=== PATIENT | female | born 1930 | race African-American/Black ===

== ENCOUNTER → 2017-06-27 | Outpatient (CLI) | payer MEDICARE, OTHER ==
--- NOTE | 2017-06-27 11:43 | WOMENS IMAGING REPORT ---
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 TECHNIQUE: Dual-Energy X-ray Absorptiometry (DEXA) of the AP Spine and Hip. LIMITATIONS: None. FINDINGS: LUMBAR SPINE: The bone mineral density (BMD) measured from L1-L4 in the AP projection correlates with a T-score of 6.0, which is normal as defined by the World Health Organization. HIP: The bone mineral density (BMD) measured in the left hip correlates with a T-score of 0.9, which is no rmal as defined by the World Health Organization. IMPRESSION: 1. LUMBAR SPINE: Normal 2. HIP: Normal COMMENT: The World Health Organization defines low BMD as follows: T-score: Normal: Greater than -1.0 Osteopenia: Between -1.0 and -2.5 Osteoporosis: Less than -2.5 without fractures Established osteoporosis: Less than -2.5 with fractures In general, you may wish to consider: Diagnosis Treatment Follow-up DEXA Normal BMD Prevention 2-3 years Osteopenia Prevention/Therapy 1-2 years Osteoporosis Therapy Yearly TECHNICAL DOCUMENTATION: JOB ID: [id number]- All Rights Reserved
--- NOTE | 2017-06-27 19:11 | WOMENS IMAGING REPORT ---
EXAM DESCRIPTION: 3D SCREENING MAMMO BILAT COMPLETED DATE/TIME: 06/27/2017 10:12 am REASON FOR STUDY: ROUTINE SCREENING; Z12.31 Z12.31 ENCNTR SCREEN MAMMOGRAM FOR MALIGNANT NEOPLASM O F SANNA M81.0 AGE-RELATED OSTEOPOROSIS W/O CURRENT PATHOLOGICAL FRAC COMPARISON: 2009, 2012 TECHNIQUE: Standard craniocaudal and mediolateral oblique views of each breast recorded using digita l acquisition and breast tomosynthesis. LIMITATIONS: None. FINDINGS: Findings present which are benign by mammographic criteria. No suspicious masses, calcifi cations or architectural distortion. Pertinent benign findings: Stable left breast upper outer quadrant intramammary lymph node. Benign s kin calcifications. Read with the assistance of CAD. .[facility] - R2 Cenova Version 1.3 .[facility] Imaging - R2 Cenova Version 1.3 .[facility] - R2 Cenova Version 2.4 .[facility] R2 Cenova Version 2.4 .[facility] - R2 Lumber Sticker Version 9.2 Benign mammographic findings may include one or more of the following: Smooth masses, popcorn/rim/co arse calcifications, asymmetries, post-procedure changes, and lesions with long-standing stability. IMPRESSION: BENIGN MAMMOGRAPHIC FINDINGS. BIRADS 2 BREAST DENSITY: b. There are scattered areas of fibroglandular density. BIRAD: 2 BENIGN FINDING(S) RECOMMENDATION: RECOMMENDATION: ROUTINE SCREENING Please continue yearly bilateral screening tomosynthesis in June 2018 COMMENT: The patient has been notified of the results by letter per MQSA requirements. Additional no tification policies are in place for contacting patient with suspicious or incomplete findings. Quality ID #[id number]: The [employer] recommends an annual screening mammogram for women aged 40 years or over. This facility utilizes a reminder system to ensure that all patients receive reminder letters, and/or direct phone calls for appointments. This includes reminders for routine scr eening mammograms, diagnostic mammograms, or other Breast Imaging Interventions when appropriate. Th is patient will be placed in the appropriate reminder system. The [employer] (ACR) has developed recommendations for screening MRI of the breast s in certain patient populations, to be used in conjunction with mammography. Breast MRI surveillanc e may be appropriate for women with more than 20% lifetime risk of developing breast cancer as deter mined by genetic testing, significant family history of the disease, or history of mantle radiation f or Hodgkins Disease. ACR Practice Guidelines 2008. DBT Technology DBT is a type of tomographic mammography. With conventional mammography, overlapping breast tissue ma y make lesions difficult to detect, even with good compression. DBT uses an x-ray tube that rotates a round the breast, taking images at different angles. These images are then combined to create thin sl ices of the breast that the radiologist can view as a 3D reconstruction. The Hologic unit can perform full-field digital mammograms (2D imaging); or DBT (3D imaging); or both, in a combination mode that quickly performs both the mammogram and the tomosynthesis scan while the breast is still compressed. PQRS 6045F: Fluoroscopic imaging is not utilized for breast tomosynthesis. TECHNICAL DOCUMENTATION: FINDING NUMBER: (1) ASSESSMENT: (1) JOB ID: [id number] [employer]- All Rights Reserved
== END ==
LOC: WI 09:15
PROVIDERS: ATTEND Physician Assistant
DX: Z12.31 Encounter for screening mammogram for malignant neoplasm of breast (principal); M81.0 Age-related osteoporosis without current pathological fracture
CPT/HCPCS: 77063; 77080; G0202; 77067

== ENCOUNTER 2017-12-23 06:57 | Emergency (ER) | payer MEDICARE, OTHER ==
[2017-12-23] MEDS ORDERED: FUROSEMIDE INJ/PF 40 MG/4 ML SDV IV ONE (07:37)
--- NOTE | 2017-12-23 07:43 | ER Document Report ---
ED Respiratory Problem - General Chief Complaint: Shortness Of Breath Stated Complaint: BREATHING DIFFICULTY Time Seen by Provider: 12/23/17 07:12 Mode of Arrival: Wheelchair Information source: Patient Notes: HPI-87 years old female with a history of diabetes hypertension, possible congestive heart failure on Bumex, presents today with 1 week history of exertional shortness of breath, on minimal exertion. For example walking from car to the garage and within the house from room to kitchen. Denies any orthopnea, denies any chest pain palpitation or diaphoresis. Associated with shortness of breath. Denies any fever chills or productive cough. Denies any nausea vomiting. The lower extremity progressively getting bigger with edema. REVIEW OF SYSTEMS: CONSTITUTIONAL : Denies fever, chills, or sweats. Denies recent illness. EENT: Denies eye, ear, throat, or mouth pain or symptoms. Denies nasal or sinus congestion or discharge. Denies throat, tongue, or mouth swelling or difficulty swallowing. CARDIOVASCULAR: Denies chest pain. Denies palpitations or racing or irregular heart beat. Denies ankle edema. RESPIRATORY: Denies cough, cold, or chest congestion. Denies shortness of breath, difficulty breathing, or wheezing. GASTROINTESTINAL: Denies abdominal pain or distention. Denies nausea, vomiting , or diarrhea. Denies blood in vomitus, stools, or per rectum. Denies black, tarry stools. Denies constipation. GENITOURINARY: Denies difficulty urinating, painful urination, burning, frequency, blood in urine, or discharge. FEMALE GENITOURINARY: Denies vaginal bleeding, heavy or abnormal periods, irregular periods. Denies vaginal discharge or odor. MUSCULOSKELETAL: Denies back or neck pain or stiffness. Denies joint pain or swelling. SKIN: Denies rash, lesions or sores. HEMATOLOGIC : Denies easy bruising or bleeding. LYMPHATIC: Denies swollen, enlarged glands. NEUROLOGICAL: Denies confusion or altered mental status. Denies passing out or loss of consciousness. Denies dizziness or lightheadedness. Denies headache. Denies weakness or paralysis or loss of use of either side. Denies problems with gait or speech. Denies sensory loss, numbness, or tingling. Denies seizures. PSYCHIATRIC: Denies anxiety or stress. Denies depression, suicidal ideation, or homicidal ideation. ALL OTHER SYSTEMS REVIEWED AND NEGATIVE. PHYSICAL EXAMINATION: GENERAL: Well-appearing, well-nourished and in no acute distress. Morbidly obese HEAD: Atraumatic, normocephalic. EYES: Pupils equal round and reactive to light, extraocular movements intact, conjunctiva are normal. ENT: Nares patent, oropharynx clear without exudates. Moist mucous membranes. NECK: Normal range of motion, supple without lymphadenopathy LUNGS: Breath sounds clear to auscultation bilaterally and equal. No wheezes rales or rhonchi. HEART: Regular rate and rhythm without murmurs ABDOMEN: Soft, nontender, nondistended abdomen. No guarding, no rebound. No masses appreciated. Female : deferred Musculoskeletal: Normal range of motion, enlarged lower extremity, with 4+ pitting edema over the both lower extremities. Below the knee. No cyanosis. NEUROLOGICAL: Cranial nerves grossly intact. Normal speech, normal gait. Normal sensory, motor exams PSYCH: Normal mood, normal affect. SKIN: Warm, Dry, normal turgor, no rashes or lesions noted. Dictation was performed using [employer] voice recognition software TRAVEL OUTSIDE OF THE [place] IN LAST 30 DAYS: No - HPI Patient complains to provider of: CHF, Short of breath. No: Asthma, Chest pain , COPD, Cough, Hurts to breath, Other Duration: Intermittent episodes Initiating Event: No: Allergy, Aspiration/Choking, Exertion, Exposure to chemicals, Exposure to dust, Exposure to fumes, Exposure to mold, Exposure to smoke, Out of meds, Sports/exercise, URI, Other Quality of pain: denies: No pain, Achy, Burning, Cramping, Dull, Fullness, Pressure, Sharp, Stabbing, Throbbing, Other Context: denies: DVT, Factor V Leiden, Hx asthma, Hx CHF, Hx COPD, Malignancy, , Recent cardiac event, Recent foreign travel, Recent long distance trvl , Recent immobilization, Recent surgery, Smoker, Other - Related Data Allergies/Adverse Reactions: No Known Allergies Allergy (Unverified 04/20/14 11:24) Past Medical History - General Information source: Patient - Social History Smoking Status: Unknown if Ever Smoked Cigarette use (# per day): No Chew tobacco use (# tins/day): No Frequency of alcohol use: None Drug Abuse: None Lives with: Family Family History: Arthritis, CAD, COPD, CVA, DM, Hyperlipidemia, Hypertension Patient has suicidal ideation: No Patient has homicidal ideation: No - Past Medical History Cardiac Medical History: Reports: Hx Hypertension - CONTROLLED Denies: Hx Congestive Heart Failure, Hx Coronary Artery Disease, Hx Heart Attack, Hx Heart Murmur Pulmonary Medical History: Denies: Hx Asthma, Hx Bronchitis, Hx COPD, Hx Pneumonia, Hx Tuberculosis Neurological Medical History: Denies: Hx Cerebrovascular Accident, Hx Seizures Renal/ Medical History: Denies: Hx Peritoneal Dialysis GI Medical History: Denies: Hx Hepatitis, Hx Hiatal Hernia, Hx Ulcer Musculoskeltal Medical History: Reports Hx Arthritis, Denies Hx Muscle Weakness Infectious Medical History: Denies: Hx Hepatitis Past Surgical History: Reports: Hx Hysterectomy. Denies: Hx Mastectomy, Hx Open Heart Surgery, Hx Pacemaker - Immunizations Hx Diphtheria, Pertussis, Tetanus Vaccination: No Review of Systems - Review of Systems Notes: Dictated above Physical Exam - Vital signs Vitals: Pulse Resp BP Pulse Ox 91 19 157/79 H 98 12/23/17 07:09 12/23/17 07:09 12/23/17 07:09 12/23/17 07:09 Course - Re-evaluation Re-evalutation: 12/23/17 09:01 CHF have improved. Patient is comfortable - Vital Signs Vital signs: Temp Pulse Resp BP Pulse Ox 91 17 137/77 H 96 12/23/17 07:09 12/23/17 09:16 12/23/17 09:16 12/23/17 09:16 - Laboratory Result Diagrams: 12/23/17 07:45 12/23/17 07:45 Laboratory results interpreted by me: 12/23/17 12/23/17 07:45 07:45 RDW 14.2 H Carbon Dioxide 31 H BUN 28 H Glucose 212 H - EKG Interpretation by Or EKG shows normal: Sinus rhythm, [place] Rate: Normal Rhythm: NSR [place]/QRS: Right axis deviation When compared to previous EKG there are: No significant change Discharge - Discharge Clinical Impression: CHF NYHA class III (symptoms with mildly strenuous activities) Qualifiers: Congestive heart failure type: systolic Congestive heart failure chronicity: chronic Qualified Code(s): I50.22 - Chronic systolic (congestive) heart failure Condition: Fair Disposition: HOME, SELF-CARE Instructions: Congestive Heart Failure ([facility]), Diet to Decrease Risk of Heart Attack ([facility]) Referrals: REJI LEWIS PA [Primary Care Provider] - Follow up as needed
[2017-12-23 08:03] LABS: ABSOLUTE EOSINOPHILS # (AUTO) 0.2 10^3/uL (0.0-0.6); ABSOLUTE MONOCYTES (AUTO) 0.6 10^3/uL (0.1-1.4); ABSOLUTE NEUT (AUTO) 3.5 10^3/uL (1.7-8.2); BASOPHILS % (AUTO) 0.5 % (0-2); EOSINOPHILS % (AUTO) 3.2 % (0-6); HEMATOCRIT 39.2 % (36.0-47.0); LYMPHOCYTES % (AUTO) 31.5 % (13-45); MEAN CORPUSCULAR HEMOGLOBIN 30.8 pg (27.0-33.4); MEAN CORPUSCULAR HGB CONC 33.2 g/dL (32.0-36.0); MEAN CORPUSCULAR VOLUME 93 fl (80-97); MONOCYTES % (AUTO) 9.2 % (3-13); PLATELET COUNT 180 10^3/uL (150-450); RED BLOOD COUNT 4.22 10^6/uL (3.72-5.28); RED CELL DISTRIBUTION WIDTH 14.2 % (11.5-14.0); SEGMENTED NEUTROPHILS % (AUTO) 55.6 % (42-78); TOTAL CELLS COUNTED % (AUTO) 100 %; WHITE BLOOD COUNT 6.3 10^3/uL (4.0-10.5)
--- NOTE | 2017-12-23 08:15 | RADIOLOGY REPORT (SQ) ---
EXAM DESCRIPTION: CHEST SINGLE VIEW COMPLETED DATE/TIME: 12/23/2017 8:07 am REASON FOR STUDY: Shortness of breath COMPARISON: None. NUMBER OF VIEWS: One view. TECHNIQUE: Single frontal radiographic view of the chest acquired. LIMITATIONS: None. FINDINGS: LUNGS AND PLEURA: No opacities, masses or pneumothorax. No pleural effusion. MEDIASTINUM AND HILAR STRUCTURES: No masses or contour abnormality. HEART AND VASCULATURE: Cardiac enlargement. Vascular congestion. BONES: No acute findings. HARDWARE: None in the chest. OTHER: No other significant finding. IMPRESSION: CARDIAC ENLARGEMENT. VASCULAR CONGESTION. TECHNICAL DOCUMENTATION: JOB ID: [id number] [employer]- All Rights Reserved Reading location - IP/workstation name: [email or web address]
[2017-12-23 08:19] LABS: ALANINE AMINOTRANSFERASE 30 U/L (9-52); ALBUMIN 3.8 g/dL (3.5-5.0); ALKALINE PHOSPHATASE 94 U/L (38-126); ANION GAP 7 (5-19); ASPARTATE AMINO TRANSFERASE 31 U/L (14-36); BILIRUBIN,DIRECT 0.4 mg/dL (0.0-0.4); BILIRUBIN,TOTAL 0.4 mg/dL (0.2-1.3); BLOOD UREA NITROGEN 28 mg/dL (7-20); CALCIUM 9.1 mg/dL (8.4-10.2); CARBON DIOXIDE 31 mmol/L (22-30); CHLORIDE 105 mmol/L (98-107); GLUCOSE 212 mg/dL (75-110); SODIUM 142.6 mmol/L (137-145)
[2017-12-23 09:11] LABS: APPEARANCE,URINE SLIGHTLY-CLOUDY; BILIRUBIN,URINE NEGATIVE (NEGATIVE); COLOR,URINE YELLOW; GLUCOSE, URINE NEGATIVE (NEGATIVE); KETONES,URINE NEGATIVE (NEGATIVE); LEUKOCYTE ESTERASE,URINE NEGATIVE (NEGATIVE); NITRITE,URINE NEGATIVE (NEGATIVE); PROTEIN,URINE NEGATIVE (NEGATIVE); URINE SPECIFIC GRAVITY 1.013; UROBILINOGEN,URINE NEGATIVE mg/dL (<2.0)
[2017-12-23 09:19] VITALS: BP 137/77
--- NOTE | 2017-12-23 16:24 | EKG REPORT ---
SEVERITY:- ABNORMAL ECG - SINUS RHYTHM LEFT ANTERIOR FASCICULAR BLOCK CONSIDER ANTEROSEPTAL INFARCT NONSPECIFIC T ABNORMALITIES, LATERAL LEADS BORDERLINE PROLONGED QT INTERVAL : Confirmed by: Oneyda Richard 23-Dec-2017 16:23:17
== END 2017-12-23 09:33 | disposition home or self-care (01) ==
LOC: ER 06:57
DX: I11.0 Hypertensive heart disease with heart failure (principal); I50.22 Chronic systolic (congestive) heart failure; R06.02 Shortness of breath; E11.9 Type 2 diabetes mellitus without complications; R60.0 Localized edema; Z79.899 Other long term (current) drug therapy; E66.01 Morbid (severe) obesity due to excess calories; Z68.41 Body mass index [BMI] 40.0-44.9, adult
CPT/HCPCS: 93005; 99285; 96374; 36415; 85025; 80053; 81001; 84484; 83880; 71045; 93010; J1940

== ENCOUNTER → 2017-12-27 | Outpatient (CLI) | payer MEDICARE, OTHER ==
--- NOTE | 2017-12-27 19:19 | XCELERA REPORT ---
[address] [address] Transthoracic Echocardiogram Report Name: KODY REDNON Age: 87 yrs Gender: Female : 1930 Patient Status: Outpatient Patient Location: Study Date: 12/27/2017 02:24 PM Height: 63 in Weight: 230 lb BSA: 2.1 m2 Reason For Study: EDEMA Ordering Physician: REJI LEWIS Performed By: Daisy Barrios Interpretation Summary No signif pericardial effusion Ao root calcified, not dilated. AV is sclerotic with no , trace AR with no LV enlargement. Mild mitral annular calcificatin, No MVP/MS, trace MR with no LA enlargement. No LVH, normal LVEF 55% with no LV diastolic dysfunction, no obvious regional wall motion seen, although endocardial definiition is poor. No LA dialtation. No RV enlargement RVSP is 50mm Hg, RAP 3 mm Hg MMode/2D Measurements & Calculations RVDd: 3.0 cm LVIDd: 5.1 cm FS: 29.1 % Ao root diam: 3.2 cm IVSd: 1.0 cm LVIDs: 3.6 cm EDV(Teich): 125.1 ml LVPWd: 1.0 cm ESV(Teich): 55.5 ml Ao root area: 8.0 cm2 EF(Teich): 55.6 % LA dimension: 3.3 cm Doppler Measurements & Calculations MV E max keiry: MV P1/2t max keiry: Ao V2 max: AI max keiry: 76.7 cm/sec 76.4 cm/sec 148.0 cm/sec 365.5 cm/sec MV A max keiry: MV P1/2t: 66.0 msec Ao max PG: AI max P.4 cm/sec 8.8 mmHg 53.4 mmHg MV E/A: 0.97 MVA(P1/2t): 3.3 cm2 AI dec slope: MV dec slope: 339.0 cm/sec2 180.1 cm/sec2 MV dec time: AI P1/2t: 0.20 sec 594.4 msec LV V1 max PG: PA V2 max: PI end-d keiry: TR max keiry: 5.9 mmHg 69.6 cm/sec 85.5 cm/sec 342.1 cm/sec LV V1 max: PA max P.9 mmHg TR max P.4 cm/sec 46.8 mmHg I WMSI = 1.00 % Normal = 100 Segments Size X - Cannot 2 - 4 - 1-2 small Interpret 1 - Normal Hypokinetic 3 - AkineticDyskinetic 3-5 moderate 5 - 6-14 large Aneurysmal 15-16 diffuse : REJI LEWIS > Zac Lugo
== END ==
LOC: SP 13:59
PROVIDERS: ATTEND Physician Assistant
DX: R60.0 Localized edema (principal)
CPT/HCPCS: 93306

== ENCOUNTER → 2018-01-22 | Outpatient (CLI) | payer MEDICARE, OTHER ==
[2018-01-22 18:35] LABS: ABSOLUTE BASOPHILS # (AUTO) 0.1 10^3/uL (0.0-0.2); ABSOLUTE EOSINOPHILS # (AUTO) 0.1 10^3/uL (0.0-0.6); ABSOLUTE LYMPHOCYTES (AUTO) 1.6 10^3/uL (0.5-4.7); ABSOLUTE MONOCYTES (AUTO) 0.5 10^3/uL (0.1-1.4); ABSOLUTE NEUT (AUTO) 3.8 10^3/uL (1.7-8.2); BASOPHILS % (AUTO) 0.8 % (0-2); EOSINOPHILS % (AUTO) 2.4 % (0-6); HEMATOCRIT 39.5 % (36.0-47.0); HEMOGLOBIN 13.1 g/dL (12.0-15.5); LYMPHOCYTES % (AUTO) 26.2 % (13-45); MEAN CORPUSCULAR HEMOGLOBIN 30.7 pg (27.0-33.4); MEAN CORPUSCULAR HGB CONC 33.2 g/dL (32.0-36.0); MEAN CORPUSCULAR VOLUME 93 fl (80-97); MONOCYTES % (AUTO) 8.4 % (3-13); PLATELET COUNT 175 10^3/uL (150-450); RED BLOOD COUNT 4.27 10^6/uL (3.72-5.28); RED CELL DISTRIBUTION WIDTH 14.1 % (11.5-14.0); SEGMENTED NEUTROPHILS % (AUTO) 62.2 % (42-78); TOTAL CELLS COUNTED % (AUTO) 100 %; WHITE BLOOD COUNT 6.1 10^3/uL (4.0-10.5)
[2018-01-22 18:44] LABS: ALANINE AMINOTRANSFERASE 22 U/L (9-52); ALBUMIN 3.9 g/dL (3.5-5.0); ALKALINE PHOSPHATASE 108 U/L (38-126); ANION GAP 10 (5-19); ASPARTATE AMINO TRANSFERASE 18 U/L (14-36); BILIRUBIN,DIRECT 0.4 mg/dL (0.0-0.4); BILIRUBIN,TOTAL 0.5 mg/dL (0.2-1.3); BLOOD UREA NITROGEN 17 mg/dL (7-20); CALCIUM 9.5 mg/dL (8.4-10.2); CARBON DIOXIDE 36 mmol/L (22-30); CHLORIDE 98 mmol/L (98-107); CREATINE KINASE 62 U/L (30-135); GLUCOSE 224 mg/dL (75-110); POTASSIUM 3.8 mmol/L (3.6-5.0); SODIUM 143.8 mmol/L (137-145)
[2018-01-22 19:05] LABS: CREATINE KINASE MB 1.17 ng/mL (<4.55)
[2018-01-22 19:10] LABS: TROPONIN I < 0.012 ng/mL
== END ==
LOC: OD 16:47
PROVIDERS: ATTEND Physician Assistant
DX: R10.84 Generalized abdominal pain (principal)
CPT/HCPCS: 36415; 80053; 82550; 82553; 84484; 85025

== ENCOUNTER → 2018-02-13 | Outpatient (CLI) | payer MEDICARE, OTHER ==
--- NOTE | 2018-02-13 11:02 | RADIOLOGY REPORT (SQ) ---
EXAM DESCRIPTION: U/S ABDOMEN COMPLETE W/DOPPLER COMPLETED DATE/TIME: 02/13/2018 10:32 am REASON FOR STUDY: GENERALIZED ABD PAIN (R10.84) R10.84 GENERALIZED ABDOMINAL PAIN COMPARISON: None. TECHNIQUE: Dynamic and static grayscale images acquired of the abdomen and recorded on PACS. Additio nal selected color Doppler and spectral images recorded. LIMITATIONS: None. FINDINGS: PANCREAS: No masses. Visualized pancreatic duct normal caliber. LIVER: Enlarged at almost 20 cm. Generally normal parenchyma without evidence of mass or duct dilata tion. LIVER VASCULATURE: Normal directional flow of the main portal vein and hepatic veins. GALLBLADDER: Echogenic shadowing gallstones are noted. No wall thickening or pericholecystic fluid. ULTRASOUND-DETECTED GREEN'S SIGN: Negative. INTRAHEPATIC DUCTS AND COMMON DUCT: CBD and intrahepatic ducts normal caliber. No filling defects. INFERIOR VENA CAVA: Normal flow. AORTA: No aneurysm. RIGHT KIDNEY:Normal size. Normal echogenicity. No solid or suspicious masses. No hydronephrosis. No c alcifications. LEFT KIDNEY: Normal size. Normal echogenicity. No solid or suspicious masses. No hydronephrosis. No calcifications. SPLEEN: Normal size. No solid masses. PERITONEAL AND PLEURAL SPACES: No ascites or effusions. OTHER: No other significant finding. IMPRESSION: 1. Hepatomegaly. 2. Cholelithiasis. TECHNICAL DOCUMENTATION: JOB ID: [id number] [employer]- All Rights Reserved Reading location - IP/workstation name: [email or web address]
== END ==
LOC: RAD 09:50
PROVIDERS: ATTEND Physician Assistant
DX: K80.20 Calculus of gallbladder without cholecystitis without obstruction (principal); R10.84 Generalized abdominal pain; R16.0 Hepatomegaly, not elsewhere classified
CPT/HCPCS: 76700; 93976

== ENCOUNTER 2018-10-22 22:29 | Inpatient (IN) | payer MEDICARE, OTHER ==
--- NOTE | 2018-10-22 23:07 | RADIOLOGY REPORT (SQ) ---
EXAM DESCRIPTION: XR FEMUR 2 VIEWS COMPLETED DATE/TME: 10/22/2018 22:31 CLINICAL HISTORY: 87 years, Female, FALL COMPARISON: None. NUMBER OF VIEWS: 5 TECHNIQUE: 5 views right femur LIMITATIONS: None. FINDINGS: Osteopenia. Degenerative changes of the right hip. Postsurgical change of the right knee. Comminuted, displaced distal femoral diaphyseal/metadiaphyseal fracture deformity with displaced fracture fragments and overriding fracture fragments. No definitive involvement of the knee prosthesis. Associated soft tissue swelling. Vascular calcifications. IMPRESSION: Comminuted, displaced distal femur fracture, as above copyright 2010 [employer]- All Rights Reserved
[2018-10-22] MEDS ORDERED: FENTANYL CITRATE INJ/PF 100 MCG/2 ML AMPUL IV ONE (23:09)
--- NOTE | 2018-10-22 23:09 | ER Document Report ---
ED General - General Chief Complaint: Leg Injury Stated Complaint: FALL Time Seen by Provider: 10/22/18 22:45 Mode of Arrival: Medic Information source: Patient, Relative, Emergency Med Personnel Notes: 87-year-old female with hypertension, type 2 diabetes presents via EMS after a trip and fall at home. Patient states that she was walking at home with her walker when she went to turn her body causing her to stumble, tripped and landed on her right side. Patient denies loss of consciousness, head injury, neck pain. She denies any preceding chest pain, shortness of breath, dizziness. P atfarzad does have bilateral knee replacements. Patient currently complaining of right thigh pain. TRAVEL OUTSIDE OF THE [place] IN LAST 30 DAYS: No - HPI Onset: Just prior to arrival Onset/Duration: Sudden Quality of pain: Throbbing Severity: Moderate Associated symptoms: denies: Chest pain, Nonproductive cough, Productive cough, Headache, Nausea, Vomiting, Shortness of breath Exacerbated by: Movement Relieved by: Denies Similar symptoms previously: No Recently seen / treated by doctor: No - Related Data Allergies/Adverse Reactions: No Known Allergies Allergy (Unverified 04/20/14 11:24) Past Medical History - General Information source: Patient - Social History Smoking Status: Never Smoker Frequency of alcohol use: None Drug Abuse: None Lives with: Family Family History: Arthritis, CAD, COPD, CVA, DM, Hyperlipidemia, Hypertension - Past Medical History Cardiac Medical History: Reports: Hx Hypertension - CONTROLLED Denies: Hx Congestive Heart Failure, Hx Coronary Artery Disease, Hx Heart Attack, Hx Heart Murmur Pulmonary Medical History: Denies: Hx Asthma, Hx Bronchitis, Hx COPD, Hx Pneumonia, Hx Tuberculosis Neurological Medical History: Denies: Hx Cerebrovascular Accident, Hx Seizures Renal/ Medical History: Denies: Hx Peritoneal Dialysis GI Medical History: Denies: Hx Hepatitis, Hx Hiatal Hernia, Hx Ulcer Musculoskeletal Medical History: Reports Hx Arthritis, Denies Hx Muscle Weakness Infectious Medical History: Denies: Hx Hepatitis Past Surgical History: Reports: Hx Hysterectomy, Hx Orthopedic Surgery - bilat knee replacement. Denies: Hx Mastectomy, Hx Open Heart Surgery, Hx Pacemaker - Immunizations Hx Diphtheria, Pertussis, Tetanus Vaccination: No Review of Systems - Review of Systems Notes: REVIEW OF SYSTEMS: CONSTITUTIONAL : Denies fever, chills, or sweats. Denies recent illness. Denies weight loss, recent hospitalizations. EENT: Denies visual changes, eye pain. Denies sore throat, oral lesions, difficulty swallowing. CARDIOVASCULAR: Denies chest pain. Denies palpitations. Denies lower extremity edema. RESPIRATORY: Denies cough. Denies shortness of breath, wheezing. GASTROINTESTINAL: Denies abdominal pain or distention. Denies nausea, vomiting, or diarrhea. Denies blood in vomitus, stools, or per rectum. Denies black, tarry stools. Denies constipation. GENITOURINARY: Denies difficulty urinating, painful urination, frequency, blood in urine, or vaginal discharge. MUSCULOSKELETAL: Denies back or neck pain or stiffness. SKIN: Denies rash, lesions or sores. HEMATOLOGIC : Denies easy bruising or bleeding. LYMPHATIC: Denies swollen glands. NEUROLOGICAL: Denies confusion or altered mental status. Denies loss of consciousness. Denies dizziness or lightheadedness. Denies headache. Denies weakness or paralysis. Denies problems difficulty with ambulation, slurred speech. Denies sensory loss, numbness, or tingling. Denies seizures. PSYCHIATRIC: Denies anxiety or stress. Denies depression, suicidal ideation, or homicidal ideation. Denies visual or auditory hallucinations. Physical Exam - Vital signs Vitals: Resp Pulse Ox 16 96 10/22/18 22:59 10/22/18 22:59 - Notes Notes: PHYSICAL EXAMINATION: GENERAL: Well-appearing, well-nourished and in mild distress. GCS 15 HEAD: Atraumatic, normocephalic. EYES: Pupils equal round and reactive to light, extraocular movements intact, sclera anicteric, conjunctiva are normal. ENT: Nares patent, oropharynx clear without exudates. Moist mucous membranes. No hemanotympanum . No blood in nares. No dental fracture NECK: Normal range of motion, supple without lymphadenopathy. Trachea midline LUNGS: Breath sounds clear to auscultation bilaterally and equal. No wheezes rales or rhonchi. HEART: Regular rate and rhythm without murmurs. Pulses intact all throughout. ABDOMEN: Soft, nontender, nondistended abdomen. No guarding, no rebound. No masses appreciated. Musculoskeletal: Right lower extremity is externally rotated. No obvious deformity. Patient unable to move the right lower extremity. She is able to wiggle her toes. DP, PT pulse intact. Cap refill less than 3 seconds. NEUROLOGICAL: Cranial nerves grossly intact. Normal speech Normal sensory, motor, and reflex exams. PSYCH: Normal mood, normal affect. SKIN: Warm, No active bleeding Course - Re-evaluation Re-evalutation: Laboratory 10/22/18 10/22/18 10/22/18 23:02 23:02 23:02 WBC 6.0 RBC 4.38 Hgb 13.5 Hct 40.8 MCV 93 MCH 30.9 MCHC 33.2 RDW 14.9 H Plt Count 166 Seg Neutrophils % 60.9 Lymphocytes % 26.2 Monocytes % 9.7 Eosinophils % 2.8 Basophils % 0.4 Absolute Neutrophils 3.7 Absolute Lymphocytes 1.6 Absolute Monocytes 0.6 Absolute Eosinophils 0.2 Absolute Basophils 0.0 PT 12.7 INR 0.91 APTT 31.2 Sodium 140.6 Potassium 3.9 Chloride 100 Carbon Dioxide 35 H Anion Gap 6 BUN 18 Creatinine 0.81 Est GFR ( Amer) > 60 Est GFR (Non-Af Amer) > 60 Glucose 164 H Calcium 9.2 Urine Color Urine Appearance Urine pH Ur Specific [place] Urine Protein Urine Glucose (UA) Urine Ketones Urine Blood Urine Nitrite Urine Bilirubin Urine Urobilinogen Ur Leukocyte Esterase Urine WBC (Auto) Urine RBC (Auto) Urine Bacteria (Auto) Squamous Epi Cells Auto Urine Mucus (Auto) Urine Ascorbic Acid 10/22/18 23:20 WBC RBC Hgb Hct MCV MCH MCHC RDW Plt Count Seg Neutrophils % Lymphocytes % Monocytes % Eosinophils % Basophils % Absolute Neutrophils Absolute Lymphocytes Absolute Monocytes Absolute Eosinophils Absolute Basophils PT INR APTT Sodium Potassium Chloride Carbon Dioxide Anion Gap BUN Creatinine Est GFR ( Amer) Est GFR (Non-Af Amer) Glucose Calcium Urine Color YELLOW Urine Appearance SLIGHTLY-CLOUDY Urine pH 7.0 Ur Specific [place] 1.011 Urine Protein NEGATIVE Urine Glucose (UA) NEGATIVE Urine Ketones NEGATIVE Urine Blood SMALL H Urine Nitrite POSITIVE H Urine Bilirubin NEGATIVE Urine Urobilinogen NEGATIVE Ur Leukocyte Esterase SMALL H Urine WBC (Auto) 18 Urine RBC (Auto) 14 Urine Bacteria (Auto) 2+ Squamous Epi Cells Auto <1 Urine Mucus (Auto) RARE Urine Ascorbic Acid NEGATIVE Chest X-Ray 10/22/18 00:00 IMPRESSION: Cardiomegaly. Lungs are clear copyright 2011 [employer]- All Rights Reserved Femur X-Ray 10/22/18 22:31 IMPRESSION: Comminuted, displaced distal femur fracture, as above copyright 2010 [employer]- All Rights Reserved Temp Pulse Resp BP Pulse Ox 13 172/78 H 93 10/22/18 23:18 10/22/18 23:18 10/22/18 23:18 87-year-old female presents after a trip and fall at home. Vital signs reviewed and stable. Patient complaining of right lower extremity pain. Patient denies head injury, loss of consciousness. Exam is significant for an externally rotated right lower extremity, no obvious deformity. Pulses intact, patient able to wiggle her toes, compartments are soft. 10/22/18 23:[address] le orthopedic on-call who recommends a long leg splint. Does not recommend traction at this time. Patient will be admitted by Dr. Galdamez. Orthopedic consult placed. CBC, CMP are unremarkable. Urinalysis consistent with urinary tract infection. Patient will be admitted to the medical floor by Dr. Galdamez. 10/23/18 03:44 - Vital Signs Vital signs: Temp Pulse Resp BP Pulse Ox 97.4 F 75 18 160/84 H 94 10/23/18 02:25 10/23/18 02:25 10/23/18 02:25 10/23/18 02:25 10/23/18 02:25 - Laboratory Result Diagrams: 10/22/18 23:02 10/22/18 23:02 Laboratory results interpreted by me: 10/22/18 10/22/18 10/22/18 23:02 23:02 23:20 RDW 14.9 H Carbon Dioxide 35 H Glucose 164 H Urine Blood SMALL H Urine Nitrite POSITIVE H Ur Leukocyte Esterase SMALL H - Diagnostic Test Radiology reviewed: Image reviewed, Reports reviewed Procedures - Immobilization Right Leg Time completed: 03:46 Pre-Proc Neuro Vasc Exam: Normal Immobilizer type: Long leg posterior Performed by: PCT Post-Proc Neuro Vasc Exam: Normal Discharge - Discharge Clinical Impression: Elevated blood pressure reading Femoral distal fracture Qualifiers: Encounter type: initial encounter Fracture type: closed Fracture morphology: unspecified fracture morphology Laterality: right Qualified Code(s): S72.401A - Unspecified fracture of lower end of right femur, initial encounter for closed fracture Fall Qualifiers: Encounter type: initial encounter Qualified Code(s): W19.XXXA - Unspecified fall, initial encounter UTI (urinary tract infection) Qualifiers: Urinary tract infection type: site unspecified Hematuria presence: with hematuria Qualified Code(s): N39.0 - Urinary tract infection, site not specified; R31.9 - Hematuria, unspecified Condition: Good Disposition: ADMITTED INPATIENT Admitting Provider: Galdamez Unit Admitted: Medical Floor
--- NOTE | 2018-10-22 23:12 | RADIOLOGY REPORT (SQ) ---
EXAM DESCRIPTION: XR CHEST 1 VIEW COMPLETED DATE/TME: 10/22/2018 00:00 CLINICAL HISTORY: 87 years, Female, FALL COMPARISON: 12/23/2017 chest NUMBER OF VIEWS: 1 TECHNIQUE: Portable chest LIMITATIONS: None. FINDINGS: Cardiomegaly. Ectasia thoracic aorta. Mild elevation right hemidiaphragm. Lungs are clear. No pneumothorax IMPRESSION: Cardiomegaly. Lungs are clear copyright 2011 [employer]- All Rights Reserved
[2018-10-22 23:20] LABS: ABSOLUTE EOSINOPHILS # (AUTO) 0.2 10^3/uL (0.0-0.6); ABSOLUTE LYMPHOCYTES (AUTO) 1.6 10^3/uL (0.5-4.7); ABSOLUTE MONOCYTES (AUTO) 0.6 10^3/uL (0.1-1.4); ABSOLUTE NEUT (AUTO) 3.7 10^3/uL (1.7-8.2); BASOPHILS % (AUTO) 0.4 % (0-2); EOSINOPHILS % (AUTO) 2.8 % (0-6); HEMATOCRIT 40.8 % (36.0-47.0); HEMOGLOBIN 13.5 g/dL (12.0-15.5); LYMPHOCYTES % (AUTO) 26.2 % (13-45); MEAN CORPUSCULAR HEMOGLOBIN 30.9 pg (27.0-33.4); MEAN CORPUSCULAR HGB CONC 33.2 g/dL (32.0-36.0); MEAN CORPUSCULAR VOLUME 93 fl (80-97); MONOCYTES % (AUTO) 9.7 % (3-13); PLATELET COUNT 166 10^3/uL (150-450); RED BLOOD COUNT 4.38 10^6/uL (3.72-5.28); RED CELL DISTRIBUTION WIDTH 14.9 % (11.5-14.0); SEGMENTED NEUTROPHILS % (AUTO) 60.9 % (42-78); TOTAL CELLS COUNTED % (AUTO) 100 %
[2018-10-22 23:26] LABS: INTERNATIONAL RATION (INR) 0.91; PROTHROMBIN TIME 12.7 SEC (11.4-15.4)
[2018-10-22 23:27] LABS: PARTIAL THROMBOPLASTIN TIME 31.2 SEC (23.5-35.8)
[2018-10-22 23:39] LABS: ANION GAP 6 (5-19); BLOOD UREA NITROGEN 18 mg/dL (7-20); CALCIUM 9.2 mg/dL (8.4-10.2); CARBON DIOXIDE 35 mmol/L (22-30); CHLORIDE 100 mmol/L (98-107); GLUCOSE 164 mg/dL (75-110); POTASSIUM 3.9 mmol/L (3.6-5.0); SODIUM 140.6 mmol/L (137-145)
[2018-10-22 23:40] LABS: APPEARANCE,URINE SLIGHTLY-CLOUDY; BILIRUBIN,URINE NEGATIVE (NEGATIVE); COLOR,URINE YELLOW; GLUCOSE, URINE NEGATIVE (NEGATIVE); KETONES,URINE NEGATIVE (NEGATIVE); LEUKOCYTE ESTERASE,URINE SMALL (NEGATIVE); NITRITE,URINE POSITIVE (NEGATIVE); PROTEIN,URINE NEGATIVE (NEGATIVE); URINE SPECIFIC GRAVITY 1.011; UROBILINOGEN,URINE NEGATIVE mg/dL (<2.0)
[2018-10-22] MEDS ORDERED: ACETAMINOPHEN 325 MG TABLET PO PRN (23:51)
[2018-10-22] MEDS ORDERED: DEXTROSE 40% GEL 15 GM TUBE PO PRN ×2 (23:55)
[2018-10-22] MEDS ORDERED: GLUCAGON,HUMAN RECOMB 1 MG INJ IM PRN (23:55)
[2018-10-22] MEDS ORDERED: DEXTROSE 50%-WATER 25 GM/50 ML DISP.SYRIN IV PRN ×2 (23:55)
[2018-10-23] MEDS ORDERED: HYDROMORPHONE HCL INJ/PF 2 MG/ML AMPULE IV ONE (00:02)
[2018-10-23] MEDS ORDERED: CEFTRIAXONE 1 GM/D5W RTU 1 GM/50 ML RTUPB IV ONE (01:00)
[2018-10-23] MEDS: OXYCODONE-ACETAMINOPHEN 5-325 MG TABLET PO PRN ×3 (03:15→22:37)
[2018-10-23 05:37] LABS: ABSOLUTE EOSINOPHILS # (AUTO) 0.1 10^3/uL (0.0-0.6); ABSOLUTE LYMPHOCYTES (AUTO) 1.3 10^3/uL (0.5-4.7); ABSOLUTE MONOCYTES (AUTO) 0.6 10^3/uL (0.1-1.4); ABSOLUTE NEUT (AUTO) 5.7 10^3/uL (1.7-8.2); BASOPHILS % (AUTO) 0.4 % (0-2); HEMATOCRIT 37.5 % (36.0-47.0); HEMOGLOBIN 12.4 g/dL (12.0-15.5); LYMPHOCYTES % (AUTO) 16.9 % (13-45); MEAN CORPUSCULAR HEMOGLOBIN 30.8 pg (27.0-33.4); MEAN CORPUSCULAR HGB CONC 33.1 g/dL (32.0-36.0); MEAN CORPUSCULAR VOLUME 93 fl (80-97); MONOCYTES % (AUTO) 7.5 % (3-13); PLATELET COUNT 141 10^3/uL (150-450); RED BLOOD COUNT 4.03 10^6/uL (3.72-5.28); RED CELL DISTRIBUTION WIDTH 14.8 % (11.5-14.0); SEGMENTED NEUTROPHILS % (AUTO) 74.2 % (42-78); TOTAL CELLS COUNTED % (AUTO) 100 %; WHITE BLOOD COUNT 7.7 10^3/uL (4.0-10.5)
[2018-10-23 05:56] LABS: ANION GAP 8 (5-19); BLOOD UREA NITROGEN 18 mg/dL (7-20); CALCIUM 8.6 mg/dL (8.4-10.2); CARBON DIOXIDE 30 mmol/L (22-30); CHLORIDE 100 mmol/L (98-107); GLUCOSE 333 mg/dL (75-110); POTASSIUM 3.9 mmol/L (3.6-5.0); SODIUM 137.6 mmol/L (137-145)
--- NOTE | 2018-10-23 07:22 | PDOC CONSULTATION ---
Consultation Consult Date: 10/23/18 Consult reason:: Periprosthetic right distal femur fracture History of Present Illness Admission Date/PCP: 10/22/18 23:58 OSIEL WOODS MD History of Present Illness: KODY RENDON is a 87 year old female Patient is an 87-year-old black female known to me from outpatient clinic visits who presented to the emergency room status post a fall and was diagnosed with a right distal femoral periprosthetic fracture. She is admitted to Dr. Woods and orthopedics is consulted for fracture management. Past Medical History Cardiac Medical History: Reports: Hypertension - CONTROLLED Denies: Congestive Heart Failure, Coronary Artery Disease, Myocardial Infarction, Heart Murmur Pulmonary Medical History: Denies: Asthma, Bronchitis, Chronic Obstructive Pulmonary Disease (COPD), Pneumonia, Tuberculosis Neurological Medical History: Denies: Seizures Endocrine Medical History: Reports: Diabetes Mellitus Type 2 GI Medical History: Denies: Hepatitis, Hiatal Hernia Musculoskeltal Medical History: Reports: Arthritis Hematology: Denies: Anemia, Hemophilia, Sickle Cell Disease Past Surgical History Past Surgical History: Reports: Hysterectomy, Orthopedic Surgery - bilat knee replacement Denies: Amputation, Mastectomy, Pacemaker Social History Information Source: Patient, Relative, Dr. Winter, [facility] Records Lives with: Family Smoking Status: Never Smoker Number of Years Smokin Last Time Smoked: 1950s Frequency of Alcohol Use: None Hx Recreational Drug Use: No Drugs: None Hx Prescription Drug Abuse: No - Advance Directive Resuscitation Status: Full Code Family History Family History: Arthritis, CAD, COPD, CVA, DM, Hyperlipidemia, Hypertension Parental Family History Reviewed: No Children Family History Reviewed: No Sibling(s) Family History Reviewed.: No Medication/Allergy Home Medications: Alprazolam [Xanax 0.5 Mg Tablet] 0.5 mg PO BID 06/20/12 Aspirin [Ecotrin 81 mg EC Tablet] 81 mg PO DAILY 06/20/12 Clonidine HCl 0.1 mg PO BID 06/20/12 Insulin Aspart Protam & Aspart [Novolog Mix 70-30 Vial] 25 unit SQ BID 06/20/12 Lisinopril 40 mg PO DAILY 06/20/12 Metoprolol Succinate [Toprol XL 100 mg Tablet] 100 mg PO DAILY 06/20/12 Nifedipine [Procardia XL 60 mg Tablet] 60 mg PO DAILY 06/20/12 Beta-Carotene(A)-Vits C,E/Mins [Vision Vitamins Tablet] 1 tab PO DAILY 04/20/14 Oxycodone HCl 5 mg PO Q6H 04/20/14 Gabapentin [Neurontin 100 mg Capsule] 1 tab PO DAILY 10/23/18 Triamterene/Hydrochlorothiazid [Maxzide-25 Tablet] 1 tab PO DAILY 10/23/18 Allergies/Adverse Reactions: levofloxacin [From Levaquin] Allergy (Verified 10/23/18 04:02) Fever nitrofurantoin Allergy (Verified 10/23/18 04:02) Fever Review of Systems All systems: as per H Physical Exam Vital Signs: Temp Pulse Resp BP Pulse Ox 36.6 C 77 18 142/67 H 93 10/23/18 04:42 10/23/18 04:42 10/23/18 04:42 10/23/18 04:42 10/23/18 04:42 Intake & Output 10/22/18 10/23/18 10/24/18 06:59 06:59 06:59 Intake Total 50 Output Total 500 Balance -450 Weight 121 kg Physical Exam: The patient is an overweight to obese elderly black female lying in a hospital bed. She is accompanied by her daughter. The patient is in minor discomfort. She is alert oriented and appropriate. General appearance: PRESENT: mild distress, obese, well-nourished Head exam: PRESENT: normocephalic Respiratory exam: PRESENT: unlabored Cardiovascular exam: PRESENT: RRR Pulses: PRESENT: +1 pedal pulses bilateral Vascular exam: PRESENT: normal capillary refill GI/Abdominal exam: PRESENT: soft Rectal exam: PRESENT: deferred Extremities exam: PRESENT: other - Right lower extremity is immobilized in a posterior splint. Its externally rotated. There is brisk capillary refill to the digits. The patient is able to wiggle her great toe. Neurological exam: PRESENT: alert, awake, oriented to person, oriented to place, oriented to time, oriented to situation. ABSENT: motor sensory deficit Psychiatric exam: PRESENT: appropriate affect, normal mood. ABSENT: homicidal ideation, suicidal ideation Skin exam: PRESENT: dry, intact, warm. ABSENT: cyanosis, rash Results Laboratory Results: 10/23/18 05:01 10/23/18 05:01 10/22/18 10/22/18 10/22/18 23:02 23:02 23:02 WBC 6.0 RBC 4.38 Hgb 13.5 Hct 40.8 MCV 93 MCH 30.9 MCHC 33.2 RDW 14.9 H Plt Count 166 Seg Neutrophils % 60.9 Lymphocytes % 26.2 Monocytes % 9.7 Eosinophils % 2.8 Basophils % 0.4 Absolute Neutrophils 3.7 Absolute Lymphocytes 1.6 Absolute Monocytes 0.6 Absolute Eosinophils 0.2 Absolute Basophils 0.0 Sodium 140.6 Potassium 3.9 Chloride 100 Carbon Dioxide 35 H Anion Gap 6 BUN 18 Creatinine 0.81 Est GFR ( Amer) > 60 Est GFR (Non-Af Amer) > 60 Glucose 164 H Calcium 9.2 Magnesium Urine Color Urine Appearance Urine pH Ur Specific [place] Urine Protein Urine Glucose (UA) Urine Ketones Urine Blood Urine Nitrite Ur Leukocyte Esterase Urine WBC (Auto) Urine RBC (Auto) Blood Type AB POSITIVE Antibody Screen NEGATIVE 10/22/18 10/23/18 10/23/18 23:20 05:01 05:01 WBC 7.7 RBC 4.03 Hgb 12.4 Hct 37.5 MCV 93 MCH 30.8 MCHC 33.1 RDW 14.8 H Plt Count 141 L Seg Neutrophils % 74.2 Lymphocytes % 16.9 Monocytes % 7.5 Eosinophils % 1.0 Basophils % 0.4 Absolute Neutrophils 5.7 Absolute Lymphocytes 1.3 Absolute Monocytes 0.6 Absolute Eosinophils 0.1 Absolute Basophils 0.0 Sodium 137.6 Potassium 3.9 Chloride 100 Carbon Dioxide 30 Anion Gap 8 BUN 18 Creatinine 0.73 Est GFR ( Amer) > 60 Est GFR (Non-Af Amer) > 60 Glucose 333 H Calcium 8.6 Magnesium 1.9 Urine Color YELLOW Urine Appearance SLIGHTLY-CLOUDY Urine pH 7.0 Ur Specific [place] 1.011 Urine Protein NEGATIVE Urine Glucose (UA) NEGATIVE Urine Ketones NEGATIVE Urine Blood SMALL H Urine Nitrite POSITIVE H Ur Leukocyte Esterase SMALL H Urine WBC (Auto) 18 Urine RBC (Auto) 14 Blood Type Antibody Screen Impressions: Chest X-Ray 10/22/18 00:00 IMPRESSION: Cardiomegaly. Lungs are clear copyright 2010 [employer]- All Rights Reserved Femur X-Ray 10/22/18 22:31 IMPRESSION: Comminuted, displaced distal femur fracture, as above copyright 2010 [employer]- All Rights Reserved Status: Imported from PACS Assessment & Plan - Diagnosis (1) Femoral distal fracture Qualifiers: Encounter type: initial encounter Fracture type: closed Fracture morphology: unspecified fracture morphology Laterality: right Qualified Code(s): S72.401A - Unspecified fracture of lower end of right femur, initial encounter for closed fracture Is this a current diagnosis for this admission?: Yes Plan: 87-year-old black female with a right distal femoral periprosthetic fracture. Patient be best served with an open reduction internal fixation. This be in the form of a retrograde femoral nail. The operation take approximate 45 minutes and the associate with minimal blood loss in the sense that it can be done under tourniquet. This is discussed with the patient's daughter in detail. (2) UTI (urinary tract infection) Qualifiers: Urinary tract infection type: site unspecified Hematuria presence: with hematuria Qualified Code(s): N39.0 - Urinary tract infection, site not specified; R31.9 - Hematuria, unspecified Is this a current diagnosis for this admission?: Yes Plan: Patient has a urinary tract infection on the basis of urinalysis. Patient's received Rocephin empirically and cultures are pending. - Time Time Spent: 50 to 70 Minutes Anticipated discharge: SNF Within: Other
[2018-10-23] MEDS ORDERED: BETA CAROTENE VITS C E PO SCH ×2 (09:00→10:00)
[2018-10-23] MEDS ORDERED: MINS PO SCH ×2 (09:00→10:00)
[2018-10-23] MEDS ORDERED: ENOXAPARIN SODIUM INJ 40 MG/0.4 ML DISP.SYRIN SUBCUT SCH (10:00)
[2018-10-23] MEDS ORDERED: ASPIRIN 81 MG TABLET, ENT COATED PO SCH (10:00)
[2018-10-23] MEDS ORDERED: LISINOPRIL 10 MG TABLET PO SCH (10:00)
[2018-10-23] MEDS ORDERED: (PENDING PHARMACY ID) (Lisinopril [Lisinopril] 40 MG) PO SCH (10:00)
[2018-10-23] MEDS ORDERED: INSULIN ASPART PROTAM SQ SCH (10:00)
[2018-10-23] MEDS ORDERED: NIFEDIPINE 30 MG TAB.ER.24 PO SCH (10:00)
[2018-10-23] MEDS ORDERED: ASPART SQ SCH (10:00)
[2018-10-23] MEDS ORDERED: (PENDING PHARMACY ID) (Nifedipine [Procardia Xl 60 Mg Tablet] 60 MG) PO SCH (10:00)
[2018-10-23] MEDS: METOPROLOL SUCCINATE 50 MG TAB.SR.24H PO SCH (10:13)
[2018-10-23] MEDS: GABAPENTIN 100 MG CAPSULE PO SCH (10:14)
[2018-10-23] MEDS: TRIAMTERENE/HYDROCHLOROTHIAZIDE 37.5-25 MG TABLET PO SCH (10:15)
[2018-10-23] MEDS: HUM INSULIN NPH/REG INSULIN HM 100 UNIT/1 ML 3 ML SUBCUT SCH ×2 (10:15→18:10)
[2018-10-23] MEDS: DOCUSATE SODIUM 100 MG CAPSULE PO SCH (10:16)
[2018-10-23] MEDS: CLONIDINE HCL 0.1 MG TABLET PO SCH ×2 (10:16→18:31)
[2018-10-23] MEDS: ALPRAZOLAM 0.5 MG TABLET PO SCH ×2 (10:24→21:13)
--- NOTE | 2018-10-23 11:00 | Progress Note ---
Provider Note Provider Note: PRELIMINARY CARDIOLOGY NOTE by Dr. Edelmira Jefferson on 10/23/2018. Formal consult to follow. Patient seen at 10 AM on 10/23/18. REASON FOR CONSULTATION: Preoperative cardiac risk assessment for hip surgery. The patient has no anginal symptoms. She has no history of coronary artery disease. There is no prior history of DE or congestive heart failure. She has a history of hypertension and diabetes mellitus, GERD and anxiety. Her EKG shows sinus rhythm. Left left anterior fascicle block. LVH with repolarization abnormality. IMPRESSION/RECOMMENDATION. 1. Status post accidental fall and fracture right distal femur. For surgery. 2. Hypertension. 3. Diabetes mellitus type 2 insulin-dependent. 4. GERD. 5. Anxiety. 6. Preoperative cardiac risk assessment. The patient's cardiac status is stable. Continue current medications. The patient will be acceptable risk for surgery. Intra-and postoperatively we will monitor patient's heart rhythm on telemetry. Postoperatively we will get serial EKGs and enzymes. Discussed with the patient and the patient's daughter. Discussed with attending physician on record Dr. Galdamez.
[2018-10-23] MEDS ORDERED: BUPIVACAINE HCL 0.5%-EPI 1:200000 INJ/PF 30 ML VIAL ONE (12:53)
[2018-10-23] MEDS ORDERED: CEFAZOLIN INJ 1 GM VIAL ONE (12:55)
[2018-10-23] MEDS ORDERED: PROMETHAZINE HCL INJ 25 MG/1 ML VIAL IV PRN ×2 (13:34)
[2018-10-23] MEDS ORDERED: MEPERIDINE HCL/PF INJ 25 MG/1 ML DISP.SYRIN IV PRN (13:34)
[2018-10-23] MEDS ORDERED: DIPHENHYDRAMINE HCL 50 MG/ML VIAL IV PRN (13:34)
[2018-10-23] MEDS ORDERED: FENTANYL CITRATE INJ/PF 100 MCG/2 ML AMPUL IV PRN ×3 (13:34)
[2018-10-23] MEDS ORDERED: MORPHINE SULFATE 10 MG/ML INJ IV PRN (13:34)
--- NOTE | 2018-10-23 13:43 | PDOC H&P ---
History of Present Illness Admission Date/PCP: 10/22/18 23:58 OSIEL WOODS MD Patient complains of: Fall History of Present Illness: KODY RENDON is a 87 year old female This is a 87-year-old female with a history of the hypertension's hyperlipidemia anxiety disorder osteoarthritis fall yesterday at home and was complaining of her right leg pain and the patient find the nondisplaced femur fracture and admitting in the hospital for further evaluations Patient's denied any chest pain denied any shortness of the breath Patients denied any dizziness Patient is denied any headache Patient's denied any heart problem in the past the x-ray chest shows a cardi omegaly Patient's echocardiogram was done last year was suffered a normal EF The patient also found a urinary tract infections which patient has ongoing chronic recurrent infections Patient is denied any fever no chills Very extensive discussions with the patient on the bedside with her daughter reg arding the fracture and orthopedic evaluations done and suggest the surgery Past Medical History Cardiac Medical History: Reports: Hypertension - CONTROLLED Denies: Congestive Heart Failure, Coronary Artery Disease, Myocardial Infarction, Heart Murmur Pulmonary Medical History: Denies: Asthma, Bronchitis, Chronic Obstructive Pulmonary Disease (COPD), Pneumonia, Tuberculosis Neurological Medical History: Denies: Seizures Endocrine Medical History: Reports: Diabetes Mellitus Type 2 GI Medical History: Denies: Hepatitis, Hiatal Hernia Musculoskeltal Medical History: Reports: Arthritis Hematology: Denies: Anemia, Hemophilia, Sickle Cell Disease Past Surgical History Past Surgical History: Reports: Hysterectomy, Orthopedic Surgery - bilat knee replacement Denies: Amputation, Mastectomy, Pacemaker Social History Lives with: Family Smoking Status: Never Smoker Number of Years Smokin Last Time Smoked: Frequency of Alcohol Use: None Hx Recreational Drug Use: No Drugs: None Hx Prescription Drug Abuse: No - Advance Directive Resuscitation Status: Full Code Family History Family History: Arthritis, CAD, COPD, CVA, DM, Hyperlipidemia, Hypertension Parental Family History Reviewed: Yes Children Family History Reviewed: Yes Sibling(s) Family History Reviewed.: Yes Medication/Allergy Home Medications: Alprazolam [Xanax 0.5 Mg Tablet] 0.5 mg PO DAILY 06/20/12 Aspirin [Ecotrin 81 mg EC Tablet] 81 mg PO DAILYP PRN 06/20/12 Clonidine HCl 0.1 mg PO Q12 06/20/12 Insulin Aspart Protam & Aspart [Novolog Mix 70-30 Vial] 28 unit SQ BIDBS 06/20/12 Lisinopril 40 mg PO DAILY 06/20/12 Metoprolol Succinate [Toprol XL 100 mg Tablet] 100 mg PO DAILY 06/20/12 Nifedipine [Procardia XL 60 mg Tablet] 60 mg PO DAILY 06/20/12 Beta-Carotene(A)-Vits C,E/Mins [Vision Vitamins Tablet] 1 tab PO DAILY 04/20/14 Cyclobenzaprine HCl [Flexeril 5 mg Tablet] 10 mg PO DAILYP PRN 10/23/18 Oxycodone HCl/Acetaminophen [Percocet 10-325 Mg Tablet] 1 each PO Q8HP PRN 10/23/18 Ranitidine HCl [Zantac 150 mg Tablet] 150 mg PO BID 10/23/18 Triamterene/Hydrochlorothiazid [Maxzide-25 Tablet] 1 tab PO DAILY 10/23/18 Allergies/Adverse Reactions: levofloxacin [From Levaquin] Allergy (Verified 10/23/18 04:02) Fever nitrofurantoin Allergy (Verified 10/23/18 04:02) Fever Review of Systems Constitutional: ABSENT: chills, fever(s), headache(s), weight gain, weight loss Eyes: ABSENT: visual disturbances Ears: ABSENT: hearing changes Cardiovascular: ABSENT: chest pain, dyspnea on exertion, edema, orthropnea, palpitations Respiratory: ABSENT: cough, hemoptysis Gastrointestinal: ABSENT: abdominal pain, constipation, diarrhea, hematemesis, hematochezia, nausea, vomiting Genitourinary: ABSENT: dysuria, hematuria Musculoskeletal: ABSENT: joint swelling Integumentary: ABSENT: rash, wounds Neurological: ABSENT: abnormal gait, abnormal speech, confusion, dizziness, focal weakness, syncope Psychiatric: ABSENT: anxiety, depression, homidical ideation, suicidal ideation Endocrine: ABSENT: cold intolerance, heat intolerance, menstrual abnormalities, polydipsia, polyuria Hematologic/Lymphatic: ABSENT: easy bleeding, easy bruising, lymphadenopathy Physical Exam Vital Signs: Temp Pulse Resp BP Pulse Ox 97.9 F 82 14 165/83 H 100 10/23/18 07:27 10/23/18 07:27 10/23/18 07:27 10/23/18 07:27 10/23/18 07:27 Intake & Output 10/22/18 10/23/1819 06:59 06:59 06:59 Intake Total 50 Output Total 500 Balance -450 Weight 121 kg General appearance: PRESENT: no acute distress, well-developed, well-nourished Head exam: PRESENT: atraumatic, normocephalic Eye exam: PRESENT: conjunctiva pink, EOMI, PERRLA. ABSENT: scleral icterus Ear exam: PRESENT: normal external ear exam Mouth exam: PRESENT: moist, tongue midline Neck exam: PRESENT: full ROM. ABSENT: carotid bruit, JVD, lymphadenopathy, thyromegaly Respiratory exam: PRESENT: clear to auscultation genia Cardiovascular exam: PRESENT: RRR. ABSENT: diastolic murmur, rubs, systolic murmur Pulses: PRESENT: normal dorsalis pedis pul, +2 pedal pulses bilateral Vascular exam: PRESENT: normal capillary refill GI/Abdominal exam: PRESENT: normal bowel sounds, soft. ABSENT: distended, guarding, mass, organolmegaly, rebound, tenderness Rectal exam: PRESENT: deferred Extremities exam: ABSENT: pedal edema Additional comments: Lower extremities the splint is present Neurological exam: PRESENT: alert, awake, oriented to person, oriented to place, oriented to time, oriented to situation, CN II-XII grossly intact. ABSENT: motor sensory deficit Psychiatric exam: PRESENT: appropriate affect, normal mood. ABSENT: homicidal ideation, suicidal ideation Skin exam: PRESENT: dry, intact, warm. ABSENT: cyanosis, rash Results Laboratory Results: 10/23/18 05:01 10/23/18 05:01 10/22/18 10/22/18 10/22/18 23:02 23:02 23:02 WBC 6.0 RBC 4.38 Hgb 13.5 Hct 40.8 MCV 93 MCH 30.9 MCHC 33.2 RDW 14.9 H Plt Count 166 Seg Neutrophils % 60.9 Lymphocytes % 26.2 Monocytes % 9.7 Eosinophils % 2.8 Basophils % 0.4 Absolute Neutrophils 3.7 Absolute Lymphocytes 1.6 Absolute Monocytes 0.6 Absolute Eosinophils 0.2 Absolute Basophils 0.0 Sodium 140.6 Potassium 3.9 Chloride 100 Carbon Dioxide 35 H Anion Gap 6 BUN 18 Creatinine 0.81 Est GFR ( Amer) > 60 Est GFR (Non-Af Amer) > 60 Glucose 164 H Calcium 9.2 Magnesium Urine Color Urine Appearance Urine pH Ur Specific Davis Urine Protein Urine Glucose (UA) Urine Ketones Urine Blood Urine Nitrite Ur Leukocyte Esterase Urine WBC (Auto) Urine RBC (Auto) Blood Type AB POSITIVE Antibody Screen NEGATIVE 10/22/18 10/23/18 10/23/18 23:20 05:01 05:01 WBC 7.7 RBC 4.03 Hgb 12.4 Hct 37.5 MCV 93 MCH 30.8 MCHC 33.1 RDW 14.8 H Plt Count 141 L Seg Neutrophils % 74.2 Lymphocytes % 16.9 Monocytes % 7.5 Eosinophils % 1.0 Basophils % 0.4 Absolute Neutrophils 5.7 Absolute Lymphocytes 1.3 Absolute Monocytes 0.6 Absolute Eosinophils 0.1 Absolute Basophils 0.0 Sodium 137.6 Potassium 3.9 Chloride 100 Carbon Dioxide 30 Anion Gap 8 BUN 18 Creatinine 0.73 Est GFR ( Amer) > 60 Est GFR (Non-Af Amer) > 60 Glucose 333 H Calcium 8.6 Magnesium 1.9 Urine Color YELLOW Urine Appearance SLIGHTLY-CLOUDY Urine pH 7.0 Ur Specific Davis 1.011 Urine Protein NEGATIVE Urine Glucose (UA) NEGATIVE Urine Ketones NEGATIVE Urine Blood SMALL H Urine Nitrite POSITIVE H Ur Leukocyte Esterase SMALL H Urine WBC (Auto) 18 Urine RBC (Auto) 14 Blood Type Antibody Screen Impressions: Chest X-Ray 10/22/18 00:00 IMPRESSION: Cardiomegaly. Lungs are clear copyright 2011 [employer]- All Rights Reserved Femur X-Ray 10/22/18 22:31 IMPRESSION: Comminuted, displaced distal femur fracture, as above copyright 2011 [employer]- All Rights Reserved Assessment & Plan - Diagnosis (1) Femoral distal fracture Qualifiers: Encounter type: initial encounter Fracture type: closed Fracture morphology: unspecified fracture morphology Laterality: right Qualified Code(s): S72.401A - Unspecified fracture of lower end of right femur, initial encounter for closed fracture Is this a current diagnosis for this admission?: Yes Plan: Orthopedic surgery already consulted and suggest the surgery with the x-ray repo rts some cardiomegaly but patient does not have any cardiac symptoms cardiology consult is done patient is currently stable for the surgery (2) UTI (urinary tract infection) Qualifiers: Urinary tract infection type: site unspecified Hematuria presence: with hematuria Qualified Code(s): N39.0 - Urinary tract infection, site not specified; R31.9 - Hematuria, unspecified Is this a current diagnosis for this admission?: Yes Plan: Start the patient on a Rocephin (3) Fall Qualifiers: Encounter type: initial encounter Qualified Code(s): W19.XXXA - Unspecified fall, initial encounter Is this a current diagnosis for this admission?: Yes Plan: Patients need a physical therapy in the rehab (4) Hypertension Qualifiers: Hypertension type: essential hypertension Qualified Code(s): I10 - Essential (primary) hypertension Is this a current diagnosis for this admission?: Yes Plan: Is to current medication (5) Anxiety disorder Qualifiers: Anxiety disorder type: generalized anxiety disorder Qualified Code(s): F41.1 - Generalized anxiety disorder Is this a current diagnosis for this admission?: Yes Plan: Continues current medication (6) Hyperlipidemia Qualifiers: Hyperlipidemia type: unspecified Qualified Code(s): E78.5 - Hyperlipidemia, unspecified Is this a current diagnosis for this admission?: Yes (7) Osteoarthritis Qualifiers: Osteoarthritis location: unspecified site Is this a current diagnosis for this admission?: Yes - Time Time Spent: 30 to 50 Minutes Medications reviewed and adjusted accordingly: Yes Anticipated discharge: Acute Rehab Within: Other - Inpatient Certification Based on my medical assessment, after consideration of the patient's comorbidities, presenting symptoms, or acuity I expect that the services needed warrant INPATIENT care.: Yes I certify that my determination is in accordance with my understanding of Medicare's requirements for reasonable and necessary INPATIENT services [42 CFR 412.3e].: Yes Medical Necessity: Significant Comorbidiites Make Outpatient Treatment Too Risky, Need Close Monitoring Due to Risk of Patient Decompensation, Need for IV Antibiotics, Need for Surgery Post Hospital Care: D/C Delivery Person Documentation - Plan Summary Plan Summary: Admit the patient's telemetry bed Start the patient on IV antibiotic Cardiology consult done Orthopedic consult was also done Discussed with the patient and the daughter very extensively regarding the patient's current conditions
--- NOTE | 2018-10-23 14:23 | Operative Report ---
Operative Report DATE OF SURGERY: 10/23/18 PREOPERATIVE DIAGNOSIS: Periprosthetic right distal femur fracture OPERATION: Open reduction internal fixation right distal femur fracture SURGEON: JAMIL VALADEZ ANESTHESIA: Spinal ESTIMATED BLOOD LOSS: 50 PROCEDURE: With the patient supine on the operating table the right lower extremities prepped and draped in a sterile fashion. Limb is elevated to 300 mm and a sterile thigh tourniquet is inflated to 300 torr. A median parapatellar approach knee is taken in line with the previous surgical approach. The femoral notch is easily identified. I guide tara is placed across the distal femur up into the metaphysis and a combined reamer was used to fashion a cortical opening. Next a ball-tipped guide tara was placed through the distal femur up into the proximal femur. Femoral length measured to be 320 mm. Subsequently a Lorraine retrograde titanium distal femoral stem 320 mm x 11 mm advanced over the ball-tipped guide tara across the fracture and up into the proximal femur. It secured distally with one transverse screw and 2 oblique screws. The wound is irrigated the tourniquet is deflated and hemostasis obtained with electrocautery. The distal wounds and closure is interrupted Vicryl. Next freehand under fluoroscopic guidance a proximal AP screw was placed through the dynamic hole in the nail. The wounds were then closure is interrupted Vicryl followed by moisés. A sterile compressive dressing was applied and the patient's return to the PACU in satisfactory condition.
[2018-10-23] MEDS ORDERED: ONDANSETRON 4 MG TAB.RAPDIS SL PRN (14:47)
[2018-10-23] MEDS ORDERED: RINGERS SOLUTION,LACTATED 1,000 ML IV PRN (14:48)
[2018-10-23] MEDS ORDERED: LIDOCAINE 2% INJ-PF (20 MG/ML) 10 ML AMPUL ONE (15:05)
[2018-10-23] MEDS ORDERED: PROPOFOL INJ 200 MG/20 ML VIAL IV ONE (15:06)
[2018-10-23] MEDS ORDERED: FENTANYL CITRATE INJ/PF 100 MCG/2 ML AMPUL ONE (15:08)
[2018-10-23] MEDS ORDERED: PROMETHAZINE HCL INJ 25 MG/1 ML VIAL ONE (15:08)
[2018-10-23] MEDS ORDERED: MIDAZOLAM 2 MG/2 ML INJ ONE (15:09)
[2018-10-23] MEDS ORDERED: ONDANSETRON HCL INJ/PF 4 MG/2 ML SDV ONE (15:09)
[2018-10-23] MEDS ORDERED: EPHEDRINE SULFATE INJ 50 MG/1 ML AMPULE ONE (15:09)
--- NOTE | 2018-10-23 15:11 | RADIOLOGY REPORT (SQ) ---
EXAM DESCRIPTION: NO CHG FLUORO; FEMUR RIGHT COMPLETED DATE/TIME: 10/23/2018 3:00 pm REASON FOR STUDY: ORIF RT FEMUR ASST WITH FLUORO IN OR COMPARISON: None. FLUOROSCOPY TIME: 1.1 minutes 6 Images saved to PACS LIMITATIONS: None. PROCEDURE: ORIF right femur FINDINGS: Findings of fluoro document placement of a medullary tara in the distal femur. Screws are present extending transversely. A total knee arthroplasty is present. IMPRESSION: ORIF right femoral fracture. Refer to operative note for further information. COMMENT: PQRS 6045F: Fluoroscopy time of the procedure is documented in the report. TECHNICAL DOCUMENTATION: JOB ID: [id number] [employer]- All Rights Reserved Reading location - IP/workstation name: [email or web address]
--- NOTE | 2018-10-23 15:11 | RADIOLOGY REPORT (SQ) ---
EXAM DESCRIPTION: NO CHG FLUORO; FEMUR RIGHT COMPLETED DATE/TIME: 10/23/2018 3:00 pm REASON FOR STUDY: ORIF RT FEMUR ASST WITH FLUORO IN OR COMPARISON: None. FLUOROSCOPY TIME: 1.1 minutes 6 Images saved to PACS LIMITATIONS: None. PROCEDURE: ORIF right femur FINDINGS: Findings of fluoro document placement of a medullary tara in the distal femur. Screws are present extending transversely. A total knee arthroplasty is present. IMPRESSION: ORIF right femoral fracture. Refer to operative note for further information. COMMENT: PQRS 6045F: Fluoroscopy time of the procedure is documented in the report. TECHNICAL DOCUMENTATION: JOB ID: [id number] [employer]- All Rights Reserved Reading location - IP/workstation name: [email or web address]
[2018-10-23] MEDS ORDERED: IPRATROPIUM/ALBUTEROL 0.5-2.5 MG/3 ML AMPUL NEB PRN (16:06)
[2018-10-23] MEDS: MORPHINE SULFATE 10 MG/ML INJ IV PRN (18:57)
[2018-10-23] MEDS: CEFAZOLIN SODIUM 2 GM in DEXTROSE 5%-WATER 100 ML IV SCH (21:14)
[2018-10-23] MEDS: IBUPROFEN 800 MG in NORMAL SALINE 250 ML IV SCH (21:14)
--- NOTE | 2018-10-23 22:14 | PDOC CONSULTATION ---
Consultation-Blank Consultation: CARDIOLOGY CONSULTATION by Dr. Edelmira Jefferson on 10/23/2018. REASON FOR CONSULTATION: Cardiac risk assessment for right distal forearm and femur surgery. HISTORY OF PRESENT ILLNESS: Patient is a 87-year-old Afro-[place] female with no known history of hypertension, anxiety disorder, diabetes mellitus type 2 insulin-dependent, and osteoarthritis who had an accidental fall and has a fracture of the distal right femur. Patient for surgery for this. Hence request for cardiac risk assessment. The patient denies any chest pain or discomfort. There is no palpitations or dizziness near syncope syncope. She has no shortness of breath there is no PND orthopnea. There is no leg edema. There is no TIA CVA symptoms.. PAST MEDICAL HISTORY: History of hypertension present history of diabetes mellitus type 2 insulin-dependent. History of GERD. History of anxiety present. She has history of osteoarthritis. There is no history of thyroid disease. No history of asthma or COPD. No history of coronary artery disease, HI or anginal symptoms. No history of congestive heart failure. No history of palpitations or cardiac arrhythmia. No history of TIA CVA. No history of chronic kidney disease. History of recurrent urinary tract infections present. PAST SURGICAL HISTORY: History of hysterectomy. She has bilateral knee replacement.. FAMILY HISTORY: IS POSITIVE FOR CAD, COPD, CVA, DIABETES MELLITUS, HYPERLIPIDEMIA, AND HYPERTENSION. ALLERGIES: She is allergic to Levaquin and nitrofurantoin. SOCIAL HISTORY: The patient does not smoke. She has never smoked. There is no history of EtOH abuse. DISPOSITION: The patient is a full code. Her daughter is her surrogate healthcare decision maker REVIEW SYSTEMS: CONSTITUTIONAL: Denies any fever chills or rigors. Denies fatigue or generalized weakness. HEAD: No history of headaches or migraines. No history of head injury. EYES: No history of amblyopia diplopia. No history of amaurosis fugax. EARS: No history of hearing loss. No history of tinnitus. No history of vertigo. NOSE: No history of hayfever. No history of nosebleeds. No history of nasal polyps. MOUTH: No history of altered taste sensation. No ulcers in the mouth. No bleeding from the gums. THROAT: No history of odynophagia or dysphagia. No history of recurrent sore throats. SKIN: No history of pruritus. No history of eczema. No history of skin cancer. No history of psoriasis. No history of yellowish discoloration of the skin. NECK: No history of neck pain. No history of goiter. LUNGS: No history of asthma or COPD. No history of cough or sputum production. No history of wheezing. No history of sleep apnea. No history of pulmonary embolism. No pleuritic chest pain. No hemoptysis. No symptoms of upper or lower respiratory tract infections. No history of sleep apnea HEART: History of hypertension present no history of cardiac arrhythmia. No history of syncope. No history of PND, orthopnea, or leg edema, and no history of coronary artery disease. No history of HI or anginal symptoms. No history of congestive heart failure. No history of rheumatic fever. GI: No history of peptic ulcer disease. History of GERD present. No history of GI bleed. No history of fatty food intolerance.. No history of altered bowel movements no history of abdominal pain. No history of ascites. No history of cirrhosis. No history of jaundice. MUSCULOSKELETAL: History of osteoarthritis present. No history of cardiovascular disease. RENAL: No history of chronic kidney disease. History of recurrent urinary tract infections present none this admission. ENDOCRINE: History of diabetes mellitus type 2 insulin-dependent, with diabetic neuropathy. No history of polydipsia polyuria. No history of heat or cold intolerance. No history of thyroid disorder. No history of hirsutism. No history of excessive sweating. LEATHER COATER: No history of TIA CVA. NO HISTORY OF HEADACHES MIGRAINES OR SEIZURES. Psychiatric: History of anxiety present. No history of depression. No suicidal ideation. No history of homicidal ideation. METABO LIC: History of hyperlipidemia present no history of gout. History of morbid obesity present. VASCULAR: No history of calf or buttock claudication. No history of DVT. HEMATOLOGICAL: No history of blood dyscrasias. No history of bleeding diathesis. No history of clotting disorders. Physical EXAMINATION: The patient is morbidly obese. At present in no acute distress. She is well-groomed. Selected Entries 10/23/18 07:27 Temperature 97.9 F Temperature Oral Source Pulse Rate 82 Respiratory 14 Rate Blood Pressure 165/83 H Blood Pressure 110 Mean BP Location Right Arm BP Position Supine O2 Sat by Pulse 100 Oximetry Oxygen Delivery Room Air Method HEAD: Is atraumatic. Normocephalic. EYES: Pupils are equal round regular react to light accommodation. Extraocular movements are normal. There is no clinical pallor. There is no scleral icterus. EARS: Tympanic memories are intact. External ear canals are clear. NOSE: There is no inflammation of the nasal mucous membrane. There is no nasal polyps. MOUTH: Mucous members of mouth are moist tongue is moist. There are no ulcers. There is no bleeding from the gums. THROAT: There is no redness of the oropharynx. There is no exudates. SKIN: There is no petechia or ecchymosis. There is no skin lesions or skin rashes. NECK: Is supple. There is no JVD. Carotids are equal. There is no carotid bruits. There is no lymphadenopathy. There is no goiter. There is no accessory muscle respiration use. Trachea central. LUNGS: Clear to auscultation percussion, without any rhonchi rales or wheezing. There is no chest wall tenderness HEART: S1-S2 is heard. There is no S3 gallop there is no S4 gallop there is systolic murmur left sternal border and apex there is no rub. ABDOMEN: Is obese. Nontender. There is no hepatosplenomegaly. Bowel sounds are well heard. EXTREMITIES: Femorals are deep femorals are diminished. There is no femoral bruits. Leg pulses are well felt. There is no DVT or cellulitis. There is no pedal edema. There is no calf tenderness. There is no cyanosis or clubbing. Capillary refill is normal in both lower extremities. LEATHER COATER: The patient is conscious awake alert oriented x3 with no focal deficit. PSYCHIATRIC: At present the patient does not appear to be anxious, or depressed. Her judgment and insight are intact. 10/22/18 10/23/18 10/23/18 23:02 05:01 05:01 WBC 7.7 RBC 4.03 Hgb 12.4 Hct 37.5 MCV 93 MCH 30.8 MCHC 33.1 RDW 14.8 H Plt Count 141 L Seg Neutrophils % 74.2 Lymphocytes % 16.9 Monocytes % 7.5 Eosinophils % 1.0 Basophils % 0.4 Absolute Neutrophils 5.7 Absolute Lymphocytes 1.3 Absolute Monocytes 0.6 Absolute Eosinophils 0.1 Absolute Basophils 0.0 PT 12.7 INR 0.91 APTT 31.2 Sodium 137.6 Potassium 3.9 Chloride 100 Carbon Dioxide 30 Anion Gap 8 BUN 18 Creatinine 0.73 Est GFR ( Amer) > 60 Glucose 333 H Calcium 8.6 Magnesium 1.9 10/22/18 23:51 Acetaminophen [Tylenol 325 mg Tablet] 650 mg PO Q4HP PRN Oxycodone HCl/Acetaminophen [Percocet 5-325 mg Tablet] 1 tab PO Q6HP PRN 10/22/18 23:55 Dextrose 50%-Water [Dextrose Inj 50% Syringe (25 gm/50 ml)] 12.5 gm IV PRN PRN Dextrose 50%-Water [Dextrose Inj 50% Syringe (25 gm/50 ml)] 25 gm IV PRN PRN Dextrose [Glutose 40% Gel 15 gm Tube] 15 gm PO PRN PRN Dextrose [Glutose 40% Gel 15 gm Tube] 30 gm PO PRN PRN Glucagon,Human Recombinant [Glucagen Inj 1 mg Vial] 1 mg IM PRN PRN 10/23/18 00:02 Hydromorphone HCl/Pf [Dilaudid Inj/Pf 2 mg/ml Ampule] 0.5 mg IV NOW ONE 10/23/18 01:00 Ceftriaxone 1 gm/D5w RTU [Rocephin RTU 1 gm/D5w 50 ml Premix] 1 gm in 50 ml IV NOW 10/23/18 09:00 Beta-Carotene(A)-Vits C,E/Mins [Vision Vitamins Tablet] 1 tab PO .DAILY 10/23/18 10:00 Alprazolam [Xanax 0.5 mg Tablet] 0.5 mg PO BID Aspirin [Ecotrin 81 mg EC Tablet] 81 mg PO DAILY Clonidine HCl [Catapres 0.1 mg Tablet] 0.1 mg PO BID Docusate Sodium [Colace 100 mg Capsule] 100 mg PO DAILY Gabapentin [Neurontin 100 mg Capsule] 100 mg PO DAILY Hum Insulin NPH/Reg Insulin Hm [Insulin Inj 70-30 (100 Unit/1 ml) 3 ml Vial] 25 unit SUBCUT BID Lisinopril [Prinivil 10 mg Tablet] 40 mg PO DAILY Metoprolol Succinate [Toprol Xl 50 mg Tab.sr] 100 mg PO DAILY Nifedipine [Procardia Xl 30 mg Tablet] 60 mg PO DAILY Triamterene/Hydrochlorothiazid [Maxzide-25 Tablet] 1 tab PO DAILY 10/23/18 14:47 Ondansetron [Zofran Odt 4 mg Tablet] 4 mg SL Q6HP PRN Oxycodone HCl [Oxy-Ir 5 mg Tablet] 5 mg PO Q6HP PRN 10/23/18 15:09 Ondansetron HCl/Pf [Zofran Inj/Pf 4 mg/2 ml Sdv] 4 mg .ROUTE .[facility] ONE CHEST X-ray: No acute infiltrates. There is ectatic thoracic aorta. There is mild elevation of the right hemidiaphragm. EKG: Shows sinus rhythm. Left anterior fascicle block. Possible left ventricular hypertrophy with repolarization changes. IMPRESSION/RECOMMENDATION: 1. Status post accidental fall and fracture right distal femur for surgery. 2. Hypertension. Continue antihypertensive. Patient's blood pressure slightly elevated due to the patient's pain at the site of fracture. 3. Diabetes mellitus type 2, [id number]. Continue her antidiabetic medication. 4. GERD. Continue proton pump inhibitors. 5. Anxiety: Patient on anti-anxiolytic medication. 6. Morbid obesity. 7. Preoperative cardiac risk assessment. The patient with a stable cardiac status. Continue current medications. THE patient WILL BE ACCEPTABLE CARDIAC RISK FOR THIS SURGERY. Postoperatively we will get serial EKGs and enzymes, and monitor the patient on telemetry, pre-, intra-and postoperatively. Discussed with the caregiving providers on the case. Discussed with attending physician. Medical decision making is of high complexity. 60 minutes spent on this patient more than 50% of time spent in direct patient care. Patient seen at 10 AM on .
[2018-10-23] MEDS: INSULIN LISPRO 100 UNIT/ML 3 ML VIAL SUBCUT PRN (22:36)
[2018-10-23] MEDS: CEFTRIAXONE 1 GM/D5W RTU 1 GM/50 ML RTUPB IV SCH (22:39)
[2018-10-24] MEDS: MORPHINE SULFATE 10 MG/ML INJ IV PRN ×4 (04:04→13:15)
[2018-10-24] MEDS: OXYCODONE-ACETAMINOPHEN 5-325 MG TABLET PO PRN (05:01)
[2018-10-24] MEDS: CEFAZOLIN SODIUM 2 GM in DEXTROSE 5%-WATER 100 ML IV SCH (05:01)
[2018-10-24 05:18] LABS: ABSOLUTE EOSINOPHILS # (AUTO) 0.3 10^3/uL (0.0-0.6); ABSOLUTE LYMPHOCYTES (AUTO) 1.3 10^3/uL (0.5-4.7); ABSOLUTE MONOCYTES (AUTO) 0.7 10^3/uL (0.1-1.4); BASOPHILS % (AUTO) 0.6 % (0-2); EOSINOPHILS % (AUTO) 4.6 % (0-6); HEMATOCRIT 34.9 % (36.0-47.0); HEMOGLOBIN 11.8 g/dL (12.0-15.5); LYMPHOCYTES % (AUTO) 17.3 % (13-45); MEAN CORPUSCULAR HGB CONC 33.9 g/dL (32.0-36.0); MEAN CORPUSCULAR VOLUME 91 fl (80-97); MONOCYTES % (AUTO) 9.7 % (3-13); PLATELET COUNT 131 10^3/uL (150-450); RED BLOOD COUNT 3.81 10^6/uL (3.72-5.28); RED CELL DISTRIBUTION WIDTH 14.4 % (11.5-14.0); SEGMENTED NEUTROPHILS % (AUTO) 67.8 % (42-78); TOTAL CELLS COUNTED % (AUTO) 100 %; WHITE BLOOD COUNT 7.4 10^3/uL (4.0-10.5)
[2018-10-24] MEDS: IBUPROFEN 800 MG in NORMAL SALINE 250 ML IV SCH (05:36)
[2018-10-24 05:38] LABS: ANION GAP 8 (5-19); BLOOD UREA NITROGEN 16 mg/dL (7-20); CALCIUM 8.4 mg/dL (8.4-10.2); CARBON DIOXIDE 29 mmol/L (22-30); CHLORIDE 103 mmol/L (98-107); GLUCOSE 146 mg/dL (75-110); POTASSIUM 4.1 mmol/L (3.6-5.0); SODIUM 139.8 mmol/L (137-145)
--- NOTE | 2018-10-24 06:48 | PDOC PROGRESS REPORT ---
Subjective Progress Note for:: 10/24/18 Reason For Visit: FEMUR FX 87-year-old black female now postop day 1 status post open reduction internal fixation of a right distal femur fracture. Hematocrit is at 35% this morning. No physical therapy yesterday. Physical Exam Vital Signs: Temp Pulse Resp BP Pulse Ox 37.0 C 88 20 129/58 H 100 10/24/18 03:49 10/24/18 03:49 10/24/18 03:49 10/24/18 03:49 10/24/18 03:49 Intake & Output 10/22/18 10/23/18 10/24/18 06:59 06:59 06:59 Intake Total 50 1500 Output Total 500 2650 Balance -450 -1150 Weight 121 kg 121.7 kg Physical Exam: Obese middle-aged black female sitting in bed. Uneventful night. General appearance: PRESENT: no acute distress, mild distress Respiratory exam: PRESENT: unlabored Cardiovascular exam: PRESENT: RRR Vascular exam: PRESENT: normal capillary refill GI/Abdominal exam: PRESENT: soft Rectal exam: PRESENT: deferred Extremities exam: PRESENT: other - Right lower extremity dressings clean dry and intact. There is brisk capillary refill to the digits. Neurological exam: PRESENT: alert, awake, oriented to person, oriented to place, oriented to time, oriented to situation. ABSENT: motor sensory deficit Psychiatric exam: PRESENT: appropriate affect, normal mood. ABSENT: homicidal ideation, suicidal ideation Skin exam: PRESENT: dry, intact, warm. ABSENT: cyanosis, rash Results Laboratory Results: 10/24/18 04:41 10/24/18 04:41 10/24/18 10/24/18 04:41 04:41 WBC 7.4 RBC 3.81 Hgb 11.8 L Hct 34.9 L MCV 91 MCH 31.0 MCHC 33.9 RDW 14.4 H Plt Count 131 L Seg Neutrophils % 67.8 Lymphocytes % 17.3 Monocytes % 9.7 Eosinophils % 4.6 Basophils % 0.6 Absolute Neutrophils 5.0 Absolute Lymphocytes 1.3 Absolute Monocytes 0.7 Absolute Eosinophils 0.3 Absolute Basophils 0.0 Sodium 139.8 Potassium 4.1 Chloride 103 Carbon Dioxide 29 Anion Gap 8 BUN 16 Creatinine 0.84 Est GFR ( Amer) > 60 Est GFR (Non-Af Amer) > 60 Glucose 146 H Calcium 8.4 Magnesium 2.0 10/24/18 04:41 Troponin I < 0.012 Impressions: Chest X-Ray 10/22/18 00:00 IMPRESSION: Cardiomegaly. Lungs are clear copyright 2011 [email or web address]- All Rights Reserved Femur X-Ray 10/23/18 00:00 IMPRESSION: ORIF right femoral fracture. Refer to operative note for further information. Fluoroscopy 10/23/18 00:00 IMPRESSION: ORIF right femoral fracture. Refer to operative note for further information. Status: Imported from PACS Assessment & Plan - Diagnosis (1) Femoral distal fracture Qualifiers: Encounter type: initial encounter Fracture type: closed Fracture morphology: unspecified fracture morphology Laterality: right Qualified Code(s): S72.401A - Unspecified fracture of lower end of right femur, initial encounter for closed fracture Is this a current diagnosis for this admission?: Yes Plan: Patient can be mobilized with physical therapy on a strict touchdown weightbearing restriction on the right lower extremity. Anticipate the need for group home facility placement and the patient's ability to ambulate will likely be considerably compromised (2) UTI (urinary tract infection) Qualifiers: Urinary tract infection type: site unspecified Hematuria presence: with hematuria Qualified Code(s): N39.0 - Urinary tract infection, site not specified; R31.9 - Hematuria, unspecified Is this a current diagnosis for this admission?: Yes Plan: Gram-negative rods in her urine. Patient on empiric antibiotics for this. - Time Time Spent with patient: 15-24 minutes Anticipated discharge: SNF Within: when bed available
--- NOTE | 2018-10-24 08:07 | EKG REPORT ---
SEVERITY:- ABNORMAL ECG - SINUS ARRHYTHMIA, RATE 66-96 LEFT ANTERIOR FASCICULAR BLOCK PROBABLE LVH WITH SECONDARY REPOL ABNRM : Confirmed by: Edelmira Jefferson MD 24-Oct-2018 08:05:57
[2018-10-24] MEDS: TRIAMTERENE/HYDROCHLOROTHIAZIDE 37.5-25 MG TABLET PO SCH (10:07)
[2018-10-24] MEDS: METOPROLOL SUCCINATE 50 MG TAB.SR.24H PO SCH (10:07)
[2018-10-24] MEDS: ALPRAZOLAM 0.5 MG TABLET PO SCH ×2 (10:07→21:23)
[2018-10-24] MEDS: DOCUSATE SODIUM 100 MG CAPSULE PO SCH (10:08)
[2018-10-24] MEDS: CLONIDINE HCL 0.1 MG TABLET PO SCH ×2 (10:09→21:23)
[2018-10-24] MEDS: HUM INSULIN NPH/REG INSULIN HM 100 UNIT/1 ML 3 ML SUBCUT SCH ×2 (10:10→17:50)
[2018-10-24] MEDS: ASPIRIN 81 MG TABLET, ENT COATED PO SCH (10:10)
[2018-10-24] MEDS: GABAPENTIN 100 MG CAPSULE PO SCH (10:11)
[2018-10-24] MEDS: INSULIN LISPRO 100 UNIT/ML 3 ML VIAL SUBCUT PRN ×2 (10:19→13:14)
--- NOTE | 2018-10-24 13:37 | PDOC PROGRESS REPORT ---
Subjective Progress Note for:: 10/24/18 Subjective:: Patient is currently doing much better Patient underwent for the femur surgery ORIF Patient is postop day #1 Patient's pain under control Denied any chest pain denied any shortness of the breath Reason For Visit: FEMUR FX Physical Exam Vital Signs: Temp Pulse Resp BP Pulse Ox 99.0 F 89 18 145/82 H 93 10/24/18 07:25 10/24/18 07:25 10/24/18 07:25 10/24/18 07:25 10/24/18 07:25 Intake & Output 10/23/18 10/24/18 10/25/18 06:59 06:59 06:59 Intake Total 50 1500 450 Output Total 500 2650 Balance -450 -1150 450 Weight 121 kg 121.7 kg General appearance: PRESENT: no acute distress, well-developed, well-nourished Head exam: PRESENT: atraumatic, normocephalic Eye exam: PRESENT: conjunctiva pink, EOMI, PERRLA. ABSENT: scleral icterus Ear exam: PRESENT: normal external ear exam Mouth exam: PRESENT: moist, tongue midline Neck exam: PRESENT: full ROM. ABSENT: carotid bruit, JVD, lymphadenopathy, thyromegaly Respiratory exam: PRESENT: clear to auscultation genia Cardiovascular exam: PRESENT: RRR. ABSENT: diastolic murmur, rubs, systolic murmur Pulses: PRESENT: normal dorsalis pedis pul, +2 pedal pulses bilateral Vascular exam: PRESENT: normal capillary refill GI/Abdominal exam: PRESENT: normal bowel sounds, soft. ABSENT: distended, guarding, mass, organolmegaly, rebound, tenderness Rectal exam: PRESENT: deferred Additional comments: Right lower extremity dressing is intact Neurological exam: PRESENT: alert, awake, oriented to person, oriented to place, oriented to time, oriented to situation, CN II-XII grossly intact. ABSENT: motor sensory deficit Psychiatric exam: PRESENT: appropriate affect, normal mood. ABSENT: homicidal ideation, suicidal ideation Skin exam: PRESENT: dry, intact, warm. ABSENT: cyanosis, rash Results Laboratory Results: 10/24/18 04:41 10/24/18 04:41 10/24/18 10/24/18 04:41 04:41 WBC 7.4 RBC 3.81 Hgb 11.8 L Hct 34.9 L MCV 91 MCH 31.0 MCHC 33.9 RDW 14.4 H Plt Count 131 L Seg Neutrophils % 67.8 Lymphocytes % 17.3 Monocytes % 9.7 Eosinophils % 4.6 Basophils % 0.6 Absolute Neutrophils 5.0 Absolute Lymphocytes 1.3 Absolute Monocytes 0.7 Absolute Eosinophils 0.3 Absolute Basophils 0.0 Sodium 139.8 Potassium 4.1 Chloride 103 Carbon Dioxide 29 Anion Gap 8 BUN 16 Creatinine 0.84 Est GFR ( Amer) > 60 Est GFR (Non-Af Amer) > 60 Glucose 146 H Calcium 8.4 Magnesium 2.0 10/24/18 04:41 Troponin I < 0.012 Impressions: Chest X-Ray 10/22/18 00:00 IMPRESSION: Cardiomegaly. Lungs are clear copyright 2011 [employer]- All Rights Reserved Femur X-Ray 10/23/18 00:00 IMPRESSION: ORIF right femoral fracture. Refer to operative note for further information. Fluoroscopy 10/23/18 00:00 IMPRESSION: ORIF right femoral fracture. Refer to operative note for further information. Assessment & Plan - Diagnosis (1) Femoral distal fracture Qualifiers: Encounter type: initial encounter Fracture type: closed Fracture morphology: unspecified fracture morphology Laterality: right Qualified Co de(s): S72.401A - Unspecified fracture of lower end of right femur, initial encounter for closed fracture Is this a current diagnosis for this admission?: Yes Plan: This post surgery postop day #1 (2) UTI (urinary tract infection) Qualifiers: Urinary tract infection type: site unspecified Hematuria presence: with hematuria Qualified Code(s): N39.0 - Urinary tract infection, site not specified; R31.9 - Hematuria, unspecified Is this a current diagnosis for this admission?: Yes Plan: Start the patient on a Rocephin (3) Fall Qualifiers: Encounter type: initial encounter Qualified Code(s): W19.XXXA - Unspecified fall, initial encounter Is this a current diagnosis for this admission?: Yes Plan: Patients need a physical therapy in the rehab (4) Hypertension Qualifiers: Hypertension type: essential hypertension Qualified Code(s): I10 - Essential (primary) hypertension Is this a current diagnosis for this admission?: Yes Plan: Is to current medication (5) Anxiety disorder Qualifiers: Anxiety disorder type: generalized anxiety disorder Qualified Code(s): F41.1 - Generalized anxiety disorder Is this a current diagnosis for this admission?: Yes Plan: Continues current medication (6) Hyperlipidemia Qualifiers: Hyperlipidemia type: unspecified Qualified Code(s): E78.5 - Hyperlipidemia, unspecified Is this a current diagnosis for this admission?: Yes (7) Osteoarthritis Qualifiers: Osteoarthritis location: unspecified site Is this a current diagnosis for this admission?: Yes - Time Time Spent with patient: 15-24 minutes Medications reviewed and adjusted accordingly: Yes Anticipated discharge: Acute Rehab Within: Other - Plan Summary Plan Summary: Patient is currently doing well follow-up with the surgery
[2018-10-24] MEDS: OXYCODONE HCL IR 5 MG TABLET PO PRN ×2 (15:30→21:23)
[2018-10-24] MEDS: IBUPROFEN 800 MG TABLET PO PRN (18:07)
[2018-10-24] MEDS: NIFEDIPINE 30 MG TAB.ER.24 PO SCH (19:23)
--- NOTE | 2018-10-24 21:10 | EKG REPORT ---
SEVERITY:- ABNORMAL ECG - SINUS RHYTHM ATRIAL PREMATURE COMPLEX LEFT ANTERIOR FASCICULAR BLOCK PROBABLE LVH WITH SECONDARY REPOL ABNRM ANTERIOR Q WAVES, POSSIBLY DUE TO LVH : Confirmed by: Edelmira Jefferson MD 24-Oct-2018 21:09:42
[2018-10-24] MEDS: CEFTRIAXONE 1 GM/D5W RTU 1 GM/50 ML RTUPB IV SCH (21:24)
[2018-10-24] MEDS ORDERED: NIFEDIPINE 30 MG TAB.ER.24 PO SCH (22:00)
[2018-10-24] MEDS ORDERED: LISINOPRIL 10 MG TABLET PO SCH (22:00)
--- NOTE | 2018-10-25 00:03 | Progress Note ---
Provider Note Provider Note: Cardiology progress note by Dr. Edelmira Perez on 10/24/2018. SUBJECTIVE the patient denies any chest pain or discomfort. There is no PND orthopnea. There is no shortness of breath. There is no TIA CVA symptoms. There is no leg edema. There is no arrhythmias seen on the monitor. She complains of pain at the operated site. PHYSICAL EXAMINATION: The patient is morbidly obese. He is well-groomed, in no major acute distress. Selected Entries 10/24/18 07:25 Temperature 99.0 F Temperature Oral Source Pulse Rate 89 Respiratory 18 Rate Blood Pressure 145/82 H Blood Pressure 103 Mean BP Location Right Arm BP Position Supine O2 Sat by Pulse 93 Oximetry Oxygen Delivery Room Air Method HEAD: Is atraumatic. Normocephalic. EYES: Pupils are equal round regular react to light accommodation. Extraocular movements are normal. There is no clinical pallor. There is no scleral icterus. EARS: Tympanic memories are intact. External ear canals are clear. NOSE: There is no inflammation of the nasal mucous membrane. There is no nasal polyps. MOUTH: Mucous members of mouth are moist tongue is moist. There are no ulcers. There is no bleeding from the gums. THROAT: There is no redness of the oropharynx. There is no exudates. SKIN: There is no petechia or ecchymosis. There is no skin lesions or skin rashes. NECK: Is supple. There is no JVD. Carotids are equal. There is no carotid bruits. There is no lymphadenopathy. There is no goiter. There is no accessory muscle respiration use. Trachea central. LUNGS: Clear to auscultation percussion, without any rhonchi rales or wheezing. There is no chest wall tenderness HEART: S1-S2 is heard. There is no S3 gallop there is no S4 gallop there is systolic murmur left sternal border and apex there is no rub. ABDOMEN: Is obese. Nontender. There is no hepatosplenomegaly. Bowel sounds are well heard. EXTREMITIES: Femorals are deep femorals are diminished. There is no femoral bruits. Leg pulses are well felt. There is no DVT or cellulitis. There is no pedal edema. There is no calf tenderness. There is no cyanosis or clubbing. Capillary refill is normal in both lower extremities. TIRE RECAPPER: The patient is conscious awake alert oriented x3 with no focal deficit. PSYCHIATRIC: At present the patient does not appear to be anxious, or depressed. Her judgment and insight are intact. 10/24/18 10/24/18 10/24/18 04:41 04:41 04:41 WBC 7.4 RBC 3.81 Hgb 11.8 L Hct 34.9 L MCV 91 MCH 31.0 MCHC 33.9 RDW 14.4 H Plt Count 131 L Seg Neutrophils % 67.8 Lymphocytes % 17.3 Monocytes % 9.7 Eosinophils % 4.6 Basophils % 0.6 Absolute Neutrophils 5.0 Absolute Lymphocytes 1.3 Absolute Monocytes 0.7 Absolute Eosinophils 0.3 Absolute Basophils 0.0 Sodium 139.8 Potassium 4.1 Chloride 103 Carbon Dioxide 29 Anion Gap 8 BUN 16 Creatinine 0.84 Est GFR ( Amer) > 60 Glucose 146 H Calcium 8.4 Magnesium 2.0 Troponin I < 0.012 PATIENT is EKG: Shows sinus rhythm. Left anterior fascicular block. Probable LVH with strain pattern. Anterior Q waves possibly due to LVH. No significant ischemic changes. IMPRESSION/RECOMMENDATION: 1. Status post surgery for accidental fall and fracture right distal femur for surgery. 2. Hypertension. Continue antihypertensive. Patient's blood pressure slightly elevated due to the patient's pain at the site of fracture. 3. Diabetes mellitus type 2, [id number]. Continue her antidiabetic medication. 4. GERD. Continue proton pump inhibitors. 5. Anxiety: Patient on anti-anxiolytic medication. 6. Morbid obesity. No acute coronary events. The patient is stable. Discussed lab and imaging EKG findings with the patient. The patient with a stable cardiac status. Continue current medications. Management plan discussed with the caregiving providers on the case. Patient cardiac status stable. We will sign off, and follow the patient in the office. Medical decision making is of moderate complexity. 30 minutes spent on this patient more than 50% time spent in direct patient care.
[2018-10-25] MEDS: OXYCODONE HCL IR 5 MG TABLET PO PRN ×2 (03:21→19:12)
[2018-10-25 05:23] LABS: ABSOLUTE EOSINOPHILS # (AUTO) 0.4 10^3/uL (0.0-0.6); ABSOLUTE LYMPHOCYTES (AUTO) 1.3 10^3/uL (0.5-4.7); ABSOLUTE MONOCYTES (AUTO) 0.9 10^3/uL (0.1-1.4); BASOPHILS % (AUTO) 0.4 % (0-2); EOSINOPHILS % (AUTO) 5.1 % (0-6); HEMATOCRIT 32.7 % (36.0-47.0); LYMPHOCYTES % (AUTO) 14.8 % (13-45); MEAN CORPUSCULAR HGB CONC 33.6 g/dL (32.0-36.0); MEAN CORPUSCULAR VOLUME 92 fl (80-97); MONOCYTES % (AUTO) 10.9 % (3-13); PLATELET COUNT 114 10^3/uL (150-450); RED BLOOD COUNT 3.55 10^6/uL (3.72-5.28); RED CELL DISTRIBUTION WIDTH 14.8 % (11.5-14.0); SEGMENTED NEUTROPHILS % (AUTO) 68.8 % (42-78); TOTAL CELLS COUNTED % (AUTO) 100 %; WHITE BLOOD COUNT 8.7 10^3/uL (4.0-10.5)
[2018-10-25] MEDS: IBUPROFEN 800 MG TABLET PO PRN (05:33)
[2018-10-25 06:01] LABS: ANION GAP 7 (5-19); BLOOD UREA NITROGEN 20 mg/dL (7-20); CALCIUM 8.1 mg/dL (8.4-10.2); CARBON DIOXIDE 30 mmol/L (22-30); CHLORIDE 102 mmol/L (98-107); GLUCOSE 189 mg/dL (75-110); SODIUM 138.5 mmol/L (137-145)
--- NOTE | 2018-10-25 08:38 | PDOC PROGRESS REPORT ---
Subjective Progress Note for:: 10/25/18 Reason For Visit: FEMUR FX 88-year-old black female now postop day 2 status post open reduction internal fixation of a right periprosthetic distal femur fracture. Patient with minimal complaints this morning. Limited progress with physical therapy yesterday. Hematocrit remains at 32.7%. On antibiotics for gram-negative tara UTI. Physical Exam Vital Signs: Temp Pulse Resp BP Pulse Ox 37.0 C 79 17 125/56 L 93 10/25/18 07:33 10/25/18 07:33 10/25/18 07:33 10/25/18 07:33 10/25/18 07:33 Intake & Output 10/24/18 10/25/18 10/26/18 06:59 06:59 06:59 Intake Total 1500 900 Output Total 2650 Balance -1150 900 Weight 121.7 kg 118.9 kg General appearance: PRESENT: no acute distress, obese Head exam: PRESENT: normocephalic Respiratory exam: PRESENT: unlabored Cardiovascular exam: PRESENT: RRR Pulses: PRESENT: +1 pedal pulses bilateral Vascular exam: PRESENT: normal capillary refill GI/Abdominal exam: PRESENT: soft Rectal exam: PRESENT: deferred Extremities exam: PRESENT: other - Right lower extremity dressing clean dry and intact. Distal neurovascular examination is intact. Results Laboratory Results: 10/25/18 04:31 10/25/18 04:30 10/25/18 10/25/18 04:30 04:31 WBC 8.7 RBC 3.55 L Hgb 11.0 L Hct 32.7 L MCV 92 MCH 31.0 MCHC 33.6 RDW 14.8 H Plt Count 114 L Seg Neutrophils % 68.8 Lymphocytes % 14.8 Monocytes % 10.9 Eosinophils % 5.1 Basophils % 0.4 Absolute Neutrophils 6.0 Absolute Lymphocytes 1.3 Absolute Monocytes 0.9 Absolute Eosinophils 0.4 Absolute Basophils 0.0 Sodium 138.5 Potassium 4.0 Chloride 102 Carbon Dioxide 30 Anion Gap 7 BUN 20 Creatinine 1.07 Est GFR ( Amer) 59 L Est GFR (Non-Af Amer) 49 L Glucose 189 H Calcium 8.1 L Magnesium 2.1 10/24/18 04:41 Troponin I < 0.012 Impressions: Chest X-Ray 10/22/18 00:00 IMPRESSION: Cardiomegaly. Lungs are clear copyright 2011 [employer]- All Rights Reserved Femur X-Ray 10/23/18 00:00 IMPRESSION: ORIF right femoral fracture. Refer to operative note for further information. Fluoroscopy 10/23/18 00:00 IMPRESSION: ORIF right femoral fracture. Refer to operative note for further information. Status: Imported from PACS Assessment & Plan - Diagnosis (1) Femoral distal fracture Qualifiers: Encounter type: initial encounter Fracture type: closed Fracture morphology: unspecified fracture morphology Laterality: right Qualified Code(s): S72.401A - Unspecified fracture of lower end of right femur, initial encounter for closed fracture Is this a current diagnosis for this admission?: Yes Plan: Continue to mobilize with physical therapy on restricted weightbearing with of the right lower extremity (2) UTI (urinary tract infection) Qualifiers: Urinary tract infection type: site unspecified Hematuria presence: with hematuria Qualified Code(s): N39.0 - Urinary tract infection, site not specified; R31.9 - Hematuria, unspecified Is this a current diagnosis for this admission?: Yes Plan: Culture and sensitivity pending patient on empiric antibiotics at this point. - Time Time Spent with patient: 15-24 minutes Anticipated discharge: SNF Within: when bed available
[2018-10-25] MEDS: INSULIN LISPRO 100 UNIT/ML 3 ML VIAL SUBCUT PRN ×2 (08:39→12:24)
[2018-10-25] MEDS: OXYCODONE-ACETAMINOPHEN 5-325 MG TABLET PO PRN (09:37)
[2018-10-25] MEDS: METOPROLOL SUCCINATE 50 MG TAB.SR.24H PO SCH (09:38)
[2018-10-25] MEDS: ASPIRIN 81 MG TABLET, ENT COATED PO SCH (09:38)
[2018-10-25] MEDS: TRIAMTERENE/HYDROCHLOROTHIAZIDE 37.5-25 MG TABLET PO SCH (09:38)
[2018-10-25] MEDS: DOCUSATE SODIUM 100 MG CAPSULE PO SCH (09:38)
[2018-10-25] MEDS: CLONIDINE HCL 0.1 MG TABLET PO SCH (09:38)
[2018-10-25] MEDS: GABAPENTIN 100 MG CAPSULE PO SCH (09:39)
[2018-10-25] MEDS: HUM INSULIN NPH/REG INSULIN HM 100 UNIT/1 ML 3 ML SUBCUT SCH ×2 (09:39→17:55)
[2018-10-25] MEDS: ALPRAZOLAM 0.5 MG TABLET PO SCH (09:39)
--- NOTE | 2018-10-25 11:37 | PDOC TRANSFER SUMMARY ---
General - Admit/Disc Date/PCP Admission Date/Primary Care Provider: 10/22/18 23:58 OSIEL WOODS MD Discharge Date: 10/25/18 - Discharge Diagnosis (1) Femoral distal fracture Is this a current diagnosis for this admission?: Yes Summary: Status post surgery follow-up with the Dr. Bales Continues to aspirin per Dr. Bales for DVT prophylaxis (2) UTI (urinary tract infection) Is this a current diagnosis for this admission?: Yes Summary: Start the patient on a Keflex 500 mg twice a day for 7 days (3) Fall Is this a current diagnosis for this admission?: Yes Summary: Physical therapy (4) Hypertension Is this a current diagnosis for this admission?: Yes Summary: Currently all stable (5) Anxiety disorder Is this a current diagnosis for this admission?: Yes Summary: Continues to as needed Xanax (6) Hyperlipidemia Is this a current diagnosis for this admission?: Yes Summary: Currently all stable (7) Osteoarthritis Is this a current diagnosis for this admission?: Yes - Additional Information Resuscitation Status: Full Code Discharge Diet: Cardiac Discharge Activity: Activity As Tolerated Prescriptions: Oxycodone HCl/Acetaminophen [Percocet 5-325 mg Tablet] 1 tab PO Q6HP PRN #30 tablet PRN Reason: Home Medications: Aspirin [Ecotrin 81 mg EC Tablet] 81 mg PO DAILYP PRN 06/20/12 Clonidine HCl 0.1 mg PO Q12 06/20/12 Insulin Aspart Protam & Aspart [Novolog Mix 70-30 Vial] 28 unit SQ BIDBS 06/20/12 Lisinopril 40 mg PO DAILY 06/20/12 Metoprolol Succinate [Toprol XL 100 mg Tablet] 100 mg PO DAILY 06/20/12 Nifedipine [Procardia XL 60 mg Tablet] 60 mg PO DAILY 06/20/12 Beta-Carotene(A)-Vits C,E/Mins [Vision Vitamins Tablet] 1 tab PO DAILY 04/20/14 Cyclobenzaprine HCl [Flexeril 5 mg Tablet] 10 mg PO DAILYP PRN 10/23/18 Oxycodone HCl/Acetaminophen [Percocet 10-325 mg Tablet] 1 each PO Q8HP PRN 10/23/18 Ranitidine HCl [Zantac 150 mg Tablet] 150 mg PO BID 10/23/18 Triamterene/Hydrochlorothiazid [Maxzide-25 Tablet] 1 tab PO DAILY 10/23/18 Alprazolam [Xanax 0.5 mg Tablet] 0.5 mg PO DAILY #60 10/25/18 Oxycodone HCl/Acetaminophen [Percocet 5-325 mg Tablet] 1 tab PO Q6HP PRN #30 tablet 10/25/18 History of Present Illness Admission Date/PCP: 10/22/18 23:58 OSIEL WOODS MD History of Present Illness: KODY RENDON is a 87 year old female This is a 87-year-old female with a history of the hypertension's hyperlipidemia anxiety disorder osteoarthritis fall yesterday at home and was complaining of her right leg pain and the patient find the nondisplaced femur fracture and admitting in the hospital for further evaluations Patient's denied any chest pain denied any shortness of the breath Patients denied any dizziness Patient is denied any headache Patient's denied any heart problem in the past the x-ray chest shows a cardiomegaly Patient's echocardiogram was done last year was suffered a normal EF The patient also found a urinary tract infections which patient has ongoing chronic recurrent infections Patient is denied any fever no chills Very extensive discussions with the patient on the bedside with her daughter regarding the fracture and orthopedic evaluations done and suggest the surgery Hospital Course Hospital Course: This is a 88-year-old female presenting the emergency departments with the fall and patient's diagnosed with the right femur fracture and admitting in the hospital for further evaluations Patient underwent for the orif by Dr. Bales Patient seen by the Dr. Jefferson rn discharge Patient is otherwise doing well Patient all medical problem was stable Patient stated physical therapy Discussed with the surgery and physical therapy and suggest patients care in patients rehab Continues to current medications Fall precautions Follow with the outpatients orthopedic surgery for further evaluations Discussed with the patient's daughter regarding the patient's current conditions Physical Exam Vital Signs: Temp Pulse Resp BP Pulse Ox 98.6 F 93 17 125/56 L 93 10/25/18 07:33 10/25/18 09:47 10/25/18 09:47 10/25/18 07:33 10/25/18 09:50 Intake & Output 10/24/18 10/25/18 10/26/18 06:59 06:59 06:59 Intake Total 1500 900 Output Total 2650 Balance -1150 900 Weight 121.7 kg 118.9 kg General appearance: PRESENT: no acute distress, well-developed, well-nourished Head exam: PRESENT: atraumatic, normocephalic Eye exam: PRESENT: conjunctiva pink, EOMI, PERRLA. ABSENT: scleral icterus Ear exam: PRESENT: normal external ear exam Mouth exam: PRESENT: moist, tongue midline Neck exam: ABSENT: carotid bruit, JVD, lymphadenopathy, thyromegaly Respiratory exam: PRESENT: clear to auscultation genia. ABSENT: rales, rhonchi, wheezes Cardiovascular exam: PRESENT: RRR. ABSENT: diastolic murmur, rubs, systolic murmur Pulses: PRESENT: normal dorsalis pedis pul Vascular exam: PRESENT: normal capillary refill GI/Abdominal exam: PRESENT: normal bowel sounds, soft. ABSENT: distended, guarding, mass, organolmegaly, rebound, tenderness Rectal exam: PRESENT: deferred Extremities exam: PRESENT: full ROM. ABSENT: calf tenderness, clubbing, pedal edema Musculoskeletal exam: PRESENT: ambulatory Neurological exam: PRESENT: alert, awake, oriented to person, oriented to place, oriented to time, oriented to situation, CN II-XII grossly intact. ABSENT: motor sensory deficit Psychiatric exam: PRESENT: appropriate affect, normal mood. ABSENT: homicidal ideation, suicidal ideation Skin exam: PRESENT: dry, intact, warm. ABSENT: cyanosis, rash Results Laboratory Results: 10/25/18 04:31 10/25/18 04:30 10/25/18 10/25/18 04:30 04:31 WBC 8.7 RBC 3.55 L Hgb 11.0 L Hct 32.7 L MCV 92 MCH 31.0 MCHC 33.6 RDW 14.8 H Plt Count 114 L Seg Neutrophils % 68.8 Lymphocytes % 14.8 Monocytes % 10.9 Eosinophils % 5.1 Basophils % 0.4 Absolute Neutrophils 6.0 Absolute Lymphocytes 1.3 Absolute Monocytes 0.9 Absolute Eosinophils 0.4 Absolute Basophils 0.0 Sodium 138.5 Potassium 4.0 Chloride 102 Carbon Dioxide 30 Anion Gap 7 BUN 20 Creatinine 1.07 Est GFR ( Amer) 59 L Est GFR (Non-Af Amer) 49 L Glucose 189 H Calcium 8.1 L Magnesium 2.1 10/24/18 04:41 Troponin I < 0.012 Impressions: Chest X-Ray 10/22/18 00:00 IMPRESSION: Cardiomegaly. Lungs are clear copyright 2011 [employer]- All Rights Reserved Femur X-Ray 10/23/18 00:00 IMPRESSION: ORIF right femoral fracture. Refer to operative note for further information. Fluoroscopy 10/23/18 00:00 IMPRESSION: ORIF right femoral fracture. Refer to operative note for further information. Transfer Plan - Time Spent with Patient Time spent with patient: Greater than 30 Minutes Qualifiers - * PATIENT BEING DISCHARGED WITH ANY OF THE FOLLOWING DIAGNOSIS: No VTE patient discharged on overlapping Therapy?: Yes Plan Time Spent: Greater than 30 Minutes - continue a Keflex 500 mg p.o. twice a day for 7 days check a urine culture in 1 week Check a CBC and Chem-7 in 1 week Follow with the Dr. Bales in 1 week Physical therapy and a fall precautions
[2018-10-25] MEDS: NIFEDIPINE 30 MG TAB.ER.24 PO SCH (17:55)
[2018-10-25 19:29] VITALS: BP 119/55
== END 2018-10-25 20:30 | DRG 481 ==
LOC: ER 22:29 → EH 23:58 → 3W 10-23 02:10
PROVIDERS: ADMIT Family Medicine; ATTEND Family Medicine
PROC: 2W3LXYZ Immobilization of Right Lower Extremity using Other Device (ICD-10-PCS; 2018-10-22)
PROC: 0QSB04Z Reposition Right Lower Femur with Internal Fixation Device, Open Approach (ICD-10-PCS; principal; 2018-10-23 12:15)
DX: S72.401A Unspecified fracture of lower end of right femur, initial encounter for closed fracture (principal); M97.11XA Periprosthetic fracture around internal prosthetic right knee joint, initial encounter; N39.0 Urinary tract infection, site not specified; Z68.42 Body mass index [BMI] 45.0-49.9, adult; I10 Essential (primary) hypertension; E11.8 Type 2 diabetes mellitus with unspecified complications; Z96.653 Presence of artificial knee joint, bilateral; R31.9 Hematuria, unspecified; K21.9 Gastro-esophageal reflux disease without esophagitis; F41.9 Anxiety disorder, unspecified; I44.4 Left anterior fascicular block; E66.01 Morbid (severe) obesity due to excess calories; W18.39XA Other fall on same level, initial encounter; Y93.01 Activity, walking, marching and hiking; Y92.098 Other place in other non-institutional residence as the place of occurrence of the external cause; Z79.82 Long term (current) use of aspirin; Z79.4 Long term (current) use of insulin; Z79.899 Other long term (current) drug therapy
CPT/HCPCS: 01360; 36415; 51702; 71045; 80048; 81001; 82962; 83735; 84484; 85025; 85610; 85730; 86850; 86900; 86901; 87040; 87077; 87086; 87088; 87186; 93005; 93010; 99284; C1713; C1769; J0690; J0696; J1170; J1741; J1815; J2250; J2270; J2405; J2550; J2704; J3010; J3490; J7050

== ENCOUNTER 2019-02-02 14:39 | Emergency (ER) | payer MEDICARE, OTHER ==
--- NOTE | 2019-02-02 15:47 | ER Document Report ---
ED Medical Screen (RME) - General Chief Complaint: Leg Swelling Stated Complaint: LEG PAIN/SWELLING Time Seen by Provider: 02/02/19 15:44 Primary Care Provider: OSIEL WOODS MD [Primary Care Provider] - Follow up as needed Mode of Arrival: Wheelchair Information source: Patient Notes: 88-year-old female presents to ED for complaint of severe pain and swelling to b ilateral lower extremities. Patient states she has a history of high blood pressure diabetes and a fractured femur in October of this year. She is on chronic pain management has anxiety and frequent bladder infections. She had a surgery on her right femur on 10/23/2018 and is healing well from that. At this time she has swelling from her his knees down on both feet. She states she has never been diagnosed with CHF. I have ordered blood urine and chest x-ray for her pedal edema. I have greeted and performed a rapid initial assessment of this patient. A comprehensive ED assessment and evaluation of the patient, analysis of test results and completion of medical decision making process will be conducted by an additional ED providers. TRAVEL OUTSIDE OF THE [place] IN LAST 30 DAYS: No - Related Data Allergies/Adverse Reactions: levofloxacin [From Levaquin] Allergy (Verified 02/02/19 14:42) Fever nitrofurantoin Allergy (Verified 02/02/19 14:42) Fever Past Medical History - Past Medical History Cardiac Medical History: Reports: Hx Hypertension - CONTROLLED Denies: Hx Congestive Heart Failure, Hx Coronary Artery Disease, Hx Heart Attack, Hx Heart Murmur Pulmonary Medical History: Denies: Hx Asthma, Hx Bronchitis, Hx COPD, Hx Pneumonia, Hx Tuberculosis Neurological Medical History: Denies: Hx Cerebrovascular Accident, Hx Seizures Endocrine Medical History: Reports: Hx Diabetes Mellitus Type 2 Renal/ Medical History: Denies: Hx Peritoneal Dialysis GI Medical History: Denies: Hx Hepatitis, Hx Hiatal Hernia, Hx Ulcer Musculoskeltal Medical History: Reports Hx Arthritis, Denies Hx Muscle Weakness Infectious Medical History: Denies: Hx Hepatitis Past Surgical History: Reports: Hx Hysterectomy, Hx Orthopedic Surgery - bilat knee replacement. Denies: Hx Mastectomy, Hx Open Heart Surgery, Hx Pacemaker - Immunizations Hx Diphtheria, Pertussis, Tetanus Vaccination: No Physical Exam - Vital signs Vitals: Temp Pulse Resp BP Pulse Ox 97.7 F 54 L 16 137/76 H 93 02/02/19 15:19 02/02/19 15:19 02/02/19 15:19 02/02/19 15:19 02/02/19 15:19 Course - Vital Signs Vital signs: Temp Pulse Resp BP Pulse Ox 97.7 F 54 L 16 137/76 H 93 02/02/19 15:19 02/02/19 15:19 02/02/19 15:19 02/02/19 15:19 02/02/19 15:19 Doctor's Discharge - Discharge Referrals: OSIEL WOODS MD [Primary Care Provider] - Follow up as needed
[2019-02-02 16:45] LABS: ABSOLUTE EOSINOPHILS # (AUTO) 0.1 10^3/uL (0.0-0.6); ABSOLUTE LYMPHOCYTES (AUTO) 1.8 10^3/uL (0.5-4.7); ABSOLUTE MONOCYTES (AUTO) 0.6 10^3/uL (0.1-1.4); ABSOLUTE NEUT (AUTO) 2.7 10^3/uL (1.7-8.2); BASOPHILS % (AUTO) 0.5 % (0-2); EOSINOPHILS % (AUTO) 2.5 % (0-6); HEMATOCRIT 39.9 % (36.0-47.0); HEMOGLOBIN 12.9 g/dL (12.0-15.5); LYMPHOCYTES % (AUTO) 33.8 % (13-45); MEAN CORPUSCULAR HEMOGLOBIN 29.9 pg (27.0-33.4); MEAN CORPUSCULAR HGB CONC 32.4 g/dL (32.0-36.0); MEAN CORPUSCULAR VOLUME 92 fl (80-97); PLATELET COUNT 171 10^3/uL (150-450); RED BLOOD COUNT 4.32 10^6/uL (3.72-5.28); RED CELL DISTRIBUTION WIDTH 15.3 % (11.5-14.0); SEGMENTED NEUTROPHILS % (AUTO) 51.2 % (42-78); TOTAL CELLS COUNTED % (AUTO) 100 %; WHITE BLOOD COUNT 5.2 10^3/uL (4.0-10.5)
[2019-02-02 16:54] LABS: ALANINE AMINOTRANSFERASE 22 U/L (9-52); ALBUMIN 3.8 g/dL (3.5-5.0); ALKALINE PHOSPHATASE 198 U/L (38-126); ANION GAP 10 (5-19); ASPARTATE AMINO TRANSFERASE 19 U/L (14-36); BILIRUBIN,DIRECT 0.4 mg/dL (0.0-0.4); BILIRUBIN,TOTAL 0.5 mg/dL (0.2-1.3); BLOOD UREA NITROGEN 22 mg/dL (7-20); CALCIUM 9.3 mg/dL (8.4-10.2); CARBON DIOXIDE 31 mmol/L (22-30); CHLORIDE 101 mmol/L (98-107); GLUCOSE 140 mg/dL (75-110); POTASSIUM 3.8 mmol/L (3.6-5.0); SODIUM 141.7 mmol/L (137-145); TOTAL PROTEIN 7.5 g/dL (6.3-8.2)
--- NOTE | 2019-02-02 17:27 | RADIOLOGY REPORT (SQ) ---
EXAM DESCRIPTION: CHEST 2 VIEWS COMPLETED DATE/TIME: 02/02/2019 4:50 pm REASON FOR STUDY: pedal edema COMPARISON: 10/22/2018 TECHNIQUE: Frontal and lateral radiographic views of the chest acquired. NUMBER OF VIEWS: Two view. LIMITATIONS: None. FINDINGS: LUNGS AND PLEURA: No pneumothorax. No consolidation or pleural effusion. MEDIASTINUM AND HILAR STRUCTURES: Stable. HEART AND VASCULAR STRUCTURES: Stable. BONES: No acute findings. HARDWARE: None in the chest. OTHER: No other significant finding. IMPRESSION: NO ACUTE FINDINGS. TECHNICAL DOCUMENTATION: JOB ID: [id number] [employer]- All Rights Reserved Reading location - IP/workstation name: [email or web address]
--- NOTE | 2019-02-02 18:23 | ER Document Report ---
ED General - General Chief Complaint: Leg Swelling Stated Complaint: LEG PAIN/SWELLING Time Seen by Provider: 02/02/19 15:44 Primary Care Provider: OSIEL WOODS MD [Primary Care Provider] - Follow up in 3-5 days Mode of Arrival: Wheelchair Notes: Patient is a 88-year-old female that presents to the emergency department for chief complaint of bilateral lower extremity swelling, and burning sensation. Patient states that over the past week she is noticed increased swelling in her lower extremities on both sides, she is had some burning sensation from the hips down as well, but seems to be new she thinks it may be related just to the increase in swelling. She has had swelling for a long time on and off but it just seems to be worse. She describes her pain as this constant burning sensation she currently rates it as a 2 out of 10. She is had a hard time getting around because of the increased leg swelling. She denies history of CHF or chronic kidney disease or liver disease. She denies having any shortness of breath, difficulty breathing, chest pain, nausea, vomiting or recent fevers or chills. Past Medical History: Diabetes mellitus, hypertension Past Surgical History: ORIF of the right femur Social History: Her primary care physician is Dr. Woods, she denies tobacco or alcohol use. Family History: Reviewed and noncontributory for presenting illness Allergies: Reviewed, see documented allergy list. REVIEW OF SYSTEMS: Other than noted above, the 12 point review of systems was reviewed with the patient and were negative, all pertinent findings are included in the HPI. PHYSICAL EXAMINATION: Vital signs reviewed, nursing noted reviewed. GENERAL: Elderly, obese female, no acute distress HEAD: Atraumatic, normocephalic. EYES: Eyes appear normal, extraocular movements intact, sclera anicteric, conjunctiva are normal. ENT: nares patent, oropharynx clear without exudates. Moist mucous membranes. NECK: Normal range of motion, supple without lymphadenopathy LUNGS: Breath sounds clear to auscultation bilaterally and equal. No wheezes rales or rhonchi. HEART: Regular rate and rhythm without murmurs ABDOMEN: Soft, nontender, normoactive bowel sounds. No rebound, guarding, or rigidity. No masses appreciated. EXTREMITIES: 3+ bilateral lower extremity edema, with stasis skin changes but no significant tenderness to palpation, no calf tenderness to palpation, no varices noted. Good range of motion of all extremities otherwise. NEUROLOGICAL: No focal neurological deficits. Moves all extremities spontaneously Motor and sensory grossly intact on exam. PSYCH: Normal mood, normal affect. SKIN: Warm, Dry, normal turgor, stasis skin changes in the lower extremities bilaterally. TRAVEL OUTSIDE OF THE [place] IN LAST 30 DAYS: No - Related Data Allergies/Adverse Reactions: levofloxacin [From Levaquin] Allergy (Verified 02/02/19 14:42) Fever nitrofurantoin Allergy (Verified 02/02/19 14:42) Fever Past Medical History - General Information source: Patient - Social History Smoking Status: Never Smoker Family History: Arthritis, CAD, COPD, CVA, DM, Hyperlipidemia, Hypertension Patient has suicidal ideation: No Patient has homicidal ideation: No - Past Medical History Cardiac Medical History: Reports: Hx Hypertension - CONTROLLED Denies: Hx Congestive Heart Failure, Hx Coronary Artery Disease, Hx Heart Attack, Hx Heart Murmur Pulmonary Medical History: Denies: Hx Asthma, Hx Bronchitis, Hx COPD, Hx Pneumonia, Hx Tuberculosis Neurological Medical History: Denies: Hx Cerebrovascular Accident, Hx Seizures Endocrine Medical History: Reports: Hx Diabetes Mellitus Type 2 Renal/ Medical History: Denies: Hx Peritoneal Dialysis GI Medical History: Denies: Hx Hepatitis, Hx Hiatal Hernia, Hx Ulcer Musculoskeletal Medical History: Reports Hx Arthritis, Denies Hx Muscle Weakness Infectious Medical History: Denies: Hx Hepatitis Past Surgical History: Reports: Hx Hysterectomy, Hx Orthopedic Surgery - bilat knee replacement. Denies: Hx Mastectomy, Hx Open Heart Surgery, Hx Pacemaker - Immunizations Hx Diphtheria, Pertussis, Tetanus Vaccination: No Physical Exam - Vital signs Vitals: Temp Pulse Resp BP Pulse Ox 97.7 F 54 L 16 137/76 H 93 02/02/19 15:19 02/02/19 15:19 02/02/19 15:19 02/02/19 15:19 02/02/19 15:19 Course - Re-evaluation Re-evalutation: Patient seen and examined vital signs reviewed. Laboratory data and/or imaging were ordered as appropriate for the patient's presenting symptoms and complaint, with consideration of any critical or life threatening conditions that may be associated with their obtained history and exam as noted above. Results were reviewed when available and demonstrated negative duplex imaging of the lower extremities, chest x-ray is normal, blood work otherwise unremarkable, her UA did have nitrate positive, she is currently being treated for almost a week now for urinary tract infection, she is a history of recurrent UTIs, and is on doxycycline, because is still nitrite positive, its likely that her UTIs not being cleared, and will switch her to Keflex, I did discuss the patient's case today with her primary care physician Dr. Woods, and we agreed to hold her Maxide for a week, and give her Lasix 20 mg p.o. for 1 week to help with her edema, discussed with and they agreed. Evaluation was most consistent with peripheral edema, UTI Results were discussed with the patient at this point, after careful consideration I feel that that patient can be discharged from the emergency department, the patient was educated treatments and reasons to return to the emergency department based on their presumed diagnosis as noted above, they were advised to followup with a primary care physician in 2-3 days. Patient was agreeable to plan of care. *Note is created using voice recognition software and may contain spelling, syntax or grammatical errors. Laboratory 02/02/19 02/02/19 02/02/19 16:10 16:10 16:10 WBC 5.2 RBC 4.32 Hgb 12.9 Hct 39.9 MCV 92 MCH 29.9 MCHC 32.4 RDW 15.3 H Plt Count 171 Seg Neutrophils % 51.2 Lymphocytes % 33.8 Monocytes % 12.0 Eosinophils % 2.5 Basophils % 0.5 Absolute Neutrophils 2.7 Absolute Lymphocytes 1.8 Absolute Monocytes 0.6 Absolute Eosinophils 0.1 Absolute Basophils 0.0 Sodium 141.7 Potassium 3.8 Chloride 101 Carbon Dioxide 31 H Anion Gap 10 BUN 22 H Creatinine 0.83 Est GFR ( Amer) > 60 Est GFR (Non-Af Amer) > 60 Glucose 140 H POC Glucose Calcium 9.3 Total Bilirubin 0.5 Direct Bilirubin 0.4 Neonat Total Bilirubin Not Reportable Neonat Direct Bilirubin Not Reportable Neonat Indirect Bili Not Reportable AST 19 ALT 22 Alkaline Phosphatase 198 H NT-Pro-B Natriuret Pep 306 Total Protein 7.5 Albumin 3.8 Urine Color Urine Appearance Urine pH Ur Specific [place] Urine Protein Urine Glucose (UA) Urine Ketones Urine Blood Urine Nitrite Urine Bilirubin Urine Urobilinogen Ur Leukocyte Esterase Urine WBC (Auto) Urine RBC (Auto) Urine Bacteria (Auto) Squamous Epi Cells Auto Urine Mucus (Auto) Urine Ascorbic Acid 02/02/19 02/02/19 17:09 18:11 WBC RBC Hgb Hct MCV MCH MCHC RDW Plt Count Seg Neutrophils % Lymphocytes % Monocytes % Eosinophils % Basophils % Absolute Neutrophils Absolute Lymphocytes Absolute Monocytes Absolute Eosinophils Absolute Basophils Sodium Potassium Chloride Carbon Dioxide Anion Gap BUN Creatinine Est GFR ( Amer) Est GFR (Non-Af Amer) Glucose POC Glucose 118 H Calcium Total Bilirubin Direct Bilirubin Neonat Total Bilirubin Neonat Direct Bilirubin Neonat Indirect Bili AST ALT Alkaline Phosphatase NT-Pro-B Natriuret Pep Total Protein Albumin Urine Color YELLOW Urine Appearance SLIGHTLY-CLOUDY Urine pH 7.0 Ur Specific [place] 1.015 Urine Protein NEGATIVE Urine Glucose (UA) NEGATIVE Urine Ketones NEGATIVE Urine Blood NEGATIVE Urine Nitrite POSITIVE H Urine Bilirubin NEGATIVE Urine Urobilinogen NEGATIVE Ur Leukocyte Esterase MODERATE H Urine WBC (Auto) 105 Urine RBC (Auto) 1 Urine Bacteria (Auto) TRACE Squamous Epi Cells Auto 2 Urine Mucus (Auto) RARE Urine Ascorbic Acid NEGATIVE Chest X-Ray 02/02/19 15:40 IMPRESSION: NO ACUTE FINDINGS. Venous Doppler Study 02/02/19 18:23 IMPRESSION: NO EVIDENCE DVT OR SVT IN EITHER LEG. - Vital Signs Vital signs: Temp Pulse Resp BP Pulse Ox 97.4 F 64 18 174/109 H 92 02/02/19 20:45 02/02/19 20:45 02/02/19 20:45 02/02/19 20:45 02/02/19 20:45 - Laboratory Result Diagrams: 02/02/19 16:10 02/02/19 16:10 Laboratory results interpreted by me: 02/02/19 02/02/19 02/02/19 16:10 16:10 17:09 RDW 15.3 H Carbon Dioxide 31 H BUN 22 H Glucose 140 H POC Glucose 118 H Alkaline Phosphatase 198 H Urine Nitrite Ur Leukocyte Esterase 02/02/19 18:11 RDW Carbon Dioxide BUN Glucose POC Glucose Alkaline Phosphatase Urine Nitrite POSITIVE H Ur Leukocyte Esterase MODERATE H Discharge - Discharge Clinical Impression: Peripheral edema UTI (urinary tract infection) Qualifiers: Urinary tract infection type: site unspecified Hematuria presence: without hematuria Qualified Code(s): N39.0 - Urinary tract infection, site not specified Condition: Stable Disposition: HOME, SELF-CARE Instructions: Edema, Peripheral ([facility]) Additional Instructions: Please hold your Maxide diuretic, for the next week, and start taking the Lasix 20 mg tablet daily, please follow-up with Dr. Woods, to discuss further. Prescriptions: RX: Cephalexin Monohydrate [Keflex 500 mg Capsule] 500 mg PO BID 5 Days #14 capsule Furosemide [Lasix 20 mg Tablet] 20 mg PO QAM #7 tablet Referrals: OSIEL WOODS MD [Primary Care Provider] - Follow up in 3-5 days
[2019-02-02 18:47] LABS: APPEARANCE,URINE SLIGHTLY-CLOUDY; BILIRUBIN,URINE NEGATIVE (NEGATIVE); COLOR,URINE YELLOW; GLUCOSE, URINE NEGATIVE (NEGATIVE); KETONES,URINE NEGATIVE (NEGATIVE); LEUKOCYTE ESTERASE,URINE MODERATE (NEGATIVE); NITRITE,URINE POSITIVE (NEGATIVE); PROTEIN,URINE NEGATIVE (NEGATIVE); URINE SPECIFIC GRAVITY 1.015; UROBILINOGEN,URINE NEGATIVE mg/dL (<2.0)
--- NOTE | 2019-02-02 19:59 | RADIOLOGY REPORT (SQ) ---
EXAM DESCRIPTION: VENOUS BILATERAL LOWER COMPLETED DATE/TIME: 02/02/2019 7:50 pm REASON FOR STUDY: bilateral le edema COMPARISON: 11/05/2013 TECHNIQUE: Dynamic and static cruz scale and color images acquired of both lower extremity venous sy stems. Selected spectral images acquired with additional compression and augmentation maneuvers. Imag es stored on PACS. LIMITATIONS: Suboptimal exam due to edema and patient's body habitus. FINDINGS: RIGHT LEG COMMON FEMORAL AND FEMORAL: Normal phasicity, compression and augmentation. No visualized echogenic m aterial on cruz scale. No defects on color images. POPLITEAL: Normal compression and augmentation. No visualized echogenic material on cruz scale. No de fects on color images. CALF VESSELS: Normal compression and augmentation. No visualized echogenic material on cruz scale. No defects on color image. GSV AND SSV: Normal compression. No visualized echogenic material on cruz scale. No defects on color images. ANY DEEP VENOUS INSUFFICIENCY: Not evaluated. ANY EVIDENCE OF POPLITEAL CYST: No. OTHER: Mild edema within the soft tissues of the right calf LEFT LEG COMMON FEMORAL AND FEMORAL: Normal phasicity, compression and augmentation. No visualized echogenic m aterial on cruz scale. No defects on color images. POPLITEAL: Normal compression and augmentation. No visualized echogenic material on cruz scale. No de fects on color images. CALF VESSELS: Normal compression and augmentation. No visualized echogenic material on cruz scale. No defects on color images. GSV AND SSV: Normal compression. No visualized echogenic material on cruz scale. No defects on color images. ANY DEEP VENOUS INSUFFICIENCY: Not evaluated. ANY EVIDENCE POPLITEAL CYST: No. OTHER: Mild soft tissue edema of the left calf. IMPRESSION: NO EVIDENCE DVT OR SVT IN EITHER LEG. TECHNICAL DOCUMENTATION: JOB ID: [id number] [employer]- All Rights Reserved Reading location - IP/workstation name: [email or web address]
[2019-02-02 20:47] VITALS: BP 174/109
== END 2019-02-02 20:47 | disposition home or self-care (01) ==
LOC: ER 14:39
DX: N39.0 Urinary tract infection, site not specified (principal); R60.0 Localized edema; M79.604 Pain in right leg; M79.605 Pain in left leg; E11.9 Type 2 diabetes mellitus without complications; I10 Essential (primary) hypertension
CPT/HCPCS: 36415; 71046; 80053; 81001; 82962; 83880; 85025; 87086; 87088; 87186; 93970; 99284

== ENCOUNTER 2019-02-14 19:07 | Inpatient (IN) | payer MEDICARE, OTHER ==
--- NOTE | 2019-02-14 19:26 | ER Document Report ---
ED Medical Screen (RME) - General Chief Complaint: Swelling Stated Complaint: FLUID RETENTION Time Seen by Provider: 02/14/19 19:15 Primary Care Provider: OSIEL WOODS MD [Primary Care Provider] - Follow up as needed Mode of Arrival: Wheelchair Information source: Patient, Relative Notes: 88-year-old female presented to ED for water retention and difficulty breathing. She states she was seen on February 02 for similar symptoms. She was started on Lasix and has completed that. She states the breathing is gotten worse and the edema has gotten worse. She states she has been keeping her legs elevated as instructed and also her legs wrapped. Patient states she has a history of high blood pressure and diabetes. When she was seen here on February 02 she had blood work chest x-ray and venous Dopplers. She states she followed up with her primary care doctor as she was instructed to but she is still not able to breathe very easily. Patient is alert and oriented respirations regular and unlabored at this time lung sounds are clear at this time. Patient is with her daughter. I have greeted and performed a rapid initial assessment of this patient. A comprehensive ED assessment and evaluation of the patient, analysis of test results and completion of medical decision making process will be conducted by an additional ED providers. TRAVEL OUTSIDE OF THE [place] IN LAST 30 DAYS: No - Related Data Allergies/Adverse Reactions: levofloxacin [From Levaquin] Allergy (Verified 02/02/19 14:42) Fever nitrofurantoin Allergy (Verified 02/02/19 14:42) Fever Past Medical History - Past Medical History Cardiac Medical History: Reports: Hx Hypertension - CONTROLLED Denies: Hx Congestive Heart Failure, Hx Coronary Artery Disease, Hx Heart Attack, Hx Heart Murmur Pulmonary Medical History: Denies: Hx Asthma, Hx Bronchitis, Hx COPD, Hx Pneumonia, Hx Tuberculosis Neurological Medical History: Denies: Hx Cerebrovascular Accident, Hx Seizures Endocrine Medical History: Reports: Hx Diabetes Mellitus Type 2 Renal/ Medical History: Denies: Hx Peritoneal Dialysis GI Medical History: Denies: Hx Hepatitis, Hx Hiatal Hernia, Hx Ulcer Musculoskeltal Medical History: Reports Hx Arthritis, Denies Hx Muscle Weakness Infectious Medical History: Denies: Hx Hepatitis Past Surgical History: Reports: Hx Hysterectomy, Hx Orthopedic Surgery - bilat knee replacement. Denies: Hx Mastectomy, Hx Open Heart Surgery, Hx Pacemaker - Immunizations Hx Diphtheria, Pertussis, Tetanus Vaccination: No Physical Exam - Vital signs Vitals: Pulse Resp BP Pulse Ox 57 L 18 129/64 H 96 02/14/19 19:16 02/14/19 19:16 02/14/19 19:16 02/14/19 19:16 Course - Vital Signs Vital signs: Temp Pulse Resp BP Pulse Ox 57 L 18 129/64 H 96 02/14/19 19:16 02/14/19 19:16 02/14/19 19:16 02/14/19 19:16 - Laboratory Result Diagrams: 02/14/19 19:40 02/14/19 19:40 Laboratory results interpreted by me: 02/14/19 19:40 RDW 15.3 H Doctor's Discharge - Discharge Referrals: OSIEL WOODS MD [Primary Care Provider] - Follow up as needed
[2019-02-14 19:57] LABS: ABSOLUTE EOSINOPHILS # (AUTO) 0.1 10^3/uL (0.0-0.6); ABSOLUTE LYMPHOCYTES (AUTO) 1.4 10^3/uL (0.5-4.7); ABSOLUTE MONOCYTES (AUTO) 0.5 10^3/uL (0.1-1.4); ABSOLUTE NEUT (AUTO) 2.2 10^3/uL (1.7-8.2); BASOPHILS % (AUTO) 0.4 % (0-2); EOSINOPHILS % (AUTO) 1.9 % (0-6); HEMATOCRIT 39.7 % (36.0-47.0); HEMOGLOBIN 12.9 g/dL (12.0-15.5); LYMPHOCYTES % (AUTO) 33.1 % (13-45); MEAN CORPUSCULAR HEMOGLOBIN 30.1 pg (27.0-33.4); MEAN CORPUSCULAR HGB CONC 32.5 g/dL (32.0-36.0); MEAN CORPUSCULAR VOLUME 93 fl (80-97); MONOCYTES % (AUTO) 12.3 % (3-13); PLATELET COUNT 155 10^3/uL (150-450); RED BLOOD COUNT 4.29 10^6/uL (3.72-5.28); RED CELL DISTRIBUTION WIDTH 15.3 % (11.5-14.0); SEGMENTED NEUTROPHILS % (AUTO) 52.3 % (42-78); TOTAL CELLS COUNTED % (AUTO) 100 %; WHITE BLOOD COUNT 4.2 10^3/uL (4.0-10.5)
[2019-02-14 20:14] LABS: ALANINE AMINOTRANSFERASE 25 U/L (9-52); ALBUMIN 3.7 g/dL (3.5-5.0); ALKALINE PHOSPHATASE 192 U/L (38-126); ANION GAP 9 (5-19); ASPARTATE AMINO TRANSFERASE 23 U/L (14-36); BILIRUBIN,DIRECT 0.4 mg/dL (0.0-0.4); BILIRUBIN,TOTAL 0.4 mg/dL (0.2-1.3); BLOOD UREA NITROGEN 21 mg/dL (7-20); CALCIUM 9.2 mg/dL (8.4-10.2); CARBON DIOXIDE 32 mmol/L (22-30); CHLORIDE 100 mmol/L (98-107); GLUCOSE 179 mg/dL (75-110); POTASSIUM 3.9 mmol/L (3.6-5.0); SODIUM 141.1 mmol/L (137-145); TOTAL PROTEIN 7.2 g/dL (6.3-8.2)
--- NOTE | 2019-02-14 20:17 | RADIOLOGY REPORT (SQ) ---
EXAM DESCRIPTION: CHEST 2 VIEWS COMPLETED DATE/TIME: 02/14/2019 7:49 pm REASON FOR STUDY: short of breath, pedal edema COMPARISON: None. 02/02/2019 NUMBER OF VIEWS: Two view. TECHNIQUE: Frontal and lateral radiographic views of the chest acquired. LIMITATIONS: None. FINDINGS: LUNGS AND PLEURA: No opacities, masses or pneumothorax. No pleural effusion. MEDIASTINUM AND HILAR STRUCTURES: No masses. No contour abnormalities. HEART AND VASCULAR STRUCTURES: Heart enlarged without failure. Aorta normal for age. BONES: No acute findings. HARDWARE: None in the chest. OTHER: No other significant finding. IMPRESSION: CARDIAC ENLARGEMENT WITHOUT OVERT FAILURE. TECHNICAL DOCUMENTATION: JOB ID: [id number] [employer]- All Rights Reserved Reading location - IP/workstation name: [email or web address]
[2019-02-14 20:22] LABS: CREATINE KINASE MB 2.71 ng/mL (<4.55)
[2019-02-14] MEDS ORDERED: FUROSEMIDE INJ/PF 20 MG/2 ML SDV IV ONE (21:34)
--- NOTE | 2019-02-14 21:38 | ER Document Report ---
ED General - General Chief Complaint: Swelling Stated Complaint: FLUID RETENTION Time Seen by Provider: 02/14/19 19:15 Mode of Arrival: Wheelchair Notes: Patient is an 88-year-old female with a past medical history of hypertension, hyperlipidemia, diabetes, presents due to concerns of progressively increased swelling to the bilateral lower extremities over the last 1 month. Patient was seen in the emergency department earlier this month for similar but states symptoms have gotten much worse since that time. Regards her symptoms as being severe. She tried a brief course of outpatient oral furosemide without any relief. Followed up with her primary care doctor and is scheduled for multiple outpatient visits regarding this edema but states that the swelling has become so severe it makes it difficult for her to walk and she is concerned that she may have an additional fall. She also notes a dull, throbbing, constant discomfort to the bilateral lower extremities that is equal and symmetric. Worsened by attempts at walking. Not improved by anything. Denies known history of CHF or CKD. Denies shortness of breath, chest pain, fever or constitutional symptoms. TRAVEL OUTSIDE OF THE [place] IN LAST 30 DAYS: No - Related Data Allergies/Adverse Reactions: levofloxacin [From Levaquin] Allergy (Verified 02/02/19 14:42) Fever nitrofurantoin Allergy (Verified 02/02/19 14:42) Fever Past Medical History - General Information source: Patient, Relative - Social History Smoking Status: Former Smoker Frequency of alcohol use: None Drug Abuse: None Lives with: Family Family History: Arthritis, CAD, COPD, CVA, DM, Hyperlipidemia, Hypertension Patient has suicidal ideation: No Patient has homicidal ideation: No - Past Medical History Cardiac Medical History: Reports: Hx Hypertension - CONTROLLED Denies: Hx Congestive Heart Failure, Hx Coronary Artery Disease, Hx Heart Attack, Hx Heart Murmur Pulmonary Medical History: Denies: Hx Asthma, Hx Bronchitis, Hx COPD, Hx Pneumonia, Hx Tuberculosis Neurological Medical History: Denies: Hx Cerebrovascular Accident, Hx Seizures Endocrine Medical History: Reports: Hx Diabetes Mellitus Type 2 Renal/ Medical History: Denies: Hx Peritoneal Dialysis GI Medical History: Denies: Hx Hepatitis, Hx Hiatal Hernia, Hx Ulcer Musculoskeletal Medical History: Reports Hx Arthritis, Denies Hx Muscle Weakness Infectious Medical History: Denies: Hx Hepatitis Past Surgical History: Reports: Hx Hysterectomy, Hx Orthopedic Surgery - bilat knee replacement. Denies: Hx Mastectomy, Hx Open Heart Surgery, Hx Pacemaker - Immunizations Hx Diphtheria, Pertussis, Tetanus Vaccination: No Review of Systems - Review of Systems Notes: Constitutional: Negative for fever. HENT: Negative for sore throat. Eyes: Negative for visual changes. Cardiovascular: Negative for chest pain. Respiratory: Negative for shortness of breath. Gastrointestinal: Negative for abdominal pain, vomiting or diarrhea. Genitourinary: Negative for dysuria. Musculoskeletal: Positive for bilateral lower extremity edema and pain Skin: Negative for rash. Neurological: Negative for headaches, weakness or numbness. 10 point ROS negative except as marked above and in HPI. Physical Exam - Vital signs Vitals: Pulse Resp BP Pulse Ox 57 L 18 129/64 H 96 02/14/19 19:16 02/14/19 19:16 02/14/19 19:16 02/14/19 19:16 Interpretation: Bradycardic Notes: PHYSICAL EXAMINATION: GENERAL: Well-appearing, well-nourished and in no acute distress. HEAD: Atraumatic, normocephalic. EYES: Pupils equal round and reactive to light, extraocular movements intact, sclera anicteric, conjunctiva are normal. ENT: nares patent, oropharynx clear without exudates. Moist mucous membranes. NECK: Normal range of motion, supple without lymphadenopathy LUNGS: Breath sounds clear to auscultation bilaterally and equal. No wheezes rales or rhonchi. HEART: Regular rate and rhythm without murmurs ABDOMEN: Soft, nontender, normoactive bowel sounds. No guarding, no rebound. No masses appreciated. EXTREMITIES: Normal range of motion, 4+ pitting edema in the bilateral lower extremities that is equal and symmetric to the mid thigh bilaterally NEUROLOGICAL: No focal neurological deficits. Moves all extremities spontaneously and on command. PSYCH: Normal mood, normal affect. SKIN: Warm, Dry, normal turgor, no rashes or lesions noted. Course - Re-evaluation Re-evalutation: 02/14/19 21:36 Patient presents with marked 4+ pitting edema in the bilateral lower extremities all the way to the mid thigh bilaterally. She has had substantial weight gain since her visit here several weeks ago going from 115 kg to 122 kg likely due to the edema in her lower extremities. The patient states that she is effectively unable to ambulate at this point due to the weight of her legs although denies any overt shortness of breath merely that she becomes very tired quickly due to the weight of her legs. Her family is very concerned about her being at risk for falls and I agree that the patient is not safe for outpatient diuresis secondary to fall risk and will likely need IV diuresis - Vital Signs Vital signs: Temp Pulse Resp BP Pulse Ox 93.5 F L 57 L 16 149/94 H 89 L 02/15/19 01:30 02/15/19 01:30 02/15/19 01:30 02/15/19 01:30 02/15/19 01:30 - Laboratory Result Diagrams: 02/14/19 19:40 02/14/19 19:40 Laboratory results interpreted by me: 02/14/19 02/14/19 02/14/19 19:40 19:40 21:20 RDW 15.3 H Carbon Dioxide 32 H BUN 21 H Glucose 179 H Alkaline Phosphatase 192 H Urine Nitrite POSITIVE H Ur Leukocyte Esterase SMALL H - Diagnostic Test Radiology reviewed: Image reviewed, Reports reviewed Radiology results interpreted by me: 02/14/19 21:40 Chest x-ray: No acute infiltrate or pneumothorax Discharge - Discharge Clinical Impression: Bilateral lower extremity edema, Ambulatory dysfunction Condition: Fair Disposition: ADMITTED INPATIENT Admitting Provider: [facility] Unit Admitted: Medical Floor
[2019-02-14 21:46] LABS: APPEARANCE,URINE CLOUDY; BILIRUBIN,URINE NEGATIVE (NEGATIVE); COLOR,URINE AMBER; GLUCOSE, URINE NEGATIVE (NEGATIVE); KETONES,URINE NEGATIVE (NEGATIVE); LEUKOCYTE ESTERASE,URINE SMALL (NEGATIVE); NITRITE,URINE POSITIVE (NEGATIVE); PROTEIN,URINE NEGATIVE (NEGATIVE); URINE SPECIFIC GRAVITY 1.015; UROBILINOGEN,URINE NEGATIVE mg/dL (<2.0)
[2019-02-15] MEDS ORDERED: DEXTROSE 50%-WATER SYRINGE 25 GM/50 ML DOSE IV PRN (01:30)
[2019-02-15] MEDS ORDERED: DEXTROSE 40% GEL 15 GM TUBE X 2 PO PRN (01:30)
[2019-02-15] MEDS ORDERED: DEXTROSE 40% GEL 15 GM TUBE PO PRN (01:30)
[2019-02-15] MEDS ORDERED: GLUCAGON,HUMAN RECOMB 1 MG INJ IM PRN (01:30)
[2019-02-15] MEDS ORDERED: DEXTROSE 50%-WATER SYRINGE 12.5 GM/25 ML DOSE IV PRN (01:30)
[2019-02-15] MEDS ORDERED: CLONIDINE HCL 0.1 MG TABLET PO ONE (01:45)
[2019-02-15] MEDS ORDERED: LISINOPRIL 10 MG TABLET PO ONE (01:45)
[2019-02-15] MEDS ORDERED: ALPRAZOLAM 0.5 MG TABLET PO ONE (01:45)
[2019-02-15 06:06] LABS: ABSOLUTE EOSINOPHILS # (AUTO) 0.1 10^3/uL (0.0-0.6); ABSOLUTE LYMPHOCYTES (AUTO) 1.2 10^3/uL (0.5-4.7); ABSOLUTE MONOCYTES (AUTO) 0.5 10^3/uL (0.1-1.4); BASOPHILS % (AUTO) 0.4 % (0-2); EOSINOPHILS % (AUTO) 2.7 % (0-6); HEMATOCRIT 34.1 % (36.0-47.0); HEMOGLOBIN 11.2 g/dL (12.0-15.5); LYMPHOCYTES % (AUTO) 31.5 % (13-45); MEAN CORPUSCULAR HEMOGLOBIN 30.2 pg (27.0-33.4); MEAN CORPUSCULAR HGB CONC 32.8 g/dL (32.0-36.0); MEAN CORPUSCULAR VOLUME 92 fl (80-97); MONOCYTES % (AUTO) 12.8 % (3-13); PLATELET COUNT 113 10^3/uL (150-450); RED CELL DISTRIBUTION WIDTH 15.2 % (11.5-14.0); SEGMENTED NEUTROPHILS % (AUTO) 52.6 % (42-78); TOTAL CELLS COUNTED % (AUTO) 100 %; WHITE BLOOD COUNT 3.8 10^3/uL (4.0-10.5)
[2019-02-15 06:36] LABS: ANION GAP 8 (5-19); BLOOD UREA NITROGEN 23 mg/dL (7-20); CALCIUM 8.5 mg/dL (8.4-10.2); CARBON DIOXIDE 31 mmol/L (22-30); CHLORIDE 101 mmol/L (98-107); GLUCOSE 118 mg/dL (75-110); POTASSIUM 3.6 mmol/L (3.6-5.0); SODIUM 140.1 mmol/L (137-145)
[2019-02-15] MEDS ORDERED: [UNRECOGNIZED DRUG - OTHER] SQ SCH (08:00)
[2019-02-15] MEDS ORDERED: INSULIN ASPART PROTAMINE SQ SCH (08:00)
[2019-02-15 08:23] LABS: FREE T4 (FREE THYROXINE) 1.33 ng/dL (0.78-2.19)
[2019-02-15] MEDS: INSULIN LISPRO 100 UNIT/ML 3 ML VIAL SUBCUT SCH ×4 (08:36→21:34)
[2019-02-15 08:37] LABS: THYROID STIMULATING HORMONE 2.69 uIU/mL (0.47-4.68)
[2019-02-15] MEDS: ASPIRIN 81 MG TABLET, ENT COATED PO SCH (09:52)
[2019-02-15] MEDS: METOPROLOL SUCCINATE 50 MG TAB.SR.24H PO SCH (09:52)
[2019-02-15] MEDS: ALPRAZOLAM 0.5 MG TABLET PO SCH (09:52)
[2019-02-15] MEDS: TRIAMTERENE/HYDROCHLOROTHIAZIDE 37.5-25 MG TABLET PO SCH (09:52)
[2019-02-15] MEDS ORDERED: LISINOPRIL 10 MG TABLET PO SCH (10:00)
[2019-02-15] MEDS ORDERED: NIFEDIPINE 30 MG TAB.ER.24 PO SCH (10:00)
[2019-02-15] MEDS ORDERED: CEFTRIAXONE 1 GM/D5W RTU 50 ML IV SCH (11:30)
--- NOTE | 2019-02-15 11:51 | PDOC H&P ---
History of Present Illness Admission Date/PCP: 02/14/19 21:53 OSIEL WOODS MD History of Present Illness: KODY RENDON is a 88 year old female, she came to the emergency room last night for evaluation of bilateral leg swelling, right more than left. She was in the emergency room on 02/02/2019 for evaluation of bilateral leg swelling at that time she had venous Doppler done, this was negative for deep vein thrombosis, she was prescribed furosemide and discharged from the ER. Patient said the leg swelling improved some to the diuretic that was prescribed but it has increased subsequently. She stated that the leg swelling started in the last 2 weeks but on examination of the lower extremities, there are skin changes including lichenification of the skin suggesting that this probably chronic leg swelling, the appearance is more consistent with stasis dermatitis, she is mor bidly obese, her BMI is 44, history of bilateral knee replacement, she also recently had a fracture of the right femur she underwent ORIF on 2018. She also has a history of recurrent UTI, she has received different antibiotic for recurrent UTI, the daughter stated that she was supposed to see urology, it seems. that she has a history of cystocele, she does not have a history of CHF, the BNP that was drawn in the emergency room was normal. She also was found to be hypothermic, the temperature recorded was 93-94 Fahrenheit Past Medical History Cardiac Medical History: Reports: Hypertension - CONTROLLED Endocrine Medical History: Reports: Diabetes Mellitus Type 2 GI Medical History: Reports: Gastroesophageal Reflux Disease Musculoskeltal Medical History: Reports: Arthritis Past Surgical History Past Surgical History: Reports: Hysterectomy, Orthopedic Surgery - bilat knee replacement Social History Lives with: Family Smoking Status: Former Smoker Frequency of Alcohol Use: None Hx Recreational Drug Use: No Drugs: None Hx Prescription Drug Abuse: No Family History Family History: Arthritis, CAD, COPD, CVA, DM, Hyperlipidemia, Hypertension Parental Family History Reviewed: Yes Children Family History Reviewed: Yes Sibling(s) Family History Reviewed.: Yes Medication/Allergy Home Medications: Aspirin [Ecotrin 81 mg EC Tablet] 81 mg PO DAILYP PRN 06/20/12 Clonidine HCl 0.1 mg PO Q12 06/20/12 Lisinopril 40 mg PO QHS 06/20/12 Metoprolol Succinate [Toprol XL 100 mg Tablet] 100 mg PO DAILY 06/20/12 Nifedipine [Procardia XL 60 mg Tablet] 60 mg PO DAILY 06/20/12 Triamterene/Hydrochlorothiazid [Maxzide-25 Tablet] 1 tab PO DAILY 10/23/18 Oxycodone HCl/Acetaminophen [Percocet 5-325 mg Tablet] 1 tab PO Q6HP PRN #30 tablet 10/25/18 Alprazolam [Xanax 0.5 mg Tablet] 0.5 mg PO BID 02/15/19 Insulin Aspart Protam & Aspart [Novolog Mix 70-30 Vial] 0 unit SQ .PERSLDSCLE PRN 02/15/19 Allergies/Adverse Reactions: levofloxacin [From Levaquin] Allergy (Verified 02/02/19 14:42) Fever nitrofurantoin Allergy (Verified 02/02/19 14:42) Fever Review of Systems Constitutional: ABSENT: chills, fever(s), headache(s), weight gain, weight loss Eyes: ABSENT: visual disturbances Ears: ABSENT: hearing changes Cardiovascular: ABSENT: chest pain, dyspnea on exertion, edema, orthropnea, palpitations Respiratory: ABSENT: cough, hemoptysis Gastrointestinal: PRESENT: abdominal pain. ABSENT: constipation, diarrhea, hematemesis, hematochezia, nausea, vomiting Genitourinary: ABSENT: dysuria, hematuria Musculoskeletal: ABSENT: joint swelling Integumentary: ABSENT: rash, wounds Neurological: ABSENT: abnormal gait, abnormal speech, confusion, dizziness, focal weakness, syncope Psychiatric: ABSENT: anxiety, depression, homidical ideation, suicidal ideation Endocrine: ABSENT: cold intolerance, heat intolerance, menstrual abnormalities, polydipsia, polyuria Hematologic/Lymphatic: ABSENT: easy bleeding, easy bruising, lymphadenopathy Physical Exam Vital Signs: Temp Pulse Resp BP Pulse Ox 94.1 F L 55 L 21 H 115/64 98 02/15/19 08:18 02/15/19 08:18 02/15/19 08:18 02/15/19 08:18 02/15/19 08:18 Intake & Output 02/14/19 02/15/19 02/16/19 06:59 06:59 06:59 Intake Total 150 Output Total 300 Balance -150 Weight 120.6 kg General appearance: PRESENT: obese Eye exam: PRESENT: PERRLA Respiratory exam: PRESENT: clear to auscultation genia Cardiovascular exam: PRESENT: +S1, +S2 GI/Abdominal exam: PRESENT: soft Extremities exam: PRESENT: other - There is bilateral lower extremity swelling with areas of redness on the right side, there is lichenification more prominent on the left than the right suggesting chronic venous stasis Neurological exam: PRESENT: alert, CN II-XII grossly intact Results Laboratory Results: 02/15/19 05:03 02/15/19 05:03 02/14/19 02/14/19 02/14/19 19:40 19:40 21:20 WBC 4.2 RBC 4.29 Hgb 12.9 Hct 39.7 MCV 93 MCH 30.1 MCHC 32.5 RDW 15.3 H Plt Count 155 Seg Neutrophils % 52.3 Lymphocytes % 33.1 Monocytes % 12.3 Eosinophils % 1.9 Basophils % 0.4 Absolute Neutrophils 2.2 Absolute Lymphocytes 1.4 Absolute Monocytes 0.5 Absolute Eosinophils 0.1 Absolute Basophils 0.0 Sodium 141.1 Potassium 3.9 Chloride 100 Carbon Dioxide 32 H Anion Gap 9 BUN 21 H Creatinine 0.84 Est GFR ( Amer) > 60 Est GFR (Non-Af Amer) > 60 Glucose 179 H Calcium 9.2 Total Bilirubin 0.4 AST 23 ALT 25 Alkaline Phosphatase 192 H Total Protein 7.2 Albumin 3.7 TSH Free T4 Urine Color FITO Urine Appearance CLOUDY Urine pH 7.0 Ur Specific [place] 1.015 Urine Protein NEGATIVE Urine Glucose (UA) NEGATIVE Urine Ketones NEGATIVE Urine Blood NEGATIVE Urine Nitrite POSITIVE H Ur Leukocyte Esterase SMALL H Urine WBC (Auto) 57 Urine RBC (Auto) 2 02/15/19 02/15/19 02/15/19 05:03 05:03 05:03 WBC 3.8 L RBC 3.70 L Hgb 11.2 L Hct 34.1 L MCV 92 MCH 30.2 MCHC 32.8 RDW 15.2 H Plt Count 113 L Seg Neutrophils % 52.6 Lymphocytes % 31.5 Monocytes % 12.8 Eosinophils % 2.7 Basophils % 0.4 Absolute Neutrophils 2.0 Absolute Lymphocytes 1.2 Absolute Monocytes 0.5 Absolute Eosinophils 0.1 Absolute Basophils 0.0 Sodium 140.1 Potassium 3.6 Chloride 101 Carbon Dioxide 31 H Anion Gap 8 BUN 23 H Creatinine 0.83 Est GFR ( Amer) > 60 Est GFR (Non-Af Amer) > 60 Glucose 118 H Calcium 8.5 Total Bilirubin AST ALT Alkaline Phosphatase Total Protein Albumin TSH 2.69 Free T4 1.33 Urine Color Urine Appearance Urine pH Ur Specific [place] Urine Protein Urine Glucose (UA) Urine Ketones Urine Blood Urine Nitrite Ur Leukocyte Esterase Urine WBC (Auto) Urine RBC (Auto) 02/14/19 19:40 CK-MB (CK-2) 2.71 NT-Pro-B Natriuret Pep 382 Impressions: Chest X-Ray 02/14/19 19:23 IMPRESSION: CARDIAC ENLARGEMENT WITHOUT OVERT FAILURE. 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 But because of the hypothermia it is reasonable to treat with IV antibiotics systemically, clindamycin IV. (3) Recurrent urinary tract infection Is this a current diagnosis for this admission?: Yes Plan: She has a history of recurrent UTI, urine culture is ordered, she has abdominal pain, questionable history of cystocele, CT scan of the abdomen and pelvis with IV contrast is ordered to rule out structural disease of the urinary system as a cause of the UTI. She has allergy to Levaquin, she will empirically be treated with ceftriaxone for UTI
[2019-02-15 12:56] LABS: APPEARANCE,URINE SLIGHTLY-CLOUDY; BILIRUBIN,URINE NEGATIVE (NEGATIVE); COLOR,URINE YELLOW; GLUCOSE, URINE NEGATIVE (NEGATIVE); KETONES,URINE NEGATIVE (NEGATIVE); LEUKOCYTE ESTERASE,URINE TRACE (NEGATIVE); NITRITE,URINE POSITIVE (NEGATIVE); PROTEIN,URINE NEGATIVE (NEGATIVE); URINE SPECIFIC GRAVITY 1.008; UROBILINOGEN,URINE NEGATIVE mg/dL (<2.0)
[2019-02-15] MEDS: NORMAL SALINE 1000 ML 1,000 ML IV PRN (13:04)
--- NOTE | 2019-02-15 13:04 | RADIOLOGY REPORT (SQ) ---
EXAM DESCRIPTION: CT ABD/PELVIS WITH IV ONLY COMPLETED DATE/TIME: 02/15/2019 12:35 pm REASON FOR STUDY: abdominal pain E03.9 HYPOTHYROIDISM, UNSPECIFIED N39.0 URINARY TRACT INFECTION, SITE NOT SPECIFIED R10.84 GENERALIZED ABDOMINAL PAIN COMPARISON: 06/25/2013 TECHNIQUE: CT scan of the abdomen and pelvis performed using helical scanning technique with dynamic intravenous contrast injection. No oral contrast. Images reviewed with lung, soft tissue, and bone w indows. Reconstructed coronal and sagittal MPR images reviewed. Delayed images for evaluation of the urinary system also acquired. All images stored on PACS. All CT scanners at this facility use dose modulation, iterative reconstruction, and/or weight based d osing when appropriate to reduce radiation dose to as low as reasonably achievable (ALARA). [facility]: Dose Right [facility]: CareDose [facility]: Dose Right [facility]: Teradose 4D [facility]: [employer] CONTRAST TYPE AND DOSE: contrast/concentration: Isovue 350.00 mg/ml; Total Contrast Delivered: 100.0 ml; Total Saline Delivered: 72.0 ml RENAL FUNCTION: GFR > 60. RADIATION DOSE: CT Rad equipment meets quality standard of care and radiation dose reduction techniq ues were employed. CTDIvol: 20.4 - 21.1 mGy. DLP: 2028 mGy-cm.. LIMITATIONS: None. FINDINGS: LOWER CHEST: Slightly increased basilar chronic interstitial changes -scarring. LIVER: Normal size. No enhancing masses. No dilated ducts. SPLEEN: Normal size. No focal lesions. PANCREAS: No masses identified. No significant calcifications. No adjacent inflammation or peripancre atic fluid collections. Pancreatic duct not dilated. GALLBLADDER: Small calcified stones. No inflammatory changes to suggest cholecystitis. ADRENAL GLANDS: No significant masses. RIGHT KIDNEY AND URETER: Small cysts identified. No solid masses identified. No calcified stones. No hydronephrosis or hydroureter. LEFT KIDNEY AND URETER: No cysts identified. No solid masses identified. No calcified stones. No hydr onephrosis or hydroureter. AORTA AND VESSELS: No aneurysm. No dissection. Renal arteries, SMA, celiac without significant stenos is. RETROPERITONEUM: No bulky retroperitoneal adenopathy. BOWEL AND PERITONEAL CAVITY: Colonic diverticulosis. No obstruction or inflammatory changes. No free fluid. APPENDIX: Normal. PELVIS: No mass. No free fluid. Unremarkable bladder. ABDOMINAL WALL: Prior hysterectomy. Similar fat containing left inguinal hernia. BONES: No acute findings. OTHER: No other significant finding. IMPRESSION: NO ACUTE FINDINGS IN THE ABDOMEN OR PELVIS ON CT SCAN WITH IV CONTRAST. TECHNICAL DOCUMENTATION: JOB ID: [id number] [place]-72 Quality ID # [id number]: Final reports with documentation of one or more dose reduction techniques (e.g., Au tomated exposure control, adjustment of the mA and/or kV according to patient size, use of iterative reconstruction technique) 2010 [employer]- All Rights Reserved Reading location - IP/workstation name: New Body MD
[2019-02-15] MEDS: CEFTRIAXONE SODIUM 1,000 MG in DEXTROSE 5%-WATER 50 ML IV SCH (13:05)
[2019-02-15] MEDS: ENOXAPARIN SODIUM INJ 40 MG/0.4 ML DISP.SYRIN SUBCUT SCH (13:05)
[2019-02-15] MEDS: CLONIDINE HCL 0.1 MG TABLET PO SCH ×2 (13:10→21:32)
[2019-02-15] MEDS: CLINDAMYCIN 600 MG/D5W RTU 600 MG/50 ML RTUPB IV SCH ×2 (14:48→21:32)
[2019-02-15] MEDS: NIFEDIPINE 30 MG TAB.ER.24 PO SCH (17:30)
[2019-02-15] MEDS: OXYCODONE-ACETAMINOPHEN 5-325 MG TABLET PO PRN (20:21)
[2019-02-15] MEDS: LISINOPRIL 10 MG TABLET PO SCH (21:33)
[2019-02-16] MEDS: NORMAL SALINE 1000 ML 1,000 ML IV PRN ×2 (03:43→14:11)
[2019-02-16] MEDS: CLINDAMYCIN 600 MG/D5W RTU 600 MG/50 ML RTUPB IV SCH ×3 (05:33→21:05)
[2019-02-16] MEDS: INSULIN LISPRO 100 UNIT/ML 3 ML VIAL SUBCUT SCH ×4 (09:18→21:11)
[2019-02-16] MEDS: ENOXAPARIN SODIUM INJ 40 MG/0.4 ML DISP.SYRIN SUBCUT SCH (09:24)
[2019-02-16] MEDS: ALPRAZOLAM 0.5 MG TABLET PO SCH ×2 (09:24→21:05)
[2019-02-16] MEDS: ASPIRIN 81 MG TABLET, ENT COATED PO SCH (09:24)
[2019-02-16] MEDS: CEFTRIAXONE SODIUM 1,000 MG in DEXTROSE 5%-WATER 50 ML IV SCH (09:24)
[2019-02-16] MEDS: METOPROLOL SUCCINATE 50 MG TAB.SR.24H PO SCH (09:24)
[2019-02-16] MEDS: CLONIDINE HCL 0.1 MG TABLET PO SCH ×2 (09:24→21:05)
[2019-02-16] MEDS: TRIAMTERENE/HYDROCHLOROTHIAZIDE 37.5-25 MG TABLET PO SCH (09:24)
[2019-02-16 14:23] LABS: ABSOLUTE LYMPHOCYTES (AUTO) 1.2 10^3/uL (0.5-4.7); ABSOLUTE MONOCYTES (AUTO) 0.5 10^3/uL (0.1-1.4); ABSOLUTE NEUT (AUTO) 2.3 10^3/uL (1.7-8.2); BASOPHILS % (AUTO) 0.6 % (0-2); EOSINOPHILS % (AUTO) 1.1 % (0-6); HEMATOCRIT 35.7 % (36.0-47.0); HEMOGLOBIN 11.7 g/dL (12.0-15.5); LYMPHOCYTES % (AUTO) 29.7 % (13-45); MEAN CORPUSCULAR HGB CONC 32.9 g/dL (32.0-36.0); MEAN CORPUSCULAR VOLUME 91 fl (80-97); MONOCYTES % (AUTO) 13.2 % (3-13); PLATELET COUNT 129 10^3/uL (150-450); RED BLOOD COUNT 3.91 10^6/uL (3.72-5.28); RED CELL DISTRIBUTION WIDTH 15.3 % (11.5-14.0); SEGMENTED NEUTROPHILS % (AUTO) 55.4 % (42-78); TOTAL CELLS COUNTED % (AUTO) 100 %; WHITE BLOOD COUNT 4.1 10^3/uL (4.0-10.5)
[2019-02-16 14:32] LABS: ALANINE AMINOTRANSFERASE 24 U/L (9-52); ALBUMIN 3.2 g/dL (3.5-5.0); ALKALINE PHOSPHATASE 170 U/L (38-126); ANION GAP 8 (5-19); ASPARTATE AMINO TRANSFERASE 19 U/L (14-36); BILIRUBIN,DIRECT 0.4 mg/dL (0.0-0.4); BILIRUBIN,TOTAL 0.4 mg/dL (0.2-1.3); BLOOD UREA NITROGEN 19 mg/dL (7-20); CALCIUM 8.8 mg/dL (8.4-10.2); CARBON DIOXIDE 29 mmol/L (22-30); CHLORIDE 102 mmol/L (98-107); GLUCOSE 144 mg/dL (75-110); POTASSIUM 3.8 mmol/L (3.6-5.0); SODIUM 139.2 mmol/L (137-145); TOTAL PROTEIN 6.4 g/dL (6.3-8.2)
[2019-02-16] MEDS: NIFEDIPINE 30 MG TAB.ER.24 PO SCH (17:42)
[2019-02-16] MEDS: LISINOPRIL 10 MG TABLET PO SCH (21:05)
[2019-02-17] MEDS: OXYCODONE-ACETAMINOPHEN 5-325 MG TABLET PO PRN ×2 (01:02→22:32)
[2019-02-17] MEDS: CLINDAMYCIN 600 MG/D5W RTU 600 MG/50 ML RTUPB IV SCH (05:37)
[2019-02-17] MEDS: NORMAL SALINE 1000 ML 1,000 ML IV PRN (05:37)
--- NOTE | 2019-02-17 08:30 | PDOC PROGRESS REPORT ---
Subjective Progress Note for:: 02/17/19 Subjective:: Patient was admitted in the hospital for the generalized weakness leg swelling and also urinary tract infection and cellulitis Patient was put on IV antibiotic Patient is currently doing well Patient's leg swelling is much better Patient's denied any chest pain denied any shortness of the breath Patient CT scan of the abdomen pelvis was no acute findings Reason For Visit: BILATERAL LOWER EXTREMITY MYA Physical Exam Vital Signs: Temp Pulse Resp BP Pulse Ox 97.6 F 61 18 146/76 H 96 02/17/19 00:00 02/17/19 00:00 02/17/19 00:00 02/17/19 00:00 02/17/19 00:00 Intake & Output 02/16/19 02/17/19 02/18/19 06:59 06:59 06:59 Intake Total 2394 3850 Output Total 3175 1450 Balance -781 2400 Weight 121.3 kg General appearance: PRESENT: no acute distress, well-developed, well-nourished Head exam: PRESENT: atraumatic, normocephalic Eye exam: PRESENT: conjunctiva pink, EOMI, PERRLA. ABSENT: scleral icterus Ear exam: PRESENT: normal external ear exam Mouth exam: PRESENT: moist, tongue midline Neck exam: PRESENT: full ROM. ABSENT: carotid bruit, JVD, lymphadenopathy, thyromegaly Respiratory exam: PRESENT: clear to auscultation genia Cardiovascular exam: PRESENT: RRR. ABSENT: diastolic murmur, rubs, systolic murmur Vascular exam: PRESENT: normal capillary refill GI/Abdominal exam: PRESENT: normal bowel sounds, soft. ABSENT: distended, guarding, mass, organolmegaly, rebound, tenderness Rectal exam: PRESENT: deferred Extremities exam: PRESENT: pedal edema Neurological exam: PRESENT: alert, awake, oriented to person, oriented to place, oriented to time, oriented to situation, CN II-XII grossly intact. ABSENT: motor sensory deficit Psychiatric exam: PRESENT: appropriate affect, normal mood. ABSENT: homicidal ideation, suicidal ideation Skin exam: PRESENT: dry, intact, warm. ABSENT: cyanosis, rash Results Laboratory Results: 02/16/19 13:29 02/16/19 13:29 02/15/19 02/16/19 02/16/19 11:35 13:29 13:29 WBC 4.1 RBC 3.91 Hgb 11.7 L Hct 35.7 L MCV 91 MCH 30.0 MCHC 32.9 RDW 15.3 H Plt Count 129 L Seg Neutrophils % 55.4 Lymphocytes % 29.7 Monocytes % 13.2 H Eosinophils % 1.1 Basophils % 0.6 Absolute Neutrophils 2.3 Absolute Lymphocytes 1.2 Absolute Monocytes 0.5 Absolute Eosinophils 0.0 Absolute Basophils 0.0 Sodium 139.2 Potassium 3.8 Chloride 102 Carbon Dioxide 29 Anion Gap 8 BUN 19 Creatinine 0.89 Est GFR ( Amer) > 60 Est GFR (Non-Af Amer) > 60 Glucose 144 H Calcium 8.8 Total Bilirubin 0.4 AST 19 ALT 24 Alkaline Phosphatase 170 H Total Protein 6.4 Albumin 3.2 L Urine Color YELLOW Urine Appearance SLIGHTLY-CLOUDY Urine pH 6.0 Ur Specific [place] 1.008 Urine Protein NEGATIVE Urine Glucose (UA) NEGATIVE Urine Ketones NEGATIVE Urine Blood NEGATIVE Urine Nitrite POSITIVE H Ur Leukocyte Esterase TRACE H Urine WBC (Auto) 16 Urine RBC (Auto) 1 02/14/19 19:40 CK-MB (CK-2) 2.71 NT-Pro-B Natriuret Pep 382 Impressions: Chest X-Ray 02/14/19 19:23 IMPRESSION: CARDIAC ENLARGEMENT WITHOUT OVERT FAILURE. Abdomen/Pelvis CT 02/15/19 00:00 IMPRESSION: NO ACUTE FINDINGS IN THE ABDOMEN OR PELVIS ON CT SCAN WITH IV CONTRAST. 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 Is this a current diagnosis for this admission?: Yes (3) Recurrent urinary tract infection Is this a current diagnosis for this admission?: Yes (4) Anxiety disorder Qualifiers: Anxiety disorder type: generalized anxiety disorder Qualified Code(s): F41.1 - Generalized anxiety disorder Is this a current diagnosis for this admission?: Yes (5) Hyperlipidemia Qualifiers: Hyperlipidemia type: unspecified Qualified Code(s): E78.5 - Hyperlipidemia, unspecified Is this a current diagnosis for this admission?: Yes (6) Hypertension Qualifiers: Hypertension type: essential hypertension Qualified Code(s): I10 - Essential (primary) hypertension Is this a current diagnosis for this admission?: Yes (7) Osteoarthritis Qualifiers: Osteoarthritis location: unspecified site Is this a current diagnosis for this admission?: Yes - Time Time Spent with patient: 15-24 minutes Medications reviewed and adjusted accordingly: Yes Anticipated discharge: Home Within: Other - Plan Summary Plan Summary: Discontinues to IV fluid The patient on the Lasix for the leg swellings and discontinued the hydrochlorothiazide Continues to IV antibiotic and wait for the culture Patient already seen by the vascular surgeon and cardiology evaluations done Get the physical therapy evaluations
[2019-02-17] MEDS: INSULIN LISPRO 100 UNIT/ML 3 ML VIAL SUBCUT SCH ×4 (08:44→22:27)
[2019-02-17] MEDS: ENOXAPARIN SODIUM INJ 40 MG/0.4 ML DISP.SYRIN SUBCUT SCH (10:42)
[2019-02-17] MEDS: CLONIDINE HCL 0.1 MG TABLET PO SCH ×2 (10:43→22:25)
[2019-02-17] MEDS: FUROSEMIDE 20 MG TABLET PO SCH ×2 (10:44→17:04)
[2019-02-17] MEDS: ASPIRIN 81 MG TABLET, ENT COATED PO SCH (10:44)
[2019-02-17] MEDS: ALPRAZOLAM 0.5 MG TABLET PO SCH ×4 (10:44→22:26)
[2019-02-17] MEDS: METOPROLOL SUCCINATE 50 MG TAB.SR.24H PO SCH (10:44)
[2019-02-17] MEDS: CEFTRIAXONE SODIUM 1,000 MG in DEXTROSE 5%-WATER 50 ML IV SCH (11:42)
--- NOTE | 2019-02-17 14:53 | Progress Note ---
Provider Note Provider Note: ID Consult Note Asked by Pharmacy to review patient's chart. Pt is a 88 year old woman who has PMH including obesity, diabetes, HTN, lower extremity edema, and R femur fx s/p ORIF Oct 2018. She presented on 02/15/19 with c/o progressive BLE swelling R>L that initially responded to outpatient Lasix but increased subsequently. She was found to be hypothermic initially. ROS taken by the ED provider and per the admitting physician's H&P include no fever, chills, or dysuria. Her exam on admission was notable for BLE swelling of lower extremities with lichenification more prominent on L>R and areas of erythema on the right. Peripheral WBC count was normal. She was suspected of having chronic venous stasis dermatitis with a superimposed cellulitis and of having a UTI based on a diagnosis of prior UTI and abdominal pain. Impression/Recommendations asymptomatic bacteriuria - Diagnosis of UTI is not established by presence of nitrites, pyuria, bacteria or leukocyte esterase on a U/A. These findings are quite sensitive but not specific. UTI remains a clinical diagnosis. Colonization of the urine with bacteria increases in prevalence with age, and distinguishing between asymptomatic bacteriuria and UTI depends upon presence of compatible signs and symptoms, of which dysuria, urinary urgency, suprapubic pain or tenderness are typical. With the patient lacking urinary symptoms when queried in the ED and upon admission, the diagnosis of UTI does not seem likely compared to that of asymptomatic bacteriuria. - Pt with asymptomatic bacteriuria does not require or benefit from antibiotics in absence of impending invasive urinary procedure or Maynor Valentine MD [facility] pager [phone]
[2019-02-17] MEDS: NIFEDIPINE 30 MG TAB.ER.24 PO SCH (17:04)
[2019-02-17] MEDS ORDERED: ERTAPENEM SODIUM 1 GM in NORMAL SALINE 50 ML IV SCH (22:00)
[2019-02-17] MEDS: LISINOPRIL 10 MG TABLET PO SCH (22:25)
[2019-02-18 05:59] LABS: ABSOLUTE BASOPHILS # (AUTO) 0.1 10^3/uL (0.0-0.2); ABSOLUTE EOSINOPHILS # (AUTO) 0.1 10^3/uL (0.0-0.6); ABSOLUTE LYMPHOCYTES (AUTO) 1.2 10^3/uL (0.5-4.7); ABSOLUTE MONOCYTES (AUTO) 0.6 10^3/uL (0.1-1.4); ABSOLUTE NEUT (AUTO) 2.1 10^3/uL (1.7-8.2); BASOPHILS % (AUTO) 2.2 % (0-2); EOSINOPHILS % (AUTO) 2.7 % (0-6); HEMATOCRIT 36.5 % (36.0-47.0); LYMPHOCYTES % (AUTO) 29.7 % (13-45); MEAN CORPUSCULAR HEMOGLOBIN 29.9 pg (27.0-33.4); MEAN CORPUSCULAR VOLUME 91 fl (80-97); MONOCYTES % (AUTO) 13.9 % (3-13); PLATELET COUNT 125 10^3/uL (150-450); RED BLOOD COUNT 4.02 10^6/uL (3.72-5.28); RED CELL DISTRIBUTION WIDTH 15.4 % (11.5-14.0); SEGMENTED NEUTROPHILS % (AUTO) 51.5 % (42-78); TOTAL CELLS COUNTED % (AUTO) 100 %; WHITE BLOOD COUNT 4.1 10^3/uL (4.0-10.5)
[2019-02-18 06:27] LABS: ANION GAP 8 (5-19); BLOOD UREA NITROGEN 13 mg/dL (7-20); CARBON DIOXIDE 31 mmol/L (22-30); CHLORIDE 100 mmol/L (98-107); GLUCOSE 126 mg/dL (75-110); POTASSIUM 3.5 mmol/L (3.6-5.0); SODIUM 139.2 mmol/L (137-145)
[2019-02-18] MEDS: INSULIN LISPRO 100 UNIT/ML 3 ML VIAL SUBCUT SCH ×4 (08:15→21:23)
--- NOTE | 2019-02-18 08:47 | PDOC PROGRESS REPORT ---
Subjective Progress Note for:: 02/18/19 Subjective:: Is feeling much better Patient's urine cultures grew ESBL but according to the infectious disease patients asymptomatic bacteremia does not require any treatments Patient leg swelling is better Patient is denied any chest pain to than any shortness of the breath Reason For Visit: RECURRENT UTI,LOWER EXTREMITIES EDEMA WITH Physical Exam Vital Signs: Temp Pulse Resp BP Pulse Ox 97.4 F 69 18 146/75 H 93 02/18/19 00:00 02/18/19 00:00 02/18/19 00:00 02/18/19 00:00 02/18/19 00:00 Intake & Output 02/17/19 02/18/19 02/19/19 06:59 06:59 06:59 Intake Total 3850 1861 Output Total 1450 Balance 2400 1861 Weight 124.8 kg General appearance: PRESENT: no acute distress, well-developed, well-nourished Head exam: PRESENT: atraumatic, normocephalic Eye exam: PRESENT: conjunctiva pink, EOMI, PERRLA. ABSENT: scleral icterus Ear exam: PRESENT: normal external ear exam Mouth exam: PRESENT: moist, tongue midline Neck exam: PRESENT: full ROM. ABSENT: carotid bruit, JVD, lymphadenopathy, thyromegaly Respiratory exam: PRESENT: clear to auscultation genia Cardiovascular exam: PRESENT: RRR. ABSENT: diastolic murmur, rubs, systolic murmur Pulses: PRESENT: normal dorsalis pedis pul, +2 pedal pulses bilateral Vascular exam: PRESENT: normal capillary refill GI/Abdominal exam: PRESENT: normal bowel sounds, soft. ABSENT: distended, guarding, mass, organolmegaly, rebound, tenderness Rectal exam: PRESENT: deferred Extremities exam: PRESENT: pedal edema Musculoskeletal exam: PRESENT: ambulatory Neurological exam: PRESENT: alert, awake, oriented to person, oriented to place, oriented to time, oriented to situation, CN II-XII grossly intact. ABSENT: motor sensory deficit Psychiatric exam: PRESENT: appropriate affect, normal mood. ABSENT: homicidal ideation, suicidal ideation Skin exam: PRESENT: dry, intact, warm. ABSENT: cyanosis, rash Results Laboratory Results: 02/18/19 04:29 02/18/19 04:29 02/18/19 02/18/19 04:29 04:29 WBC 4.1 RBC 4.02 Hgb 12.0 Hct 36.5 MCV 91 MCH 29.9 MCHC 33.0 RDW 15.4 H Plt Count 125 L Seg Neutrophils % 51.5 Lymphocytes % 29.7 Monocytes % 13.9 H Eosinophils % 2.7 Basophils % 2.2 H Absolute Neutrophils 2.1 Absolute Lymphocytes 1.2 Absolute Monocytes 0.6 Absolute Eosinophils 0.1 Absolute Basophils 0.1 Sodium 139.2 Potassium 3.5 L Chloride 100 Carbon Dioxide 31 H Anion Gap 8 BUN 13 Creatinine 0.75 Est GFR ( Amer) > 60 Est GFR (Non-Af Amer) > 60 Glucose 126 H Calcium 9.0 02/15/19 11:35 Clean Catch Midstream Urine Culture - Final Klebsiella Pneumoniae-Esbl Proteus Mirabilis 02/14/19 19:40 CK-MB (CK-2) 2.71 NT-Pro-B Natriuret Pep 382 Impressions: Chest X-Ray 02/14/19 19:23 IMPRESSION: CARDIAC ENLARGEMENT WITHOUT OVERT FAILURE. Abdomen/Pelvis CT 02/15/19 00:00 IMPRESSION: NO ACUTE FINDINGS IN THE ABDOMEN OR PELVIS ON CT SCAN WITH IV CONTRAST. Assessment & Plan - Diagnosis (1) Bilateral lower extremity edema Is this a current diagnosis for this admission?: Yes Plan: Continues to Lasix twice a day Patient's was seen by the vascular surgeon and cardiology already and outpatients Patient with chronic lymphedema Patients need a elastic stocking (2) Chronic venous hypertension (idiopathic) with inflammation of bilateral lower extremity Is this a current diagnosis for this admission?: Yes (3) Recurrent urinary tract infection Is this a current diagnosis for this admission?: Yes (4) Anxiety disorder Qualifiers: Anxiety disorder type: generalized anxiety disorder Qualified Code(s): F41.1 - Generalized anxiety disorder Is this a current diagnosis for this admission?: Yes (5) Hyperlipidemia Qualifiers: Hyperlipidemia type: unspecified Qualified Code(s): E78.5 - Hyperlipidemia, unspecified Is this a current diagnosis for this admission?: Yes (6) Hypertension Qualifiers: Hypertension type: essential hypertension Qualified Code(s): I10 - Essential (primary) hypertension Is this a current diagnosis for this admission?: Yes (7) Osteoarthritis Qualifiers: Osteoarthritis location: unspecified site Is this a current diagnosis for this admission?: Yes - Time Time Spent with patient: 15-24 minutes Medications reviewed and adjusted accordingly: Yes Anticipated discharge: Home Within: within 24 hours - Plan Summary Plan Summary: We will put the p.o. antibiotic for the cellulitis due to the leg swelling is all improving Continues to current medications
[2019-02-18] MEDS: ASPIRIN 81 MG TABLET, ENT COATED PO SCH (09:50)
[2019-02-18] MEDS: CLONIDINE HCL 0.1 MG TABLET PO SCH ×2 (09:50→21:21)
[2019-02-18] MEDS: LACTOBACILLUS ACIDOPHILUS 250 MG TAB PO SCH ×2 (09:50→17:13)
[2019-02-18] MEDS: FUROSEMIDE 20 MG TABLET PO SCH ×2 (09:51→17:13)
[2019-02-18] MEDS: METOPROLOL SUCCINATE 50 MG TAB.SR.24H PO SCH (09:51)
[2019-02-18] MEDS: ALPRAZOLAM 0.5 MG TABLET PO SCH ×2 (09:51→21:21)
[2019-02-18] MEDS: ENOXAPARIN SODIUM INJ 40 MG/0.4 ML DISP.SYRIN SUBCUT SCH (09:51)
[2019-02-18] MEDS ORDERED: POTASSIUM CHLORIDE 10 MEQ CAPSULE.ER PO SCH (10:00)
[2019-02-18] MEDS: AMOXICILLIN TR/POT CLAVULANATE 500-125 MG TAB PO SCH ×2 (13:07→21:20)
[2019-02-18] MEDS: OXYCODONE-ACETAMINOPHEN 5-325 MG TABLET PO PRN (13:11)
[2019-02-18] MEDS: NIFEDIPINE 30 MG TAB.ER.24 PO SCH (17:13)
[2019-02-18] MEDS: LISINOPRIL 10 MG TABLET PO SCH (21:21)
[2019-02-19] MEDS: AMOXICILLIN TR/POT CLAVULANATE 500-125 MG TAB PO SCH (05:42)
[2019-02-19 06:36] LABS: ANION GAP 8 (5-19); BLOOD UREA NITROGEN 14 mg/dL (7-20); CALCIUM 8.9 mg/dL (8.4-10.2); CARBON DIOXIDE 30 mmol/L (22-30); CHLORIDE 102 mmol/L (98-107); GLUCOSE 153 mg/dL (75-110); POTASSIUM 3.7 mmol/L (3.6-5.0); SODIUM 140.1 mmol/L (137-145)
[2019-02-19] MEDS: INSULIN LISPRO 100 UNIT/ML 3 ML VIAL SUBCUT SCH (07:26)
[2019-02-19 08:16] VITALS: BP 149/71
--- NOTE | 2019-02-19 12:34 | PDOC DISCHARGE SUMMARY ---
General - Admit/Disc Date/PCP Admission Date/Primary Care Provider: 02/17/19 01:50 OSIEL WOODS MD Discharge Date: 02/19/19 - Discharge Diagnosis (1) Bilateral lower extremity edema Is this a current diagnosis for this admission?: Yes Summary: With ongoing chronic lymphedema and venous insufficiency currently see patient Dr. Sonia Simons outpatients Continues to Lasix and continues the elastic stocking (2) Chronic venous hypertension (idiopathic) with inflammation of bilateral lower extremity Is this a current diagnosis for this admission?: Yes (3) Recurrent urinary tract infection Is this a current diagnosis for this admission?: Yes Summary: As per discussed with the infectious disease the ESBL is not really truly infection assessment asymptomatic bacteremia (4) Anxiety disorder Is this a current diagnosis for this admission?: Yes (5) Hyperlipidemia Is this a current diagnosis for this admission?: Yes (6) Hypertension Is this a current diagnosis for this admission?: Yes (7) Osteoarthritis Is this a current diagnosis for this admission?: Yes (8) Cellulitis Is this a current diagnosis for this admission?: Yes Summary: Continues to Augmentin for 5 more days currently all resolving the lower extremities due to the leg edema - Additional Information Discharge Diet: As Tolerated, Cardiac Discharge Activity: Activity As Tolerated Prescriptions: Amox Tr/Potassium Clavulanate [Augmentin "500" Tablet] 1 tab PO BID #10 tablet Furosemide [Lasix 20 mg Tablet] 20 mg PO BID #60 tablet Lactobacillus Acidophilus [Bacid 250 mg Tablet] 250 mg PO BID #14 tab Potassium Chloride [Klor-Con 10 Meq Capsule ER] 20 meq PO DAILY #30 capsule.er Home Medications: Aspirin [Ecotrin 81 mg EC Tablet] 81 mg PO DAILYP PRN 06/20/12 Clonidine HCl 0.1 mg PO Q12 06/20/12 Lisinopril 40 mg PO QHS 06/20/12 Metoprolol Succinate [Toprol XL 100 mg Tablet] 100 mg PO DAILY 06/20/12 Nifedipine [Procardia XL 60 mg Tablet] 60 mg PO DAILY 06/20/12 Oxycodone HCl/Acetaminophen [Percocet 5-325 mg Tablet] 1 tab PO Q6HP PRN #30 tablet 10/25/18 Alprazolam [Xanax 0.5 mg Tablet] 0.5 mg PO BID 02/15/19 Insulin Aspart Protam & Aspart [Novolog Mix 70-30 Vial] 0 unit SQ .PERSLDSCLE PRN 02/15/19 Amox Tr/Potassium Clavulanate [Augmentin "500" Tablet] 1 tab PO BID #10 tablet 02/19/19 Furosemide [Lasix 20 mg Tablet] 20 mg PO BID #60 tablet 02/19/19 Lactobacillus Acidophilus [Bacid 250 mg Tablet] 250 mg PO BID #14 tab 02/19/19 Potassium Chloride [Klor-Con 10 Meq Capsule ER] 20 meq PO DAILY #30 capsule.er 02/19/19 History of Present Illness History of Present Illness: KODY RENDON is a 88 year old female Patient is admitting in the hospital because of the lower extremity edema and urinary tract infections Hospital Course Hospital Course: This is a 88-year-old female admitting in the hospital with a lower extremity edema worsening and a urinary tract infections Patients treated with the IV antibiotics Patients respond very well with the IV antibiotics Patient urine cultures grew up ESBL but discussed with the infectious disease no need for treatments but patient does not have any truly symptoms Patient also with some cellulitis of the lower extremities was treated with IV antibiotics But patients remain afebrile Patient's white count is all stable Patient's leg swelling is much improved Patient's Maxide was discontinued and put on the Lasix Discussed with the daughter regarding the patient's current condition follow-up plans Physical Exam Vital Signs: Temp Pulse Resp BP Pulse Ox 98.3 F 80 16 149/71 H 92 02/19/19 08:48 02/19/19 08:48 02/19/19 08:48 02/19/19 08:48 02/19/19 08:48 Intake & Output 02/18/19 02/19/19 02/20/19 06:59 06:59 06:59 Intake Total 1861 1003 Balance 1861 1003 Weight 124.8 kg 123.8 kg General appearance: PRESENT: no acute distress, well-developed, well-nourished Head exam: PRESENT: atraumatic, normocephalic Eye exam: PRESENT: conjunctiva pink, EOMI, PERRLA. ABSENT: scleral icterus Ear exam: PRESENT: normal external ear exam Mouth exam: PRESENT: moist, tongue midline Neck exam: PRESENT: full ROM. ABSENT: carotid bruit, JVD, lymphadenopathy, thyromegaly Respiratory exam: PRESENT: clear to auscultation genia Cardiovascular exam: PRESENT: RRR. ABSENT: diastolic murmur, rubs, systolic murmur Pulses: PRESENT: normal dorsalis pedis pul, +2 pedal pulses bilateral Vascular exam: PRESENT: normal capillary refill GI/Abdominal exam: PRESENT: normal bowel sounds, soft. ABSENT: distended, guarding, mass, organolmegaly, rebound, tenderness Rectal exam: PRESENT: deferred Extremities exam: PRESENT: pedal edema Musculoskeletal exam: PRESENT: ambulatory Neurological exam: PRESENT: alert, awake, oriented to person, oriented to place, oriented to time, oriented to situation, CN II-XII grossly intact. ABSENT: motor sensory deficit Psychiatric exam: PRESENT: appropriate affect, normal mood. ABSENT: homicidal ideation, suicidal ideation Skin exam: PRESENT: dry, intact, warm. ABSENT: cyanosis, rash Results Laboratory Results: 02/18/19 04:29 02/19/19 04:44 02/19/19 04:44 Sodium 140.1 Potassium 3.7 Chloride 102 Carbon Dioxide 30 Anion Gap 8 BUN 14 Creatinine 0.79 Est GFR ( Amer) > 60 Est GFR (Non-Af Amer) > 60 Glucose 153 H Calcium 8.9 02/14/19 19:40 CK-MB (CK-2) 2.71 NT-Pro-B Natriuret Pep 382 Impressions: Chest X-Ray 02/14/19 19:23 IMPRESSION: CARDIAC ENLARGEMENT WITHOUT OVERT FAILURE. Abdomen/Pelvis CT 02/15/19 00:00 IMPRESSION: NO ACUTE FINDINGS IN THE ABDOMEN OR PELVIS ON CT SCAN WITH IV CONTRAST. Qualifiers - * PATIENT BEING DISCHARGED WITH ANY OF THE FOLLOWING DIAGNOSIS: No VTE patient discharged on overlapping Therapy?: Yes Acute Heart Failure Is this a Heart Failure Patient?: No Plan Time Spent: Greater than 30 Minutes - Follow 1 week in office We will check the Chem-7
== END 2019-02-19 10:24 | disposition home health service (06) | DRG 300 ==
LOC: ER 19:07 → INTOOBSV 21:53 → EH 21:53 → 4N 02-15 00:27 → OBSVTOIN 02-17 01:50
PROVIDERS: ADMIT Internal Medicine; ATTEND Family Medicine
DX: I87.2 Venous insufficiency (chronic) (peripheral) (principal); L03.116 Cellulitis of left lower limb; L03.115 Cellulitis of right lower limb; N39.0 Urinary tract infection, site not specified; Z68.42 Body mass index [BMI] 45.0-49.9, adult; I89.0 Lymphedema, not elsewhere classified; E03.9 Hypothyroidism, unspecified; R10.84 Generalized abdominal pain; I10 Essential (primary) hypertension; E78.5 Hyperlipidemia, unspecified; E11.8 Type 2 diabetes mellitus with unspecified complications; E66.01 Morbid (severe) obesity due to excess calories; B96.1 Klebsiella pneumoniae [K. pneumoniae] as the cause of diseases classified elsewhere; B96.4 Proteus (mirabilis) (morganii) as the cause of diseases classified elsewhere; T68.XXXA Hypothermia, initial encounter; Z96.653 Presence of artificial knee joint, bilateral; Z79.82 Long term (current) use of aspirin; Z79.4 Long term (current) use of insulin; Z79.899 Other long term (current) drug therapy
CPT/HCPCS: 36415; 71046; 74177; 80048; 80053; 81001; 82553; 82962; 83880; 84439; 84443; 85025; 87086; 87088; 87186; 99285; G0378; J0696; J1335; J1650; J1815; J1940; J7030; J7060

== ENCOUNTER 2019-03-07 10:04 | Inpatient (IN) | payer MEDICARE, OTHER ==
--- NOTE | 2019-03-07 10:47 | RADIOLOGY REPORT (SQ) ---
EXAM DESCRIPTION: CHEST SINGLE VIEW COMPLETED DATE/TIME: 03/07/2019 10:31 am REASON FOR STUDY: SOB COMPARISON: 02/14/2019 EXAM PARAMETERS: NUMBER OF VIEWS: One view. TECHNIQUE: Single frontal radiographic view of the chest acquired. RADIATION DOSE: NA LIMITATIONS: None. FINDINGS: LUNGS AND PLEURA: Pulmonary edema. MEDIASTINUM AND HILAR STRUCTURES: No masses. Contour normal. HEART AND VASCULAR STRUCTURES: Cardiomegaly. BONES: No acute findings. HARDWARE: None in the chest. OTHER: No other significant finding. IMPRESSION: Cardiomegaly with pulmonary edema. TECHNICAL DOCUMENTATION: JOB ID: [id number] [employer]- All Rights Reserved Reading location - IP/workstation name: [email or web address]
[2019-03-07 10:50] LABS: ABSOLUTE EOSINOPHILS # (AUTO) 0.1 10^3/uL (0.0-0.6); ABSOLUTE MONOCYTES (AUTO) 0.3 10^3/uL (0.1-1.4); ABSOLUTE NEUT (AUTO) 2.8 10^3/uL (1.7-8.2); BASOPHILS % (AUTO) 0.8 % (0-2); HEMATOCRIT 37.1 % (36.0-47.0); HEMOGLOBIN 12.3 g/dL (12.0-15.5); LYMPHOCYTES % (AUTO) 23.6 % (13-45); MEAN CORPUSCULAR HEMOGLOBIN 30.3 pg (27.0-33.4); MEAN CORPUSCULAR HGB CONC 33.2 g/dL (32.0-36.0); MEAN CORPUSCULAR VOLUME 91 fl (80-97); MONOCYTES % (AUTO) 7.8 % (3-13); PLATELET COUNT 121 10^3/uL (150-450); RED BLOOD COUNT 4.07 10^6/uL (3.72-5.28); RED CELL DISTRIBUTION WIDTH 15.6 % (11.5-14.0); SEGMENTED NEUTROPHILS % (AUTO) 65.8 % (42-78); TOTAL CELLS COUNTED % (AUTO) 100 %; WHITE BLOOD COUNT 4.2 10^3/uL (4.0-10.5)
[2019-03-07 11:13] LABS: ALANINE AMINOTRANSFERASE 44 U/L (9-52); ALKALINE PHOSPHATASE 236 U/L (38-126); ANION GAP 10 (5-19); ASPARTATE AMINO TRANSFERASE 55 U/L (14-36); BILIRUBIN,DIRECT 0.3 mg/dL (0.0-0.4); BILIRUBIN,TOTAL 0.7 mg/dL (0.2-1.3); BLOOD UREA NITROGEN 21 mg/dL (7-20); CALCIUM 9.1 mg/dL (8.4-10.2); CARBON DIOXIDE 34 mmol/L (22-30); CHLORIDE 98 mmol/L (98-107); GLUCOSE 75 mg/dL (75-110); POTASSIUM 4.2 mmol/L (3.6-5.0); SODIUM 141.7 mmol/L (137-145); TOTAL PROTEIN 7.6 g/dL (6.3-8.2)
[2019-03-07] MEDS ORDERED: ASPIRIN 325 MG TABLET PO ONE (11:15)
[2019-03-07] MEDS ORDERED: FUROSEMIDE INJ/PF 40 MG/4 ML SDV IV ONE (11:15)
[2019-03-07 11:53] LABS: ARTERIAL BLOOD BASE EXCESS 7.1 mmol/L; ARTERIAL BLOOD H2CO3 2.18 mmol/L (1.05-1.35); ARTERIAL BLOOD HCO3 35.8 mmol/L (20-24); ARTERIAL BLOOD O2 SATURATION 97.3 % (94-98); ARTERIAL BLOOD PH 7.31 (7.35-7.45); ARTERIAL BLOOD PO2 107.2 mmHg (80-100); ARTERIAL BLOOD TOTAL CO2 38.1 mmol/L (21-25)
[2019-03-07 11:56] LABS: ARTERIAL BLOOD FIO2 2L
[2019-03-07 11:57] LABS: ARTERIAL BLOOD PCO2 72.5 mmHg (35-45)
--- NOTE | 2019-03-07 12:06 | ER Document Report ---
ED General - General Chief Complaint: Shortness Of Breath Stated Complaint: DIFFICULTY BREATHING Time Seen by Provider: 03/07/19 11:13 Primary Care Provider: OSIEL WOODS MD [Primary Care Provider] - Follow up as needed TRAVEL OUTSIDE OF THE [place] IN LAST 30 DAYS: No - HPI Notes: Patient is a 88-year-old female that presents to the emergency department for chief complaint of shortness of breath. Patient states that yesterday afternoon she started to have increased shortness of breath with exertion. Family noticed that she had increased work of breathing trying to get in and out of the car. Patient does report orthopnea. She denies any fever, chills, cough or congestion. Patient has had recent admission to the hospital for peripheral edema. Patient's family denies any known history of congestive heart failure. She is on Lasix daily and has been compliant with her home medications. Patient has also been wearing compression stockings most of the time per family. Patient denies associated chest pain, palpitations and diaphoresis. Past Medical History: Peripheral edema, hypertension, hyperlipidemia stasis dermatitis Past Surgical History: Reviewed in chart Social History: Denies tobacco and alcohol use Family History: Reviewed and noncontributory for presenting illness Allergies: Reviewed, see documented allergy list. REVIEW OF SYSTEMS: CONSTITUTIONAL : No fever No chills No diaphoresis No recent illness EENT: No vision changes No congestion No sore throat CARDIOVASCULAR: No chest pain No palpitations RESPIRATORY: shortness of breath No cough difficulty breathing GASTROINTESTINAL: No abdominal pain No nausea No vomiting No diarrhea GENITOURINARY: No dysuria No hematuria No difficulty urinating MUSCULOSKELETAL: No back pain leg pain Peripheral edema No arm pain SKIN: No rashes No lesions LYMPHATIC: No swollen, enlarged glands. NEUROLOGICAL: No lightheadedness No headache No weakness No paresthesias PSYCHIATRIC: No anxiety No depression PHYSICAL EXAMINATION: Vital signs reviewed, nursing noted reviewed. GENERAL: Well-appearing, obese and in no acute distress. HEAD: Atraumatic, normocephalic. EYES: Eyes appear normal, extraocular movements intact, sclera anicteric, conjunctiva are normal. ENT: nares patent, oropharynx clear without exudates. Moist mucous membranes. NECK: Normal range of motion, supple without lymphadenopathy LUNGS: Breath sounds diminished to auscultation bilaterally and equal. No wheezes rales or rhonchi. HEART: Regular rate and rhythm without murmurs ABDOMEN: Protuberant, soft, nontender, normoactive bowel sounds. No rebound, guarding, or rigidity. No masses appreciated. EXTREMITIES: Nontender, good range of motion, +2 pitting edema bilateral lower extremities from feet proximally to mid thigh. No upper extremity pitting edema NEUROLOGICAL: No focal neurological deficits. Moves all extremities spontaneously Motor and sensory grossly intact on exam. PSYCH: Normal mood, normal affect. SKIN: Warm, Dry, normal turgor, stasis dermatitis bilateral lower extremity - Related Data Allergies/Adverse Reactions: levofloxacin [From Levaquin] Allergy (Verified 03/07/19 10:59) Fever nitrofurantoin Allergy (Verified 03/07/19 10:59) Fever Past Medical History - Social History Smoking Status: Never Smoker Frequency of alcohol use: None Drug Abuse: None Family History: Arthritis, CAD, COPD, CVA, DM, Hyperlipidemia, Hypertension Patient has suicidal ideation: No Patient has homicidal ideation: No - Past Medical History Cardiac Medical History: Reports: Hx Hypertension - CONTROLLED Denies: Hx Congestive Heart Failure, Hx Coronary Artery Disease, Hx Heart A ttack, Hx Heart Murmur Pulmonary Medical History: Denies: Hx Asthma, Hx Bronchitis, Hx COPD, Hx Pneumonia, Hx Tuberculosis Neurological Medical History: Denies: Hx Cerebrovascular Accident, Hx Seizures Endocrine Medical History: Reports: Hx Diabetes Mellitus Type 2 Renal/ Medical History: Denies: Hx Peritoneal Dialysis GI Medical History: Reports: Hx Gastroesophageal Reflux Disease. Denies: Hx Hepatitis, Hx Hiatal Hernia, Hx Ulcer Musculoskeletal Medical History: Reports Hx Arthritis, Denies Hx Muscle Weakness Infectious Medical History: Denies: Hx Hepatitis Past Surgical History: Reports: Hx Hysterectomy, Hx Orthopedic Surgery - bilat knee replacement. Denies: Hx Mastectomy, Hx Open Heart Surgery, Hx Pacemaker - Immunizations Hx Diphtheria, Pertussis, Tetanus Vaccination: No Physical Exam - Vital signs Vitals: Resp BP Pulse Ox 18 160/101 H 95 03/07/19 10:26 03/07/19 10:26 03/07/19 10:26 Course - Re-evaluation Re-evalutation: 03/07/19 14:31 Vitals reviewed. Nursing notes reviewed. Patient was oxygenating at 74% on room air. She is currently 92% on 2 L nasal cannula. She has no increased work of breathing. ABG shows hypercapnic respiratory acidosis. Patient has significant pulmonary edema which is new for her. I did not see any recent echo on chart review however I did speak with her PCP Dr. Woods who states she had a normal echo performed in November of this year. Patient was given IV Lasix for diuresis of her fluid overloaded state. There is no apparent pneumonia. Taty panda's urinalysis is positive for nitrates. She has been recently treated for UTI and chart review shows improvement of her UA. Her previous culture was sensitive for Augmentin which was given to the patient in the ED. She does not have sepsis. Dr. Woods had requested CTA of the chest and delta troponin prior to excepting admission. Patient CT scan shows no pulmonary embolism and her troponins have remained negative. I do not currently suspect ACS. Patient will be admitted to the hospital for further cardiac evaluation, diuresis and monitoring of her respiratory failure. Laboratory 03/07/19 03/07/19 03/07/19 10:35 10:35 10:35 WBC 4.2 RBC 4.07 Hgb 12.3 Hct 37.1 MCV 91 MCH 30.3 MCHC 33.2 RDW 15.6 H Plt Count 121 L Seg Neutrophils % 65.8 Lymphocytes % 23.6 Monocytes % 7.8 Eosinophils % 2.0 Basophils % 0.8 Absolute Neutrophils 2.8 Absolute Lymphocytes 1.0 Absolute Monocytes 0.3 Absolute Eosinophils 0.1 Absolute Basophils 0.0 Carbonic Acid HCO3/H2CO3 Ratio ABG pH ABG pCO2 ABG pO2 ABG HCO3 ABG Total CO2 ABG O2 Saturation ABG Base Excess FiO2 Sodium 141.7 Potassium 4.2 Chloride 98 Carbon Dioxide 34 H Anion Gap 10 BUN 21 H Creatinine 0.83 Est GFR ( Amer) > 60 Est GFR (Non-Af Amer) > 60 Glucose 75 Calcium 9.1 Total Bilirubin 0.7 Direct Bilirubin 0.3 Neonat Total Bilirubin Not Reportable Neonat Direct Bilirubin Not Reportable Neonat Indirect Bili Not Reportable AST 55 H ALT 44 Alkaline Phosphatase 236 H Troponin I < 0.012 Total Protein 7.6 Albumin 4.0 Urine Color Urine Appearance Urine pH Ur Specific Wana Urine Protein Urine Glucose (UA) Urine Ketones Urine Blood Urine Nitrite Urine Bilirubin Urine Urobilinogen Ur Leukocyte Esterase Urine WBC (Auto) Urine Bacteria (Auto) Squamous Epi Cells Auto Urine Mucus (Auto) Urine Ascorbic Acid 06/04/1803/07/19 03/07/19 11:45 11:45 12:58 WBC RBC Hgb Hct MCV MCH MCHC RDW Plt Count Seg Neutrophils % Lymphocytes % Monocytes % Eosinophils % Basophils % Absolute Neutrophils Absolute Lymphocytes Absolute Monocytes Absolute Eosinophils Absolute Basophils Carbonic Acid 2.18 H HCO3/H2CO3 Ratio 16:1 ABG pH 7.31 L ABG pCO2 72.5 H* ABG pO2 107.2 H ABG HCO3 35.8 H ABG Total CO2 38.1 H ABG O2 Saturation 97.3 ABG Base Excess 7.1 FiO2 2L Sodium Potassium Chloride Carbon Dioxide Anion Gap BUN Creatinine Est GFR ( Amer) Est GFR (Non-Af Amer) Glucose Calcium Total Bilirubin Direct Bilirubin Neonat Total Bilirubin Neonat Direct Bilirubin Neonat Indirect Bili AST ALT Alkaline Phosphatase Troponin I < 0.012 Total Protein Albumin Urine Color YELLOW Urine Appearance SLIGHTLY-CLOUDY Urine pH 7.0 Ur Specific Wana 1.011 Urine Protein NEGATIVE Urine Glucose (UA) NEGATIVE Urine Ketones NEGATIVE Urine Blood NEGATIVE Urine Nitrite POSITIVE H Urine Bilirubin NEGATIVE Urine Urobilinogen NEGATIVE Ur Leukocyte Esterase NEGATIVE Urine WBC (Auto) 3 Urine Bacteria (Auto) TRACE Squamous Epi Cells Auto 2 Urine Mucus (Auto) RARE Urine Ascorbic Acid NEGATIVE Chest X-Ray 03/07/19 10:05 IMPRESSION: Cardiomegaly with pulmonary edema. Chest/Abdomen CTA 03/07/19 12:42 IMPRESSION: 1. Negative examination for pulmonary embolism. 2. Pulmonary edema and pleural effusions. 3. Nonspecific infectious or inflammatory scattered bilateral groundglass and nodular opacities. 4. Cardiomegaly and coronary artery disease. - Vital Signs Vital signs: Temp Pulse Resp BP Pulse Ox 98.5 F 20 176/91 H 93 03/07/19 10:40 03/07/19 12:01 03/07/19 12:01 03/07/19 12:01 - Laboratory Result Diagrams: 03/07/19 10:35 03/07/19 10:35 Laboratory results interpreted by me: 03/07/19 03/07/19 03/07/19 10:35 10:35 11:45 RDW 15.6 H Plt Count 121 L Carbonic Acid ABG pH ABG pCO2 ABG pO2 ABG HCO3 ABG Total CO2 Carbon Dioxide 34 H BUN 21 H AST 55 H Alkaline Phosphatase 236 H Urine Nitrite POSITIVE H 03/07/19 11:45 RDW Plt Count Carbonic Acid 2.18 H ABG pH 7.31 L ABG pCO2 72.5 H* ABG pO2 107.2 H ABG HCO3 35.8 H ABG Total CO2 38.1 H Carbon Dioxide BUN AST Alkaline Phosphatase Urine Nitrite - EKG Interpretation by Me Additional EKG results interpreted by me: 03/07/19 12:08 Interpreted by myself [id number]: Normal sinus rhythm, rate 62, PVCs, left axis, incomplete right bundle branch block, no significant change from 10/24/2018 Discharge - Discharge Clinical Impression: Pulmonary vascular congestion Hypercapnic respiratory failure Qualifiers: Chronicity: acute Qualified Code(s): J96.02 - Acute respiratory failure with hypercapnia Urinary tract infection Qualifiers: Urinary tract infection type: acute cystitis Hematuria presence: without h ematuria Qualified Code(s): N30.00 - Acute cystitis without hematuria Condition: Stable Disposition: ADMITTED INPATIENT Admitting Provider: Rud[facility] Unit Admitted: [facility] Referrals: OSIEL WOODS MD [Primary Care Provider] - Follow up as needed
[2019-03-07 12:07] LABS: APPEARANCE,URINE SLIGHTLY-CLOUDY; BILIRUBIN,URINE NEGATIVE (NEGATIVE); COLOR,URINE YELLOW; GLUCOSE, URINE NEGATIVE (NEGATIVE); KETONES,URINE NEGATIVE (NEGATIVE); LEUKOCYTE ESTERASE,URINE NEGATIVE (NEGATIVE); NITRITE,URINE POSITIVE (NEGATIVE); PROTEIN,URINE NEGATIVE (NEGATIVE); URINE SPECIFIC GRAVITY 1.011; UROBILINOGEN,URINE NEGATIVE mg/dL (<2.0)
[2019-03-07] MEDS ORDERED: AMOXICILLIN TRIHYD 250 MG CAPSULE PO ONE (12:32)
--- NOTE | 2019-03-07 13:38 | RADIOLOGY REPORT (SQ) ---
EXAM DESCRIPTION: CTA CHEST COMPLETED DATE/TIME: 03/07/2019 1:17 pm REASON FOR STUDY: PE study COMPARISON: None. TECHNIQUE: CT scan of the chest performed using helical scanning technique with dynamic intravenous contrast injection. Images reviewed with lung, soft tissue and bone windows. Reconstructed coronal and sagittal MPR images reviewed. Additional 3 dimensional post-processing performed to develop Maximal Intensity Projection images (NM P). All images stored on PACS. All CT scanners at this facility use dose modulation, iterative reconstruction, and/or weight based d osing when appropriate to reduce radiation dose to as low as reasonably achievable (ALARA). [facility]: Dose Right [facility]: CareDose [facility]: Dose Right [facility]: Teradose 4D [facility]: [place] CONTRAST TYPE AND DOSE: contrast/concentration: Isovue 350.00 mg/ml; Total Contrast Delivered: 84.0 ml; Total Saline Delivered: 87.6 ml Contrast bolus optimized for the pulmonary arteries. Not diagnostic for the aorta. RENAL FUNCTION: GFR > 60. RADIATION DOSE: CT Rad equipment meets quality standard of care and radiation dose reduction techniq ues were employed. CTDIvol: 16.5 - 29.8 mGy. DLP: 1002 mGy-cm. . LIMITATIONS: None. FINDINGS: LUNGS AND PLEURA: Interlobular septal thickening and small bilateral pleural effusions. Scattered bilateral groundglass and nodular opacities. AORTA AND GREAT VESSELS: No aneurysm. Contrast bolus not optimized for the aorta. HEART: No pericardial effusion. Cardiomegaly and coronary artery disease. PULMONARY ARTERIES: No emboli visualized in the main pulmonary arteries or the segmental branches. HILAR AND MEDIASTINAL STRUCTURES: No identified masses or abnormal nodes. HARDWARE: None in the chest. UPPER ABDOMEN: No significant findings. Limited exam. THYROID AND OTHER SOFT TISSUES: No masses. No adenopathy. BONES: No acute or significant finding. 3D MIPS: Confirm above findings. OTHER: No other significant finding. IMPRESSION: 1. Negative examination for pulmonary embolism. 2. Pulmonary edema and pleural effusions. 3. Nonspecific infectious or inflammatory scattered bilateral groundglass and nodular opacities. 4. Cardiomegaly and coronary artery disease. COMMENT: Quality ID # [id number]: Final reports with documentation of one or more dose reduction techniques (e.g., Automated exposure control, adjustment of the mA and/or kV according to patient size, use of iterative reconstruction technique) TECHNICAL DOCUMENTATION: JOB ID: [id number] [employer]- All Rights Reserved Reading location - IP/workstation name: [email or web address]
[2019-03-07] MEDS ORDERED: IPRATROPIUM/ALBUTEROL 0.5-2.5 MG/3 ML AMPUL NEB PRN (14:52)
[2019-03-07] MEDS ORDERED: ACETAMINOPHEN 325 MG TABLET PO PRN (14:52)
[2019-03-07 16:19] LABS: TROPONIN I < 0.012 ng/mL
[2019-03-07 16:49] LABS: ARTERIAL BLOOD BASE EXCESS 9.9 mmol/L; ARTERIAL BLOOD H2CO3 2.35 mmol/L (1.05-1.35); ARTERIAL BLOOD HCO3 38.8 mmol/L (20-24); ARTERIAL BLOOD O2 SATURATION 94.4 % (94-98); ARTERIAL BLOOD PH 7.31 (7.35-7.45); ARTERIAL BLOOD PO2 80.7 mmHg (80-100); ARTERIAL BLOOD TOTAL CO2 41.2 mmol/L (21-25)
[2019-03-07 16:51] LABS: ARTERIAL BLOOD FIO2 2L; ARTERIAL BLOOD PCO2 78.2 mmHg (35-45)
[2019-03-07] MEDS ORDERED: INSULIN ASPART PROTAM SQ PRN (16:58)
[2019-03-07] MEDS ORDERED: (PENDING PHARMACY ID) (Oxycodone Hcl/Acetaminophen [Percocet 10-325 Mg Tablet] 1 EACH) PO PRN (16:58)
[2019-03-07] MEDS ORDERED: ASPART SQ PRN (16:58)
--- NOTE | 2019-03-07 17:26 | PDOC H&P ---
History of Present Illness Admission Date/PCP: 03/07/19 15:24 OSIEL WOODS MD Patient complains of: Shortness of the breath History of Present Illness: KODY RENDON is a 88 year old female This is a 88-year-old female with a history of the type 2 diabetes insulin- dependent history of the hypertension history of the hyperlipidemia history of the chronic lymphedema history of the anxiety disorder recurrent urinary tract infections recently admitting in the hospital for UTI and recently patient have a fracture came to the emergency department with increasing the shortness of the breath and not feeling well in the ER patient's chest x-ray showed acute pul monary edema and cardiomegaly and patient received IV Lasix and patient is diuresed well and patients feel better. Patient's pH was 7.31 with PCO2 was 72 Patient's denied any chest pain Patient CT angiogram was done was negative for any pulmonary embolism Patient had a echocardiogram done last year was EF was 55%'s with no other abnormalities When I saw the patient in the emergency department feel better Order the 2D echocardiogram today Discussed with the cardiology We will repeat the ABG and probably need a BiPAP her CO2 is elevated Past Medical History Cardiac Medical History: Reports: Hyperlipidema, Hypertension - CONTROLLED Denies: Congestive Heart Failure, Coronary Artery Disease, Myocardial Infarction, Heart Murmur Pulmonary Medical History: Denies: Asthma, Bronchitis, Chronic Obstructive Pulmonary Disease (COPD), Pneumonia, Tuberculosis Neurological Medical History: Denies: Seizures Endocrine Medical History: Reports: Diabetes Mellitus Type 2 Renal/ Medical History: Reports: Chronic Kidney Disease GI Medical History: Reports: Gastroesophageal Reflux Disease Denies: Hepatitis, Hiatal Hernia Musculoskeltal Medical History: Reports: Arthritis Psychiatric Medical History: Reports: General Anxiety Disorder Hematology: Denies: Anemia, Hemophilia, Sickle Cell Disease Past Surgical History Past Surgical History: Reports: Hysterectomy, Orthopedic Surgery - bilat knee replacement Denies: Amputation, Mastectomy, Pacemaker Social History Smoking Status: Never Smoker Frequency of Alcohol Use: None Hx Recreational Drug Use: No Drugs: None Hx Prescription Drug Abuse: No Family History Family History: Arthritis, CAD, COPD, CVA, DM, Hyperlipidemia, Hypertension Parental Family History Reviewed: Yes Children Family History Reviewed: Yes Sibling(s) Family History Reviewed.: Yes Medication/Allergy Home Medications: Aspirin [Ecotrin 81 mg EC Tablet] 81 mg PO DAILYP PRN 06/20/12 Clonidine HCl 0.1 mg PO Q12 06/20/12 Lisinopril 40 mg PO QHS 06/20/12 Metoprolol Succinate [Toprol XL 100 mg Tablet] 100 mg PO QAM 06/20/12 Nifedipine [Procardia XL 60 mg Tablet] 60 mg PO QHS 06/20/12 Alprazolam [Xanax 0.5 mg Tablet] 0.5 mg PO BID 02/15/19 Insulin Aspart Protam & Aspart [Novolog Mix 70-30 Vial] 0 unit SQ .PERSLDSCLE PRN 02/15/19 Furosemide [Lasix 20 mg Tablet] 20 mg PO BID #60 tablet 02/19/19 Potassium Chloride [Klor-Con 10 Meq Capsule ER] 20 meq PO DAILY #30 capsule.er 02/19/19 Lutein 20 mg PO DAILY 03/07/19 Oxycodone HCl/Acetaminophen [Percocet 10-325 Mg Tablet] 1 each PO TIDP PRN 03/07/19 Allergies/Adverse Reactions: levofloxacin [From Levaquin] Allergy (Verified 03/07/19 10:59) Fever nitrofurantoin Allergy (Verified 03/07/19 10:59) Fever Review of Systems Constitutional: PRESENT: weakness. ABSENT: chills, fever(s), headache(s), weight gain, weight loss Eyes: ABSENT: visual disturbances Ears: ABSENT: hearing changes Cardiovascular: PRESENT: dyspnea on exertion, edema. ABSENT: chest pain, orthropnea, palpitations Respiratory: ABSENT: cough, hemoptysis Gastrointestinal: ABSENT: abdominal pain, constipation, diarrhea, hematemesis, hematochezia, nausea, vomiting Genitourinary: ABSENT: dysuria, hematuria Musculoskeletal: ABSENT: joint swelling Integumentary: ABSENT: rash, wounds Neurological: ABSENT: abnormal gait, abnormal speech, confusion, dizziness, focal weakness, syncope Psychiatric: ABSENT: anxiety, depression, homidical ideation, suicidal ideation Endocrine: ABSENT: cold intolerance, heat intolerance, menstrual abnormalities, polydipsia, polyuria Hematologic/Lymphatic: ABSENT: easy bleeding, easy bruising, lymphadenopathy Physical Exam Vital Signs: Temp Pulse Resp BP Pulse Ox 97.9 F 20 176/91 H 93 03/07/19 16:28 03/07/19 12:01 03/07/19 12:01 03/07/19 12:01 Intake & Output 03/06/19 03/07/19 03/08/19 06:59 06:59 06:59 Intake Total 300 Output Total 1999 Balance -1700 General appearance: PRESENT: no acute distress, well-developed, well-nourished Head exam: PRESENT: atraumatic, normocephalic Eye exam: PRESENT: conjunctiva pink, EOMI, PERRLA. ABSENT: scleral icterus Ear exam: PRESENT: normal external ear exam Mouth exam: PRESENT: moist, tongue midline Neck exam: PRESENT: full ROM. ABSENT: carotid bruit, JVD, lymphadenopathy, thyromegaly Respiratory exam: PRESENT: decreased breath sounds Cardiovascular exam: PRESENT: RRR. ABSENT: diastolic murmur, rubs, systolic murmur Pulses: PRESENT: normal dorsalis pedis pul, +2 pedal pulses bilateral Vascular exam: PRESENT: normal capillary refill GI/Abdominal exam: PRESENT: normal bowel sounds, soft. ABSENT: distended, guarding, mass, organolmegaly, rebound, tenderness Rectal exam: PRESENT: deferred Extremities exam: PRESENT: pedal edema Neurological exam: PRESENT: alert, awake, oriented to person, oriented to place, oriented to time, oriented to situation, CN II-XII grossly intact. ABSENT: motor sensory deficit Psychiatric exam: PRESENT: appropriate affect, normal mood. ABSENT: homicidal ideation, suicidal ideation Skin exam: PRESENT: dry, intact, warm. ABSENT: cyanosis, rash Results Laboratory Results: 03/07/19 10:35 03/07/19 10:35 03/07/19 03/07/19 03/07/19 10:35 10:35 11:45 WBC 4.2 RBC 4.07 Hgb 12.3 Hct 37.1 MCV 91 MCH 30.3 MCHC 33.2 RDW 15.6 H Plt Count 121 L Seg Neutrophils % 65.8 Lymphocytes % 23.6 Monocytes % 7.8 Eosinophils % 2.0 Basophils % 0.8 Absolute Neutrophils 2.8 Absolute Lymphocytes 1.0 Absolute Monocytes 0.3 Absolute Eosinophils 0.1 Absolute Basophils 0.0 Carbonic Acid HCO3/H2CO3 Ratio ABG pH ABG pCO2 ABG pO2 ABG HCO3 ABG O2 Saturation ABG Base Excess FiO2 Sodium 141.7 Potassium 4.2 Chloride 98 Carbon Dioxide 34 H Anion Gap 10 BUN 21 H Creatinine 0.83 Est GFR ( Amer) > 60 Est GFR (Non-Af Amer) > 60 Glucose 75 Calcium 9.1 Total Bilirubin 0.7 AST 55 H ALT 44 Alkaline Phosphatase 236 H Total Protein 7.6 Albumin 4.0 Urine Color YELLOW Urine Appearance SLIGHTLY-CLOUDY Urine pH 7.0 Ur Specific Tichnor 1.011 Urine Protein NEGATIVE Urine Glucose (UA) NEGATIVE Urine Ketones NEGATIVE Urine Blood NEGATIVE Urine Nitrite POSITIVE H Ur Leukocyte Esterase NEGATIVE Urine WBC (Auto) 3 03/07/19 11:45 WBC RBC Hgb Hct MCV MCH MCHC RDW Plt Count Seg Neutrophils % Lymphocytes % Monocytes % Eosinophils % Basophils % Absolute Neutrophils Absolute Lymphocytes Absolute Monocytes Absolute Eosinophils Absolute Basophils Carbonic Acid 2.18 H HCO3/H2CO3 Ratio 16:1 ABG pH 7.31 L ABG pCO2 72.5 H* ABG pO2 107.2 H ABG HCO3 35.8 H ABG O2 Saturation 97.3 ABG Base Excess 7.1 FiO2 2L Sodium Potassium Chloride Carbon Dioxide Anion Gap BUN Creatinine Est GFR ( Amer) Est GFR (Non-Af Amer) Glucose Calcium Total Bilirubin AST ALT Alkaline Phosphatase Total Protein Albumin Urine Color Urine Appearance Urine pH Ur Specific Tichnor Urine Protein Urine Glucose (UA) Urine Ketones Urine Blood Urine Nitrite Ur Leukocyte Esterase Urine WBC (Auto) 03/07/19 03/07/19 03/07/19 10:35 10:35 12:58 Creatine Kinase CK-MB (CK-2) Troponin I < 0.012 < 0.012 NT-Pro-B Natriuret Pep 614 H 03/07/19 03/07/19 15:30 15:30 Creatine Kinase 48 CK-MB (CK-2) 2.50 Troponin I < 0.012 NT-Pro-B Natriuret Pep Impressions: Chest X-Ray 03/07/19 10:05 IMPRESSION: Cardiomegaly with pulmonary edema. Chest/Abdomen CTA 03/07/19 12:42 IMPRESSION: 1. Negative examination for pulmonary embolism. 2. Pulmonary edema and pleural effusions. 3. Nonspecific infectious or inflammatory scattered bilateral groundglass and nodular opacities. 4. Cardiomegaly and coronary artery disease. Assessment & Plan - Diagnosis (1) Hypercapnic respiratory failure Qualifiers: Chronicity: acute Qualified Code(s): J96.02 - Acute respiratory failure with hypercapnia Is this a current diagnosis for this admission?: Yes Plan: Repeat the ABG Put the patient on a BiPAP CT scan of the chest also some groundglass opacities possible mild bronchitis we will continues with some nebulizer treatments (2) Pulmonary vascular congestion Is this a current diagnosis for this admission?: Yes Plan: We will get the 2D echocardiogram start the patient on the Lasix (3) UTI (urinary tract infection) Qualifiers: Urinary tract infection type: acute cystitis Hematuria presence: without hematuria Qualified Code(s): N30.00 - Acute cystitis without hematuria Is this a current diagnosis for this admission?: Yes Plan: We will send the urine for culture (4) Anxiety disorder Qualifiers: Anxiety disorder type: generalized anxiety disorder Qualified Code(s): F41.1 - Generalized anxiety disorder Is this a current diagnosis for this admission?: Yes Plan: Continues to current medications (5) Hyperlipidemia Qualifiers: Hyperlipidemia type: unspecified Qualified Code(s): E78.5 - Hyperlipidemia, unspecified Is this a current diagnosis for this admission?: Yes (6) Hypertension Qualifiers: Hypertension type: essential hypertension Qualified Code(s): I10 - Essential (primary) hypertension Is this a current diagnosis for this admission?: Yes Plan: Currently all stable (7) Osteoarthritis Qualifiers: Osteoarthritis location: unspecified site Is this a current diagnosis for this admission?: Yes (8) Type 2 diabetes mellitus 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 Diabetes mellit complication status: with other specified complication Qualified Code(s): E11.69 - Type 2 diabetes mellitus with other specified complication; Z79.4 - long term care pharmacist (current) use of insulin Is this a current diagnosis for this admission?: Yes Plan: Continues to sliding scale - Time Time Spent: 50 to 70 Minutes Medications reviewed and adjusted accordingly: Yes Anticipated discharge: Home Within: Other - Inpatient Certification Based on my medical assessment, after consideration of the patient's comorbidities, presenting symptoms, or acuity I expect that the services needed warrant INPATIENT care.: Yes I certify that my determination is in accordance with my understanding of Medicare's requirements for reasonable and necessary INPATIENT services [42 CFR 412.3e].: Yes Medical Necessity: Significant Comorbidiites Make Outpatient Treatment Too Risky, Need Close Monitoring Due to Risk of Patient Decompensation, Need for IV Antibiotics Post Hospital Care: D/C Delivery Mgr Documentation - Plan Summary Plan Summary: Admit the patient in IMCU Consult cardiology Discussed with the daughter regarding the patient's current conditions Repeat the ABG in the morning Continues for the BiPAP d/w daughter about pt condition
[2019-03-07] MEDS ORDERED: OXYCODONE HCL IR 5 MG TABLET PO PRN (19:08)
[2019-03-07] MEDS: DOCUSATE SODIUM 100 MG CAPSULE PO SCH (19:27)
[2019-03-07] MEDS: FUROSEMIDE INJ/PF 40 MG/4 ML SDV IV SCH (20:17)
[2019-03-07] MEDS: LISINOPRIL 10 MG TABLET PO SCH (21:44)
[2019-03-07] MEDS: NIFEDIPINE 30 MG TAB.ER.24 PO SCH (21:45)
[2019-03-07] MEDS: FAMOTIDINE 20 MG TABLET PO SCH (21:45)
[2019-03-07] MEDS: ALPRAZOLAM 0.5 MG TABLET PO SCH (21:45)
[2019-03-07 21:46] LABS: CREATINE KINASE MB 3.23 ng/mL (<4.55)
[2019-03-07] MEDS: CEFEPIME 1 GM/D5W RTU 1 GM/50 ML RTUPB IV SCH (21:46)
[2019-03-07] MEDS: CLONIDINE HCL 0.1 MG TABLET PO SCH (21:46)
[2019-03-07 21:52] LABS: TROPONIN I < 0.012 ng/mL
[2019-03-07] MEDS ORDERED: FUROSEMIDE INJ/PF 20 MG/2 ML SDV IV SCH (22:00)
[2019-03-07] MEDS ORDERED: (PENDING PHARMACY ID) (Lisinopril [Lisinopril] 40 MG) PO SCH (22:00)
[2019-03-07] MEDS ORDERED: (PENDING PHARMACY ID) (Nifedipine [Procardia Xl 60 Mg Tablet] 60 MG) PO SCH (22:00)
--- NOTE | 2019-03-07 22:20 | EKG REPORT ---
SEVERITY:- ABNORMAL ECG - SINUS RHYTHM SINUS PAUSE/ARREST W/ SUPRAVENTRICULAR ESCAPE INCOMPLETE LEFT BUNDLE BRANCH BLOCK ANTERIOR Q WAVES, POSSIBLY DUE TO ILBBB : Confirmed by: Zac Lugo MD 07-Mar-2019 22:19:30
[2019-03-08 03:10] LABS: ABSOLUTE EOSINOPHILS # (AUTO) 0.1 10^3/uL (0.0-0.6); ABSOLUTE LYMPHOCYTES (AUTO) 0.9 10^3/uL (0.5-4.7); ABSOLUTE MONOCYTES (AUTO) 0.4 10^3/uL (0.1-1.4); ABSOLUTE NEUT (AUTO) 1.9 10^3/uL (1.7-8.2); BASOPHILS % (AUTO) 0.4 % (0-2); EOSINOPHILS % (AUTO) 2.2 % (0-6); HEMATOCRIT 35.1 % (36.0-47.0); HEMOGLOBIN 11.5 g/dL (12.0-15.5); LYMPHOCYTES % (AUTO) 27.1 % (13-45); MEAN CORPUSCULAR HGB CONC 32.8 g/dL (32.0-36.0); MEAN CORPUSCULAR VOLUME 91 fl (80-97); MONOCYTES % (AUTO) 12.5 % (3-13); PLATELET COUNT 109 10^3/uL (150-450); RED BLOOD COUNT 3.84 10^6/uL (3.72-5.28); RED CELL DISTRIBUTION WIDTH 15.4 % (11.5-14.0); SEGMENTED NEUTROPHILS % (AUTO) 57.8 % (42-78); TOTAL CELLS COUNTED % (AUTO) 100 %; WHITE BLOOD COUNT 3.3 10^3/uL (4.0-10.5)
[2019-03-08 03:28] LABS: ANION GAP 7 (5-19); BLOOD UREA NITROGEN 21 mg/dL (7-20); CALCIUM 8.4 mg/dL (8.4-10.2); CARBON DIOXIDE 37 mmol/L (22-30); CHLORIDE 98 mmol/L (98-107); GLUCOSE 162 mg/dL (75-110); POTASSIUM 3.9 mmol/L (3.6-5.0); SODIUM 141.7 mmol/L (137-145)
[2019-03-08 03:40] LABS: CREATINE KINASE MB 2.81 ng/mL (<4.55)
[2019-03-08 03:42] LABS: TROPONIN I < 0.012 ng/mL
[2019-03-08] MEDS ORDERED: GLUCAGON,HUMAN RECOMB 1 MG INJ IM PRN (04:30)
[2019-03-08] MEDS ORDERED: DEXTROSE 50%-WATER SYRINGE 25 GM/50 ML DOSE IV PRN (04:30)
[2019-03-08] MEDS ORDERED: DEXTROSE 40% GEL 15 GM TUBE X 2 PO PRN (04:30)
[2019-03-08] MEDS ORDERED: DEXTROSE 50%-WATER SYRINGE 12.5 GM/25 ML DOSE IV PRN (04:30)
[2019-03-08] MEDS ORDERED: DEXTROSE 40% GEL 15 GM TUBE PO PRN (04:30)
[2019-03-08] MEDS: FUROSEMIDE INJ/PF 40 MG/4 ML SDV IV SCH ×2 (05:34→18:12)
[2019-03-08] MEDS: INSULIN REG, HUMAN 100 UNIT/ML 3 ML VIAL (PYX) SUBCUT SCH ×4 (08:31→23:10)
[2019-03-08] MEDS: METOPROLOL SUCCINATE 50 MG TAB.SR.24H PO SCH (08:57)
[2019-03-08] MEDS ORDERED: (PENDING PHARMACY ID) (Lutein [Lutein] 20 MG) PO SCH (10:00)
[2019-03-08] MEDS: ENOXAPARIN SODIUM INJ 40 MG/0.4 ML DISP.SYRIN SUBCUT SCH (11:11)
[2019-03-08] MEDS: POTASSIUM CHLORIDE 10 MEQ CAPSULE.ER PO SCH (11:11)
[2019-03-08] MEDS: FAMOTIDINE 20 MG TABLET PO SCH ×2 (11:11→21:48)
[2019-03-08] MEDS: CEFEPIME 1 GM/D5W RTU 1 GM/50 ML RTUPB IV SCH ×2 (11:11→21:49)
[2019-03-08] MEDS: ASPIRIN 81 MG TABLET, ENT COATED PO SCH (11:12)
[2019-03-08] MEDS: DOCUSATE SODIUM 100 MG CAPSULE PO SCH ×2 (11:12→17:48)
[2019-03-08] MEDS: ALPRAZOLAM 0.5 MG TABLET PO SCH ×3 (11:12→21:48)
[2019-03-08] MEDS: CLONIDINE HCL 0.1 MG TABLET PO SCH ×2 (11:12→21:48)
--- NOTE | 2019-03-08 13:42 | XCELERA REPORT ---
[address] [address] Transthoracic Echocardiogram Report Name: KODY RENDON Age: 88 yrs Gender: Female : 1930 Patient Status: Inpatient Patient Location: [address] [place] [address] Study Date: 03/07/2019 05:30 PM Procedure: A two-dimensional transthoracic echocardiogram with color flow and Doppler was performed. The study was technically difficult with many images being suboptimal in quality. Images were not obtained from all of the standard acoustic windows due to the limited scope of the study. Reason For Study: chf/pulmonary edema History: chf/pulmonary edema. Ordering Physician: OSIEL WOODS Performed By: Lu Johnson Interpretation Summary The left ventricle is grossly normal size. There is normal left ventricular wall thickness. LV EF is 55% Left ventricular systolic function is low normal. Doppler measurements suggest impaired left ventricular relaxation, which is associated with grade I/IV or mild diastolic dysfunction Flattened septum is consistent with RV pressure overload There is no thrombus. Probably no ASD , VSD , or PFO seen. No True apical 2 chamber views obtained.Hence cannot comment on the apical anterior , the basal anterior, the basal inferior and apical inferior shi.The mid anterior , the mid inferior and the rest of the LV shi contract normally. .Normal LVEF is normal and is low normal at 55% in the limited views. The right ventricle is not well visualized secondary to technical limitations The right atrium is mildly dilated. Upper normal RA size. There is no evidence of mitral valve prolapse. There is no vegetation seen on the mitral valve. There is no mitral valve stenosis. There is a mild to moderate amount of mitral regurgitation There is no aortic valvular vegetation. There is aortic sclerosis without aortic stenosis. There is no LVOT obstruction. There is a trace amount of aortic regurgitation There is no tricuspid stenosis. There is a mild amount of tricuspid regurgitation There is servere pulmonary hypertension by echo RVSP is at least 69 mm of Hg , with RA mean of greater than 20. There is no pulmonic valvular stenosis. There is a trace amount of pulmonic regurgitation The inferior vena cava appeared dilated and did not change with respiration (RAP > 20 mmHg) There is no pericardial effusion. MMode/2D Measurements & Calculations RVDd: 2.4 cm LVIDd: 5.9 cm FS: 28.0 % Ao root diam: 2.8 cm IVSd: 0.99 cm LVIDs: 4.2 cm EDV(Teich): 172.2 ml Ao root area: 6.2 cm2 LVPWd: 1.1 cm ESV(Teich): 80.4 ml EF(Teich): 53.3 % LA dimension: 4.0 cm Doppler Measurements & Calculations MV E max keiry: MV P1/2t max keiry: Ao V2 max: AI max keiry: 63.2 cm/sec 75.3 cm/sec 124.9 cm/sec 336.6 cm/sec MV A max keiry: MV P1/2t: 52.6 msec Ao max PG: AI max P.1 cm/sec 6.2 mmHg 45.3 mmHg MV E/A: 0.91 MVA(P1/2t): 4.2 cm2 AI dec slope: MV dec slope: 419.5 cm/sec2 69.1 cm/sec2 MV dec time: 0.17 sec AI P1/2t: 1426 msec LV V1 max PG: PA V2 max: PI end-d keiry: TR max keiry: 3.5 mmHg 73.3 cm/sec 92.3 cm/sec 348.6 cm/sec LV V1 max: PA max P.1 mmHg TR max P.8 cm/sec 48.6 mmHg AV P1/2t-pr_phl: MV P1/2t-pr_phl: 1426 msec 52.6 msec Left Ventricle The left ventricle is grossly normal size. There is normal left ventricular wall thickness. LV EF is 55%. Left ventricular systolic function is low normal. Doppler measurements suggest impaired left ventricular relaxation, which is associated with grade I/IV or mild diastolic dysfunction. Flattened septum is consistent with RV pressure overload. No True apical 2 chamber views obtained.Hence cannot comment on the apical anterior , the basal anterior, the basal inferior and apical inferior shi.The mid anterior , the mid inferior and the rest of the LV shi contract normally. .Normal LVEF is normal and is low normal at 55% in the limited views. There is no thrombus. Probably no ASD , VSD , or PFO seen. Right Ventricle The right ventricle is not well visualized secondary to technical limitations. Atria The right atrium is mildly dilated. Upper normal RA size. Mitral Valve There is no evidence of mitral valve prolapse. There is no vegetation seen on the mitral valve. There is no mitral valve stenosis. There is a mild to moderate amount of mitral regurgitation. Aortic Valve There is no aortic valvular vegetation. There is aortic sclerosis without aortic stenosis. There is no LVOT obstruction. There is a trace amount of aortic regurgitation. Tricuspid Valve There is no tricuspid stenosis. There is a mild amount of tricuspid regurgitation. There is servere pulmonary hypertension by echo. RVSP is at least 69 mm of Hg , with RA mean of greater than 20. Pulmonic Valve There is no pulmonic valvular stenosis. There is a trace amount of pulmonic regurgitation. Great Vessels The aortic root is normal size. The inferior vena cava appeared dilated and did not change with respiration (RAP > 20 mmHg). Effusions There is no pericardial effusion. : OSIEL WOODS > Edelmira Jefferson
--- NOTE | 2019-03-08 18:59 | PDOC PROGRESS REPORT ---
Subjective Progress Note for:: 03/08/19 Subjective:: Patient reported some improvement in her breathing. She remain on supplemental oxygen via nasal cannula at 2L/min. She demonstrated significant desaturation off supplemental oxygen while sleeping. Her echocardiogram suggested severe pulmonary hypertension. She denied any chest pain, nausea, vomiting, or abdominal pain. No fever or chills. Reason For Visit: SHORTNESS OF BREATH/PULMONARY EDEMA Physical Exam Vital Signs: Temp Pulse Resp BP Pulse Ox 97.5 F 55 L 14 116/50 L 96 03/08/19 15:20 03/08/19 15:20 03/08/19 15:20 03/08/19 15:20 03/08/19 15:20 Intake & Output 03/07/19 03/08/19 03/09/19 06:59 06:59 06:59 Intake Total 1150 770 Output Total 2900 1600 Balance -1750 -830 Weight 121.2 kg General appearance: PRESENT: mild distress - remain on supplemental oxygen via nasla cannula at 2L/min, morbidly obese Head exam: PRESENT: atraumatic, normocephalic Eye exam: PRESENT: conjunctiva pink. ABSENT: scleral icterus Ear exam: PRESENT: normal external ear exam Mouth exam: PRESENT: moist Respiratory exam: PRESENT: clear to auscultation genia, decreased breath sounds - at lung bases Cardiovascular exam: PRESENT: RRR. ABSENT: diastolic murmur, rubs, systolic murmur Vascular exam: ABSENT: pallor GI/Abdominal exam: PRESENT: normal bowel sounds, soft. ABSENT: distended, guarding, mass, organolmegaly, rebound, tenderness Extremities exam: PRESENT: pedal edema - chronic stasis changes on legs Neurological exam: PRESENT: alert, awake Psychiatric exam: PRESENT: appropriate affect, normal mood. ABSENT: homicidal ideation, suicidal ideation Skin exam: PRESENT: dry, warm Results Laboratory Results: 03/08/19 03:00 03/08/19 03:00 03/08/19 03/08/19 03:00 03:00 WBC 3.3 L RBC 3.84 Hgb 11.5 L Hct 35.1 L MCV 91 MCH 30.0 MCHC 32.8 RDW 15.4 H Plt Count 109 L Seg Neutrophils % 57.8 Lymphocytes % 27.1 Monocytes % 12.5 Eosinophils % 2.2 Basophils % 0.4 Absolute Neutrophils 1.9 Absolute Lymphocytes 0.9 Absolute Monocytes 0.4 Absolute Eosinophils 0.1 Absolute Basophils 0.0 Sodium 141.7 Potassium 3.9 Chloride 98 Carbon Dioxide 37 H Anion Gap 7 BUN 21 H Creatinine 0.84 Est GFR ( Amer) > 60 Est GFR (Non-Af Amer) > 60 Glucose 162 H Calcium 8.4 Magnesium 2.2 03/07/19 03/07/19 03/07/19 10:35 10:35 12:58 Creatine Kinase CK-MB (CK-2) Troponin I < 0.012 < 0.012 NT-Pro-B Natriuret Pep 614 H 03/07/19 03/07/19 03/07/19 15:30 15:30 20:39 Creatine Kinase 48 37 CK-MB (CK-2) 2.50 Troponin I < 0.012 NT-Pro-B Natriuret Pep 03/07/19 03/08/19 03/08/19 20:39 03:00 03:00 Creatine Kinase 32 CK-MB (CK-2) 3.23 2.81 Troponin I < 0.012 < 0.012 NT-Pro-B Natriuret Pep Impressions: Chest X-Ray 03/07/19 10:05 IMPRESSION: Cardiomegaly with pulmonary edema. Chest/Abdomen CTA 03/07/19 12:42 IMPRESSION: 1. Negative examination for pulmonary embolism. 2. Pulmonary edema and pleural effusions. 3. Nonspecific infectious or inflammatory scattered bilateral groundglass and nodular opacities. 4. Cardiomegaly and coronary artery disease. Assessment & Plan - Diagnosis (1) Hypercapnic respiratory failure Qualifiers: Chronicity: acute Qualified Code(s): J96.02 - Acute respiratory failure with hypercapnia Is this a current diagnosis for this admission?: Yes Plan: See covering attending physician orders for details of care plan. (2) Pulmonary hypertension Is this a current diagnosis for this admission?: Yes Plan: See covering attending physician orders for details of care plan. (3) UTI (urinary tract infection) Qualifiers: Urinary tract infection type: acute cystitis Hematuria presence: without hematuria Qualified Code(s): N30.00 - Acute cystitis without hematuria Is this a current diagnosis for this admission?: Yes Plan: See covering attending physician orders for details of care plan. (4) Type 2 diabetes mellitus Qualifiers: Diabetes mellitus assisted insulin use: with assisted use Diabetes mellitus complication status: with other specified complication Qualified Code(s): E11.69 - Type 2 diabetes mellitus with other specified complication; Z79.4 - rn long term care (current) use of insulin Is this a current diagnosis for this admission?: Yes Plan: See covering attending physician orders for details of care plan. (5) Hypertension Qualifiers: Hypertension type: essential hypertension Qualified Code(s): I10 - Essential (primary) hypertension Is this a current diagnosis for this admission?: Yes Plan: See covering attending physician orders for details of care plan. (6) Bilateral lower extremity edema Is this a current diagnosis for this admission?: Yes Plan: See covering attending physician orders for details of care plan. (7) Hyperlipidemia Qualifiers: Hyperlipidemia type: unspecified Qualified Code(s): E78.5 - Hyperlipidemia, unspecified Is this a current diagnosis for this admission?: Yes Plan: See covering attending physician orders for details of care plan. (8) Stasis dermatitis Qualifiers: Laterality: bilateral Qualified Code(s): I87.2 - Venous insufficiency (chronic) (peripheral) Is this a current diagnosis for this admission?: Yes Plan: See covering attending physician orders for details of care plan. - Time Time Spent with patient: 25-34 minutes Medications reviewed and adjusted accordingly: Yes Anticipated discharge: Home with Homehealth Within: Other - Inpatient Certification Based on my medical assessment, after consideration of the patient's comorbidities, presenting symptoms, or acuity I expect that the services needed warrant INPATIENT care.: Yes I certify that my determination is in accordance with my understanding of Medicare's requirements for reasonable and necessary INPATIENT services [42 CFR 412.3e].: Yes Medical Necessity: Significant Comorbidiites Make Outpatient Treatment Too Risky, Need Close Monitoring Due to Risk of Patient Decompensation, Need For Continuous Telemetry Monitoring, Need for IV Antibiotics, Risk of Complication if Not Cared For in Hospital, Risk of Diagnosis Which Will Require Inpatient Eval/Care/Monitoring 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 Emphasized need for BiPAP usage and supplemental oxygen in her management. she will benefit from overnight pulse oximetry and sleep study evaluation.
[2019-03-08] MEDS: LISINOPRIL 10 MG TABLET PO SCH (21:48)
[2019-03-08] MEDS: NIFEDIPINE 30 MG TAB.ER.24 PO SCH (21:48)
[2019-03-08] MEDS: OXYCODONE-ACETAMINOPHEN 5-325 MG TABLET PO PRN (22:10)
--- NOTE | 2019-03-08 22:59 | PDOC CONSULTATION ---
Consultation-Blank Consultation: CARDIOLOGY CONSULTATION by Dr. Edelmira Jefferson on 03/08/2019. Patient seen at 10 AM on 03/08/2019. 60 minutes spent on this patient with more than 50% of time spent in direct patient care. REASON FOR CONSULTATION patient with the leg edema and orthopnea: Hence cardiology evaluation. CONSULT REQUESTING PHYSICIAN: Dr. Stone Galdamez internal medicine. HISTORY OF PRESENT ILLNESS: Patient is a morbidly obese Afro-Armenian female with known history of hypertension, diabetes mellitus with 2-week history of progressively increasing leg edema and orthopnea. The patient denies any palpitations or chest pain or discomfort. There is no PND. There is no dizziness or syncope. There is no TIA CVA symptoms. The patient has a history of diabetes mellitus but no history of chronic kidney disease. There is no TIA CVA symptoms. The patient had an echocardiogram which showed that the patient has low normal LV ejection ejection fraction with no wall motion abnormality, but with severe pulmonary hypertension with right ventricle systolic pressure being at least 69 mmHg with a RA mean of at least 20, since the IVC is dilated and does not change with respiration. Hence right atrial pressure is estimated to be greater than 20. On further questioning the patient does state that she snores. She has significant myelopathy classification of the oropharynx at +3. She also states after night sleep she feels tired and does not feel rested the next day. She also has daytime somnolence sounds. She has not been told that she stops breathing in the sleep, since there is no want to observe this. She denies any cough wheezing or sputum production. The patient CTA is negative for pulmonary emboli. The patient's urine does not show any proteinuria. PAST MEDICAL HISTORY: History of hypertension present history of diabetes mellitus type 2 insulin-dependent. History of GERD. History of anxiety presen t. She has history of osteoarthritis. She has symptoms suggestive of obstructive sleep apnea. There is no history of thyroid disease. No history of asthma or COPD. No history of coronary artery disease, NV or anginal symptoms. No history of congestive heart failure. No history of palpitations or cardiac arrhythmia. No history of TIA CVA. No history of chronic kidney disease. History of recurrent urinary tract infections present. PAST SURGICAL HISTORY: History of hysterectomy. She has bilateral knee replacement. Right forearm surgery and right femur surgery. .FAMILY HISTORY: IS POSITIVE FOR CAD, COPD, CVA, DIABETES MELLITUS, HYPERLIPIDEMIA, AND HYPERTENSION. ALLERGIES: She is allergic to Levaquin and nitrofurantoin. SOCIAL HISTORY: The patient does not smoke. She has never smoked. There is no history of EtOH abuse. DISPOSITION: The patient is a full code. Her daughter is her surrogate healthcare decision maker REVIEW SYSTEMS: CONSTITUTIONAL: Denies any fever chills or rigors. Denies fatigue or generalized weakness. HEAD: No history of headaches or migraines. No history of head injury. EYES: No history of amblyopia diplopia. No history of amaurosis fugax. EARS: No history of hearing loss. No history of tinnitus. No history of vertigo. NOSE: No history of hayfever. No history of nosebleeds. No history of nasal polyps. MOUTH: No history of altered taste sensation. No ulcers in the mouth. No bleeding from the gums. THROAT: No history of odynophagia or dysphagia. No history of recurrent sore throats. SKIN: No history of pruritus. No history of eczema. No history of skin cancer. No history of psoriasis. No history of yellowish discoloration of the skin. NECK: No history of neck pain. No history of goiter. LUNGS: No history of asthma or COPD. No history of cough or sputum production. No history of wheezing. She has symptoms suggestive of of sleep apnea. But has not had a sleep study. No history of pulmonary embolism. No pleuritic chest pain. No hemoptysis. No symptoms of upper or lower respiratory tract infections. No history of sleep apnea HEART: History of hypertension present no history of cardiac arrhythmia. No history of syncope. No history of PND, orthopnea, or leg edema, and no history of coronary artery disease. No history of NV or anginal symptoms. No history of congestive heart failure. No history of rheumatic fever. GI: No history of peptic ulcer disease. History of GERD present. No history of GI bleed. No history of fatty food intolerance.. No history of altered bowel movements no history of abdominal pain. No history of ascites. No history of cirrhosis. No history of jaundice. MUSCULOSKELETAL: History of osteoarthritis present. No history of collagen vascular disease. RENAL: No history of chronic kidney disease. History of recurrent urinary tract infections present none this admission. ENDOCRINE: History of diabetes mellitus type 2 insulin-dependent, with diabetic neuropathy.No history of polydipsia polyuria. No history of heat or cold intolerance. No history of thyroid disorder. No history of hirsutism. No history of excessive sweating. MUSIC REHABILITATION THERAPIST: No history of TIA CVA. NO HISTORY OF HEADACHES MIGRAINES OR SEIZURES. Psychiatric: History of anxiety present. No history of depression. No suicidal ideation. No history of homicidal ideation. METABOLIC: History of hyperlipidemia present no history of gout. History of morbid obesity present. VASCULAR: No history of calf or buttock claudication. No history of DVT. HEMATOLOGICAL: No history of blood dyscrasias. No history of bleeding diathesis. No history of clotting disorders. PHYSICAL EXAMINATION: The patient is morbidly obese. At present in no acute distress. Selected Entries 03/08/19 03/08/19 11:50 12:00 Temperature 97.7 F Temperature Oral Source Pulse Rate 53 L Heart Rate ( 60 Monitors) Respiratory 20 Rate Blood Pressure 121/62 Blood Pressure 81 Mean BP Location Right Arm BP Position Supine O2 Sat by Pulse 100 Oximetry Oxygen Flow 3.00 Rate Oxygen Delivery Nasal Cannula Method HEAD: Is atraumatic. Normocephalic. EYES: Pupils are equal round regular react to light accommodation. Extraocular movements are normal. There is no clinical pallor. There is no scleral icterus. EARS: Tympanic memories are intact. External ear canals are clear. NOSE: There is no inflammation of the nasal mucous membrane. There is no nasal polyps. MOUTH: Mucous members of mouth are moist tongue is moist. There are no ulcers. There is no bleeding from the gums. THROAT: Her modified Mallampati classification is class IV there is no redness of the oropharynx. There is no exudates. SKIN: There is no petechia or ecchymosis. There is no skin lesions or skin rashes. NECK: Is supple. There is no JVD. Carotids are equal. There is no carotid bruits. There is no lymphadenopathy. There is no goiter. There is no accessory muscle respiration use. Trachea central. LUNGS: Clear to auscultation percussion, without any rhonchi rales or wheezing. There is no chest wall tenderness HEART: S1-S2 is heard. There is no S3 gallop there is no S4 gallop there is systolic murmur left sternal border and apex there is no rub. ABDOMEN: Is obese. Nontender. There is no hepatosplenomegaly. Bowel sounds are well heard. EXTREMITIES: Femorals are deep femorals are diminished. There is no femoral bruits. Leg pulses are well felt. There is no DVT or cellulitis. There is no pedal edema. There is no calf tenderness. There is no cyanosis or clubbing. Capillary refill is normal in both lower extremities. MUSIC REHABILITATION THERAPIST: The patient is conscious awake alert oriented x3 with no focal deficit. PSYCHIATRIC: At present the patient does not appear to be anxious, or depressed. Her judgment and insight are intact. EKG: Sinus rhythm. Sinus pause with atrial escape rhythm. PVCs. Incomplete left bundle branch block pattern and left intravascular block. Current Medications Acetaminophen (Tylenol 325 Mg Tablet) 650 mg PO Q4HP PRN PRN Reason: FOR PAIN OR TEMP Stop: 04/06/19 14:51 Albuterol/Ipratropium (Duoneb 3 Ml Ampul) 3 ml NEB RTQ6HP PRN PRN Reason: SHORTNESS OF BREATH Stop: 04/06/19 14:51 Alprazolam (Xanax 0.5 Mg Tablet) 0.5 mg PO Q12 [facility] Stop: 03/14/19 19:59 Last Admin: 03/08/19 21:48 Dose: 0.5 mg Documented by: Aspirin (Ecotrin 81 Mg Ec Tablet) 81 mg PO DAILY [facility] Stop: 04/07/19 09:59 Last Admin: 03/08/19 11:12 Dose: 81 mg Documented by: Clonidine (Catapres 0.1 Mg Tablet) 0.1 mg PO Q12 [facility] Stop: 04/06/19 21:59 Last Admin: 03/08/19 21:48 Dose: 0.1 mg Documented by: Dextrose (Dextrose Inj 50% Syringe (25 Gm/50 Ml)) 12.5 gm IV PRN PRN; Protocol PRN Reason: FOR BG 50-69 IN ALERT PATIENT Stop: 04/07/19 04:29 Dextrose (Dextrose Inj 50% Syringe (25 Gm/50 Ml)) 25 gm IV PRN PRN; Protocol PRN Reason: PER PROTOCOL Stop: 04/07/19 04:29 Docusate Sodium (Colace 100 Mg Capsule) 100 mg PO BID [facility] Stop: 04/06/19 17:59 Last Admin: 03/08/19 17:48 Dose: Not Given Documented by: Enoxaparin Sodium (Lovenox Inj 40 Mg/0.4 Ml Disp.Syrin) 40 mg SUBCUT DAILY [facility] Stop: 04/07/19 09:59 Last Admin: 03/08/19 11:11 Dose: Not Given Documented by: Famotidine (Pepcid 20 Mg Tablet) 20 mg PO Q12 [facility] Stop: 04/06/19 21:59 Last Admin: 03/08/19 21:48 Dose: 20 mg Documented by: Furosemide (Lasix Inj/Pf 40 Mg/4 Ml Sdv) 40 mg IV Q12A [facility] Stop: 04/06/19 17:59 Last Admin: 03/08/19 18:12 Dose: 40 mg Documented by: Glucagon (Glucagen Inj 1 Mg Vial) 1 mg IM PRN PRN; Protocol PRN Reason: EVALUATE FOR BG < 70 Stop: 04/07/19 04:29 Glucose (Glutose 40% Gel 15 Gm Tube) 15 gm PO PRN PRN; Protocol PRN Reason: FOR BG 50-69 IN ALERT PATIENT Stop: 04/07/19 04:29 Glucose (Glutose 40% Gel 15 Gm Tube) 30 gm PO PRN PRN; Protocol PRN Reason: FOR BG < 50 IN ALERT PATIENT Stop: 04/07/19 04:29 Cefepime HCl (Maxipime Rtu 1 Gm/D5w 50 Ml Premix Bag) 1 gm in 50 mls @ 100 mls/hr IV Q12 [facility] Stop: 03/14/19 21:59 Last Admin: 03/08/19 21:49 Dose: 100 mls/hr, 100 mls/hr Documented by: Insulin Human Regular (Humulin R (Pyxis) Insulin 100 Unit/Ml 3ml) 0 - 12 unit SUBCUT ACHS [facility]; Protocol Stop: 04/07/19 07:59 Last Admin: 03/08/19 17:29 Dose: Not Given Documented by: Lisinopril (Prinivil 10 Mg Tablet) 40 mg PO QHS [facility] Stop: 04/06/19 21:59 Last Admin: 03/08/19 21:48 Dose: 40 mg Documented by: Metoprolol Succinate (Toprol Xl 50 Mg Tab.Sr) 100 mg PO QAM [facility] Stop: 04/07/19 07:59 Last Admin: 03/08/19 08:57 Dose: 100 mg Documented by: Nifedipine (Procardia Xl 30 Mg Tablet) 60 mg PO QHS [facility] Stop: 04/06/19 21:59 Last Admin: 03/08/19 21:48 Dose: 60 mg Documented by: Oxycodone HCl (Oxy-Ir 5 Mg Tablet) 5 mg PO Q8HP PRN PRN Reason: PAIN Stop: 03/14/19 19:07 Oxycodone/Acetaminophen (Percocet 5-325 Mg Tablet) 1 tab PO Q8HP PRN PRN Reason: PAIN Stop: 03/14/19 19:07 Last Admin: 03/08/19 22:10 Dose: 1 tab Documented by: Patient Own Medication (Insulin Aspart Protam & Aspart [Novolog Mix 70-30 Vial]) 10 unit SQ .PERSLDSCLE PRN PRN Reason: SUGARS Patient Own Medication (Lutein [Lutein]) 20 mg PO .DAILY [facility] Stop: 04/07/19 09:59 Potassium Chloride (Klor-Con 10 Meq Capsule Er) 20 meq PO DAILY [facility] Stop: 04/07/19 09:59 Last Admin: 03/08/19 11:11 Dose: 20 meq Documented by: Discontinued Medications Alprazolam (Xanax 0.5 Mg Tablet) 0.5 mg PO BID [facility] Stop: 03/14/19 19:59 Last Admin: 03/08/19 18:36 Dose: Not Given Documented by: Amoxicillin (Amoxil 250 Mg Capsule) 250 mg PO NOW ONE Stop: 03/07/19 12:33 Last Admin: 03/07/19 12:56 Dose: 250 mg Documented by: Aspirin (Aspirin 325 Mg Tablet) 325 mg PO NOW ONE Stop: 03/07/19 11:16 Last Admin: 03/07/19 11:32 Dose: 325 mg Documented by: Furosemide (Lasix Inj/Pf 40 Mg/4 Ml Sdv) 40 mg IV NOW ONE Stop: 03/07/19 11:16 Last Admin: 03/07/19 11:32 Dose: 40 mg Documented by: Home MEDICATIONS. Aspirin [Ecotrin 81 mg EC Tablet] 81 mg PO DAILYP PRN 06/20/12 Clonidine HCl 0.1 mg PO Q12 06/20/12 Lisinopril 40 mg PO QHS 06/20/12 Metoprolol Succinate [Toprol XL 100 mg Tablet] 100 mg PO QAM 06/20/12 Nifedipine [Procardia XL 60 mg Tablet] 60 mg PO QHS 06/20/12 Alprazolam [Xanax 0.5 mg Tablet] 0.5 mg PO BID 02/15/19 Insulin Aspart Protam & Aspart [Novolog Mix 70-30 Vial] 0 unit SQ .PERSLDSCLE PRN 02/15/19 Lutein 20 mg PO DAILY 03/07/19 Oxycodone HCl/Acetaminophen [Percocet 10-325 Mg Tablet] 1 each PO TIDP PRN 03/07/19 Labs- Entire Visit 03/07/19 03/07/19 03/07/19 10:35 10:35 10:35 WBC 4.2 RBC 4.07 Hgb 12.3 Hct 37.1 MCV 91 MCH 30.3 MCHC 33.2 RDW 15.6 H Plt Count 121 L Seg Neutrophils % 65.8 Lymphocytes % 23.6 Monocytes % 7.8 Eosinophils % 2.0 Basophils % 0.8 Absolute Neutrophils 2.8 Absolute Lymphocytes 1.0 Absolute Monocytes 0.3 Absolute Eosinophils 0.1 Absolute Basophils 0.0 Carbonic Acid HCO3/H2CO3 Ratio ABG pH ABG pCO2 ABG pO2 ABG HCO3 ABG Total CO2 ABG O2 Saturation ABG Base Excess FiO2 Sodium 141.7 Potassium 4.2 Chloride 98 Carbon Dioxide 34 H Anion Gap 10 BUN 21 H Creatinine 0.83 Est GFR ( Amer) > 60 Est GFR (Non-Af Amer) > 60 Glucose 75 POC Glucose Calcium 9.1 Magnesium Total Bilirubin 0.7 Direct Bilirubin 0.3 Neonat Total Bilirubin Not Reportable Neonat Direct Bilirubin Not Reportable Neonat Indirect Bili Not Reportable AST 55 H ALT 44 Alkaline Phosphatase 236 H Creatine Kinase CK-MB (CK-2) Troponin I < 0.012 NT-Pro-B Natriuret Pep Total Protein 7.6 Albumin 4.0 Urine Color Urine Appearance Urine pH Ur Specific [place] Urine Protein Urine Glucose (UA) Urine Ketones Urine Blood Urine Nitrite Urine Bilirubin Urine Urobilinogen Ur Leukocyte Esterase Urine WBC (Auto) Urine Bacteria (Auto) Squamous Epi Cells Auto Urine Mucus (Auto) Urine Ascorbic Acid 03/07/19 03/07/19 03/07/19 10:35 11:45 11:45 WBC RBC Hgb Hct MCV MCH MCHC RDW Plt Count Seg Neutrophils % Lymphocytes % Monocytes % Eosinophils % Basophils % Absolute Neutrophils Absolute Lymphocytes Absolute Monocytes Absolute Eosinophils Absolute Basophils Carbonic Acid 2.18 H HCO3/H2CO3 Ratio 16:1 ABG pH 7.31 L ABG pCO2 72.5 H* ABG pO2 107.2 H ABG HCO3 35.8 H ABG Total CO2 38.1 H ABG O2 Saturation 97.3 ABG Base Excess 7.1 FiO2 2L Sodium Potassium Chloride Carbon Dioxide Anion Gap BUN Creatinine Est GFR ( Amer) Est GFR (Non-Af Amer) Glucose POC Glucose Calcium Magnesium Total Bilirubin Direct Bilirubin Neonat Total Bilirubin Neonat Direct Bilirubin Neonat Indirect Bili AST ALT Alkaline Phosphatase Creatine Kinase CK-MB (CK-2) Troponin I NT-Pro-B Natriuret Pep 614 H Total Protein Albumin Urine Color YELLOW Urine Appearance SLIGHTLY-CLOUDY Urine pH 7.0 Ur Specific [place] 1.011 Urine Protein NEGATIVE Urine Glucose (UA) NEGATIVE Urine Ketones NEGATIVE Urine Blood NEGATIVE Urine Nitrite POSITIVE H Urine Bilirubin NEGATIVE Urine Urobilinogen NEGATIVE Ur Leukocyte Esterase NEGATIVE Urine WBC (Auto) 3 Urine Bacteria (Auto) TRACE Squamous Epi Cells Auto 2 Urine Mucus (Auto) RARE Urine Ascorbic Acid NEGATIVE 03/07/19 03/07/19 03/07/19 12:58 15:30 15:30 WBC RBC Hgb Hct MCV MCH MCHC RDW Plt Count Seg Neutrophils % Lymphocytes % Monocytes % Eosinophils % Basophils % Absolute Neutrophils Absolute Lymphocytes Absolute Monocytes Absolute Eosinophils Absolute Basophils Carbonic Acid HCO3/H2CO3 Ratio ABG pH ABG pCO2 ABG pO2 ABG HCO3 ABG Total CO2 ABG O2 Saturation ABG Base Excess FiO2 Sodium Potassium Chloride Carbon Dioxide Anion Gap BUN Creatinine Est GFR ( Amer) Est GFR (Non-Af Amer) Glucose POC Glucose Calcium Magnesium Total Bilirubin Direct Bilirubin Neonat Total Bilirubin Neonat Direct Bilirubin Neonat Indirect Bili AST ALT Alkaline Phosphatase Creatine Kinase 48 CK-MB (CK-2) 2.50 Troponin I < 0.012 < 0.012 NT-Pro-B Natriuret Pep Total Protein Albumin Urine Color Urine Appearance Urine pH Ur Specific [place] Urine Protein Urine Glucose (UA) Urine Ketones Urine Blood Urine Nitrite Urine Bilirubin Urine Urobilinogen Ur Leukocyte Esterase Urine WBC (Auto) Urine Bacteria (Auto) Squamous Epi Cells Auto Urine Mucus (Auto) Urine Ascorbic Acid 03/07/19 03/07/19 03/07/19 16:41 20:39 20:39 WBC RBC Hgb Hct MCV MCH MCHC RDW Plt Count Seg Neutrophils % Lymphocytes % Monocytes % Eosinophils % Basophils % Absolute Neutrophils Absolute Lymphocytes Absolute Monocytes Absolute Eosinophils Absolute Basophils Carbonic Acid 2.35 H HCO3/H2CO3 Ratio 16:1 ABG pH 7.31 L ABG pCO2 78.2 H* ABG pO2 80.7 ABG HCO3 38.8 H ABG Total CO2 41.2 H ABG O2 Saturation 94.4 ABG Base Excess 9.9 FiO2 2L Sodium Potassium Chloride Carbon Dioxide Anion Gap BUN Creatinine Est GFR ( Amer) Est GFR (Non-Af Amer) Glucose POC Glucose Calcium Magnesium Total Bilirubin Direct Bilirubin Neonat Total Bilirubin Neonat Direct Bilirubin Neonat Indirect Bili AST ALT Alkaline Phosphatase Creatine Kinase 37 CK-MB (CK-2) 3.23 Troponin I < 0.012 NT-Pro-B Natriuret Pep Total Protein Albumin Urine Color Urine Appearance Urine pH Ur Specific [place] Urine Protein Urine Glucose (UA) Urine Ketones Urine Blood Urine Nitrite Urine Bilirubin Urine Urobilinogen Ur Leukocyte Esterase Urine WBC (Auto) Urine Bacteria (Auto) Squamous Epi Cells Auto Urine Mucus (Auto) Urine Ascorbic Acid 03/07/19 03/08/19 03/08/19 22:05 03:00 03:00 WBC RBC Hgb Hct MCV MCH MCHC RDW Plt Count Seg Neutrophils % Lymphocytes % Monocytes % Eosinophils % Basophils % Absolute Neutrophils Absolute Lymphocytes Absolute Monocytes Absolute Eosinophils Absolute Basophils Carbonic Acid HCO3/H2CO3 Ratio ABG pH ABG pCO2 ABG pO2 ABG HCO3 ABG Total CO2 ABG O2 Saturation ABG Base Excess FiO2 Sodium Potassium Chloride Carbon Dioxide Anion Gap BUN Creatinine Est GFR ( Amer) Est GFR (Non-Af Amer) Glucose POC Glucose 173 H Calcium Magnesium Total Bilirubin Direct Bilirubin Neonat Total Bilirubin Neonat Direct Bilirubin Neonat Indirect Bili AST ALT Alkaline Phosphatase Creatine Kinase 32 CK-MB (CK-2) 2.81 Troponin I < 0.012 NT-Pro-B Natriuret Pep Total Protein Albumin Urine Color Urine Appearance Urine pH Ur Specific [place] Urine Protein Urine Glucose (UA) Urine Ketones Urine Blood Urine Nitrite Urine Bilirubin Urine Urobilinogen Ur Leukocyte Esterase Urine WBC (Auto) Urine Bacteria (Auto) Squamous Epi Cells Auto Urine Mucus (Auto) Urine Ascorbic Acid 03/08/19 03/08/19 03/08/19 03:00 03:00 07:40 WBC 3.3 L RBC 3.84 Hgb 11.5 L Hct 35.1 L MCV 91 MCH 30.0 MCHC 32.8 RDW 15.4 H Plt Count 109 L Seg Neutrophils % 57.8 Lymphocytes % 27.1 Monocytes % 12.5 Eosinophils % 2.2 Basophils % 0.4 Absolute Neutrophils 1.9 Absolute Lymphocytes 0.9 Absolute Monocytes 0.4 Absolute Eosinophils 0.1 Absolute Basophils 0.0 Carbonic Acid HCO3/H2CO3 Ratio ABG pH ABG pCO2 ABG pO2 ABG HCO3 ABG Total CO2 ABG O2 Saturation ABG Base Excess FiO2 Sodium 141.7 Potassium 3.9 Chloride 98 Carbon Dioxide 37 H Anion Gap 7 BUN 21 H Creatinine 0.84 Est GFR ( Amer) > 60 Est GFR (Non-Af Amer) > 60 Glucose 162 H POC Glucose 119 H Calcium 8.4 Magnesium 2.2 Total Bilirubin Direct Bilirubin Neonat Total Bilirubin Neonat Direct Bilirubin Neonat Indirect Bili AST ALT Alkaline Phosphatase Creatine Kinase CK-MB (CK-2) Troponin I NT-Pro-B Natriuret Pep Total Protein Albumin Urine Color Urine Appearance Urine pH Ur Specific [place] Urine Protein Urine Glucose (UA) Urine Ketones Urine Blood Urine Nitrite Urine Bilirubin Urine Urobilinogen Ur Leukocyte Esterase Urine WBC (Auto) Urine Bacteria (Auto) Squamous Epi Cells Auto Urine Mucus (Auto) Urine Ascorbic Acid Chest X-Ray 03/07/19 10:05 IMPRESSION: Cardiomegaly with pulmonary edema. Chest/Abdomen CTA 03/07/19 12:42 IMPRESSION: 1. Negative examination for pulmonary embolism. 2. Pulmonary edema and pleural effusions. 3. Nonspecific infectious or inflammatory scattered bilateral groundglass and nodular opacities. 4. Cardiomegaly and coronary artery disease. IMPRESSION/RECOMMENDATION: 1. ORTHOPNEA and leg edema. 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 This is most likely secondary to sleep apnea. 2. Symptoms symptoms are due to sleep apnea: Would recommend empiric BiPAP Pap at night but prior to that would check the patient's oxygen saturation overnight to see if the patient has desaturation. Later would recommend that the patient have an outpatient attended sleep study. We will increase the patient's nifedipine to 60 mL XL p.o. every 12 hours. 3.Hypertension. Continue antihypertensive. Patient's blood pressure is well controlled 4. Diabetes mellitus type 2, [id number]. Continue her antidiabetic medication. 5. GERD. Continue proton pump inhibitors. 6. Anxiety: Patient on anti-anxiolytic medication. 7. Morbid obesity. Occasions reviewed. Medications dosage increased. Medical decision making is of high complexity. Management plan discussed with attending physician Dr. Galdamez and subsequently Dr. Castillo covering Dr. Galdamez. Will follow
[2019-03-09] MEDS: FUROSEMIDE INJ/PF 40 MG/4 ML SDV IV SCH ×2 (05:29→17:57)
[2019-03-09 05:40] LABS: ABSOLUTE EOSINOPHILS # (AUTO) 0.1 10^3/uL (0.0-0.6); ABSOLUTE MONOCYTES (AUTO) 0.6 10^3/uL (0.1-1.4); ABSOLUTE NEUT (AUTO) 2.5 10^3/uL (1.7-8.2); BASOPHILS % (AUTO) 0.7 % (0-2); EOSINOPHILS % (AUTO) 2.6 % (0-6); HEMATOCRIT 34.7 % (36.0-47.0); HEMOGLOBIN 11.3 g/dL (12.0-15.5); LYMPHOCYTES % (AUTO) 24.7 % (13-45); MEAN CORPUSCULAR HEMOGLOBIN 29.9 pg (27.0-33.4); MEAN CORPUSCULAR HGB CONC 32.6 g/dL (32.0-36.0); MEAN CORPUSCULAR VOLUME 92 fl (80-97); MONOCYTES % (AUTO) 13.2 % (3-13); RED BLOOD COUNT 3.79 10^6/uL (3.72-5.28); RED CELL DISTRIBUTION WIDTH 15.6 % (11.5-14.0); SEGMENTED NEUTROPHILS % (AUTO) 58.8 % (42-78); TOTAL CELLS COUNTED % (AUTO) 100 %; WHITE BLOOD COUNT 4.2 10^3/uL (4.0-10.5)
[2019-03-09 05:57] LABS: ANION GAP 6 (5-19); BLOOD UREA NITROGEN 20 mg/dL (7-20); CALCIUM 8.3 mg/dL (8.4-10.2); CARBON DIOXIDE 38 mmol/L (22-30); CHLORIDE 98 mmol/L (98-107); GLUCOSE 123 mg/dL (75-110); POTASSIUM 3.9 mmol/L (3.6-5.0); SODIUM 142.2 mmol/L (137-145)
[2019-03-09 06:10] LABS: PLATELET COUNT 100 10^3/uL (150-450)
[2019-03-09] MEDS: INSULIN REG, HUMAN 100 UNIT/ML 3 ML VIAL (PYX) SUBCUT SCH ×4 (08:39→21:31)
[2019-03-09] MEDS: METOPROLOL SUCCINATE 50 MG TAB.SR.24H PO SCH (08:47)
[2019-03-09] MEDS: CEFEPIME 1 GM/D5W RTU 1 GM/50 ML RTUPB IV SCH ×2 (09:43→21:11)
[2019-03-09] MEDS: POTASSIUM CHLORIDE 10 MEQ CAPSULE.ER PO SCH (09:43)
[2019-03-09] MEDS: DOCUSATE SODIUM 100 MG CAPSULE PO SCH ×2 (09:44→17:57)
[2019-03-09] MEDS: CLONIDINE HCL 0.1 MG TABLET PO SCH ×2 (09:44→21:11)
[2019-03-09] MEDS: NIFEDIPINE 30 MG TAB.ER.24 PO SCH ×2 (09:47→21:11)
[2019-03-09] MEDS: FAMOTIDINE 20 MG TABLET PO SCH ×2 (09:47→21:11)
[2019-03-09] MEDS: ALPRAZOLAM 0.5 MG TABLET PO SCH ×2 (09:48→21:11)
[2019-03-09] MEDS: ASPIRIN 81 MG TABLET, ENT COATED PO SCH (09:48)
[2019-03-09] MEDS: ENOXAPARIN SODIUM INJ 40 MG/0.4 ML DISP.SYRIN SUBCUT SCH (09:56)
--- NOTE | 2019-03-09 15:38 | PDOC PROGRESS REPORT ---
Subjective Progress Note for:: 03/09/19 Subjective:: Not too happy with BiPAP usage. No chest pain. Remain on supplemental oxygen vi nasal cannula. No fever or chills. Reason For Visit: SHORTNESS OF BREATH/PULMONARY EDEMA Physical Exam Vital Signs: Temp Pulse Resp BP Pulse Ox 97.3 F 56 L 18 115/61 97 03/09/19 11:07 03/09/19 11:07 03/09/19 11:07 03/09/19 11:07 03/09/19 11:07 Pulse Oximeter Nocturnal Start: 03/08/19 14:41 Freq: RTQ4 Status: Complete Protocol: Document 03/09/19 03:38 BOR (Rec: 03/09/19 03:40 BOR [email or web address]) Nocturnal Pulse Oximetry Equipment Usage Equipment in Use Nocturnal Spo2 Charge Charge Now Oxygen Delivery Method (includes room Nasal Cannula air) O2 Sat by Pulse Oximetry (92-100) 94 Continuous Pulse Oximeter Set Up Yes Continuous SpO2 Machine # 2 Other Increased O2 to 3L. Intake & Output 03/08/19 03/09/19 03/10/19 06:59 06:59 06:59 Intake Total 1150 820 360 Output Total 2900 3850 1300 Balance -1750 -3030 -940 Weight 121.2 kg 118.6 kg Physical Exam: General appearance: PRESENT: mild distress - remain on supplemental oxygen via nasal cannula at 2L/min, morbidly obese Head exam: PRESENT: atraumatic, normocephalic Eye exam: PRESENT: conjunctiva pink. ABSENT: pallor, scleral icterus Ear exam: PRESENT: normal external ear exam Mouth exam: PRESENT: moist Respiratory exam: PRESENT: clear to auscultation genia, decreased breath sounds - at lung bases Cardiovascular exam: PRESENT: RRR. ABSENT: diastolic murmur, rubs, systolic murmur GI/Abdominal exam: PRESENT: normal bowel sounds, soft. ABSENT: distended, guarding, mass, organomegaly, rebound, tenderness Extremities exam: PRESENT: pedal edema - chronic stasis changes on legs Neurological exam: PRESENT: alert, awake Psychiatric exam: PRESENT: appropriate affect, normal mood. ABSENT: homicidal ideation, suicidal ideation Skin exam: PRESENT: dry, warm Results Laboratory Results: 03/09/19 05:24 03/09/19 05:24 03/09/19 03/09/19 05:24 05:24 WBC 4.2 RBC 3.79 Hgb 11.3 L Hct 34.7 L MCV 92 MCH 29.9 MCHC 32.6 RDW 15.6 H Plt Count 100 L Seg Neutrophils % 58.8 Lymphocytes % 24.7 Monocytes % 13.2 H Eosinophils % 2.6 Basophils % 0.7 Absolute Neutrophils 2.5 Absolute Lymphocytes 1.0 Absolute Monocytes 0.6 Absolute Eosinophils 0.1 Absolute Basophils 0.0 Sodium 142.2 Potassium 3.9 Chloride 98 Carbon Dioxide 38 H Anion Gap 6 BUN 20 Creatinine 0.89 Est GFR ( Amer) > 60 Est GFR (Non-Af Amer) > 60 Glucose 123 H Calcium 8.3 L 03/07/19 11:45 Clean Catch Midstream Urine Culture - Final Escherichia Coli 03/07/19 03/07/19 03/07/19 10:35 10:35 12:58 Creatine Kinase CK-MB (CK-2) Troponin I < 0.012 < 0.012 NT-Pro-B Natriuret Pep 614 H 03/07/19 03/07/19 03/07/19 15:30 15:30 20:39 Creatine Kinase 48 37 CK-MB (CK-2) 2.50 Troponin I < 0.012 NT-Pro-B Natriuret Pep 03/07/19 03/08/19 03/08/19 20:39 03:00 03:00 Creatine Kinase 32 CK-MB (CK-2) 3.23 2.81 Troponin I < 0.012 < 0.012 NT-Pro-B Natriuret Pep Impressions: Chest X-Ray 03/07/19 10:05 IMPRESSION: Cardiomegaly with pulmonary edema. Chest/Abdomen CTA 03/07/19 12:42 IMPRESSION: 1. Negative examination for pulmonary embolism. 2. Pulmonary edema and pleural effusions. 3. Nonspecific infectious or inflammatory scattered bilateral groundglass and nodular opacities. 4. Cardiomegaly and coronary artery disease. Assessment & Plan - Diagnosis (1) Hypercapnic respiratory failure Qualifiers: Chronicity: acute Qualified Code(s): J96.02 - Acute respiratory failure with hypercapnia Is this a current diagnosis for this admission?: Yes (2) Pulmonary hypertension Is this a current diagnosis for this admission?: Yes (3) UTI (urinary tract infection) Qualifiers: Urinary tract infection type: acute cystitis Hematuria presence: without hematuria Qualified Code(s): N30.00 - Acute cystitis without hematuria Is this a current diagnosis for this admission?: Yes (4) Type 2 diabetes mellitus Qualifiers: Diabetes mellitus intermediate frame tender insulin use: with halfway use Diabetes mellitus complication status: with other specified complication Qualified Code(s): E11.69 - Type 2 diabetes mellitus with other specified complication; Z79.4 - snf (current) use of insulin Is this a current diagnosis for this admission?: Yes (5) Hypertension Qualifiers: Hypertension type: essential hypertension Qualified Code(s): I10 - Essential (primary) hypertension Is this a current diagnosis for this admission?: Yes (6) Bilateral lower extremity edema Is this a current diagnosis for this admission?: Yes (7) Hyperlipidemia Qualifiers: Hyperlipidemia type: unspecified Qualified Code(s): E78.5 - Hyperlipidemia, unspecified Is this a current diagnosis for this admission?: Yes (8) Stasis dermatitis Qualifiers: Laterality: bilateral Qualified Code(s): I87.2 - Venous insufficiency (chronic) (peripheral) Is this a current diagnosis for this admission?: Yes - Time Time Spent with patient: 25-34 minutes Medications reviewed and adjusted accordingly: Yes Anticipated discharge: Home with Homehealth Within: Other - Inpatient Certification Based on my medical assessment, after consideration of the patient's comorbidities, presenting symptoms, or acuity I expect that the services needed warrant INPATIENT care.: Yes I certify that my determination is in accordance with my understanding of Medicare's requirements for reasonable and necessary INPATIENT services [42 CFR 412.3e].: Yes Medical Necessity: Significant Comorbidiites Make Outpatient Treatment Too Risky, Need Close Monitoring Due to Risk of Patient Decompensation, Need For IV Fluids, Need For Continuous Telemetry Monitoring, Risk of Complication if Not Cared For in Hospital, Risk of Diagnosis Which Will Require Inpatient Eval/Care/Monitoring Post Hospital Care: D/C Site Interpreter Documentation - Plan Summary Plan Summary: Continue current medication management. Patient will benefit from home supplemental oxygen based on desaturation off oxygen supplementation.
[2019-03-09] MEDS: OXYCODONE-ACETAMINOPHEN 5-325 MG TABLET PO PRN (19:34)
[2019-03-09] MEDS: LISINOPRIL 10 MG TABLET PO SCH (21:11)
[2019-03-10 05:18] LABS: ABSOLUTE EOSINOPHILS # (AUTO) 0.1 10^3/uL (0.0-0.6); ABSOLUTE LYMPHOCYTES (AUTO) 0.8 10^3/uL (0.5-4.7); ABSOLUTE MONOCYTES (AUTO) 0.7 10^3/uL (0.1-1.4); ABSOLUTE NEUT (AUTO) 3.4 10^3/uL (1.7-8.2); BASOPHILS % (AUTO) 0.6 % (0-2); EOSINOPHILS % (AUTO) 2.3 % (0-6); HEMATOCRIT 34.7 % (36.0-47.0); HEMOGLOBIN 11.4 g/dL (12.0-15.5); LYMPHOCYTES % (AUTO) 15.5 % (13-45); MEAN CORPUSCULAR HEMOGLOBIN 29.9 pg (27.0-33.4); MEAN CORPUSCULAR HGB CONC 32.8 g/dL (32.0-36.0); MEAN CORPUSCULAR VOLUME 91 fl (80-97); MONOCYTES % (AUTO) 13.7 % (3-13); RED BLOOD COUNT 3.82 10^6/uL (3.72-5.28); RED CELL DISTRIBUTION WIDTH 15.6 % (11.5-14.0); SEGMENTED NEUTROPHILS % (AUTO) 67.9 % (42-78); TOTAL CELLS COUNTED % (AUTO) 100 %
[2019-03-10 05:26] LABS: PLATELET COUNT 94 10^3/uL (150-450)
[2019-03-10 05:44] LABS: BLOOD UREA NITROGEN 21 mg/dL (7-20); CHLORIDE 95 mmol/L (98-107); POTASSIUM 3.8 mmol/L (3.6-5.0)
[2019-03-10] MEDS: FUROSEMIDE INJ/PF 40 MG/4 ML SDV IV SCH (05:57)
[2019-03-10 06:13] LABS: ANION GAP 7 (5-19); CALCIUM 8.5 mg/dL (8.4-10.2); CARBON DIOXIDE 39 mmol/L (22-30); GLUCOSE 140 mg/dL (75-110); SODIUM 141.2 mmol/L (137-145)
[2019-03-10] MEDS: INSULIN REG, HUMAN 100 UNIT/ML 3 ML VIAL (PYX) SUBCUT SCH ×4 (08:01→21:23)
[2019-03-10] MEDS: METOPROLOL SUCCINATE 50 MG TAB.SR.24H PO SCH (08:01)
--- NOTE | 2019-03-10 09:16 | PDOC PROGRESS REPORT ---
Subjective Progress Note for:: 03/11/19 Subjective:: Patient is currently doing fair Patient is denied any chest pain to than any shortness of the breath Patient's had a echocardiogram done Patient's EF is 55%'s According to the pediatric geneticist patient with pulmonary hypertension's with possible right-sided heart failure and sleep apnea Reason For Visit: SHORTNESS OF BREATH/PULMONARY EDEMA Physical Exam Vital Signs: Temp Pulse Resp BP Pulse Ox 97.8 F 70 16 122/62 96 03/10/19 07:08 03/10/19 07:08 03/10/19 07:08 03/10/19 07:08 03/10/19 07:08 Pulse Oximeter Nocturnal Start: 03/08/19 14:41 Freq: RTQ4 Status: Complete Protocol: Document 03/09/19 03:38 BOR (Rec: 03/09/19 03:40 BOR [email or web address]) Nocturnal Pulse Oximetry Equipment Usage Equipment in Use Nocturnal Spo2 Charge Charge Now Oxygen Delivery Method (includes room Nasal Cannula air) O2 Sat by Pulse Oximetry (92-100) 94 Continuous Pulse Oximeter Set Up Yes Continuous SpO2 Machine # 2 Other Increased O2 to 3L. Intake & Output 03/09/19 03/10/19 03/11/19 06:59 06:59 06:59 Intake Total 820 610 Output Total 3850 3450 Balance -3030 -2840 Weight 118.6 kg 115.3 kg General appearance: PRESENT: no acute distress, well-developed, well-nourished Head exam: PRESENT: atraumatic, normocephalic Eye exam: PRESENT: conjunctiva pink, EOMI, PERRLA. ABSENT: scleral icterus Ear exam: PRESENT: normal external ear exam Mouth exam: PRESENT: moist, tongue midline Neck exam: PRESENT: full ROM. ABSENT: carotid bruit, JVD, lymphadenopathy, thyromegaly Respiratory exam: PRESENT: clear to auscultation genia Cardiovascular exam: PRESENT: RRR. ABSENT: diastolic murmur, rubs, systolic murmur Pulses: PRESENT: normal dorsalis pedis pul, +2 pedal pulses bilateral Vascular exam: PRESENT: normal capillary refill GI/Abdominal exam: PRESENT: normal bowel sounds, soft. ABSENT: distended, guarding, mass, organolmegaly, rebound, tenderness Rectal exam: PRESENT: deferred Musculoskeletal exam: PRESENT: ambulatory Neurological exam: PRESENT: alert, awake, oriented to person, oriented to place, oriented to time, oriented to situation, CN II-XII grossly intact. ABSENT: motor sensory deficit Psychiatric exam: PRESENT: appropriate affect, normal mood. ABSENT: homicidal ideation, suicidal ideation Skin exam: PRESENT: dry, intact, warm. ABSENT: cyanosis, rash Results Laboratory Results: 03/10/19 04:57 03/10/19 04:57 03/10/19 03/10/19 04:57 04:57 WBC 5.0 RBC 3.82 Hgb 11.4 L Hct 34.7 L MCV 91 MCH 29.9 MCHC 32.8 RDW 15.6 H Plt Count 94 L Seg Neutrophils % 67.9 Lymphocytes % 15.5 Monocytes % 13.7 H Eosinophils % 2.3 Basophils % 0.6 Absolute Neutrophils 3.4 Absolute Lymphocytes 0.8 Absolute Monocytes 0.7 Absolute Eosinophils 0.1 Absolute Basophils 0.0 Sodium 141.2 Potassium 3.8 Chloride 95 L Carbon Dioxide 39 H Anion Gap 7 BUN 21 H Creatinine 0.96 Est GFR ( Amer) > 60 Est GFR (Non-Af Amer) 55 L Glucose 140 H Calcium 8.5 03/07/19 11:45 Clean Catch Midstream Urine Culture - Final Escherichia Coli 03/07/19 03/07/19 03/07/19 10:35 10:35 12:58 Creatine Kinase CK-MB (CK-2) Troponin I < 0.012 < 0.012 NT-Pro-B Natriuret Pep 614 H 03/07/19 03/07/19 03/07/19 15:30 15:30 20:39 Creatine Kinase 48 37 CK-MB (CK-2) 2.50 Troponin I < 0.012 NT-Pro-B Natriuret Pep 03/07/19 03/08/19 03/08/19 20:39 03:00 03:00 Creatine Kinase 32 CK-MB (CK-2) 3.23 2.81 Troponin I < 0.012 < 0.012 NT-Pro-B Natriuret Pep Impressions: Chest X-Ray 03/07/19 10:05 IMPRESSION: Cardiomegaly with pulmonary edema. Chest/Abdomen CTA 03/07/19 12:42 IMPRESSION: 1. Negative examination for pulmonary embolism. 2. Pulmonary edema and pleural effusions. 3. Nonspecific infectious or inflammatory scattered bilateral groundglass and nodular opacities. 4. Cardiomegaly and coronary artery disease. Assessment & Plan - Diagnosis (1) Hypercapnic respiratory failure Qualifiers: Chronicity: acute Qualified Code(s): J96.02 - Acute respiratory failure with hypercapnia Is this a current diagnosis for this admission?: Yes Plan: Repeat the ABG Put the patient on a BiPAP CT scan of the chest also some groundglass opacities possible mild bronchitis we will continues with some nebulizer treatments (2) Pulmonary vascular congestion Is this a current diagnosis for this admission?: Yes Plan: We will get the 2D echocardiogram start the patient on the Lasix (3) UTI (urinary tract infection) Qualifiers: Urinary tract infection type: acute cystitis Hematuria presence: without hematuria Qualified Code(s): N30.00 - Acute cystitis without hematuria Is this a current diagnosis for this admission?: Yes Plan: We will send the urine for culture (4) Anxiety disorder Qualifiers: Anxiety disorder type: generalized anxiety disorder Qualified Code(s): F41.1 - Generalized anxiety disorder Is this a current diagnosis for this admission?: Yes Plan: Continues to current medications (5) Hyperlipidemia Qualifiers: Hyperlipidemia type: unspecified Qualified Code(s): E78.5 - Hyperlipidemia, unspecified Is this a current diagnosis for this admission?: Yes (6) Hypertension Qualifiers: Hypertension type: essential hypertension Qualified Code(s): I10 - Essential (primary) hypertension Is this a current diagnosis for this admission?: Yes Plan: Currently all stable (7) Osteoarthritis Qualifiers: Osteoarthritis location: unspecified site Is this a current diagnosis for this admission?: Yes (8) Type 2 diabetes mellitus Qualifiers: Diabetes mellitus jail insulin use: with termite inspector use Diabetes mellitus complication status: with other specified complication Qualified Code(s): E11.69 - Type 2 diabetes mellitus with other specified complication; 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 Lasix Follow with the cardiology Physical therapy evaluations DC the Araiza catheter
[2019-03-10 10:16] LABS: ARTERIAL BLOOD BASE EXCESS 11.8 mmol/L; ARTERIAL BLOOD H2CO3 2.25 mmol/L (1.05-1.35); ARTERIAL BLOOD HCO3 41.1 mmol/L (20-24); ARTERIAL BLOOD O2 SATURATION 96.5 % (94-98); ARTERIAL BLOOD PH 7.36 (7.35-7.45); ARTERIAL BLOOD PO2 93.1 mmHg (80-100); ARTERIAL BLOOD TOTAL CO2 43.4 mmol/L (21-25)
[2019-03-10 10:17] LABS: ARTERIAL BLOOD FIO2 3L
[2019-03-10 10:20] LABS: ARTERIAL BLOOD PCO2 74.8 mmHg (35-45)
[2019-03-10] MEDS: DOCUSATE SODIUM 100 MG CAPSULE PO SCH ×2 (10:55→17:51)
[2019-03-10] MEDS: NIFEDIPINE 30 MG TAB.ER.24 PO SCH ×2 (10:55→21:25)
[2019-03-10] MEDS: POTASSIUM CHLORIDE 10 MEQ CAPSULE.ER PO SCH (10:55)
[2019-03-10] MEDS: FUROSEMIDE 40 MG TABLET PO SCH ×2 (10:56→17:50)
[2019-03-10] MEDS: FAMOTIDINE 20 MG TABLET PO SCH ×2 (10:56→21:26)
[2019-03-10] MEDS: ASPIRIN 81 MG TABLET, ENT COATED PO SCH (10:57)
[2019-03-10] MEDS: CLONIDINE HCL 0.1 MG TABLET PO SCH ×2 (10:57→21:24)
[2019-03-10] MEDS: ENOXAPARIN SODIUM INJ 40 MG/0.4 ML DISP.SYRIN SUBCUT SCH (10:57)
[2019-03-10] MEDS: ALPRAZOLAM 0.5 MG TABLET PO SCH ×2 (10:57→21:24)
[2019-03-10] MEDS: CEFEPIME 1 GM/D5W RTU 1 GM/50 ML RTUPB IV SCH ×2 (10:58→21:24)
--- NOTE | 2019-03-10 14:51 | RADIOLOGY REPORT (SQ) ---
EXAM DESCRIPTION: CHEST 2 VIEWS COMPLETED DATE/TIME: 03/10/2019 1:49 pm REASON FOR STUDY: Short of breath COMPARISON: 03/07/2019. NUMBER OF VIEWS: Two views. TECHNIQUE: Frontal and lateral radiographic views of the chest acquired. LIMITATIONS: None. FINDINGS: LUNGS AND PLEURA: No opacities, masses or pneumothorax. No pleural effusion. MEDIASTINUM AND HILAR STRUCTURES: No masses or contour abnormality. HEART AND VASCULAR STRUCTURES: Cardiac enlargement. Vascular congestion. BONES: No acute findings. Degenerative changes in the spine and shoulders. HARDWARE: None in the chest. OTHER: No other significant finding. IMPRESSION: CARDIAC ENLARGEMENT. VASCULAR CONGESTION. TECHNICAL DOCUMENTATION: JOB ID: [id number] [employer]- All Rights Reserved Reading location - IP/workstation name: [email or web address]
[2019-03-10] MEDS: LISINOPRIL 10 MG TABLET PO SCH (21:25)
[2019-03-11 05:40] LABS: ABSOLUTE EOSINOPHILS # (AUTO) 0.2 10^3/uL (0.0-0.6); ABSOLUTE LYMPHOCYTES (AUTO) 0.9 10^3/uL (0.5-4.7); ABSOLUTE MONOCYTES (AUTO) 0.7 10^3/uL (0.1-1.4); ABSOLUTE NEUT (AUTO) 3.8 10^3/uL (1.7-8.2); BASOPHILS % (AUTO) 0.8 % (0-2); EOSINOPHILS % (AUTO) 3.1 % (0-6); HEMATOCRIT 36.4 % (36.0-47.0); LYMPHOCYTES % (AUTO) 16.2 % (13-45); MEAN CORPUSCULAR HEMOGLOBIN 29.9 pg (27.0-33.4); MEAN CORPUSCULAR VOLUME 91 fl (80-97); MONOCYTES % (AUTO) 13.2 % (3-13); RED CELL DISTRIBUTION WIDTH 15.3 % (11.5-14.0); SEGMENTED NEUTROPHILS % (AUTO) 66.7 % (42-78); TOTAL CELLS COUNTED % (AUTO) 100 %; WHITE BLOOD COUNT 5.7 10^3/uL (4.0-10.5)
[2019-03-11 05:54] LABS: BLOOD UREA NITROGEN 23 mg/dL (7-20); CALCIUM 8.8 mg/dL (8.4-10.2); CHLORIDE 93 mmol/L (98-107); GLUCOSE 122 mg/dL (75-110); POTASSIUM 3.6 mmol/L (3.6-5.0); SODIUM 141.5 mmol/L (137-145)
[2019-03-11 06:04] LABS: ANION GAP 6 (5-19)
[2019-03-11 06:06] LABS: CARBON DIOXIDE 43 mmol/L (22-30)
[2019-03-11 06:27] LABS: PLATELET COUNT 97 10^3/uL (150-450)
[2019-03-11] MEDS: INSULIN REG, HUMAN 100 UNIT/ML 3 ML VIAL (PYX) SUBCUT SCH ×4 (08:19→21:20)
[2019-03-11] MEDS: METOPROLOL SUCCINATE 50 MG TAB.SR.24H PO SCH (08:21)
[2019-03-11] MEDS: CEFEPIME 1 GM/D5W RTU 1 GM/50 ML RTUPB IV SCH ×2 (10:09→21:17)
[2019-03-11] MEDS: CLONIDINE HCL 0.1 MG TABLET PO SCH ×2 (10:10→21:22)
[2019-03-11] MEDS: FUROSEMIDE 40 MG TABLET PO SCH ×2 (10:10→17:16)
[2019-03-11] MEDS: DOCUSATE SODIUM 100 MG CAPSULE PO SCH ×2 (10:10→17:16)
[2019-03-11] MEDS: POTASSIUM CHLORIDE 10 MEQ CAPSULE.ER PO SCH (10:10)
[2019-03-11] MEDS: FAMOTIDINE 20 MG TABLET PO SCH ×2 (10:11→21:22)
[2019-03-11] MEDS: OXYCODONE-ACETAMINOPHEN 5-325 MG TABLET PO PRN (10:11)
[2019-03-11] MEDS: NIFEDIPINE 30 MG TAB.ER.24 PO SCH ×2 (10:11→21:22)
[2019-03-11] MEDS: ALPRAZOLAM 0.5 MG TABLET PO SCH ×2 (10:11→21:22)
[2019-03-11] MEDS: ENOXAPARIN SODIUM INJ 40 MG/0.4 ML DISP.SYRIN SUBCUT SCH (10:12)
[2019-03-11] MEDS: ASPIRIN 81 MG TABLET, ENT COATED PO SCH (10:12)
--- NOTE | 2019-03-11 11:37 | PDOC PROGRESS REPORT ---
Subjective Progress Note for:: 03/11/19 Subjective:: Patient is currently doing fair Patient's PCO2 is still elevated patient still unable to use of BiPAP Patient's denied any chest pain to than any shortness of the breath Patient still very weak Reason For Visit: SHORTNESS OF BREATH/PULMONARY EDEMA Physical Exam Vital Signs: Temp Pulse Resp BP Pulse Ox 98.3 F 73 18 121/59 L 98 03/11/19 07:09 03/11/19 07:09 03/11/19 07:09 03/11/19 07:09 03/11/19 07:09 Pulse Oximeter Nocturnal Start: 03/08/19 14:41 Freq: RTQ4 Status: Complete Protocol: Document 03/09/19 03:38 BOR (Rec: 03/09/19 03:40 BOR [email or web address]) Nocturnal Pulse Oximetry Equipment Usage Equipment in Use Nocturnal Spo2 Charge Charge Now Oxygen Delivery Method (includes room Nasal Cannula air) O2 Sat by Pulse Oximetry (92-100) 94 Continuous Pulse Oximeter Set Up Yes Continuous SpO2 Machine # 2 Other Increased O2 to 3L. Intake & Output 03/10/19 03/11/19 03/12/19 06:59 06:59 06:59 Intake Total 660 820 Output Total 3450 2600 Balance -2790 -1780 Weight 115.3 kg 113.2 kg General appearance: PRESENT: no acute distress, well-developed, well-nourished Head exam: PRESENT: atraumatic, normocephalic Eye exam: PRESENT: conjunctiva pink, EOMI, PERRLA. ABSENT: scleral icterus Ear exam: PRESENT: normal external ear exam Mouth exam: PRESENT: moist, tongue midline Neck exam: PRESENT: full ROM. ABSENT: carotid bruit, JVD, lymphadenopathy, thyromegaly Respiratory exam: PRESENT: decreased breath sounds Cardiovascular exam: PRESENT: RRR. ABSENT: diastolic murmur, rubs, systolic murmur Pulses: PRESENT: normal dorsalis pedis pul, +2 pedal pulses bilateral Vascular exam: PRESENT: normal capillary refill GI/Abdominal exam: PRESENT: normal bowel sounds, soft. ABSENT: distended, guarding, mass, organolmegaly, rebound, tenderness Rectal exam: PRESENT: deferred Extremities exam: PRESENT: pedal edema Neurological exam: PRESENT: alert, awake, oriented to person, oriented to place, oriented to time, oriented to situation, CN II-XII grossly intact. ABSENT: motor sensory deficit Psychiatric exam: PRESENT: appropriate affect, normal mood. ABSENT: homicidal ideation, suicidal ideation Skin exam: PRESENT: dry, intact, warm. ABSENT: cyanosis, rash Results Laboratory Results: 03/11/19 05:14 03/11/19 05:14 03/11/19 03/11/19 05:14 05:14 WBC 5.7 RBC 4.00 Hgb 12.0 Hct 36.4 MCV 91 MCH 29.9 MCHC 33.0 RDW 15.3 H Plt Count 97 L Seg Neutrophils % 66.7 Lymphocytes % 16.2 Monocytes % 13.2 H Eosinophils % 3.1 Basophils % 0.8 Absolute Neutrophils 3.8 Absolute Lymphocytes 0.9 Absolute Monocytes 0.7 Absolute Eosinophils 0.2 Absolute Basophils 0.0 Sodium 141.5 Potassium 3.6 Chloride 93 L Carbon Dioxide 43 H* Anion Gap 6 BUN 23 H Creatinine 0.97 Est GFR ( Amer) > 60 Est GFR (Non-Af Amer) 54 L Glucose 122 H Calcium 8.8 03/07/19 03/07/19 03/07/19 10:35 10:35 12:58 Creatine Kinase CK-MB (CK-2) Troponin I < 0.012 < 0.012 NT-Pro-B Natriuret Pep 614 H 03/07/19 03/07/19 03/07/19 15:30 15:30 20:39 Creatine Kinase 48 37 CK-MB (CK-2) 2.50 Troponin I < 0.012 NT-Pro-B Natriuret Pep 03/07/19 03/08/19 03/08/19 20:39 03:00 03:00 Creatine Kinase 32 CK-MB (CK-2) 3.23 2.81 Troponin I < 0.012 < 0.012 NT-Pro-B Natriuret Pep Impressions: Chest/Abdomen CTA 03/07/19 12:42 IMPRESSION: 1. Negative examination for pulmonary embolism. 2. Pulmonary edema and pleural effusions. 3. Nonspecific infectious or inflammatory scattered bilateral groundglass and nodular opacities. 4. Cardiomegaly and coronary artery disease. Chest X-Ray 03/10/19 00:00 IMPRESSION: CARDIAC ENLARGEMENT. VASCULAR CONGESTION. Assessment & Plan - Diagnosis (1) Hypercapnic respiratory failure Qualifiers: Chronicity: acute Qualified Code(s): J96.02 - Acute respiratory failure with hypercapnia Is this a current diagnosis for this admission?: Yes Plan: Patient is unable to use any BiPAP because of patient's claustrophobic Patient at this point probably need a sleep study but the way the patient's unable to use any mask not sure may be a nasal cannula mask will try it We will discuss with the family (2) Pulmonary vascular congestion Is this a current diagnosis for this admission?: Yes Plan: Failure and ongoing chronic respiratory failure and a right-sided heart failure continues to Lasix (3) UTI (urinary tract infection) Qualifiers: Urinary tract infection type: acute cystitis Hematuria presence: without hematuria Qualified Code(s): N30.00 - Acute cystitis without hematuria Is this a current diagnosis for this admission?: Yes Plan: We will send the urine for culture (4) Anxiety disorder Qualifiers: Anxiety disorder type: generalized anxiety disorder Qualified Code(s): F41.1 - Generalized anxiety disorder Is this a current diagnosis for this admission?: Yes Plan: Continues to current medications (5) Hyperlipidemia Qualifiers: Hyperlipidemia type: unspecified Qualified Code(s): E78.5 - Hyperlipidemia, unspecified Is this a current diagnosis for this admission?: Yes (6) Hypertension Qualifiers: Hypertension type: essential hypertension Qualified Code(s): I10 - Essential (primary) hypertension Is this a current diagnosis for this admission?: Yes Plan: Currently all stable (7) Osteoarthritis Qualifiers: Osteoarthritis location: unspecified site Is this a current diagnosis for this admission?: Yes (8) Type 2 diabetes mellitus Qualifiers: Diabetes mellitus assisted insulin use: with assisted use Diabetes eliecer itus complication status: with other specified complication Qualified Code(s): E11.69 - Type 2 diabetes mellitus with other specified complication; 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
[2019-03-11] MEDS: LISINOPRIL 10 MG TABLET PO SCH (21:22)
[2019-03-12 05:32] LABS: BLOOD UREA NITROGEN 25 mg/dL (7-20); CALCIUM 8.5 mg/dL (8.4-10.2); CHLORIDE 93 mmol/L (98-107); GLUCOSE 127 mg/dL (75-110); POTASSIUM 3.8 mmol/L (3.6-5.0); SODIUM 139.6 mmol/L (137-145)
[2019-03-12 05:43] LABS: ANION GAP 6 (5-19)
[2019-03-12 05:44] LABS: CARBON DIOXIDE 41 mmol/L (22-30)
[2019-03-12] MEDS: INSULIN REG, HUMAN 100 UNIT/ML 3 ML VIAL (PYX) SUBCUT SCH ×4 (07:34→21:30)
--- NOTE | 2019-03-12 08:38 | PDOC PROGRESS REPORT ---
Subjective Progress Note for:: 03/12/19 Subjective:: Patient is currently doing fair Patient to use the BiPAP at night As per discussed with the sleep clinic Dr. Richard is going to see her and suggest the trilogy on discharge Patient's otherwise denied any chest pain to than any shortness of the breath Patient still weak and require physical therapy and as per discussed with the Tg the patient's daughter regarding the patient's current conditions all plans and hopefully discharge to the rehab facility tomorrow if remains stable Discussed with the patient and the daughter regarding the benzo diazepam causing the more issue with the respiratory but according to the patient and the care also the room to take it off we discussed so many times in the past but patients pretty much wants to stay with that medicines because of the severe anxiety Reason For Visit: SHORTNESS OF BREATH/PULMONARY EDEMA Physical Exam Vital Signs: Temp Pulse Resp BP Pulse Ox 97.1 F 52 L 16 122/62 91 L 03/12/19 03:46 03/12/19 07:00 03/12/19 03:46 03/12/19 03:46 03/12/19 03:46 Pulse Oximeter Nocturnal Start: 03/08/19 14:41 Freq: RTQ4 Status: Complete Protocol: Document 03/09/19 03:38 BOR (Rec: 03/09/19 03:40 BOR [id number]) Nocturnal Pulse Oximetry Equipment Usage Equipment in Use Nocturnal Spo2 Charge Charge Now Oxygen Delivery Method (includes room Nasal Cannula air) O2 Sat by Pulse Oximetry (92-100) 94 Continuous Pulse Oximeter Set Up Yes Continuous SpO2 Machine # 2 Other Increased O2 to 3L. Intake & Output 03/11/19 03/12/19 03/13/19 06:59 06:59 06:59 Intake Total 820 700 Output Total 2600 200 Balance -1780 500 Weight 113.2 kg 114.6 kg General appearance: PRESENT: no acute distress, well-developed, well-nourished Head exam: PRESENT: atraumatic, normocephalic Eye exam: PRESENT: conjunctiva pink, EOMI, PERRLA. ABSENT: scleral icterus Ear exam: PRESENT: normal external ear exam Mouth exam: PRESENT: moist, tongue midline Neck exam: PRESENT: full ROM. ABSENT: carotid bruit, JVD, lymphadenopathy, thyromegaly Respiratory exam: PRESENT: clear to auscultation genia Cardiovascular exam: PRESENT: RRR. ABSENT: diastolic murmur, rubs, systolic murmur Pulses: PRESENT: normal dorsalis pedis pul, +2 pedal pulses bilateral Vascular exam: PRESENT: normal capillary refill GI/Abdominal exam: PRESENT: normal bowel sounds, soft. ABSENT: distended, guarding, mass, organolmegaly, rebound, tenderness Rectal exam: PRESENT: deferred Musculoskeletal exam: PRESENT: ambulatory Neurological exam: PRESENT: alert, awake, oriented to person, oriented to place, oriented to time, oriented to situation, CN II-XII grossly intact. ABSENT: motor sensory deficit Psychiatric exam: PRESENT: appropriate affect, normal mood. ABSENT: homicidal ideation, suicidal ideation Skin exam: PRESENT: dry, intact, warm. ABSENT: cyanosis, rash Results Laboratory Results: 03/11/19 05:14 03/12/19 04:18 03/12/19 04:18 Sodium 139.6 Potassium 3.8 Chloride 93 L Carbon Dioxide 41 H* Anion Gap 6 BUN 25 H Creatinine 0.92 Est GFR ( Amer) > 60 Est GFR (Non-Af Amer) 58 L Glucose 127 H Calcium 8.5 03/07/19 03/07/19 03/07/19 10:35 10:35 12:58 Creatine Kinase CK-MB (CK-2) Troponin I < 0.012 < 0.012 NT-Pro-B Natriuret Pep 614 H 03/07/19 03/07/19 03/07/19 15:30 15:30 20:39 Creatine Kinase 48 37 CK-MB (CK-2) 2.50 Troponin I < 0.012 NT-Pro-B Natriuret Pep 03/07/19 03/08/19 03/08/19 20:39 03:00 03:00 Creatine Kinase 32 CK-MB (CK-2) 3.23 2.81 Troponin I < 0.012 < 0.012 NT-Pro-B Natriuret Pep Impressions: Chest/Abdomen CTA 03/07/19 12:42 IMPRESSION: 1. Negative examination for pulmonary embolism. 2. Pulmonary edema and pleural effusions. 3. Nonspecific infectious or inflammatory scattered bilateral groundglass and nodular opacities. 4. Cardiomegaly and coronary artery disease. Chest X-Ray 03/10/19 00:00 IMPRESSION: CARDIAC ENLARGEMENT. VASCULAR CONGESTION. Assessment & Plan - Diagnosis (1) Hypercapnic respiratory failure Qualifiers: Chronicity: acute Qualified Code(s): J96.02 - Acute respiratory failure with hypercapnia Is this a current diagnosis for this admission?: Yes Plan: Currently getting better patient uses BiPAP at night We will discharge with a trilogy and follow outpatients with a sleep study (2) Pulmonary vascular congestion Is this a current diagnosis for this admission?: Yes Plan: Failure and ongoing chronic respiratory failure and a right-sided heart failure continues to Lasix (3) UTI (urinary tract infection) Qualifiers: Urinary tract infection type: acute cystitis Hematuria presence: without hematuria Qualified Code(s): N30.00 - Acute cystitis without hematuria Is this a current diagnosis for this admission?: Yes Plan: We will send the urine for culture (4) Anxiety disorder Qualifiers: Anxiety disorder type: generalized anxiety disorder Qualified Code(s): F41.1 - Generalized anxiety disorder Is this a current diagnosis for this admission?: Yes Plan: Continues to current medications (5) Hyperlipidemia Qualifiers: Hyperlipidemia type: unspecified Qualified Code(s): E78.5 - Hyperlipidemia, unspecified Is this a current diagnosis for this admission?: Yes (6) Hypertension Qualifiers: Hypertension type: essential hypertension Qualified Code(s): I10 - Essential (primary) hypertension Is this a current diagnosis for this admission?: Yes Plan: Currently all stable (7) Osteoarthritis Qualifiers: Osteoarthritis location: unspecified site Is this a current diagnosis for this admission?: Yes (8) Type 2 diabetes mellitus Qualifiers: Diabetes mellitus usp insulin use: 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
--- NOTE | 2019-03-12 09:17 | PDOC CONSULTATION ---
Consultation Consult Date: 03/12/19 Attending physician:: OSIEL GALDAMEZ Provider Consulted: DOMINIC RICHARD Consult reason:: Respiratory failure, consultation is as sleep medicine physician. History of Present Illness Admission Date/PCP: 03/07/19 15:24 OSIEL GALDAMEZ MD Patient complains of: Shortness of breath and pedal edema History of Present Illness: KODY RENDON is a 88 year old female, I was asked by Dr. Galdamez to evaluate patient for underlying sleep disorder. Patient had multiple ABGs performed which shows respiratory failure with CO2 retention. Patient in need of CPAP/bilevel/ASV therapy. Patient on questioning denied any prior history of smoking or lung disease. She is however noted to have right heart failure. Past Medical History Cardiac Medical History: Reports: Hyperlipidema, Hypertension - CONTROLLED Denies: Congestive Heart Failure, Coronary Artery Disease, Myocardial Infarction, Heart Murmur Pulmonary Medical History: Reports: Chronic Obstructive Pulmonary Disease (COPD) Denies: Asthma, Bronchitis, Pneumonia, Tuberculosis Neurological Medical History: Denies: Seizures Endocrine Medical History: Reports: Diabetes Mellitus Type 2 Renal/ Medical History: Reports: Chronic Kidney Disease GI Medical History: Reports: Gastroesophageal Reflux Disease Denies: Hepatitis, Hiatal Hernia Musculoskeltal Medical History: Reports: Arthritis Psychiatric Medical History: Reports: General Anxiety Disorder Hematology: Denies: Anemia, Hemophilia, Sickle Cell Disease Past Surgical History Past Surgical History: Reports: Hysterectomy, Orthopedic Surgery - bilat knee replacement Denies: Amputation, Mastectomy, Pacemaker Social History Information Source: Patient Smoking Status: Never Smoker Frequency of Alcohol Use: None Hx Recreational Drug Use: No Drugs: None Hx Prescription Drug Abuse: No - Advance Directive Resuscitation Status: Full Code Family History Family History: Arthritis, CAD, COPD, CVA, DM, Hyperlipidemia, Hypertension Parental Family History Reviewed: Yes Children Family History Reviewed: Yes Sibling(s) Family History Reviewed.: Yes Medication/Allergy Home Medications: Aspirin [Ecotrin 81 mg EC Tablet] 81 mg PO DAILYP PRN 06/20/12 Clonidine HCl 0.1 mg PO Q12 06/20/12 Lisinopril 40 mg PO QHS 06/20/12 Metoprolol Succinate [Toprol XL 100 mg Tablet] 100 mg PO QAM 06/20/12 Nifedipine [Procardia XL 60 mg Tablet] 60 mg PO QHS 06/20/12 Alprazolam [Xanax 0.5 mg Tablet] 0.5 mg PO BID 02/15/19 Insulin Aspart Protam & Aspart [Novolog Mix 70-30 Vial] 0 unit SQ .PERSLDSCLE PRN 02/15/19 Furosemide [Lasix 20 mg Tablet] 20 mg PO BID #60 tablet 02/19/19 Potassium Chloride [Klor-Con 10 Meq Capsule ER] 20 meq PO DAILY #30 capsule.er 02/19/19 Lutein 20 mg PO DAILY 03/07/19 Oxycodone HCl/Acetaminophen [Percocet 10-325 Mg Tablet] 1 each PO TIDP PRN 03/07/19 Allergies/Adverse Reactions: levofloxacin [From Levaquin] Allergy (Verified 03/07/19 10:59) Fever nitrofurantoin Allergy (Verified 03/07/19 10:59) Fever Review of Systems Review of Systems: Please see history of present illness and past medical history as wall. Constitutional: No fever or chills reported. Head : No recent chronic headaches, recent head injury. Eyes: No recent eye pain, diplopia, redness, discharge, acute visual changes. Ears: No recent chronic ear pain, acute hearing loss, ear discharge. Oral cavity: No recent ulcerations, bleeding, oral cavity discomfort. Neck: No recent acute neck pain reported. Hematologic: No recent easy bruising or bleeding. Lymphatic: No recent lymph node enlargement reported. Cardiovascular system review: See history of present illness. Noted some sig nificant pedal edema. Respiratory system review: No hemoptysis or blood clots in the lungs reported. Moderate shortness of breath on exertion Gastrointestinal system review: Negative for any recent acute hematemesis, melena. Genitourinary system review: No recent acute or chronic hematuria, flank pain, UTI etc. reported. Skin system review: Negative for any recent abnormal bruising, no rash, no pruritus reported. Neurologic: No prior history of strokes, mini strokes, seizure disorder. Psychologic: No history of major psychosis or major depression reported. Musculoskeletal: Minor aches and pains reported. No acute joint swelling reported. Endocrine: No recent polyuria, polydipsia, recent heat or cold intolerance. Physical Exam Vital Signs: Temp Pulse Resp BP Pulse Ox 97.1 F 52 L 16 122/62 91 L 03/12/19 03:46 03/12/19 07:00 03/12/19 03:46 03/12/19 03:46 03/12/19 03:46 Pulse Oximeter Nocturnal Start: 03/08/19 14:41 Freq: RTQ4 Status: Complete Protocol: Document 03/09/19 03:38 BOR (Rec: 03/09/19 03:40 BOR [email or web address]) Nocturnal Pulse Oximetry Equipment Usage Equipment in Use Nocturnal Spo2 Charge Charge Now Oxygen Delivery Method (includes room Nasal Cannula air) O2 Sat by Pulse Oximetry (92-100) 94 Continuous Pulse Oximeter Set Up Yes Continuous SpO2 Machine # 2 Other Increased O2 to 3L. Intake & Output 03/11/19 03/12/19 03/13/19 06:59 06:59 06:59 Intake Total 820 700 Output Total 2600 200 Balance -1780 500 Weight 113.2 kg 114.6 kg Exam: GENERAL: well-nourished and in no acute distress. Alert and oriented x3 HEAD: Atraumatic, normocephalic. EYES: CARLITOS, sclera anicteric, conjunctiva are normal. ENT: Moist mucous membranes. No oral ulcerations or bleeding gums noted. No obvious ear, nose or throat abnormalities noted. NECK: supple without lymphadenopathy. Trachea is central. No cervical or axillary lymphadenopathy noted. Carotids are 2+, JVD WNL LUNGS: Breath sounds clear bilaterally. Bibasilar fine crackles are noted. No significant dullness noted on percussion. CHEST: Palpation of the chest wall shows no significant chest wall tenderness. 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 ABDOMEN: Soft, no significant tenderness appreciated, normoactive bowel sounds. No guarding, no rebound. No rigidity noted . No masses appreciated. EXTREMITIES: Pedal pulses are 1-2+, no calf tenderness noted. No clubbing or cyanosis. 1-2+ pedal edema noted NEUROLOGICAL: Focused neurological exam showed no significant neurologic deficit. Normal speech, no focal weakness appreciated. PSYCH: Normal mood, normal affect. Judgment and insight within normal limits. SKIN: No significant ecchymosis, skin is noted to be warm. MUSCULOSKELETAL EXAM: No significant acute joint swelling noted. Results Laboratory Results: 03/11/19 05:14 03/12/19 04:18 03/12/19 04:18 Sodium 139.6 Potassium 3.8 Chloride 93 L Carbon Dioxide 41 H* Anion Gap 6 BUN 25 H Creatinine 0.92 Est GFR ( Amer) > 60 Est GFR (Non-Af Amer) 58 L Glucose 127 H Calcium 8.5 03/07/19 03/07/19 03/07/19 10:35 10:35 12:58 Creatine Kinase CK-MB (CK-2) Troponin I < 0.012 < 0.012 NT-Pro-B Natriuret Pep 614 H 03/07/19 03/07/19 03/07/19 15:30 15:30 20:39 Creatine Kinase 48 37 CK-MB (CK-2) 2.50 Troponin I < 0.012 NT-Pro-B Natriuret Pep 03/07/19 03/08/19 03/08/19 20:39 03:00 03:00 Creatine Kinase 32 CK-MB (CK-2) 3.23 2.81 Troponin I < 0.012 < 0.012 NT-Pro-B Natriuret Pep Impressions: Chest/Abdomen CTA 03/07/19 12:42 IMPRESSION: 1. Negative examination for pulmonary embolism. 2. Pulmonary edema and pleural effusions. 3. Nonspecific infectious or inflammatory scattered bilateral groundglass and nodular opacities. 4. Cardiomegaly and coronary artery disease. Chest X-Ray 03/10/19 00:00 IMPRESSION: CARDIAC ENLARGEMENT. VASCULAR CONGESTION. Assessment & Plan - Diagnosis (1) Congestive heart failure Qualifiers: Heart failure type: right-sided Is this a current diagnosis for this admission?: Yes (2) Hypercapnic respiratory failure Qualifiers: Chronicity: acute Qualified Code(s): J96.02 - Acute respiratory failure with hypercapnia Is this a current diagnosis for this admission?: Yes (3) Pulmonary hypertension Is this a current diagnosis for this admission?: Yes (4) Type 2 diabetes mellitus Qualifiers: Diabetes mellitus skilled nursing insulin use: with skilled nursing use Diabetes mellitus complication status: with other specified complication Qualified Code(s): E11.69 - Type 2 diabetes mellitus with other specified complication; 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 Agree that patient will need oxygen supplementation and also noninvasive ventilation because of significant CO2 retention. Patient probably has underlying sleep apnea syndrome based on symptoms of snoring. Patient has chronic hypercarbic respiratory failure secondary to COPD. BiPAP during the hospitalization ineffective in maintaining acceptable CO2 level. In addition patient noted to have significant pulmonary hypertension and right- sided CHF. Adequate ventilation is therefore needed. Standard BiPAP has been noted to be ineffective for last several days and reducing PCO2. Patient will require NIV with AVAPS-AE to optimize pressures/volume for home use to prevent future admission and maintain acceptable PCO2. Patient will also benefit from follow-up with Dr. Richard. - Time Time Spent: 30 to 50 Minutes Medications reviewed and adjusted accordingly: Yes
[2019-03-12] MEDS: ENOXAPARIN SODIUM INJ 40 MG/0.4 ML DISP.SYRIN SUBCUT SCH (09:21)
--- NOTE | 2019-03-12 09:26 | PDOC CONSULTATION ---
Consultation-Blank Consultation: [facility] LIVE [address] [place] [address] Paediatric Surgeon Consult Patient Name: KODY RENDON Date of : 1930 Patient Status: Inpatient Attending Provider: OSIEL GALDAMEZ Date: 03/12/19 09:06 Initialization Date: 03/12/19 09:06 Consultation Consult Date: 03/12/19 Attending physician:: OSIEL GALDAMEZ Provider Consulted: DOMINIC RICHARD Consult reason:: Respiratory failure, consultation is as sleep medicine physician. History of Present Illness Admission Date/PCP: 03/07/19 15:24 OSIEL GALDAMEZ MD Patient complains of: Shortness of breath and pedal edema History of Present Illness: KODY RENDON is a 88 year old female, I was asked by Dr. Galdamez to evaluate patient for underlying sleep disorder. Patient had multiple ABGs performed which shows respiratory failure with CO2 retention. Patient in need of CPAP/bilevel/ASV therapy. Patient on questioning denied any prior history of smoking or lung disease. She is however noted to have right heart failure. Past Medical History Cardiac Medical History: Reports: Hyperlipidema, Hypertension - CONTROLLED Denies: Congestive Heart Failure, Coronary Artery Disease, Myocardial Infarction, Heart Murmur Pulmonary Medical History: Reports: Chronic Obstructive Pulmonary Disease (COPD) Denies: Asthma, Bronchitis, Pneumonia, Tuberculosis Neurological Medical History: Denies: Seizures Endocrine Medical History: Reports: Diabetes Mellitus Type 2 Renal/ Medical History: Reports: Chronic Kidney Disease GI Medical History: Reports: Gastroesophageal Reflux Disease Denies: Hepatitis, Hiatal Hernia Musculoskeltal Medical History: Reports: Arthritis Psychiatric Medical History: Reports: General Anxiety Disorder Hematology: Denies: Anemia, Hemophilia, Sickle Cell Disease Past Surgical History Past Surgical History: Reports: Hysterectomy, Orthopedic Surgery - bilat knee replacement Denies: Amputation, Mastectomy, Pacemaker Social History Information Source: Patient Smoking Status: Never Smoker Frequency of Alcohol Use: None Hx Recreational Drug Use: No Drugs: None Hx Prescription Drug Abuse: No - Advance Directive Resuscitation Status: Full Code Family History Family History: Arthritis, CAD, COPD, CVA, DM, Hyperlipidemia, Hypertension Parental Family History Reviewed: Yes Children Family History Reviewed: Yes Sibling(s) Family History Reviewed.: Yes Medication/Allergy Home Medications: Aspirin [Ecotrin 81 mg EC Tablet] 81 mg PO DAILYP PRN 06/20/12 Clonidine HCl 0.1 mg PO Q12 06/20/12 Lisinopril 40 mg PO QHS 06/20/12 Metoprolol Succinate [Toprol XL 100 mg Tablet] 100 mg PO QAM 06/20/12 Nifedipine [Procardia XL 60 mg Tablet] 60 mg PO QHS 06/20/12 Alprazolam [Xanax 0.5 mg Tablet] 0.5 mg PO BID 02/15/19 Insulin Aspart Protam & Aspart [Novolog Mix 70-30 Vial] 0 unit SQ .PERSLDSCLE PRN 02/15/19 Furosemide [Lasix 20 mg Tablet] 20 mg PO BID #60 tablet 02/19/19 Potassium Chloride [Klor-Con 10 Meq Capsule ER] 20 meq PO DAILY #30 capsule.er 02/19/19 Lutein 20 mg PO DAILY 03/07/19 Oxycodone HCl/Acetaminophen [Percocet 10-325 Mg Tablet] 1 each PO TIDP PRN 03/07/19 Allergies/Adverse Reactions: levofloxacin [From Levaquin] Allergy (Verified 03/07/19 10:59) Fever nitrofurantoin Allergy (Verified 03/07/19 10:59) Fever Review of Systems Review of Systems: Please see history of present illness and past medical history as wall. Constitutional: No fever or chills reported. Head : No recent chronic headaches, recent head injury. Eyes: No recent eye pain, diplopia, redness, discharge, acute visual changes. Ears: No recent chronic ear pain, acute hearing loss, ear discharge. Oral cavity: No recent ulcerations, bleeding, oral cavity discomfort. Neck: No recent acute neck pain reported. Hematologic: No recent easy bruising or bleeding. Lymphatic: No recent lymph node enlargement reported. Cardiovascular system review: See history of present illness. Noted some significant pedal edema. Respiratory system review: No hemoptysis or blood clots in the lungs reported. Moderate shortness of breath on exertion Gastrointestinal system review: Negative for any recent acute hematemesis, melena. Genitourinary system review: No recent acute or chronic hematuria, flank pain, UTI etc. reported. Skin system review: Negative for any recent abnormal bruising, no rash, no pruritus reported. Neurologic: No prior history of strokes, mini strokes, seizure disorder. Psychologic: No history of major psychosis or major depression reported. Musculoskeletal: Minor aches and pains reported. No acute joint swelling reported. Endocrine: No recent polyuria, polydipsia, recent heat or cold intolerance. Physical Exam Vital Signs: Temp Pulse Resp BP Pulse Ox 97.1 F 52 L 16 122/62 91 L 03/12/19 03:46 03/12/19 07:00 03/12/19 03:46 03/12/19 03:46 03/12/19 03:46 Pulse Oximeter Nocturnal Start: 03/08/19 14:41 Freq: RTQ4 Status: Complete Protocol: Document 03/09/19 03:38 BOR (Rec: 03/09/19 03:40 BOR [id number]) Nocturnal Pulse Oximetry Equipment Usage Equipment in Use Nocturnal Spo2 Charge Charge Now Oxygen Delivery Method (includes room Nasal Cannula air) O2 Sat by Pulse Oximetry (92-100) 94 Continuous Pulse Oximeter Set Up Yes Continuous SpO2 Machine # 2 Other Increased O2 to 3L. Intake & Output 03/11/19 03/12/19 03/13/19 06:59 06:59 06:59 Intake Total 820 700 Output Total 2600 200 Balance -1780 500 Weight 113.2 kg 114.6 kg Exam: GENERAL: well-nourished and in no acute distress. Alert and oriented x3 HEAD: Atraumatic, normocephalic. EYES: CARLITOS, sclera anicteric, conjunctiva are normal. ENT: Moist mucous membranes. No oral ulcerations or bleeding gums noted. No obvious ear, nose or throat abnormalities noted. NECK: supple without lymphadenopathy. Trachea is central. No cervical or axillary lymphadenopathy noted. Carotids are 2+, JVD WNL LUNGS: Breath sounds clear bilaterally. Bibasilar fine crackles are noted. No significant dullness noted on percussion. CHEST: Palpation of the chest wall shows no significant chest wall tenderness. HEART: [place] [employer] OFF[employer]ER, No PSH, 1/6 [place] aortic area, 1/6 rodney systolic murmur mitral area, no rubs, no gallops. ABDOMEN: Soft, no significant tenderness appreciated, normoactive bowel sounds. No guarding, no rebound. No rigidity noted . No masses appreciated. EXTREMITIES: Pedal pulses are 1-2+, no calf tenderness noted. No clubbing or cyanosis. 1-2+ pedal edema noted NEUROLOGICAL: Focused neurological exam showed no significant neurologic deficit. Normal speech, no focal weakness appreciated. PSYCH: Normal mood, normal affect. Judgment and insight within normal limits. SKIN: No significant ecchymosis, skin is noted to be warm. MUSCULOSKELETAL EXAM: No significant acute joint swelling noted. Results Laboratory Results: 03/11/19 05:14 03/12/19 04:18 03/12/19 04:18 Sodium 139.6 Potassium 3.8 Chloride 93 L Carbon Dioxide 41 H* Anion Gap 6 BUN 25 H Creatinine 0.92 Est GFR ( Amer) > 60 Est GFR (Non-Af Amer) 58 L Glucose 127 H Calcium 8.5 03/07/19 03/07/19 03/07/19 10:35 10:35 12:58 Creatine Kinase CK-MB (CK-2) Troponin I < 0.012 < 0.012 NT-Pro-B Natriuret Pep 614 H 03/07/19 03/07/19 03/07/19 15:30 15:30 20:39 Creatine Kinase 48 37 CK-MB (CK-2) 2.50 Troponin I < 0.012 NT-Pro-B Natriuret Pep 03/07/19 03/08/19 03/08/19 20:39 03:00 03:00 Creatine Kinase 32 CK-MB (CK-2) 3.23 2.81 Troponin I < 0.012 < 0.012 NT-Pro-B Natriuret Pep Impressions: Chest/Abdomen CTA 03/07/19 12:42 IMPRESSION: 1. Negative examination for pulmonary embolism. 2. Pulmonary edema and pleural effusions. 3. Nonspecific infectious or inflammatory scattered bilateral groundglass and nodular opacities. 4. Cardiomegaly and coronary artery disease. Chest X-Ray 03/10/19 00:00 IMPRESSION: CARDIAC ENLARGEMENT. VASCULAR CONGESTION. Assessment & Plan - Diagnosis (1) Congestive heart failure Qualifiers: Heart failure type: right-sided Is this a current diagnosis for this admission?: Yes (2) Hypercapnic respiratory failure Qualifiers: Chronicity: acute Qualified Code(s): J96.02 - Acute respiratory failure with hypercapnia Is this a current diagnosis for this admission?: Yes (3) Pulmonary hypertension Is this a current diagnosis for this admission?: Yes (4) Type 2 diabetes mellitus Qualifiers: Diabetes mellitus continuous churn buttermaker insulin use: with halfway use Diabetes mellitus complication status: with other specified complication Qualified Code(s): E11.69 - Type 2 diabetes mellitus with other specified complication; Z79.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 Agree that patient will need oxygen supplementation and also noninvasive ventilation because of significant CO2 retention. Patient probably has underlying sleep apnea syndrome based on symptoms of snoring. Patient has chronic hypercarbic respiratory failure secondary to COPD. BiPAP during the hospitalization ineffective in maintaining acceptable CO2 level. In addition patient noted to have significant pulmonary hypertension and right- sided CHF. Adequate ventilation is therefore needed. Standard BiPAP has been noted to be ineffective for last several days and reducing PCO2. Patient will require NIV with AVAPS-AE to optimize pressures/volume for home use to prevent future admission and maintain acceptable PCO2. Patient will also benefit from follow-up with Dr. Richard. - Time Time Spent: 30 to 50 Minutes Medications reviewed and adjusted accordingly: Yes
[2019-03-12] MEDS: CLONIDINE HCL 0.1 MG TABLET PO SCH ×2 (09:27→21:31)
[2019-03-12] MEDS: FUROSEMIDE 40 MG TABLET PO SCH ×2 (09:27→17:00)
[2019-03-12] MEDS: DOCUSATE SODIUM 100 MG CAPSULE PO SCH ×2 (09:27→17:00)
[2019-03-12] MEDS: METOPROLOL SUCCINATE 50 MG TAB.SR.24H PO SCH (09:27)
[2019-03-12] MEDS: POTASSIUM CHLORIDE 10 MEQ CAPSULE.ER PO SCH (09:27)
[2019-03-12] MEDS: FAMOTIDINE 20 MG TABLET PO SCH ×2 (09:27→21:31)
[2019-03-12] MEDS: NIFEDIPINE 30 MG TAB.ER.24 PO SCH ×2 (09:27→21:32)
[2019-03-12] MEDS: ALPRAZOLAM 0.5 MG TABLET PO SCH ×2 (09:27→21:30)
[2019-03-12] MEDS: ASPIRIN 81 MG TABLET, ENT COATED PO SCH (09:27)
[2019-03-12] MEDS: CEFEPIME 1 GM/D5W RTU 1 GM/50 ML RTUPB IV SCH ×2 (09:28→21:29)
[2019-03-12] MEDS: OXYCODONE-ACETAMINOPHEN 5-325 MG TABLET PO PRN (09:33)
[2019-03-12] MEDS: LISINOPRIL 10 MG TABLET PO SCH (21:31)
[2019-03-13 05:38] LABS: BLOOD UREA NITROGEN 26 mg/dL (7-20); CALCIUM 8.5 mg/dL (8.4-10.2); CHLORIDE 94 mmol/L (98-107); GLUCOSE 131 mg/dL (75-110); POTASSIUM 3.7 mmol/L (3.6-5.0); SODIUM 140.1 mmol/L (137-145)
[2019-03-13 05:49] LABS: ANION GAP 5 (5-19)
[2019-03-13 05:50] LABS: CARBON DIOXIDE 41 mmol/L (22-30)
[2019-03-13] MEDS: INSULIN REG, HUMAN 100 UNIT/ML 3 ML VIAL (PYX) SUBCUT SCH ×2 (08:25→12:42)
--- NOTE | 2019-03-13 09:09 | PDOC TRANSFER SUMMARY ---
General - Admit/Disc Date/PCP Admission Date/Primary Care Provider: 03/07/19 15:24 OSIEL WOODS MD Discharge Date: 03/13/19 - Discharge Diagnosis (1) Hypercapnic respiratory failure Is this a current diagnosis for this admission?: Yes Summary: Currently uses a trilogy machine and use outpatients Dr. Garcia and Dr. Richard for further evaluations (2) Pulmonary vascular congestion Is this a current diagnosis for this admission?: Yes Summary: Continues to Lasix 40 mg twice a day from the right-sided heart failure (3) UTI (urinary tract infection) Is this a current diagnosis for this admission?: Yes Summary: Currently all resolved (4) Anxiety disorder Is this a current diagnosis for this admission?: Yes Summary: stable (5) Hyperlipidemia Is this a current diagnosis for this admission?: Yes Summary: stable (6) Hypertension Is this a current diagnosis for this admission?: Yes Summary: stable (7) Osteoarthritis Is this a current diagnosis for this admission?: Yes Summary: stable (8) Type 2 diabetes mellitus Is this a current diagnosis for this admission?: Yes Summary: Continues to current medications - Additional Information Discharge Diet: Cardiac, Diabetic Discharge Activity: Activity As Tolerated, Balance Activity w/Rest, Weigh Daily Prescriptions: Furosemide [Lasix 40 mg Tablet] 40 mg PO BID #60 tablet Ipratropium/Albuterol Sulfate [Duoneb 3 ml Ampul] 3 ml NEB RTQ6HP PRN #120 vial.neb PRN Reason: Nifedipine [Procardia XL 30 mg Tablet] 60 mg PO Q12 #60 tab.er.24 Home Medications: Aspirin [Ecotrin 81 mg EC Tablet] 81 mg PO DAILYP PRN 06/20/12 Clonidine HCl 0.1 mg PO Q12 06/20/12 Lisinopril 40 mg PO QHS 06/20/12 Metoprolol Succinate [Toprol XL 100 mg Tablet] 100 mg PO QAM 06/20/12 Alprazolam [Xanax 0.5 mg Tablet] 0.5 mg PO BID 02/15/19 Insulin Aspart Protam & Aspart [Novolog Mix 70-30 Vial] 0 unit SQ .PERSLDSCLE PRN 02/15/19 Potassium Chloride [Klor-Con 10 Meq Capsule ER] 20 meq PO DAILY #30 capsule.er 02/19/19 Lutein 20 mg PO DAILY 03/07/19 Furosemide [Lasix 40 mg Tablet] 40 mg PO BID #60 tablet 03/13/19 Ipratropium/Albuterol Sulfate [Duoneb 3 ml Ampul] 3 ml NEB RTQ6HP PRN #120 vial.neb 03/13/19 Nifedipine [Procardia XL 30 mg Tablet] 60 mg PO Q12 #60 tab.er.24 03/13/19 History of Present Illness Admission Date/PCP: 03/07/19 15:24 OSIEL WOODS MD History of Present Illness: KODY RENDON is a 88 year old female This is a 88-year-old female with a history of the type 2 diabetes insulin- dependent history of the hypertension history of the hyperlipidemia history of the chronic lymphedema history of the anxiety disorder recurrent urinary tract infections recently admitting in the hospital for UTI and recently patient have a fracture came to the emergency department with increasing the shortness of the breath and not feeling well in the ER patient's chest x-ray showed acute pulmonary edema and cardiomegaly and patient received IV Lasix and patient is diuresed well and patients feel better. Patient's pH was 7.31 with PCO2 was 72 Patient's denied any chest pain Patient CT angiogram was done was negative for any pulmonary embolism Patient had a echocardiogram done last year was EF was 55%'s with no other abnormalities When I saw the patient in the emergency department feel better Order the 2D echocardiogram today Discussed with the cardiology We will repeat the ABG and probably need a BiPAP her CO2 is elevated Hospital Course Hospital Course: This is a 88-year-old female is presenting the emergency department the complaint was shortness of the breath and pulmonary vascular congestions patient's diagnosed with the right-sided heart failure and hypercapnic respiratory failure Patient initially treated with the IV Lasix and the Dr. Jefferson was consulted and had a echocardiogram done Patient also put on the BiPAP which patient having very hesitant in the beginni ng to put the BiPAP but then patients ready to put the BiPAP and the patient's CO2 level is also improving Patients also have a urinary tract infections treated with the IV antibiotics Patient CT angiogram was done negative for any acute embolisms Patient still very weak require extensive physical therapy with the multiple medical problems patients probably get a benefit to go to the nursing facilities Patient also seen by the sleep clinic and put on a trilogy machines and follow outpatient for further sleep study and further evaluation about the sleep apnea and hypoxia Patient's continues with the antibiotics for another 5 more days The patient's otherwise doing well Continues to current medications Discussed with the daughter regarding the patient's current conditions with all diagnosis and plan and follow-up Physical Exam Vital Signs: Temp Pulse Resp BP Pulse Ox 97.5 F 77 18 132/70 H 97 03/13/19 08:08 03/13/19 08:08 03/13/19 08:08 03/13/19 08:08 03/13/19 08:08 Pulse Oximeter Nocturnal Start: 03/08/19 14:41 Freq: RTQ4 Status: Complete Protocol: Document 03/09/19 03:38 BOR (Rec: 03/09/19 03:40 BOR [id number]) Nocturnal Pulse Oximetry Equipment Usage Equipment in Use Nocturnal Spo2 Charge Charge Now Oxygen Delivery Method (includes room Nasal Cannula air) O2 Sat by Pulse Oximetry (92-100) 94 Continuous Pulse Oximeter Set Up Yes Continuous SpO2 Machine # 2 Other Increased O2 to 3L. Intake & Output 03/12/19 03/13/19 03/14/19 06:59 06:59 06:59 Intake Total 700 340 Output Total 200 300 Balance 500 40 Weight 114.6 kg 112.6 kg General appearance: PRESENT: no acute distress, well-developed, well-nourished Head exam: PRESENT: atraumatic, normocephalic Eye exam: PRESENT: conjunctiva pink, EOMI, PERRLA. ABSENT: scleral icterus Ear exam: PRESENT: normal external ear exam Mouth exam: PRESENT: moist, tongue midline Neck exam: ABSENT: carotid bruit, JVD, lymphadenopathy, thyromegaly Respiratory exam: PRESENT: clear to auscultation genia. ABSENT: rales, rhonchi, wheezes Cardiovascular exam: PRESENT: RRR. ABSENT: diastolic murmur, rubs, systolic murmur Pulses: PRESENT: normal dorsalis pedis pul Vascular exam: PRESENT: normal capillary refill GI/Abdominal exam: PRESENT: normal bowel sounds, soft. ABSENT: distended, guarding, mass, organolmegaly, rebound, tenderness Rectal exam: PRESENT: deferred Extremities exam: PRESENT: full ROM. ABSENT: calf tenderness, clubbing, pedal edema Neurological exam: PRESENT: alert, awake, oriented to person, oriented to place, oriented to time, oriented to situation, CN II-XII grossly intact. ABSENT: motor sensory deficit Psychiatric exam: PRESENT: appropriate affect, normal mood. ABSENT: homicidal ideation, suicidal ideation Skin exam: PRESENT: dry, intact, warm. ABSENT: cyanosis, rash Results Laboratory Results: 03/11/19 05:14 03/13/19 04:51 03/13/19 04:51 Sodium 140.1 Potassium 3.7 Chloride 94 L Carbon Dioxide 41 H* Anion Gap 5 BUN 26 H Creatinine 0.94 Est GFR ( Amer) > 60 Est GFR (Non-Af Amer) 56 L Glucose 131 H Calcium 8.5 03/07/19 10:35 Blood Blood Culture - Final NO GROWTH IN 5 DAYS 03/07/19 10:40 Blood Blood Culture - Final NO GROWTH IN 5 DAYS 03/07/19 03/07/19 03/07/19 10:35 10:35 12:58 Creatine Kinase CK-MB (CK-2) Troponin I < 0.012 < 0.012 NT-Pro-B Natriuret Pep 614 H 03/07/19 03/07/19 03/07/19 15:30 15:30 20:39 Creatine Kinase 48 37 CK-MB (CK-2) 2.50 Troponin I < 0.012 NT-Pro-B Natriuret Pep 03/07/19 03/08/19 03/08/19 20:39 03:00 03:00 Creatine Kinase 32 CK-MB (CK-2) 3.23 2.81 Troponin I < 0.012 < 0.012 NT-Pro-B Natriuret Pep Impressions: Chest/Abdomen CTA 03/07/19 12:42 IMPRESSION: 1. Negative examination for pulmonary embolism. 2. Pulmonary edema and pleural effusions. 3. Nonspecific infectious or inflammatory scattered bilateral groundglass and nodular opacities. 4. Cardiomegaly and coronary artery disease. Chest X-Ray 03/10/19 00:00 IMPRESSION: CARDIAC ENLARGEMENT. VASCULAR CONGESTION. Transfer Plan - Time Spent with Patient Time spent with patient: Greater than 30 Minutes Qualifiers - * PATIENT BEING DISCHARGED WITH ANY OF THE FOLLOWING DIAGNOSIS: No VTE patient discharged on overlapping Therapy?: Yes Acute Heart Failure - Is this a Heart Failure Patient?: Yes Documentation of LVEF assessment?: Yes LVEF < 40%?: No- if no continue to question #3 3. Anticoagulant therapy for permanect/persistent/paraoxysmal Afib or Aflutter: N/A Follow-up Appointment scheduled within 7 days?: Yes Plan Time Spent: Greater than 30 Minutes - Repeat the Chem-7 in 3 days Continues to 3 L nasal cannula oxygen's all the times Repeat the ABG in 3 days Continues to trilogy machine every time patients lay down at nighttime Follow with the Dr. Garcia and Dr. Richard's office in 1 week Continues to Keflex 500 mg 3 times a day for 5 days Physical therapy evaluations Fall precautions
--- NOTE | 2019-03-13 09:40 | PDOC PROGRESS REPORT ---
Subjective Progress Note for:: 03/13/19 Subjective:: Patient condition about the same. She is being discharged to detention. She has some difficulty with CPAP use. Patient denying any chest pain. She is actually denying any shortness of breath. Patient still has some pedal edema. Reason For Visit: SHORTNESS OF BREATH/PULMONARY EDEMA Physical Exam Vital Signs: Temp Pulse Resp BP Pulse Ox 97.5 F 77 18 132/70 H 97 03/13/19 08:08 03/13/19 08:08 03/13/19 08:08 03/13/19 08:08 03/13/19 08:08 Pulse Oximeter Nocturnal Start: 03/08/19 14:41 Freq: RTQ4 Status: Complete Protocol: Document 03/09/19 03:38 BOR (Rec: 03/09/19 03:40 BOR [id number]) Nocturnal Pulse Oximetry Equipment Usage Equipment in Use Nocturnal Spo2 Charge Charge Now Oxygen Delivery Method (includes room Nasal Cannula air) O2 Sat by Pulse Oximetry (92-100) 94 Continuous Pulse Oximeter Set Up Yes Continuous SpO2 Machine # 2 Other Increased O2 to 3L. Intake & Output 03/12/19 03/13/19 03/14/19 06:59 06:59 06:59 Intake Total 700 340 Output Total 200 300 Balance 500 40 Weight 114.6 kg 112.6 kg Exam: GENERAL: well-nourished and in no acute distress. Alert and oriented x3 HEAD: Atraumatic, normocephalic. EYES: CARLITOS, sclera anicteric, conjunctiva are normal. ENT: Moist mucous membranes. No oral ulcerations or bleeding gums noted. No obvious ear, nose or throat abnormalities noted. NECK: supple without lymphadenopathy. Trachea is central. No cervical or axillary lymphadenopathy noted. Carotids are 2+, JVD WNL LUNGS: Breath sounds clear bilaterally. No wheezes rales or rhonchi noted. No significant dullness noted on percussion. CHEST: Palpation of the chest wall shows no significant chest wall tenderness. 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 ABDOMEN: Soft, no significant tenderness appreciated, normoactive bowel sounds. No guarding, no rebound. No rigidity noted . No masses appreciated. EXTREMITIES: Pedal pulses are 1-2+, no calf tenderness noted. No clubbing or cyanosis. 1-2+, chronic pedal edema noted NEUROLOGICAL: Focused neurological exam showed no significant neurologic deficit. Normal speech, no focal weakness appreciated. PSYCH: Normal mood, normal affect. Judgment and insight within normal limits. SKIN: No significant ecchymosis, skin is noted to be warm. MUSCULOSKELETAL EXAM: No significant acute joint swelling noted. Results Laboratory Results: 03/11/19 05:14 03/13/19 04:51 03/13/19 04:51 Sodium 140.1 Potassium 3.7 Chloride 94 L Carbon Dioxide 41 H* Anion Gap 5 BUN 26 H Creatinine 0.94 Est GFR ( Amer) > 60 Est GFR (Non-Af Amer) 56 L Glucose 131 H Calcium 8.5 03/07/19 10:35 Blood Blood Culture - Final NO GROWTH IN 5 DAYS 03/07/19 10:40 Blood Blood Culture - Final NO GROWTH IN 5 DAYS 03/07/19 03/07/19 03/07/19 10:35 10:35 12:58 Creatine Kinase CK-MB (CK-2) Troponin I < 0.012 < 0.012 NT-Pro-B Natriuret Pep 614 H 03/07/19 03/07/19 03/07/19 15:30 15:30 20:39 Creatine Kinase 48 37 CK-MB (CK-2) 2.50 Troponin I < 0.012 NT-Pro-B Natriuret Pep 03/07/19 03/08/19 03/08/19 20:39 03:00 03:00 Creatine Kinase 32 CK-MB (CK-2) 3.23 2.81 Troponin I < 0.012 < 0.012 NT-Pro-B Natriuret Pep Impressions: Chest/Abdomen CTA 03/07/19 12:42 IMPRESSION: 1. Negative examination for pulmonary embolism. 2. Pulmonary edema and pleural effusions. 3. Nonspecific infectious or inflammatory scattered bilateral groundglass and nodular opacities. 4. Cardiomegaly and coronary artery disease. Chest X-Ray 03/10/19 00:00 IMPRESSION: CARDIAC ENLARGEMENT. VASCULAR CONGESTION. Assessment & Plan - Diagnosis (1) Congestive heart failure Qualifiers: Heart failure type: right-sided (2) Hypercapnic respiratory failure Qualifiers: Chronicity: acute Qualified Code(s): J96.02 - Acute respiratory failure with hypercapnia Is this a current diagnosis for this admission?: Yes (3) Pulmonary hypertension Is this a current diagnosis for this admission?: Yes (4) Type 2 diabetes mellitus Qualifiers: Diabetes mellitus terminal operator insulin use: with shelter use Diabetes mellit complication status: with other specified complication Qualified Code(s): E11.69 - Type 2 diabetes mellitus with other specified complication; Z79.4 - terminal operator (current) use of insulin Is this a current diagnosis for this admission?: Yes (5) Hyperlipidemia Qualifiers: Hyperlipidemia type: unspecified Qualified Code(s): E78.5 - Hyperlipidemia, unspecified Is this a current diagnosis for this admission?: Yes (6) Hypertension Qualifiers: Hypertension type: essential hypertension Qualified Code(s): I10 - Essential (primary) hypertension Is this a current diagnosis for this admission?: Yes - Notes Notes: Patient has chronic respiratory failure with CO2 retention but had adequate oxygenation. CO2 retention probably related to obesity hypoventilation syndrome, severe COPD etc. CHF seems compensated. JVP was not noted to be elevated. Pedal edema is chronic. Other listed medical diagnoses are relatively stable and are being well managed by the hospitalist religious activities director. Patient to report any further problems. Patient should follow-up with me for a sleep study and a mask fitting session. - Time Time with patient: Greater than 35 minutes - CODE STATUS was discussed, patient remains full code. Surrogate decision-maker unchanged. Multiple medical problems were addressed. More than 50% of the time spent coordinating care, discussing management plans with involved caregivers. Management plans discussed with involved personnels. Medical decision making was of moderate to high complexity, patient's has multiple comorbidities. Medications reviewed and adjusted accordingly: Yes
[2019-03-13] MEDS: NIFEDIPINE 30 MG TAB.ER.24 PO SCH (09:53)
[2019-03-13] MEDS: POTASSIUM CHLORIDE 10 MEQ CAPSULE.ER PO SCH (09:53)
[2019-03-13] MEDS: DOCUSATE SODIUM 100 MG CAPSULE PO SCH (09:53)
[2019-03-13] MEDS: METOPROLOL SUCCINATE 50 MG TAB.SR.24H PO SCH (09:53)
[2019-03-13] MEDS: FAMOTIDINE 20 MG TABLET PO SCH (09:53)
[2019-03-13] MEDS: ASPIRIN 81 MG TABLET, ENT COATED PO SCH (09:53)
[2019-03-13] MEDS: CLONIDINE HCL 0.1 MG TABLET PO SCH (09:53)
[2019-03-13] MEDS: ALPRAZOLAM 0.5 MG TABLET PO SCH (09:54)
[2019-03-13] MEDS: CEFEPIME 1 GM/D5W RTU 1 GM/50 ML RTUPB IV SCH (09:54)
[2019-03-13] MEDS: ENOXAPARIN SODIUM INJ 40 MG/0.4 ML DISP.SYRIN SUBCUT SCH (09:54)
[2019-03-13] MEDS: FUROSEMIDE 40 MG TABLET PO SCH (09:54)
[2019-03-13 12:51] VITALS: BP 125/69
== END 2019-03-13 15:15 | DRG 682 ==
LOC: ER 10:04 → EH 15:24 → 3W 18:14
PROVIDERS: ADMIT Family Medicine; ATTEND Family Medicine
PROC: 5A09557 Assistance with Respiratory Ventilation, Greater than 96 Consecutive Hours, Continuous Positive Airway Pressure (ICD-10-PCS; principal; 2019-03-07)
DX: I12.9 Hypertensive chronic kidney disease with stage 1 through stage 4 chronic kidney disease, or unspecified chronic kidney disease (principal); J96.02 Acute respiratory failure with hypercapnia; N30.00 Acute cystitis without hematuria; I50.810 Right heart failure, unspecified; I89.0 Lymphedema, not elsewhere classified; K21.9 Gastro-esophageal reflux disease without esophagitis; E11.22 Type 2 diabetes mellitus with diabetic chronic kidney disease; I87.2 Venous insufficiency (chronic) (peripheral); B96.20 Unspecified Escherichia coli [E. coli] as the cause of diseases classified elsewhere; N18.9 Chronic kidney disease, unspecified; M19.90 Unspecified osteoarthritis, unspecified site; F41.1 Generalized anxiety disorder; E78.5 Hyperlipidemia, unspecified; I27.20 Pulmonary hypertension, unspecified; Z79.4 Long term (current) use of insulin; Z87.440 Personal history of urinary (tract) infections; Z88.1 Allergy status to other antibiotic agents; Z96.653 Presence of artificial knee joint, bilateral
CPT/HCPCS: 36415; 36600; 51702; 71045; 71046; 71275; 80048; 80053; 81001; 82550; 82553; 82803; 82962; 83735; 83880; 84484; 85025; 87040; 87086; 87088; 87186; 93005; 93010; 93306; 94660; 94762; 96374; 99285; J0692; J1815; J1940; J3490

== ENCOUNTER 2019-06-08 03:14 | Inpatient (IN) | payer MEDICARE, OTHER ==
--- NOTE | 2019-06-08 04:28 | ER Document Report ---
ED Medical Screen (RME) - General Chief Complaint: General Weakness Stated Complaint: WEAKNESS Primary Care Provider: OSIEL WOODS MD [Primary Care Provider] - Follow up as needed Notes: 88-year-old female with chief complaint of weakness. She states she did have abdominal pain and nausea earlier but this resolved. She states she is here because she tried to get up and was shaky and weak and could not do so. Normally she ambulates around. She is at home with her family. She comes by EMS. Past medical history includes congestive heart failure. She denies chest pain, dizziness, passing out, vomiting, fever/chills. TRAVEL OUTSIDE OF THE [place] IN LAST 30 DAYS: No - Related Data Allergies/Adverse Reactions: levofloxacin [From Levaquin] Allergy (Verified 03/07/19 10:59) Fever nitrofurantoin Allergy (Verified 03/07/19 10:59) Fever Past Medical History - Past Medical History Cardiac Medical History: Reports: Hx Hypercholesterolemia, Hx Hypertension - CONTROLLED Denies: Hx Congestive Heart Failure, Hx Coronary Artery Disease, Hx Heart Attack, Hx Heart Murmur Pulmonary Medical History: Denies: Hx Asthma, Hx Bronchitis, Hx COPD, Hx Pneumonia, Hx Tuberculosis Neurological Medical History: Denies: Hx Cerebrovascular Accident, Hx Seizures Endocrine Medical History: Reports: Hx Diabetes Mellitus Type 2 Renal/ Medical History: Denies: Hx Peritoneal Dialysis GI Medical History: Reports: Hx Gastroesophageal Reflux Disease. Denies: Hx Hepatitis, Hx Hiatal Hernia, Hx Ulcer Musculoskeltal Medical History: Reports Hx Arthritis, Denies Hx Muscle Weakness Infectious Medical History: Denies: Hx Hepatitis Past Surgical History: Reports: Hx Hysterectomy, Hx Orthopedic Surgery - bilat knee replacement. Denies: Hx Mastectomy, Hx Open Heart Surgery, Hx Pacemaker - Immunizations Hx Diphtheria, Pertussis, Tetanus Vaccination: No Physical Exam - Cardiovascular Rhythm: Bradycardia Heart sounds: S1 appreciated, S2 appreciated - Abdominal Inspection: Normal Tenderness: Nontender Course - Re-evaluation Re-evalutation: On my evaluation patient initially had a heart rate in the 60s but then she had bradycardia down into the 30s. She did not have chest pain or dizziness at the time, however because of her complaint, age, and the bradycardia along with borderline hypotension (which was rechecked and improved), she was upgraded to triage level 2, work-up initiated. I have greeted and performed a rapid initial assessment of this patient. A comprehensive ED assessment and evaluation of the patient, analysis of test results and completion of the medical decision making process will be conducted by additional ED providers. Doctor's Discharge - Discharge Referrals: OSIEL WOODS MD [Primary Care Provider] - Follow up as needed
--- NOTE | 2019-06-08 04:57 | RADIOLOGY REPORT (SQ) ---
EXAM DESCRIPTION: XR CHEST 1 VIEW COMPLETED DATE/TME: 06/08/2019 04:25 CLINICAL HISTORY: 88 years, Female, shortness of breath COMPARISON: 03/10/2019 chest NUMBER OF VIEWS: 1 TECHNIQUE: Portable chest LIMITATIONS: None. FINDINGS: Cardiomegaly. Atheromatous change thoracic aorta. Osteopenia. Lungs clear. No pneumothorax IMPRESSION: Cardiomegaly. Lungs are clear copyright 2010 [employer]- All Rights Reserved
[2019-06-08 05:16] LABS: ABSOLUTE EOSINOPHILS # (AUTO) 0.1 10^3/uL (0.0-0.6); ABSOLUTE LYMPHOCYTES (AUTO) 1.5 10^3/uL (0.5-4.7); ABSOLUTE MONOCYTES (AUTO) 0.5 10^3/uL (0.1-1.4); ABSOLUTE NEUT (AUTO) 2.4 10^3/uL (1.7-8.2); BASOPHILS % (AUTO) 0.6 % (0-2); EOSINOPHILS % (AUTO) 3.1 % (0-6); HEMATOCRIT 38.5 % (36.0-47.0); HEMOGLOBIN 12.9 g/dL (12.0-15.5); LYMPHOCYTES % (AUTO) 32.9 % (13-45); MEAN CORPUSCULAR HEMOGLOBIN 30.6 pg (27.0-33.4); MEAN CORPUSCULAR HGB CONC 33.5 g/dL (32.0-36.0); MEAN CORPUSCULAR VOLUME 92 fl (80-97); MONOCYTES % (AUTO) 10.3 % (3-13); PLATELET COUNT 140 10^3/uL (150-450); RED BLOOD COUNT 4.21 10^6/uL (3.72-5.28); RED CELL DISTRIBUTION WIDTH 16.1 % (11.5-14.0); SEGMENTED NEUTROPHILS % (AUTO) 53.1 % (42-78); TOTAL CELLS COUNTED % (AUTO) 100 %; WHITE BLOOD COUNT 4.5 10^3/uL (4.0-10.5)
[2019-06-08 05:25] LABS: ALBUMIN 3.8 g/dL (3.5-5.0); ALKALINE PHOSPHATASE 231 U/L (38-126); ASPARTATE AMINO TRANSFERASE 32 U/L (14-36); BILIRUBIN,DIRECT 0.2 mg/dL (0.0-0.4); BILIRUBIN,TOTAL 0.5 mg/dL (0.2-1.3); BLOOD UREA NITROGEN 35 mg/dL (7-20); CALCIUM 9.1 mg/dL (8.4-10.2); CHLORIDE 92 mmol/L (98-107); POTASSIUM 3.8 mmol/L (3.6-5.0); TOTAL PROTEIN 7.5 g/dL (6.3-8.2)
[2019-06-08 05:30] LABS: ANION GAP 11 (5-19); CARBON DIOXIDE 39 mmol/L (22-30)
[2019-06-08 05:34] LABS: GLUCOSE 51 mg/dL (75-110)
[2019-06-08 05:35] LABS: NT PRO BNP 725 pg/mL (<450); TROPONIN I < 0.012 ng/mL
[2019-06-08] MEDS ORDERED: DEXTROSE 50%-WATER 25 GM/50 ML DISP.SYRIN IV ONE (05:38)
[2019-06-08 06:27] LABS: APPEARANCE,URINE CLEAR; BILIRUBIN,URINE NEGATIVE (NEGATIVE); COLOR,URINE YELLOW; GLUCOSE, URINE NEGATIVE (NEGATIVE); KETONES,URINE NEGATIVE (NEGATIVE); LEUKOCYTE ESTERASE,URINE LARGE (NEGATIVE); NITRITE,URINE NEGATIVE (NEGATIVE); PROTEIN,URINE NEGATIVE (NEGATIVE); URINE SPECIFIC GRAVITY 1.008; UROBILINOGEN,URINE NEGATIVE mg/dL (<2.0)
[2019-06-08] MEDS ORDERED: CEFTRIAXONE 1 GM/D5W RTU 1 GM/50 ML RTUPB IV ONE (07:11)
--- NOTE | 2019-06-08 07:18 | ER Document Report ---
ED General - General Chief Complaint: General Weakness Stated Complaint: WEAKNESS Time Seen by Provider: 06/08/19 04:43 Primary Care Provider: OSIEL WOODS MD [Primary Care Provider] - Follow up as needed TRAVEL OUTSIDE OF THE [place] IN LAST 30 DAYS: No - HPI Notes: Patient is an 88-year-old female who presents to the emergency department for evaluation of abdominal pain, dyspnea with exertion, weakness. She has a medical history of type 2 diabetes, hypertension hyperlipidemia, lymphedema, recurrent urinary tract infections. She was admitted to the hospital, then to a rehab facility, then went home. Evidently she had been improving in regards to her edema and weakness, but this is worsened. According the family, however, she has had significant dyspnea on exertion for the last 2 weeks. Yesterday she could not even stand. She does describe some dizziness. She has had some abdominal pain that has been ongoing. It is been intermittent for the last several weeks at least. Her primary care provider told her to start probiotics, which she admittedly takes only intermittently. Otherwise she states that the only medication change that she is had as of late was the Lasix. She is taking that as prescribed, although complains about urinary frequency as a result. Discussed with family members, no possibility of the patient accidentally taking too much of any of her medications. - Related Data Allergies/Adverse Reactions: levofloxacin [From Levaquin] Allergy (Verified 03/07/19 10:59) Fever nitrofurantoin Allergy (Verified 03/07/19 10:59) Fever Past Medical History - General Information source: Patient, Relative - Social History Smoking Status: Never Smoker Family History: Arthritis, CAD, COPD, CVA, DM, Hyperlipidemia, Hypertension Patient has suicidal ideation: No Patient has homicidal ideation: No - Past Medical History Cardiac Medical History: Reports: Hx Congestive Heart Failure, Hx Hypercholesterolemia, Hx Hypertension - CONTROLLED Denies: Hx Coronary Artery Disease, Hx Heart Attack, Hx Heart Murmur Pulmonary Medical History: Denies: Hx Asthma, Hx Bronchitis, Hx COPD, Hx Pneumonia, Hx Tuberculosis Neurological Medical History: Denies: Hx Cerebrovascular Accident, Hx Seizures Endocrine Medical History: Reports: Hx Diabetes Mellitus Type 2 Renal/ Medical History: Denies: Hx Peritoneal Dialysis GI Medical History: Reports: Hx Gastroesophageal Reflux Disease. Denies: Hx Hepatitis, Hx Hiatal Hernia, Hx Ulcer Musculoskeletal Medical History: Reports Hx Arthritis, Denies Hx Muscle Weakness Infectious Medical History: Denies: Hx Hepatitis Past Surgical History: Reports: Hx Hysterectomy, Hx Orthopedic Surgery - bilat knee replacement. Denies: Hx Mastectomy, Hx Open Heart Surgery, Hx Pacemaker - Immunizations Hx Diphtheria, Pertussis, Tetanus Vaccination: No Review of Systems - Review of Systems Constitutional: See HPI EENT: No symptoms reported Cardiovascular: See HPI Respiratory: See HPI Gastrointestinal: See HPI Genitourinary: See HPI Musculoskeletal: No symptoms reported Skin: No symptoms reported Neurological/Psychological: No symptoms reported Physical Exam - Vital signs Vitals: Resp Pulse Ox 10 L 97 06/08/19 03:22 06/08/19 03:22 - Notes Notes: Patient is an 88-year-old female who appears her stated age, no acute distress. Vital signs reviewed, please refer to chart. Head is normocephalic, atraumatic. Pupils equal round, reactive to light. Neck is supple without meningismus. Heart is bradycardic but regular. Lungs are clear to auscultation bilaterally. Abdomen is soft, nontender, normoactive bowel sounds throughout. Extremities without cyanosis, clubbing. Chronic skin changes noted, 3+ pitting edema. Posterior calves are nontender. Peripheral pulses are equal. Skin is warm and dry. Patient is awake, alert. She has generalized weakness, but no focal strength deficits. Course - Re-evaluation Re-evalutation: 06/08/19 07:17 Patient presents emergency department for evaluation. Laboratory investigations, monitoring as ordered initially placed. On the monitor the patient was found to be markedly bradycardic. Her heart rate ranged between 35 and 40. Her Accu-Chek found to significant hypoglycemia. This was treated with D50. Urine from catheterized specimen showed large leukocytes. Urine culture ordered. Rocephin ordered. Patient is currently on the monitor, denies any dizziness or shortness of breath at this time, but her heart rate is currently 40. We will continue to monitor. 06/08/19 07:[address] Castillo, on-call this weekend for Dr. Woods. He will admit the patient for further care. - Vital Signs Vital signs: Temp Pulse Resp BP Pulse Ox 17 107/63 98 06/08/19 06:01 06/08/19 06:00 09/08/19 06:01 - Laboratory Result Diagrams: 06/08/19 04:50 06/08/19 04:50 Laboratory results interpreted by me: 06/08/19 06/08/19 06/08/19 04:50 04:50 04:50 RDW 16.1 H Plt Count 140 L Chloride 92 L Carbon Dioxide 39 H BUN 35 H Est GFR ( Amer) 53 L Est GFR (MDRD) Non-Af 44 L Glucose 51 L POC Glucose Magnesium 2.4 H Alkaline Phosphatase 231 H NT-Pro-B Natriuret Pep 725 H Ur Leukocyte Esterase 06/08/19 06/08/19 06/08/19 05:37 05:50 06:25 RDW Plt Count Chloride Carbon Dioxide BUN Est GFR ( Amer) Est GFR (MDRD) Non-Af Glucose POC Glucose 41 L 177 H Magnesium Alkaline Phosphatase NT-Pro-B Natriuret Pep Ur Leukocyte Esterase LARGE H - Diagnostic Test Radiology reviewed: Reports reviewed Radiology results interpreted by me: 06/08/19 07:19 Chest X-Ray 06/08/19 04:25 IMPRESSION: Cardiomegaly. Lungs are clear copyright 2011 [employer] All Rights Reserved - EKG Interpretation by Me Additional EKG results interpreted by me: 06/08/19 07:19 Sinus bradycardia with a rate of 41 bpm. First-degree AV block. Left axis deviation. Nonspecific ST changes, but no acute changes concerning for ischemia or infarction. Discharge - Discharge Clinical Impression: Recurrent urinary tract infection, Hypoglycemia, Bradycardia Condition: Stable Disposition: ADMITTED INPATIENT Admitting Provider: Rudolph Castillo covering Unit Admitted: [facility] Referrals: SOIEL WOODS MD [Primary Care Provider] - Follow up as needed
[2019-06-08] MEDS: DEXTROSE 5%-WATER 1000 ML 1,000 ML IV PRN ×2 (09:10→22:34)
[2019-06-08] MEDS ORDERED: (PENDING PHARMACY ID) (Oxycodone Hcl/Acetaminophen [Endocet 10-325 Mg Tablet] 1 TAB) PO PRN (14:01)
[2019-06-08] MEDS ORDERED: GLUCAGON,HUMAN RECOMB 1 MG INJ IM PRN (14:07)
[2019-06-08] MEDS ORDERED: DEXTROSE 50%-WATER 25 GM/50 ML DISP.SYRIN IV PRN ×2 (14:07)
[2019-06-08] MEDS ORDERED: DEXTROSE 40% GEL 15 GM TUBE PO PRN ×2 (14:07)
--- NOTE | 2019-06-08 14:51 | PDOC H&P ---
History of Present Illness Admission Date/PCP: 06/08/19 07:52 OSIEL WOODS MD Patient complains of: Generalized weakness History of Present Illness: KODY RENDON is a 88 year old female of dr. Woods who presented to the ED due generalized weakness, debility, difficulty transfer and ambulation of recent onset. Daughter, at bedside, reported that patient's health has been declining for about 3 days prior to presentation with worsening difficulty transferring from her bed, frequent urination, nausea, lower abdominal region pain, poor oral intake and chills. Daughter reported visit with industrial commercial groundskeeper, Dr. Mixon, reported dyspnea with exertion and need to increase her Lasix dosage regimen. Her initial evaluation in the ED was significant for bradycardia and abnormal urinalysis suggestive of possible ongoing UTI. Family denied medication overdose in view of her treatment with Metoprolol and her bradycardia with first degree AV block on 12 lead EKG. She was advised hospitalization for further evaluation and management. Her morbidities include CHF, HTN, HLD, Diabetes Mellitus, GERD, and Osteoarthritis with chronic back pain Past Medical History Cardiac Medical History: Reports: Congestive Heart Failure, Hyperlipidema, Hypertension - CONTROLLED Denies: Coronary Artery Disease, Myocardial Infarction, Heart Murmur Pulmonary Medical History: Denies: Asthma, Bronchitis, Chronic Obstructive Pulmonary Disease (COPD), Pneumonia, Tuberculosis Neurological Medical History: Denies: Seizures Endocrine Medical History: Reports: Diabetes Mellitus Type 2 GI Medical History: Reports: Gastroesophageal Reflux Disease Denies: Hepatitis, Hiatal Hernia Musculoskeltal Medical History: Reports: Arthritis Psychiatric Medical History: Denies: Depression Hematology: Denies: Anemia, Hemophilia, Sickle Cell Disease Past Surgical History Past Surgical History: Reports: Hysterectomy, Orthopedic Surgery - bilat knee replacement Denies: Amputation, Mastectomy, Pacemaker Social History Smoking Status: Former Smoker Last Time Smoked: 1947 Frequency of Alcohol Use: Rare Hx Recreational Drug Use: No Drugs: None Hx Prescription Drug Abuse: No - Advance Directive Resuscitation Status: Full Code Family History Family History: Arthritis, CAD, COPD, CVA, DM, Hyperlipidemia, Hypertension Parental Family History Reviewed: Yes Children Family History Reviewed: Yes Sibling(s) Family History Reviewed.: Yes Medication/Allergy Home Medications: Alprazolam [Xanax 0.5 mg Tablet] 0.5 mg PO Q12 06/08/19 Clonidine HCl [Catapres 0.1 mg Tablet] 0.1 mg PO Q12 06/08/19 Furosemide [Lasix 40 mg Tablet] 40 mg PO BID 06/08/19 Hum Insulin NPH/Reg Insulin Hm [Novolin 70-30 100 Unit/ml Vial] 0 unit SQ .SLIDING SCALE 06/08/19 Lisinopril [Prinivil 40 mg Tablet] 40 mg PO DAILY 06/08/19 Metoprolol Succinate [Toprol XL 100 mg Tablet] 100 mg PO DAILY 06/08/19 Oxycodone HCl/Acetaminophen [Endocet 10-325 mg Tablet] 1 tab PO Q8 06/08/19 Allergies/Adverse Reactions: levofloxacin [From Levaquin] Allergy (Verified 03/07/19 10:59) Fever nitrofurantoin Allergy (Verified 03/07/19 10:59) Fever Review of Systems Constitutional: PRESENT: chills, fatigue, weakness Eyes: ABSENT: visual disturbances Ears: ABSENT: hearing changes Nose, Mouth, and Throat: ABSENT: as per HPI, headache(s), mouth pain, sore throa t, vertigo, other Cardiovascular: PRESENT: dyspnea on exertion, edema - chronic. ABSENT: as per HPI, chest pain, orthropnea, palpitations, other Respiratory: PRESENT: dyspnea. ABSENT: as per HPI, cough, hemoptysis, sputum, other Gastrointestinal: PRESENT: abdominal pain - lower region, nausea, other - loss of appetite Genitourinary: PRESENT: other - urinary frequency Musculoskeletal: PRESENT: back pain, deformity - related to multiple jpints involvement with arthritis Integumentary: ABSENT: rash, wounds Neurological: PRESENT: weakness - generalized Psychiatric: ABSENT: anxiety, depression, homidical ideation, suicidal ideation Endocrine: ABSENT: cold intolerance, heat intolerance, polydipsia, polyuria Hematologic/Lymphatic: ABSENT: easy bleeding, easy bruising, lymphadenopathy Allergic/Immunologic: ABSENT: seasonal rhinorrhea Physical Exam Vital Signs: Temp Pulse Resp BP Pulse Ox 97.2 F 47 L 16 96/57 L 97 06/08/19 12:58 06/08/19 14:00 06/08/19 11:11 06/08/19 12:58 06/08/19 12:58 Intake & Output 06/07/19 06/08/19 06/09/19 06:59 06:59 06:59 Intake Total 290 Output Total 900 Balance -610 Weight 109.7 kg General appearance: PRESENT: morbidly obese Head exam: PRESENT: atraumatic, normocephalic Eye exam: PRESENT: conjunctiva pink, EOMI, PERRLA. ABSENT: scleral icterus Ear exam: PRESENT: normal external ear exam Mouth exam: PRESENT: moist Respiratory exam: PRESENT: clear to auscultation genia, decreased breath sounds - at lung bases Cardiovascular exam: PRESENT: bradycardia, +S1, +S2. ABSENT: diastolic murmur, systolic murmur Vascular exam: ABSENT: pallor GI/Abdominal exam: PRESENT: normal bowel sounds, soft. ABSENT: distended, guarding, mass, organolmegaly, rebound, tenderness Rectal exam: PRESENT: deferred Gentrourinary exam: PRESENT: indwelling catheter Extremities exam: PRESENT: pedal edema - chronic with chronic statsis skin changes Musculoskeletal exam: PRESENT: deformity - related to arthritis changes. ABSENT: ambulatory Neurological exam: PRESENT: alert, awake, oriented to person, oriented to place, oriented to time, oriented to situation, CN II-XII grossly intact, motor sensory deficit Psychiatric exam: PRESENT: appropriate affect, normal mood. ABSENT: homicidal ideation, suicidal ideation Skin exam: PRESENT: dry, warm Results Laboratory Results: 06/08/19 04:50 06/08/19 04:50 06/08/19 06/08/19 06/08/19 04:50 04:50 05:50 WBC 4.5 RBC 4.21 Hgb 12.9 Hct 38.5 MCV 92 MCH 30.6 MCHC 33.5 RDW 16.1 H Plt Count 140 L Seg Neutrophils % 53.1 Sodium 142.2 Potassium 3.8 Chloride 92 L Carbon Dioxide 39 H Anion Gap 11 BUN 35 H Creatinine 1.16 Est GFR ( Amer) 53 L Glucose 51 L Calcium 9.1 Magnesium 2.4 H Total Bilirubin 0.5 AST 32 Alkaline Phosphatase 231 H Total Protein 7.5 Albumin 3.8 Urine Color YELLOW Urine Appearance CLEAR Urine pH 7.0 Ur Specific [place] 1.008 Urine Protein NEGATIVE Urine Glucose (UA) NEGATIVE Urine Ketones NEGATIVE Urine Blood NEGATIVE Urine Nitrite NEGATIVE Ur Leukocyte Esterase LARGE H Urine WBC (Auto) 13 Urine RBC (Auto) 1 06/08/19 04:50 Troponin I < 0.012 NT-Pro-B Natriuret Pep 725 H Impressions: Chest X-Ray 09/08/19 04:25 IMPRESSION: Cardiomegaly. Lungs are clear copyright 2010 [employer]- All Rights Reserved Assessment & Plan - Diagnosis (1) UTI (urinary tract infection) Qualifiers: Urinary tract infection type: acute cystitis Hematuria presence: without hematuria Qualified Code(s): N30.00 - Acute cystitis without hematuria Is this a current diagnosis for this admission?: Yes Plan: See admitting physician orders for details about care plan. (2) Bradycardia Is this a current diagnosis for this admission?: Yes Plan: See admitting physician orders for details about care plan. (3) Hypoglycemia Is this a current diagnosis for this admission?: Yes Plan: See admitting physician orders for details about care plan. 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 (5) Hypertension Qualifiers: Hypertension type: essential hypertension Qualified Code(s): I10 - Essential (primary) hypertension Is this a current diagnosis for this admission?: Yes Plan: See admitting physician orders for details about care plan. (6) Hyperlipidemia Qualifiers: Hyperlipidemia type: unspecified Qualified Code(s): E78.5 - Hyperlipidemia, unspecified Is this a current diagnosis for this admission?: Yes Plan: See admitting physician orders for details about care plan. (7) Stasis dermatitis Qualifiers: Laterality: bilateral Qualified Code(s): I87.2 - Venous insufficiency (chronic) (peripheral) Is this a current diagnosis for this admission?: Yes Plan: See admitting physician orders for details about care plan. - Time Time Spent: 50 to 70 Minutes Medications reviewed and adjusted accordingly: Yes Anticipated discharge: Home with Homehealth Within: Other - Inpatient Certification Based on my medical assessment, after consideration of the patient's comorbidities, presenting symptoms, or acuity I expect that the services needed warrant INPATIENT care.: Yes I certify that my determination is in accordance with my understanding of Medicare's requirements for reasonable and necessary INPATIENT services [42 CFR 412.3e].: Yes Medical Necessity: Significant Comorbidiites Make Outpatient Treatment Too Risky, Need Close Monitoring Due to Risk of Patient Decompensation, Need For IV Fluids, Need For Continuous Telemetry Monitoring, Need for IV Antibiotics, Risk of Complication if Not Cared For in Hospital, Risk of Diagnosis Which Will Require Inpatient Eval/Care/Monitoring Post Hospital Care: D/C News Broadcaster Documentation - Plan Summary Plan Summary: See admitting physician orders for details about care plan.
[2019-06-08] MEDS: INSULIN LISPRO 100 UNIT/ML 3 ML VIAL SUBCUT SCH ×2 (16:17→22:28)
[2019-06-08] MEDS: FUROSEMIDE 40 MG TABLET PO SCH (17:05)
[2019-06-08] MEDS: NYSTATIN CREAM 15 GM TP SCH (17:06)
--- NOTE | 2019-06-08 18:55 | EKG REPORT ---
SEVERITY:- ABNORMAL ECG - SINUS BRADYCARDIA LEFT BUNDLE BRANCH BLOCK : Confirmed by: Oneyda Richard 08-Jun-2019 18:54:36
[2019-06-08] MEDS ORDERED: CLONIDINE HCL 0.1 MG TABLET PO SCH (22:00)
[2019-06-08] MEDS: OXYCODONE-ACETAMINOPHEN 5-325 MG TABLET PO PRN (22:28)
[2019-06-09] MEDS: ALPRAZOLAM 0.5 MG TABLET PO PRN ×2 (00:46→13:13)
[2019-06-09] MEDS: PANTOPRAZOLE SODIUM 20 MG TABLET.DR PO SCH (05:29)
[2019-06-09 06:14] LABS: ABSOLUTE EOSINOPHILS # (AUTO) 0.1 10^3/uL (0.0-0.6); ABSOLUTE LYMPHOCYTES (AUTO) 1.3 10^3/uL (0.5-4.7); ABSOLUTE MONOCYTES (AUTO) 0.4 10^3/uL (0.1-1.4); BASOPHILS % (AUTO) 0.5 % (0-2); EOSINOPHILS % (AUTO) 2.4 % (0-6); HEMATOCRIT 35.2 % (36.0-47.0); HEMOGLOBIN 11.6 g/dL (12.0-15.5); LYMPHOCYTES % (AUTO) 34.6 % (13-45); MEAN CORPUSCULAR HEMOGLOBIN 30.2 pg (27.0-33.4); MEAN CORPUSCULAR HGB CONC 33.1 g/dL (32.0-36.0); MEAN CORPUSCULAR VOLUME 91 fl (80-97); MONOCYTES % (AUTO) 10.1 % (3-13); PLATELET COUNT 103 10^3/uL (150-450); RED BLOOD COUNT 3.84 10^6/uL (3.72-5.28); RED CELL DISTRIBUTION WIDTH 15.8 % (11.5-14.0); SEGMENTED NEUTROPHILS % (AUTO) 52.4 % (42-78); TOTAL CELLS COUNTED % (AUTO) 100 %; WHITE BLOOD COUNT 3.9 10^3/uL (4.0-10.5)
[2019-06-09 06:29] LABS: ALBUMIN 3.4 g/dL (3.5-5.0); ALKALINE PHOSPHATASE 224 U/L (38-126); ASPARTATE AMINO TRANSFERASE 28 U/L (14-36); BILIRUBIN,DIRECT 0.1 mg/dL (0.0-0.4); BILIRUBIN,TOTAL 0.4 mg/dL (0.2-1.3); BLOOD UREA NITROGEN 26 mg/dL (7-20); CALCIUM 8.6 mg/dL (8.4-10.2); CHLORIDE 92 mmol/L (98-107); GLUCOSE 191 mg/dL (75-110); POTASSIUM 3.9 mmol/L (3.6-5.0); TOTAL PROTEIN 6.8 g/dL (6.3-8.2)
[2019-06-09 06:35] LABS: ANION GAP 7 (5-19); CARBON DIOXIDE 38 mmol/L (22-30)
--- NOTE | 2019-06-09 08:46 | PDOC PROGRESS REPORT ---
Subjective Progress Note for:: 06/09/19 Subjective:: Patient was admitted because of the bradycardia and a dizziness Patient's symmetric blood pressure was currently stopped the heart rate is improving Recently seen Dr. Jefferson adjust the Lasix due to the ongoing chronic lymphedema and the swelling Reason For Visit: UTI,HYPOGLYCEMIA,BRADYCARDIA Physical Exam Vital Signs: Temp Pulse Resp BP Pulse Ox 97.6 F 61 16 139/60 H 97 06/09/19 03:35 06/09/19 07:00 06/09/19 03:35 06/09/19 03:35 06/09/19 04:24 Intake & Output 06/08/19 06/09/19 06/10/19 06:59 06:59 06:59 Intake Total 2568 Output Total 3750 Balance -1182 Weight 109.3 kg General appearance: PRESENT: no acute distress, well-developed, well-nourished Head exam: PRESENT: atraumatic, normocephalic Eye exam: PRESENT: conjunctiva pink, EOMI, PERRLA. ABSENT: scleral icterus Ear exam: PRESENT: normal external ear exam Mouth exam: PRESENT: moist, tongue midline Neck exam: PRESENT: full ROM. ABSENT: carotid bruit, JVD, lymphadenopathy, thyromegaly Respiratory exam: PRESENT: clear to auscultation genia Cardiovascular exam: PRESENT: RRR. ABSENT: diastolic murmur, rubs, systolic murmur Pulses: PRESENT: normal dorsalis pedis pul, +2 pedal pulses bilateral Vascular exam: PRESENT: normal capillary refill GI/Abdominal exam: PRESENT: normal bowel sounds, soft. ABSENT: distended, guarding, mass, organolmegaly, rebound, tenderness Rectal exam: PRESENT: deferred Neurological exam: PRESENT: alert, awake, oriented to person, oriented to place, oriented to time, oriented to situation, CN II-XII grossly intact. ABSENT: motor sensory deficit Psychiatric exam: PRESENT: appropriate affect, normal mood. ABSENT: homicidal ideation, suicidal ideation Skin exam: PRESENT: dry, intact, warm. ABSENT: cyanosis, rash Results Laboratory Results: 06/09/19 05:50 06/09/19 05:50 06/09/19 06/09/19 05:50 05:50 WBC 3.9 L RBC 3.84 Hgb 11.6 L Hct 35.2 L MCV 91 MCH 30.2 MCHC 33.1 RDW 15.8 H Plt Count 103 L Seg Neutrophils % 52.4 Sodium 137.2 Potassium 3.9 Chloride 92 L Carbon Dioxide 38 H Anion Gap 7 BUN 26 H Creatinine 0.98 Est GFR ( Amer) > 60 Glucose 191 H Calcium 8.6 Total Bilirubin 0.4 AST 28 Alkaline Phosphatase 224 H Total Protein 6.8 Albumin 3.4 L 06/08/19 04:50 Troponin I < 0.012 NT-Pro-B Natriuret Pep 725 H Impressions: Chest X-Ray 06/08/19 04:25 IMPRESSION: Cardiomegaly. Lungs are clear copyright 2011 [employer]- All Rights Reserved Assessment & Plan - Diagnosis (1) Bradycardia Is this a current diagnosis for this admission?: Yes Plan: Currently hold the beta-omid As per discussed with the Dr. Jefferson will cut down the clonidine 0.1 mg nightly and add the hydralazine for the blood pressures (2) Recurrent urinary tract infection Is this a current diagnosis for this admission?: Yes Plan: Continues to IV antibiotic (3) Bilateral lower extremity edema Is this a current diagnosis for this admission?: Yes Plan: Most likely related to the chronic lymphedema (4) Congestive heart failure Qualifiers: Heart failure type: diastolic Is this a current diagnosis for this admission?: Yes Plan: Continues to Lasix follow with the Dr. Jefferson (5) Hypertension Qualifiers: Hypertension type: essential hypertension Qualified Code(s): I10 - Essential (primary) hypertension Is this a current diagnosis for this admission?: Yes Plan: Readjust the medications due to the bradycardia - Time Time Spent with patient: 15-24 minutes Medications reviewed and adjusted accordingly: Yes Anticipated discharge: Home with Homehealth Within: Other - Plan Summary Plan Summary: DC the [place] catheter wean off o2 Physical therapy
[2019-06-09] MEDS ORDERED: CEFTRIAXONE 1 GM/D5W RTU 1 GM/50 ML RTUPB IV SCH (10:00)
[2019-06-09] MEDS: FUROSEMIDE 40 MG TABLET PO SCH ×2 (10:17→17:41)
[2019-06-09] MEDS: LISINOPRIL 10 MG TABLET PO SCH (10:18)
[2019-06-09] MEDS: INSULIN LISPRO 100 UNIT/ML 3 ML VIAL SUBCUT SCH ×4 (10:18→21:36)
[2019-06-09] MEDS: ENOXAPARIN SODIUM INJ 40 MG/0.4 ML DISP.SYRIN SUBCUT SCH (10:19)
[2019-06-09] MEDS: OXYCODONE HCL IR 5 MG TABLET PO PRN (11:19)
[2019-06-09] MEDS: OXYCODONE-ACETAMINOPHEN 5-325 MG TABLET PO PRN (11:20)
[2019-06-09] MEDS: NYSTATIN CREAM 15 GM TP SCH ×2 (13:14→17:41)
[2019-06-09] MEDS: HYDRALAZINE HCL 10 MG TABLET PO SCH ×2 (14:52→21:39)
[2019-06-09] MEDS: CLONIDINE HCL 0.1 MG TABLET PO SCH (21:40)
[2019-06-10 05:17] LABS: ABSOLUTE EOSINOPHILS # (AUTO) 0.1 10^3/uL (0.0-0.6); ABSOLUTE LYMPHOCYTES (AUTO) 1.4 10^3/uL (0.5-4.7); ABSOLUTE MONOCYTES (AUTO) 0.7 10^3/uL (0.1-1.4); ABSOLUTE NEUT (AUTO) 3.6 10^3/uL (1.7-8.2); BASOPHILS % (AUTO) 0.3 % (0-2); HEMATOCRIT 37.5 % (36.0-47.0); HEMOGLOBIN 12.6 g/dL (12.0-15.5); LYMPHOCYTES % (AUTO) 24.3 % (13-45); MEAN CORPUSCULAR HEMOGLOBIN 30.6 pg (27.0-33.4); MEAN CORPUSCULAR HGB CONC 33.5 g/dL (32.0-36.0); MEAN CORPUSCULAR VOLUME 91 fl (80-97); MONOCYTES % (AUTO) 11.3 % (3-13); SEGMENTED NEUTROPHILS % (AUTO) 62.1 % (42-78); TOTAL CELLS COUNTED % (AUTO) 100 %; WHITE BLOOD COUNT 5.9 10^3/uL (4.0-10.5)
[2019-06-10 05:38] LABS: BLOOD UREA NITROGEN 20 mg/dL (7-20); CALCIUM 8.6 mg/dL (8.4-10.2); CHLORIDE 94 mmol/L (98-107); GLUCOSE 181 mg/dL (75-110); POTASSIUM 3.6 mmol/L (3.6-5.0)
[2019-06-10 05:47] LABS: ANION GAP 8 (5-19)
[2019-06-10 05:57] LABS: PLATELET COUNT 100 10^3/uL (150-450)
[2019-06-10 06:04] LABS: CARBON DIOXIDE 40 mmol/L (22-30)
[2019-06-10] MEDS: HYDRALAZINE HCL 10 MG TABLET PO SCH ×3 (06:11→22:56)
[2019-06-10] MEDS: PANTOPRAZOLE SODIUM 20 MG TABLET.DR PO SCH (06:11)
[2019-06-10] MEDS: ALPRAZOLAM 0.5 MG TABLET PO PRN ×2 (06:15→23:24)
[2019-06-10] MEDS: OXYCODONE-ACETAMINOPHEN 5-325 MG TABLET PO PRN ×2 (06:17→17:02)
--- NOTE | 2019-06-10 08:08 | PDOC PROGRESS REPORT ---
Subjective Progress Note for:: 06/10/19 Subjective:: Patient is currently doing well Still complaining of some anxiety issues with the shaky I think we have to put the alprazolam and a scheduled basis which patient is taking for a long time and long-standing history of the anxiety Patient's urine cultures grew out enterococcus which is sensitive to the penicillin Seen by Dr. Jefferson yesterday Patient heart rate is currently stable Swelling is much better Patient still have a very weakness I believe patients get a benefit to the rehabs Reason For Visit: UTI,HYPOGLYCEMIA,BRADYCARDIA Physical Exam Vital Signs: Temp Pulse Resp BP Pulse Ox 97.5 F 77 19 161/73 H 100 06/10/19 03:36 06/10/19 03:36 06/10/19 03:36 06/10/19 03:36 06/10/19 03:36 Intake & Output 06/09/19 06/10/19 06/11/19 06:59 06:59 06:59 Intake Total 2568 1970 Output Total 3750 5675 Balance -1182 -3705 Weight 109.3 kg 109.7 kg General appearance: PRESENT: no acute distress, well-developed, well-nourished Head exam: PRESENT: atraumatic, normocephalic Eye exam: PRESENT: conjunctiva pink, EOMI, PERRLA. ABSENT: scleral icterus Ear exam: PRESENT: normal external ear exam Mouth exam: PRESENT: moist, tongue midline Neck exam: PRESENT: full ROM. ABSENT: carotid bruit, JVD, lymphadenopathy, thyromegaly Respiratory exam: PRESENT: clear to auscultation genia Cardiovascular exam: PRESENT: RRR. ABSENT: diastolic murmur, rubs, systolic murmur Pulses: PRESENT: normal dorsalis pedis pul, +2 pedal pulses bilateral Vascular exam: PRESENT: normal capillary refill GI/Abdominal exam: PRESENT: normal bowel sounds, soft. ABSENT: distended, guarding, mass, organolmegaly, rebound, tenderness Rectal exam: PRESENT: deferred Musculoskeletal exam: PRESENT: ambulatory Neurological exam: PRESENT: alert, awake, oriented to person, oriented to place, oriented to time, oriented to situation, CN II-XII grossly intact. ABSENT: motor sensory deficit Psychiatric exam: PRESENT: appropriate affect, normal mood. ABSENT: homicidal ideation, suicidal ideation Skin exam: PRESENT: dry, intact, warm. ABSENT: cyanosis, rash Results Laboratory Results: 06/10/19 04:48 06/10/19 04:48 06/10/19 06/10/19 04:48 04:48 WBC 5.9 RBC 4.10 Hgb 12.6 Hct 37.5 MCV 91 MCH 30.6 MCHC 33.5 RDW 16.0 H Plt Count 100 L Seg Neutrophils % 62.1 Sodium 141.7 Potassium 3.6 Chloride 94 L Carbon Dioxide 40 H* Anion Gap 8 BUN 20 Creatinine 1.00 Est GFR ( Amer) > 60 Glucose 181 H Calcium 8.6 06/08/19 05:50 Clean Catch Midstream Urine Culture - Final Enterococcus Faecalis(Group D) 06/08/19 04:50 Troponin I < 0.012 NT-Pro-B Natriuret Pep 725 H Impressions: Chest X-Ray 06/08/19 04:25 IMPRESSION: Cardiomegaly. Lungs are clear copyright 2011 [employer]- All Rights Reserved Assessment & Plan - Diagnosis (1) Bradycardia Is this a current diagnosis for this admission?: Yes Plan: Currently all resolved (2) Recurrent urinary tract infection Is this a current diagnosis for this admission?: Yes Plan: Put the patient on amoxicillin DC the IV Rocephin (3) Bilateral lower extremity edema Is this a current diagnosis for this admission?: Yes Plan: Most likely related to the chronic lymphedema (4) Congestive heart failure Qualifiers: Heart failure type: diastolic Is this a current diagnosis for this admission?: Yes Plan: Continues to Lasix follow with the Dr. Jefferson (5) Hypertension Qualifiers: Hypertension type: essential hypertension Qualified Code(s): I10 - Essential (primary) hypertension Is this a current diagnosis for this admission?: Yes Plan: Currently all stable may be consider increase to hydralazine 25 mg p.o. every 8 (6) Ambulatory dysfunction Is this a current diagnosis for this admission?: Yes Plan: Patients might get benefit to the rehab facilities (7) Anxiety disorder Qualifiers: Anxiety disorder type: generalized anxiety disorder Qualified Code(s): F41.1 - Generalized anxiety disorder Is this a current diagnosis for this admission?: Yes Plan: Continues to alprazolam (8) Candidiasis Is this a current diagnosis for this admission?: Yes Plan: Diflucan 100 mg p.o. daily - Time Time Spent with patient: 15-24 minutes Medications reviewed and adjusted accordingly: Yes Anticipated discharge: SNF Within: within 24 hours - Plan Summary Plan Summary: We will discuss the patient's daughter and already discussed with the patient's to going to the rehab facilities
[2019-06-10] MEDS ORDERED: ALPRAZOLAM 0.5 MG TABLET PO SCH (08:15)
[2019-06-10] MEDS: INSULIN LISPRO 100 UNIT/ML 3 ML VIAL SUBCUT SCH ×4 (08:56→22:58)
[2019-06-10] MEDS: FLUCONAZOLE 100 MG TABLET PO SCH (09:08)
[2019-06-10] MEDS: FUROSEMIDE 40 MG TABLET PO SCH ×2 (09:08→17:08)
[2019-06-10] MEDS: ENOXAPARIN SODIUM INJ 40 MG/0.4 ML DISP.SYRIN SUBCUT SCH (09:11)
[2019-06-10] MEDS: NYSTATIN CREAM 15 GM TP SCH ×2 (09:12→17:09)
[2019-06-10] MEDS: LISINOPRIL 10 MG TABLET PO SCH (09:13)
[2019-06-10] MEDS: AMOXICILLIN TRIHYDRATE 500 MG CAPSULE PO SCH ×2 (14:16→22:59)
[2019-06-10] MEDS: OXYCODONE HCL IR 5 MG TABLET PO PRN (20:41)
[2019-06-10] MEDS: CLONIDINE HCL 0.1 MG TABLET PO SCH (22:58)
[2019-06-11] MEDS: HYDRALAZINE HCL 10 MG TABLET PO SCH (05:57)
[2019-06-11] MEDS: PANTOPRAZOLE SODIUM 20 MG TABLET.DR PO SCH (05:58)
[2019-06-11] MEDS: AMOXICILLIN TRIHYDRATE 500 MG CAPSULE PO SCH ×3 (05:58→23:01)
[2019-06-11] MEDS: INSULIN LISPRO 100 UNIT/ML 3 ML VIAL SUBCUT SCH ×4 (08:23→23:01)
[2019-06-11 08:27] LABS: ANION GAP 7 (5-19); BLOOD UREA NITROGEN 17 mg/dL (7-20); CALCIUM 9.1 mg/dL (8.4-10.2); CARBON DIOXIDE 38 mmol/L (22-30); CHLORIDE 94 mmol/L (98-107); GLUCOSE 151 mg/dL (75-110); POTASSIUM 3.5 mmol/L (3.6-5.0)
[2019-06-11] MEDS: FLUCONAZOLE 100 MG TABLET PO SCH (09:10)
[2019-06-11] MEDS: FUROSEMIDE 40 MG TABLET PO SCH ×2 (09:10→17:17)
[2019-06-11] MEDS: LISINOPRIL 10 MG TABLET PO SCH (09:11)
[2019-06-11] MEDS: NYSTATIN CREAM 15 GM TP SCH ×2 (09:12→17:17)
[2019-06-11] MEDS: ENOXAPARIN SODIUM INJ 40 MG/0.4 ML DISP.SYRIN SUBCUT SCH (09:14)
[2019-06-11] MEDS: ALPRAZOLAM 0.5 MG TABLET PO PRN ×2 (11:07→23:01)
[2019-06-11 11:20] LABS: ARTERIAL BLOOD BASE EXCESS 11.9 mmol/L; ARTERIAL BLOOD H2CO3 1.54 mmol/L (1.05-1.35); ARTERIAL BLOOD HCO3 37.3 mmol/L (20-24); ARTERIAL BLOOD O2 SATURATION 96.9 % (94-98); ARTERIAL BLOOD PH 7.48 (7.35-7.45); ARTERIAL BLOOD PO2 85.8 mmHg (80-100); ARTERIAL BLOOD TOTAL CO2 38.9 mmol/L (21-25)
[2019-06-11 11:21] LABS: ARTERIAL BLOOD FIO2 2L
--- NOTE | 2019-06-11 13:00 | PDOC PROGRESS REPORT ---
Subjective Progress Note for:: 06/11/19 Subjective:: Patient is currently doing same Since did not wear the BiPAP last night Patient does not like it Patient's denied any chest pain to than any shortness of the breath Since did not like to take the hydralazineAs per discussed with the Dr. Jefferson increase the lisinopril Reason For Visit: UTI,HYPOGLYCEMIA,BRADYCARDIA Physical Exam Vital Signs: Temp Pulse Resp BP Pulse Ox 98.1 F 98 16 124/76 95 06/11/19 11:57 06/11/19 11:57 06/11/19 11:57 06/11/19 11:57 06/11/19 11:57 Intake & Output 06/10/19 06/11/19 06/12/19 06:59 06:59 06:59 Intake Total 1970 1000 Output Total 5675 1800 Balance -3705 -800 Weight 109.7 kg 105.2 kg General appearance: PRESENT: no acute distress, well-developed, well-nourished Head exam: PRESENT: atraumatic, normocephalic Eye exam: PRESENT: conjunctiva pink, EOMI, PERRLA. ABSENT: scleral icterus Ear exam: PRESENT: normal external ear exam Mouth exam: PRESENT: moist, tongue midline Neck exam: PRESENT: full ROM. ABSENT: carotid bruit, JVD, lymphadenopathy, thyromegaly Respiratory exam: PRESENT: clear to auscultation genia Cardiovascular exam: PRESENT: RRR. ABSENT: diastolic murmur, rubs, systolic murmur Pulses: PRESENT: normal dorsalis pedis pul, +2 pedal pulses bilateral Vascular exam: PRESENT: normal capillary refill GI/Abdominal exam: PRESENT: normal bowel sounds, soft. ABSENT: distended, guarding, mass, organolmegaly, rebound, tenderness Rectal exam: PRESENT: deferred Extremities exam: PRESENT: pedal edema Neurological exam: PRESENT: alert, awake, oriented to person, oriented to place, oriented to time, oriented to situation, CN II-XII grossly intact. ABSENT: motor sensory deficit Psychiatric exam: PRESENT: appropriate affect, normal mood. ABSENT: homicidal ideation, suicidal ideation Skin exam: PRESENT: dry, intact, warm. ABSENT: cyanosis, rash Results Laboratory Results: 06/10/19 04:48 06/11/19 06:59 06/11/19 06/11/19 06:59 10:55 Carbonic Acid 1.54 H HCO3/H2CO3 Ratio 24:1 ABG pH 7.48 H ABG pCO2 51.0 H ABG pO2 85.8 ABG HCO3 37.3 H ABG O2 Saturation 96.9 ABG Base Excess 11.9 FiO2 2L Sodium 139.1 Potassium 3.5 L Chloride 94 L Carbon Dioxide 38 H Anion Gap 7 BUN 17 Creatinine 1.00 Est GFR ( Amer) > 60 Glucose 151 H Calcium 9.1 06/08/19 04:50 Troponin I < 0.012 NT-Pro-B Natriuret Pep 725 H Impressions: Chest X-Ray 06/08/19 04:25 IMPRESSION: Cardiomegaly. Lungs are clear copyright 2010 [employer]- All Rights Reserved Assessment & Plan - Diagnosis (1) Bradycardia Is this a current diagnosis for this admission?: Yes Plan: Currently all resolved (2) Recurrent urinary tract infection Is this a current diagnosis for this admission?: Yes Plan: Put the patient on amoxicillin DC the IV Rocephin (3) Bilateral lower extremity edema Is this a current diagnosis for this admission?: Yes Plan: Most likely related to the chronic lymphedema (4) Congestive heart failure Qualifiers: Heart failure type: diastolic Is this a current diagnosis for this admission?: Yes Plan: Continues to Lasix follow with the Dr. Jefferson (5) Hypertension Qualifiers: Hypertension type: essential hypertension Qualified Code(s): I10 - Essential (primary) hypertension Is this a current diagnosis for this admission?: Yes Plan: Currently all stable may be consider increase to hydralazine 25 mg p.o. every 8 (6) Ambulatory dysfunction Is this a current diagnosis for this admission?: Yes Plan: Patients might get benefit to the rehab facilities (7) Anxiety disorder Qualifiers: Anxiety disorder type: generalized anxiety disorder Qualified Code(s): F 41.1 - Generalized anxiety disorder Is this a current diagnosis for this admission?: Yes Plan: Continues to alprazolam (8) Candidiasis Is this a current diagnosis for this admission?: Yes Plan: Diflucan 100 mg p.o. daily - Time Time Spent with patient: 15-24 minutes Medications reviewed and adjusted accordingly: Yes Anticipated discharge: SNF Within: within 48 hours - Plan Summary Plan Summary: Encourage the patient's to wear the auto BiPAP machine as we asked her Dr. Garcia's to see her
[2019-06-11] MEDS ORDERED: POTASSIUM CHLORIDE 20 MEQ PACKET PO ONE (14:00)
[2019-06-11] MEDS: OXYCODONE-ACETAMINOPHEN 5-325 MG TABLET PO PRN (16:27)
[2019-06-11] MEDS ORDERED: LISINOPRIL 10 MG TABLET PO SCH (22:00)
[2019-06-11] MEDS: CLONIDINE HCL 0.1 MG TABLET PO SCH (23:02)
[2019-06-12] MEDS: OXYCODONE-ACETAMINOPHEN 5-325 MG TABLET PO PRN (00:33)
[2019-06-12 05:12] LABS: ABSOLUTE EOSINOPHILS # (AUTO) 0.1 10^3/uL (0.0-0.6); ABSOLUTE LYMPHOCYTES (AUTO) 1.4 10^3/uL (0.5-4.7); ABSOLUTE MONOCYTES (AUTO) 1.3 10^3/uL (0.1-1.4); ABSOLUTE NEUT (AUTO) 6.1 10^3/uL (1.7-8.2); BASOPHILS % (AUTO) 0.3 % (0-2); EOSINOPHILS % (AUTO) 1.2 % (0-6); HEMATOCRIT 37.8 % (36.0-47.0); HEMOGLOBIN 12.4 g/dL (12.0-15.5); LYMPHOCYTES % (AUTO) 15.6 % (13-45); MEAN CORPUSCULAR HEMOGLOBIN 30.1 pg (27.0-33.4); MEAN CORPUSCULAR HGB CONC 32.8 g/dL (32.0-36.0); MEAN CORPUSCULAR VOLUME 92 fl (80-97); RED BLOOD COUNT 4.12 10^6/uL (3.72-5.28); RED CELL DISTRIBUTION WIDTH 16.2 % (11.5-14.0); SEGMENTED NEUTROPHILS % (AUTO) 67.9 % (42-78); TOTAL CELLS COUNTED % (AUTO) 100 %
[2019-06-12 05:29] LABS: ANION GAP 7 (5-19); BLOOD UREA NITROGEN 20 mg/dL (7-20); CALCIUM 8.8 mg/dL (8.4-10.2); CARBON DIOXIDE 39 mmol/L (22-30); CHLORIDE 94 mmol/L (98-107); GLUCOSE 146 mg/dL (75-110); POTASSIUM 3.6 mmol/L (3.6-5.0)
[2019-06-12 05:35] LABS: PLATELET COUNT 97 10^3/uL (150-450)
[2019-06-12] MEDS: AMOXICILLIN TRIHYDRATE 500 MG CAPSULE PO SCH ×3 (05:57→23:12)
[2019-06-12] MEDS: PANTOPRAZOLE SODIUM 20 MG TABLET.DR PO SCH (05:57)
[2019-06-12 06:33] LABS: ARTERIAL BLOOD BASE EXCESS 11.7 mmol/L; ARTERIAL BLOOD FIO2 ROOM AIR; ARTERIAL BLOOD H2CO3 1.83 mmol/L (1.05-1.35); ARTERIAL BLOOD HCO3 38.6 mmol/L (20-24); ARTERIAL BLOOD O2 SATURATION 95.8 % (94-98); ARTERIAL BLOOD PCO2 60.9 mmHg (35-45); ARTERIAL BLOOD PH 7.42 (7.35-7.45); ARTERIAL BLOOD PO2 81.1 mmHg (80-100); ARTERIAL BLOOD TOTAL CO2 40.5 mmol/L (21-25)
[2019-06-12] MEDS: INSULIN LISPRO 100 UNIT/ML 3 ML VIAL SUBCUT SCH ×4 (08:16→23:13)
--- NOTE | 2019-06-12 08:56 | PDOC PROGRESS REPORT ---
Subjective Progress Note for:: 06/12/19 Subjective:: Patient is currently doing well Except patient is complaining of her right shoulder pain Patient seen by warehouse assistant started on the beta-omid with the low-dose again with the patient does not like the hydralazine patient's blood pressure is much better Patient's denied any chest pain to than any shortness of the breath Cussed with the daughter on the bedside with the patient's multiple comorbidity patient's needs to go to the rehab facilities Reason For Visit: UTI,HYPOGLYCEMIA,BRADYCARDIA Physical Exam Vital Signs: Temp Pulse Resp BP Pulse Ox 98.7 F 95 16 128/66 H 98 06/12/19 07:31 06/12/19 07:31 06/12/19 07:31 06/12/19 07:31 06/12/19 07:31 Intake & Output 06/11/19 06/12/19 06/13/19 06:59 06:59 06:59 Intake Total 1000 480 Output Total 1800 2900 Balance -800 -2420 Weight 105.2 kg 105 kg General appearance: PRESENT: no acute distress, well-developed, well-nourished Head exam: PRESENT: atraumatic, normocephalic Eye exam: PRESENT: conjunctiva pink, EOMI, PERRLA. ABSENT: scleral icterus Ear exam: PRESENT: normal external ear exam Mouth exam: PRESENT: moist, tongue midline Neck exam: PRESENT: full ROM. ABSENT: carotid bruit, JVD, lymphadenopathy, thyromegaly Respiratory exam: PRESENT: clear to auscultation genia Cardiovascular exam: PRESENT: RRR. ABSENT: diastolic murmur, rubs, systolic murmur Pulses: PRESENT: normal dorsalis pedis pul, +2 pedal pulses bilateral Vascular exam: PRESENT: normal capillary refill GI/Abdominal exam: PRESENT: normal bowel sounds, soft. ABSENT: distended, guarding, mass, organolmegaly, rebound, tenderness Rectal exam: PRESENT: deferred Neurological exam: PRESENT: alert, awake, oriented to person, oriented to place, oriented to time, oriented to situation, CN II-XII grossly intact. ABSENT: motor sensory deficit Psychiatric exam: PRESENT: appropriate affect, normal mood. ABSENT: homicidal ideation, suicidal ideation Skin exam: PRESENT: dry, intact, warm. ABSENT: cyanosis, rash Results Laboratory Results: 06/12/19 04:31 06/12/19 04:31 06/11/19 06/12/19 06/12/19 10:55 04:31 04:31 WBC 9.0 RBC 4.12 Hgb 12.4 Hct 37.8 MCV 92 MCH 30.1 MCHC 32.8 RDW 16.2 H Plt Count 97 L Seg Neutrophils % 67.9 Carbonic Acid 1.54 H HCO3/H2CO3 Ratio 24:1 ABG pH 7.48 H ABG pCO2 51.0 H ABG pO2 85.8 ABG HCO3 37.3 H ABG O2 Saturation 96.9 ABG Base Excess 11.9 FiO2 2L Sodium 139.6 Potassium 3.6 Chloride 94 L Carbon Dioxide 39 H Anion Gap 7 BUN 20 Creatinine 1.23 Est GFR ( Amer) 50 L Glucose 146 H Calcium 8.8 06/12/19 06:00 WBC RBC Hgb Hct MCV MCH MCHC RDW Plt Count Seg Neutrophils % Carbonic Acid 1.83 H HCO3/H2CO3 Ratio 21:1 ABG pH 7.42 ABG pCO2 60.9 H ABG pO2 81.1 ABG HCO3 38.6 H ABG O2 Saturation 95.8 ABG Base Excess 11.7 FiO2 ROOM AIR Sodium Potassium Chloride Carbon Dioxide Anion Gap BUN Creatinine Est GFR ( Amer) Glucose Calcium 06/08/19 04:50 Troponin I < 0.012 NT-Pro-B Natriuret Pep 725 H Impressions: Chest X-Ray 06/08/19 04:25 IMPRESSION: Cardiomegaly. Lungs are clear copyright 2011 [employer]- All Rights Reserved Assessment & Plan - Diagnosis (1) Bradycardia Is this a current diagnosis for this admission?: Yes Plan: Currently all resolved restart the beta-blockers currently still stable per cardiology (2) Recurrent urinary tract infection Is this a current diagnosis for this admission?: Yes Plan: Put the patient on amoxicillin DC the IV Rocephin (3) Bilateral lower extremity edema Is this a current diagnosis for this admission?: Yes Plan: Most likely related to the chronic lymphedema (4) Congestive heart failure Qualifiers: Heart failure type: diastolic Is this a current diagnosis for this admission?: Yes Plan: Continues to Lasix follow with the Dr. Jefferson (5) Hypertension Qualifiers: Hypertension type: essential hypertension Qualified Code(s): I10 - Essenti al (primary) hypertension Is this a current diagnosis for this admission?: Yes Plan: Currently all stable may be consider increase to hydralazine 25 mg p.o. every 8 (6) Ambulatory dysfunction Is this a current diagnosis for this admission?: Yes Plan: Patients might get benefit to the rehab facilities (7) Anxiety disorder Qualifiers: Anxiety disorder type: generalized anxiety disorder Qualified Code(s): F41.1 - Generalized anxiety disorder Is this a current diagnosis for this admission?: Yes Plan: Continues to alprazolam (8) Candidiasis Is this a current diagnosis for this admission?: Yes (9) COPD (chronic obstructive pulmonary disease) Qualifiers: Emphysema type: unspecified Is this a current diagnosis for this admission?: Yes Plan: PRN nebulizer (10) Hypercapnic respiratory failure Qualifiers: Chronicity: acute on chronic Qualified Code(s): J96.22 - Acute and chronic respiratory failure with hypercapnia Is this a current diagnosis for this admission?: Yes Plan: Most likely underlying sleep apnea syndromes discussed with the Dr. Garcia's adjust the BiPAP Since where 4 hours last night - Time Time Spent with patient: 25-34 minutes Medications reviewed and adjusted accordingly: Yes - Plan Summary Plan Summary: Discussed with the daughter regarding the patient's current conditions if the patient is remained stable hopefully discharge tomorrow at the nursing facilities
[2019-06-12] MEDS: ENOXAPARIN SODIUM INJ 40 MG/0.4 ML DISP.SYRIN SUBCUT SCH (09:17)
[2019-06-12] MEDS: FLUCONAZOLE 100 MG TABLET PO SCH (09:26)
[2019-06-12] MEDS: METOPROLOL TARTRATE 25 MG TABLET PO SCH ×2 (09:26→23:13)
[2019-06-12] MEDS: FUROSEMIDE 40 MG TABLET PO SCH ×2 (09:27→17:06)
[2019-06-12] MEDS: LISINOPRIL 10 MG TABLET PO SCH ×2 (09:27→23:12)
[2019-06-12] MEDS: NYSTATIN CREAM 15 GM TP SCH ×2 (09:27→17:06)
[2019-06-12] MEDS: ACETAMINOPHEN 325 MG TABLET PO PRN (12:29)
[2019-06-12] MEDS: ALPRAZOLAM 0.5 MG TABLET PO PRN (12:29)
[2019-06-12 13:26] LABS: ARTERIAL BLOOD BASE EXCESS 12.9 mmol/L; ARTERIAL BLOOD H2CO3 1.78 mmol/L (1.05-1.35); ARTERIAL BLOOD HCO3 39.6 mmol/L (20-24); ARTERIAL BLOOD O2 SATURATION 94.4 % (94-98); ARTERIAL BLOOD PCO2 59.3 mmHg (35-45); ARTERIAL BLOOD PH 7.44 (7.35-7.45); ARTERIAL BLOOD PO2 71.1 mmHg (80-100); ARTERIAL BLOOD TOTAL CO2 41.4 mmol/L (21-25)
[2019-06-12 13:28] LABS: ARTERIAL BLOOD FIO2 2L
--- NOTE | 2019-06-12 23:06 | Progress Note ---
Provider Note Provider Note: CARDIOLOGY PROGRESS NOTE by Dr. Edelmira Jefferson on 06/12/2019. SUBJECTIVE: The patient states that shortness of breath is improved. The patient is on BiPAP. But she does not feel thrilled about it. She has no PND orthopnea. His leg edema is much improved. The patient has had problems with bradycardia in the past with beta-blockers. But she is now tolerating a small dose of beta-omid, this was started due to the patient's tachycardia with a resting heart rate of 105 bpm. Her blood pressure has improved on the current blood pressure regimen of clonidine, DOMINIQUE inhibitor, and will add a small dose of beta-omid. Unable to start the patient on a calcium channel omid due to leg edema. There is no TIA CVA symptoms. PHYSICAL EXAMINATION: The patient is morbidly obese. At present in no acute distress. Selected Entries 06/12/19 06/12/19 06/12/19 07:31 07:45 10:59 Temperature 98.7 F Pulse Rate 95 Respiratory 16 Rate Blood Pressure 128/66 H Blood Pressure 86 Mean BP Location Right Arm O2 Sat by Pulse 98 Oximetry Oxygen Delivery CPAP Method ( includes room air) Fraction of 24 Inspired Oxygen (FIO2) Oxygen Flow 5 5 Rate HEAD: Is atraumatic normocephalic. EYES: Pupils are equal round regular reactive to light and accommodation. Extraocular movements are normal. There is no conjunctival pallor. There is no scleral icterus. EARS: Tympanic membranes are not intact. External auditory canals clear. NOSE: There is no deviated nasal septum. There is no inflammation of these mucous membrane. MOUTH: Mucous membranes of mouth are moist. Tongue is moist. THROAT: There is no redness of the oropharynx. There is no exudates. NECK: Is supple. There is no JVD. Carotids are equal there is no bruit there is no lymphadenopathy there is no accessory muscle respiration use. Trachea central. There is no goiter. LUNGS: Is fairly clear to auscultation percussion. HEART: S1-S2 is heard. There is no S3 gallop. There is no S4 gallop. There is murmur of mitral regurgitation and tricuspid regurgitation present. There is no rub. ABDOMEN: Is obese. Nontender. There is no hepatospleno megaly. Bowel sounds are well heard. EXTREMITIES femorals are deep. Femorals are diminished. Leg pulses are diminished. There is chronic venous stasis dermatitis with increased pedal edema at present. There is no DVT or cellulitis. CANAL EQUIPMENT MECHANIC: The patient is conscious awake alert oriented x3 with no focal deficits. Labs- All tests 24 hr 06/12/19 06/12/19 06/12/19 04:31 04:31 06:00 WBC 9.0 RBC 4.12 Hgb 12.4 Hct 37.8 MCV 92 MCH 30.1 MCHC 32.8 RDW 16.2 H Plt Count 97 L Lymph % (Auto) 15.6 [place] % (Auto) 15.0 H Eos % (Auto) 1.2 Baso % (Auto) 0.3 Absolute Neuts (auto) 6.1 Absolute Lymphs (auto) 1.4 Absolute Monos (auto) 1.3 Absolute Eos (auto) 0.1 Absolute Basos (auto) 0.0 Seg Neutrophils % 67.9 Carbonic Acid 1.83 H HCO3/H2CO3 Ratio 21:1 ABG pH 7.42 ABG pCO2 60.9 H ABG pO2 81.1 ABG HCO3 38.6 H ABG Total CO2 40.5 H ABG O2 Saturation 95.8 ABG Base Excess 11.7 FiO2 ROOM AIR Sodium 139.6 Potassium 3.6 Chloride 94 L Carbon Dioxide 39 H Anion Gap 7 BUN 20 Creatinine 1.23 Est GFR ( Amer) 50 L Est GFR (MDRD) Non-Af 41 L Glucose 146 H POC Glucose Calcium 8.8 06/12/19 06/12/19 06/12/19 08:00 11:55 13:10 WBC RBC Hgb Hct MCV MCH MCHC RDW Plt Count Lymph % (Auto) [place] % (Auto) Eos % (Auto) Baso % (Auto) Absolute Neuts (auto) Absolute Lymphs (auto) Absolute Monos (auto) Absolute Eos (auto) Absolute Basos (auto) Seg Neutrophils % Carbonic Acid 1.78 H HCO3/H2CO3 Ratio 22:1 ABG pH 7.44 ABG pCO2 59.3 H ABG pO2 71.1 L ABG HCO3 39.6 H ABG Total CO2 41.4 H ABG O2 Saturation 94.4 ABG Base Excess 12.9 FiO2 2L Sodium Potassium Chloride Carbon Dioxide Anion Gap BUN Creatinine Est GFR ( Amer) Est GFR (MDRD) Non-Af Glucose POC Glucose 143 H 207 H Calcium 06/12/19 06/12/19 16:19 21:34 WBC RBC Hgb Hct MCV MCH MCHC RDW Plt Count Lymph % (Auto) [place] % (Auto) Eos % (Auto) Baso % (Auto) Absolute Neuts (auto) Absolute Lymphs (auto) Absolute Monos (auto) Absolute Eos (auto) Absolute Basos (auto) Seg Neutrophils % Carbonic Acid HCO3/H2CO3 Ratio ABG pH ABG pCO2 ABG pO2 ABG HCO3 ABG Total CO2 ABG O2 Saturation ABG Base Excess FiO2 Sodium Potassium Chloride Carbon Dioxide Anion Gap BUN Creatinine Est GFR ( Amer) Est GFR (MDRD) Non-Af Glucose POC Glucose 223 H 228 H Calcium Chest X-Ray 06/08/19 04:25 IMPRESSION: Cardiomegaly. Lungs are clear Impression/RECOMMENDATION: 1. Bradycardia: Resolved the patient now on a low-dose of beta-omid. Will watch the patient for any undue bradycardia or bradycardia cardiac dysrhythmias. 2. Hypertension: Blood pressure well controlled. 3. History of recurrent UTIs. 4. Severe pulmonary hypertension: Hence continue the patient on DOMINIQUE inhibitor. See if he can start the patient on some sildenafil. 5. History of hypercapnic respiratory failure chronic. This is most likely secondary to patient's sleep apnea. Would recommend BiPAP therapy empirically. The patient would be recommended to have a sleep study as an outpatient. 6. At present no evidence of congestive heart failure [no evidence of right ventricular or left ventricular heart failure that is decompensated]. The patient is March 2019 echocardiogram shows low normal LV ejection fraction of 50%. And severe pulmonary hypertension. Medications reviewed. Medications and management plan discussed with attending physician Dr. Galdamez. Medical decision making is of high complexity. 40 minutes spent on this patient more than 50% of time spent in direct patient care. Will follow.
[2019-06-12] MEDS: CLONIDINE HCL 0.1 MG TABLET PO SCH (23:12)
[2019-06-12] MEDS: OXYCODONE HCL IR 5 MG TABLET PO PRN (23:13)
[2019-06-13] MEDS: ALPRAZOLAM 0.5 MG TABLET PO PRN (00:33)
[2019-06-13] MEDS: PANTOPRAZOLE SODIUM 20 MG TABLET.DR PO SCH (05:44)
[2019-06-13] MEDS: AMOXICILLIN TRIHYDRATE 500 MG CAPSULE PO SCH ×2 (05:51→13:11)
[2019-06-13] MEDS: ACETAMINOPHEN 325 MG TABLET PO PRN (06:57)
[2019-06-13] MEDS: INSULIN LISPRO 100 UNIT/ML 3 ML VIAL SUBCUT SCH ×2 (08:33→13:12)
[2019-06-13] MEDS: FLUCONAZOLE 100 MG TABLET PO SCH (09:12)
[2019-06-13] MEDS: FUROSEMIDE 40 MG TABLET PO SCH (09:13)
[2019-06-13] MEDS: LISINOPRIL 10 MG TABLET PO SCH (09:13)
[2019-06-13] MEDS: ENOXAPARIN SODIUM INJ 40 MG/0.4 ML DISP.SYRIN SUBCUT SCH (09:13)
[2019-06-13] MEDS: METOPROLOL TARTRATE 25 MG TABLET PO SCH (09:13)
[2019-06-13] MEDS: NYSTATIN CREAM 15 GM TP SCH (09:14)
--- NOTE | 2019-06-13 10:05 | PDOC TRANSFER SUMMARY ---
General - Admit/Disc Date/PCP Admission Date/Primary Care Provider: 06/08/19 07:52 OSIEL WOODS MD Discharge Date: 06/13/19 - Discharge Diagnosis (1) Bradycardia Is this a current diagnosis for this admission?: Yes Summary: Currently all lower the dose of the metoprolol and currently all stable seen by the cardiology and suggest that no need for any further evaluations (2) Recurrent urinary tract infection Is this a current diagnosis for this admission?: Yes Summary: Continues to amoxicillin for enterococcus (3) Bilateral lower extremity edema Is this a current diagnosis for this admission?: Yes Summary: Chronic lymphedema continues to elastic stocking (4) Congestive heart failure Is this a current diagnosis for this admission?: Yes Summary: According to the cardiology patient's EF is normal continues to Lasix because of the patient has some mild diastolic dysfunctions with the chronic lymphedema (5) Hypertension Is this a current diagnosis for this admission?: Yes Summary: Patient's was put on a low-dose of Beta-omid reduced to clonidine 1 tablet at night and also continues to lisinopril 40 mg p.o. daily (6) Ambulatory dysfunction Is this a current diagnosis for this admission?: Yes Summary: Patients get a benefit of the physical therapy (7) Anxiety disorder Is this a current diagnosis for this admission?: Yes Summary: Continues to PRN alprazolam Patients try all different medicines does not work and try to wean off from alprazolam send the patient still have a lot of shaking anxiety issues patient is taking a long time this medications with extensive discussed with the patient and the family about pros and cons of the medications patients prefer to take PRN medications (8) Candidiasis Is this a current diagnosis for this admission?: Yes Summary: Continues on nystatin and the Diflucan tablet for 5 days (9) COPD (chronic obstructive pulmonary disease) Is this a current diagnosis for this admission?: Yes Summary: Continues to PRN nebulizer treatments (10) Hypercapnic respiratory failure Is this a current diagnosis for this admission?: Yes Summary: Continues to CPAP at night and patients probably need outpatients follow with the Dr. Garcia's for a sleep study Patient seen by Dr. Garcia'bre pulmonary Hard time to wear the CPAP machine - Additional Information Resuscitation Status: Full Code Discharge Diet: Diabetic Prescriptions: Amoxicillin Trihydrate [Amoxil 500 mg Capsule] 500 mg PO Q8 #15 capsule Clonidine HCl [Catapres 0.1 mg Tablet] 0.1 mg PO QHS #30 tablet Fluconazole [Diflucan 100 mg Tablet] 100 mg PO DAILY #5 tablet Metoprolol Tartrate [Lopressor 25 mg Tablet] 25 mg PO Q12 #60 tablet Nystatin [Mycostatin Cream 15 gm] 1 applic TP BID #60 tube Acetaminophen [Tylenol 325 mg Tablet] 650 mg PO Q6HP PRN #60 tablet PRN Reason: Home Medications: Furosemide [Lasix 40 mg Tablet] 40 mg PO BID 06/08/19 Hum Insulin NPH/Reg Insulin Hm [Novolin 70-30 100 Unit/ml Vial] 0 unit SQ .SLIDING SCALE 06/08/19 Lisinopril [Prinivil 40 mg Tablet] 40 mg PO DAILY 06/08/19 Acetaminophen [Tylenol 325 mg Tablet] 650 mg PO Q6HP PRN #60 tablet 06/13/19 Alprazolam [Xanax 0.5 mg Tablet] 0.5 mg PO Q12 #60 06/13/19 Amoxicillin Trihydrate [Amoxil 500 mg Capsule] 500 mg PO Q8 #15 capsule 06/13/19 Clonidine HCl [Catapres 0.1 mg Tablet] 0.1 mg PO QHS #30 tablet 06/13/19 Fluconazole [Diflucan 100 mg Tablet] 100 mg PO DAILY #5 tablet 06/13/19 Metoprolol Tartrate [Lopressor 25 mg Tablet] 25 mg PO Q12 #60 tablet 06/13/19 Nystatin [Mycostatin Cream 15 gm] 1 applic TP BID #60 tube 06/13/19 History of Present Illness Admission Date/PCP: 06/08/19 07:52 OSIEL WOODS MD History of Present Illness: KODY RENDON is a 88 year old female Patient was admitting in the hospitals for the The dizziness and bradycardia Patient also found UTIOngoing hypercapnic respiratory failure Hospital Course Hospital Course: This 88-year-old female with the multiple medical problems recurrent hospital admissions due to the unable to walk much came to the emergency department with the weakness short of breath and leg edema patient admitting in the hospital She was giving the IV antibiotic for the UTIs and patient also have ongoing hypercapnic respiratory failure due to the underlying sleep apnea unable to wear the CPAP Patient seen by the cardiology due to the dizziness and bradycardia and patient's metoprolol 100 mg dose was reduced to 25 mg and bradycardia resolved resolved Pulmonary hypertension's due to the sleep apnea and patient seen by Dr. Garcia's pulmonary and put on a CPAP but patients unable to wear and try to encourage the patient and discussed with the daughter to wear the CPAP while patient was sleeping Patient's otherwise remained stable patient still need a physical therapy with the multiple comorbidity patients probably get a benefit to the rehab facility continues to use the CPAP fall precautions Follow outpatients Dr. Jefferson manager freelance and follow outpatient Dr. Garcia Very extensive discussion with the patient's daughter regarding the patient's current conditions Physical Exam Vital Signs: Temp Pulse Resp BP Pulse Ox 98.3 F 92 16 144/66 H 96 06/13/19 07:51 06/13/19 07:51 06/13/19 07:51 06/13/19 07:51 06/13/19 07:51 Intake & Output 06/12/19 06/13/19 06/14/19 06:59 06:59 06:59 Intake Total 480 200 Output Total 2900 100 Balance -2420 100 Weight 105 kg 109.7 kg General appearance: PRESENT: no acute distress, well-developed, well-nourished Head exam: PRESENT: atraumatic, normocephalic Eye exam: PRESENT: conjunctiva pink, EOMI, PERRLA. ABSENT: scleral icterus Ear exam: PRESENT: normal external ear exam Mouth exam: PRESENT: moist, tongue midline Neck exam: ABSENT: carotid bruit, JVD, lymphadenopathy, thyromegaly Respiratory exam: PRESENT: clear to auscultation genia. ABSENT: rales, rhonchi, wheezes Cardiovascular exam: PRESENT: RRR. ABSENT: diastolic murmur, rubs, systolic murmur Pulses: PRESENT: normal dorsalis pedis pul Vascular exam: PRESENT: normal capillary refill GI/Abdominal exam: PRESENT: normal bowel sounds, soft. ABSENT: distended, guarding, mass, organolmegaly, rebound, tenderness Rectal exam: PRESENT: deferred Extremities exam: PRESENT: full ROM, pedal edema. ABSENT: calf tenderness, clubbing Neurological exam: PRESENT: alert, awake, oriented to person, oriented to place, oriented to time, oriented to situation, CN II-XII grossly intact. ABSENT: motor sensory deficit Psychiatric exam: PRESENT: appropriate affect, normal mood. ABSENT: homicidal ideation, suicidal ideation Skin exam: PRESENT: dry, intact, warm. ABSENT: cyanosis, rash Results Laboratory Results: 06/12/19 04:31 06/12/19 04:31 06/12/19 13:10 Carbonic Acid 1.78 H HCO3/H2CO3 Ratio 22:1 ABG pH 7.44 ABG pCO2 59.3 H ABG pO2 71.1 L ABG HCO3 39.6 H ABG O2 Saturation 94.4 ABG Base Excess 12.9 FiO2 2L 06/08/19 04:50 Troponin I < 0.012 NT-Pro-B Natriuret Pep 725 H Impressions: Chest X-Ray 06/08/19 04:25 IMPRESSION: Cardiomegaly. Lungs are clear copyright 2011 [employer]- All Rights Reserved Transfer Plan - Time Spent with Patient Time spent with patient: Greater than 30 Minutes Qualifiers - * PATIENT BEING DISCHARGED WITH ANY OF THE FOLLOWING DIAGNOSIS: No VTE patient discharged on overlapping Therapy?: Yes Acute Heart Failure - Is this a Heart Failure Patient?: No Plan Time Spent: Greater than 30 Minutes - Discharge the patient's in the [facility] Discussed with the patient and the daughter on the bedside regarding the patient's current conditions needs to encourage to wear the CPAP machine at night Follow outpatients cardiology and Dr. Garcia pulmonary
--- NOTE | 2019-06-13 11:13 | PDOC CONSULTATION ---
Consultation Consult Date: 06/11/19 Attending physician:: OSIEL WOODS Provider Consulted: MARILY OLIVO Consult reason:: Dyspnea History of Present Illness Admission Date/PCP: 06/08/19 07:52 OSIEL WOODS MD History of Present Illness: KODY RENDON is a 88 year old female, was admitted for weakness and fatigue to the point where she was unable to move herself to transfer weight she denies shortness of breath at rest but admits to dyspnea on exertion occasional dry cough no hemoptysis PPD negative dates unknown no history of lung disease as a child or adolescent. She does have a history of congestive heart failure. She admits to [facility]] history of smoking approximately 1 year and states that she was around passive smoke as a child as well as an adult. She has no pets and no recent travel. She denies angina-like chest pain sleeps on 2-3 pillows, admits to occasional PND occasional nocturnal cough and frequent edema Past Medical History Cardiac Medical History: Reports: Congestive Heart Failure, Hyperlipidema, Hypertension - CONTROLLED Denies: Coronary Artery Disease, Myocardial Infarction, Heart Murmur Pulmonary Medical History: Denies: Asthma, Bronchitis, Chronic Obstructive Pulmonary Disease (COPD), Pneumonia, Tuberculosis Neurological Medical History: Denies: Seizures Endocrine Medical History: Reports: Diabetes Mellitus Type 2 GI Medical History: Reports: Gastroesophageal Reflux Disease Denies: Hepatitis, Hiatal Hernia Musculoskeltal Medical History: Reports: Arthritis Psychiatric Medical History: Denies: Depression Hematology: Denies: Anemia, Hemophilia, Sickle Cell Disease Past Surgical History Past Surgical History: Reports: Hysterectomy, Orthopedic Surgery - bilat knee replacement Denies: Amputation, Mastectomy, Pacemaker Social History Information Source: Patient, [facility] Records Smoking Status: Former Smoker Last Time Smoked: 1947 Passive smoke exposure as: Both Frequency of Alcohol Use: Rare Hx Recreational Drug Use: No Drugs: None Hx Prescription Drug Abuse: No Do you have pets?: No Have you had any respiratory illnesses as a child?: No Have you been exposed to any sick contacts recently?: No Have you had any recent respiratory illnesses?: No Have you travelled outside of [place] in the past 12 months?: No - Advance Directive Resuscitation Status: Full Code Family History Family History: Arthritis, CAD, COPD, CVA, DM, Hyperlipidemia, Hypertension Parental Family History Reviewed: Yes Children Family History Reviewed: Yes Sibling(s) Family History Reviewed.: Yes Medication/Allergy Home Medications: Furosemide [Lasix 40 mg Tablet] 40 mg PO BID 06/08/19 Hum Insulin NPH/Reg Insulin Hm [Novolin 70-30 100 Unit/ml Vial] 0 unit SQ .SLIDING SCALE 06/08/19 Lisinopril [Prinivil 40 mg Tablet] 40 mg PO DAILY 06/08/19 Acetaminophen [Tylenol 325 mg Tablet] 650 mg PO Q6HP PRN #60 tablet 06/13/19 Alprazolam [Xanax 0.5 mg Tablet] 0.5 mg PO Q12 #60 06/13/19 Amoxicillin Trihydrate [Amoxil 500 mg Capsule] 500 mg PO Q8 #15 capsule 06/13/19 Clonidine HCl [Catapres 0.1 mg Tablet] 0.1 mg PO QHS #30 tablet 06/13/19 Fluconazole [Diflucan 100 mg Tablet] 100 mg PO DAILY #5 tablet 06/13/19 Metoprolol Tartrate [Lopressor 25 mg Tablet] 25 mg PO Q12 #60 tablet 06/13/19 Nystatin [Mycostatin Cream 15 gm] 1 applic TP BID #60 tube 06/13/19 Allergies/Adverse Reactions: levofloxacin [From Levaquin] Allergy (Verified 03/07/19 10:59) Fever nitrofurantoin Allergy (Verified 03/07/19 10:59) Fever Review of Systems Constitutional: PRESENT: fatigue, weakness Ears: ABSENT: hearing changes Nose, Mouth, and Throat: ABSENT: mouth pain, sore throat Cardiovascular: PRESENT: dyspnea on exertion, edema. ABSENT: palpitations Respiratory: PRESENT: dyspnea. ABSENT: hemoptysis Gastrointestinal: ABSENT: abdominal pain, bloating, coffee ground emesis, constipation, dysphagia, heartburn, hematemesis, hematochezia Genitourinary: ABSENT: dysuria, hematuria Musculoskeletal: ABSENT: deformity Integumentary: ABSENT: pruritus, rash Neurological: ABSENT: abnormal movements, abnormal speech, confusion, convulsions, memory loss, numbness, paresthesias Psychiatric: ABSENT: hallucinations, homidical ideation, suicidal ideation Endocrine: ABSENT: cold intolerance, heat intolerance, polydipsia, polyuria Hematologic/Lymphatic: ABSENT: easy bruising, lymphadenopathy Allergic/Immunologic: ABSENT: seasonal rhinorrhea Physical Exam Vital Signs: Temp Pulse Resp BP Pulse Ox 98.2 F 72 20 123/62 91 L 06/11/19 03:03 06/11/19 07:00 06/11/19 03:03 06/11/19 03:03 06/11/19 03:03 Intake & Output 06/10/19 06/11/19 06/12/19 06:59 06:59 06:59 Intake Total 1970 1000 Output Total 5675 1800 Balance -3705 -800 Weight 109.7 kg 105.2 kg General appearance: PRESENT: no acute distress, cooperative, disheveled, morbid ly obese Head exam: PRESENT: atraumatic, normocephalic Eye exam: PRESENT: conjunctiva pale, EOMI. ABSENT: nystagmus Mouth exam: PRESENT: moist, neck supple, tongue midline Neck exam: ABSENT: carotid bruit, full ROM, JVD, lymphadenopathy, meningismus, tenderness, thyromegaly, tracheal deviation, tracheostomy, other Respiratory exam: PRESENT: decreased breath sounds, prolonged expiratory phas, rhonchi, symmetrical, unlabored. ABSENT: retraction, stridor, tachypnea Cardiovascular exam: PRESENT: RRR, +S1, +S2 Pulses: PRESENT: normal radial pulses GI/Abdominal exam: PRESENT: soft. ABSENT: guarding, mass, rebound, tenderness Extremities exam: PRESENT: +1 edema. ABSENT: calf tenderness, clubbing, joint swelling, tenderness Musculoskeletal exam: ABSENT: deformity, dislocation Neurological exam: PRESENT: alert, awake Psychiatric exam: PRESENT: appropriate affect Skin exam: PRESENT: dry, warm Results Laboratory Results: 06/10/19 04:48 06/11/19 06:59 06/11/19 06:59 Sodium 139.1 Potassium 3.5 L Chloride 94 L Carbon Dioxide 38 H Anion Gap 7 BUN 17 Creatinine 1.00 Est GFR ( Amer) > 60 Glucose 151 H Calcium 9.1 06/08/19 05:50 Clean Catch Midstream Urine Culture - Final Enterococcus Faecalis(Group D) 06/08/19 04:50 Troponin I < 0.012 NT-Pro-B Natriuret Pep 725 H Impressions: Chest X-Ray 06/08/19 04:25 IMPRESSION: Cardiomegaly. Lungs are clear copyright 2011 [employer]- All Rights Reserved Assessment & Plan - Diagnosis (1) COPD (chronic obstructive pulmonary disease) Qualifiers: Emphysema type: unspecified Is this a current diagnosis for this admission?: Yes Plan: hx of smoking is Very remote ;no bronchodialator tx needed: PFT's when stable (2) Bradycardia Is this a current diagnosis for this admission?: Yes Plan: per cardiology (3) Recurrent urinary tract infection Is this a current diagnosis for this admission?: Yes Plan: enterococus (4) Hypertension Qualifiers: Hypertension type: essential hypertension Qualified Code(s): I10 - Essential (primary) hypertension Is this a current diagnosis for this admission?: Yes Plan: stable (5) Pulmonary hypertension Is this a current diagnosis for this admission?: Yes Plan: needs R heart cath to doument and treat (6) Obesity hypoventilation syndrome Is this a current diagnosis for this admission?: Yes Plan: Will need NIPPV
[2019-06-13 13:26] VITALS: BP 112/59
--- NOTE | 2019-06-16 11:09 | PDOC PROGRESS REPORT ---
Subjective Progress Note for:: 06/13/19 Subjective:: i'm ready to go Reason For Visit: UTI,HYPOGLYCEMIA,BRADYCARDIA Physical Exam Vital Signs: Temp Pulse Resp BP Pulse Ox 98.3 F 92 16 144/66 H 96 06/13/19 07:51 06/13/19 07:51 06/13/19 07:51 06/13/19 07:51 06/13/19 07:51 Intake & Output 06/12/19 06/13/19 06/14/19 06:59 06:59 06:59 Intake Total 480 200 Output Total 2900 100 Balance -2420 100 Weight 105 kg 109.7 kg General appearance: PRESENT: no acute distress, disheveled, morbidly obese Head exam: PRESENT: atraumatic, normocephalic Eye exam: PRESENT: conjunctiva pale, EOMI. ABSENT: nystagmus Mouth exam: PRESENT: dry mucosa, neck supple, tongue midline Neck exam: ABSENT: carotid bruit, full ROM, JVD, lymphadenopathy, meningismus, tenderness, thyromegaly, tracheal deviation, tracheostomy, other Respiratory exam: PRESENT: decreased breath sounds, prolonged expiratory phas, rhonchi, unlabored. ABSENT: retraction, stridor, tachypnea Cardiovascular exam: PRESENT: RRR, +S1, +S2, tachycardia Pulses: PRESENT: normal radial pulses GI/Abdominal exam: PRESENT: soft. ABSENT: guarding, mass, rebound, tenderness Extremities exam: ABSENT: calf tenderness, clubbing, joint swelling Musculoskeletal exam: ABSENT: deformity, dislocation Neurological exam: PRESENT: awake Psychiatric exam: PRESENT: appropriate affect Skin exam: PRESENT: dry, warm Results Laboratory Results: 06/12/19 04:31 06/12/19 04:31 06/12/19 13:10 Carbonic Acid 1.78 H HCO3/H2CO3 Ratio 22:1 ABG pH 7.44 ABG pCO2 59.3 H ABG pO2 71.1 L ABG HCO3 39.6 H ABG O2 Saturation 94.4 ABG Base Excess 12.9 FiO2 2L 06/08/19 04:50 Troponin I < 0.012 NT-Pro-B Natriuret Pep 725 H Impressions: Chest X-Ray 06/08/19 04:25 IMPRESSION: Cardiomegaly. Lungs are clear copyright 2011 [employer]- All Rights Reserved Assessment & Plan - Diagnosis (1) COPD (chronic obstructive pulmonary disease) Qualifiers: Emphysema type: unspecified Is this a current diagnosis for this admission?: Yes Plan: hx of smoking is Very remote ;no bronchodialator tx needed: PFT's when stable (2) Bradycardia Is this a current diagnosis for this admission?: Yes Plan: per cardiology (3) Recurrent urinary tract infection Is this a current diagnosis for this admission?: Yes Plan: enterococus (4) Hypertension Qualifiers: Hypertension type: essential hypertension Qualified Code(s): I10 - Essential (primary) hypertension Is this a current diagnosis for this admission?: Yes Plan: stable will need r heart cath (5) Pulmonary hypertension Is this a current diagnosis for this admission?: Yes Plan: needs R heart cath to doument and treat
--- NOTE | 2019-06-16 11:10 | PDOC PROGRESS REPORT ---
Subjective Progress Note for:: 06/12/19 Subjective:: i'm ready to go Reason For Visit: UTI,HYPOGLYCEMIA,BRADYCARDIA Physical Exam Vital Signs: Temp Pulse Resp BP Pulse Ox 98.7 F 95 16 128/66 H 98 06/12/19 07:31 06/12/19 07:31 06/12/19 07:31 06/12/19 07:31 06/12/19 07:31 Intake & Output 06/11/19 06/12/19 06/13/19 06:59 06:59 06:59 Intake Total 1000 480 Output Total 1800 2900 Balance -800 -2420 Weight 105.2 kg 105 kg General appearance: PRESENT: no acute distress, cooperative, disheveled, morbidly obese Head exam: PRESENT: atraumatic, normocephalic Eye exam: PRESENT: conjunctiva pale, EOMI, nystagmus Mouth exam: PRESENT: dry mucosa, neck supple, tongue midline Neck exam: ABSENT: carotid bruit, full ROM, JVD, lymphadenopathy, meningismus, tenderness, thyromegaly, tracheal deviation, tracheostomy, other Respiratory exam: PRESENT: decreased breath sounds, prolonged expiratory phas, rhonchi, symmetrical, unlabored. ABSENT: retraction, stridor, tachypnea Cardiovascular exam: PRESENT: RRR, +S1, +S2 Pulses: PRESENT: normal radial pulses GI/Abdominal exam: PRESENT: soft. ABSENT: distended, guarding, mass, rebound, tenderness Extremities exam: ABSENT: calf tenderness, clubbing, joint swelling Musculoskeletal exam: ABSENT: deformity, dislocation Neurological exam: PRESENT: alert, awake Psychiatric exam: PRESENT: appropriate affect Skin exam: PRESENT: dry, warm Results Laboratory Results: 06/12/19 04:31 06/12/19 04:31 06/11/19 06/12/19 06/12/19 10:55 04:31 04:31 WBC 9.0 RBC 4.12 Hgb 12.4 Hct 37.8 MCV 92 MCH 30.1 MCHC 32.8 RDW 16.2 H Plt Count 97 L Seg Neutrophils % 67.9 Carbonic Acid 1.54 H HCO3/H2CO3 Ratio 24:1 ABG pH 7.48 H ABG pCO2 51.0 H ABG pO2 85.8 ABG HCO3 37.3 H ABG O2 Saturation 96.9 ABG Base Excess 11.9 FiO2 2L Sodium 139.6 Potassium 3.6 Chloride 94 L Carbon Dioxide 39 H Anion Gap 7 BUN 20 Creatinine 1.23 Est GFR ( Amer) 50 L Glucose 146 H Calcium 8.8 06/12/19 06:00 WBC RBC Hgb Hct MCV MCH MCHC RDW Plt Count Seg Neutrophils % Carbonic Acid 1.83 H HCO3/H2CO3 Ratio 21:1 ABG pH 7.42 ABG pCO2 60.9 H ABG pO2 81.1 ABG HCO3 38.6 H ABG O2 Saturation 95.8 ABG Base Excess 11.7 FiO2 ROOM AIR Sodium Potassium Chloride Carbon Dioxide Anion Gap BUN Creatinine Est GFR ( Amer) Glucose Calcium 06/08/19 04:50 Troponin I < 0.012 NT-Pro-B Natriuret Pep 725 H Impressions: Chest X-Ray 06/08/19 04:25 IMPRESSION: Cardiomegaly. Lungs are clear copyright 2011 [email or web address]- All Rights Reserved Assessment & Plan - Diagnosis (1) COPD (chronic obstructive pulmonary disease) Qualifiers: Emphysema type: unspecified Is this a current diagnosis for this admission?: Yes Plan: hx of smoking is Very remote ;no bronchodialator tx needed: PFT's when stable (2) Bradycardia Is this a current diagnosis for this admission?: Yes Plan: per cardiology (3) Recurrent urinary tract infection Is this a current diagnosis for this admission?: Yes Plan: enterococus (4) Hypertension Qualifiers: Hypertension type: essential hypertension Qualified Code(s): I10 - Essential (primary) hypertension Is this a current diagnosis for this admission?: Yes Plan: stable will need r heart cath (5) Pulmonary hypertension Is this a current diagnosis for this admission?: Yes Plan: needs R heart cath to doument and treat
== END 2019-06-13 14:55 | DRG 308 ==
LOC: ER 03:14 → EH 07:52 → 3N 08:34
PROVIDERS: ADMIT Family Medicine; ATTEND Family Medicine
DX: R00.1 Bradycardia, unspecified (principal); J96.02 Acute respiratory failure with hypercapnia; N39.0 Urinary tract infection, site not specified; I50.32 Chronic diastolic (congestive) heart failure; E66.2 Morbid (severe) obesity with alveolar hypoventilation; E11.649 Type 2 diabetes mellitus with hypoglycemia without coma; I11.0 Hypertensive heart disease with heart failure; E78.00 Pure hypercholesterolemia, unspecified; K21.9 Gastro-esophageal reflux disease without esophagitis; I87.2 Venous insufficiency (chronic) (peripheral); M19.90 Unspecified osteoarthritis, unspecified site; B95.2 Enterococcus as the cause of diseases classified elsewhere; I27.20 Pulmonary hypertension, unspecified; F41.1 Generalized anxiety disorder; Z96.653 Presence of artificial knee joint, bilateral; Z88.1 Allergy status to other antibiotic agents; G89.29 Other chronic pain; J44.9 Chronic obstructive pulmonary disease, unspecified; M54.9 Dorsalgia, unspecified; E78.5 Hyperlipidemia, unspecified; I89.0 Lymphedema, not elsewhere classified; B37.9 Candidiasis, unspecified; T44.7X5A Adverse effect of beta-adrenoreceptor antagonists, initial encounter; I44.0 Atrioventricular block, first degree; Z88.8 Allergy status to other drugs, medicaments and biological substances; Z87.891 Personal history of nicotine dependence; Z82.3 Family history of stroke; Z83.3 Family history of diabetes mellitus; Z90.710 Acquired absence of both cervix and uterus; Z82.49 Family history of ischemic heart disease and other diseases of the circulatory system; Z83.438 Family history of other disorder of lipoprotein metabolism and other lipidemia; Z79.4 Long term (current) use of insulin; Z79.899 Other long term (current) drug therapy
CPT/HCPCS: 36415; 51701; 71045; 80048; 80053; 81001; 82803; 82962; 83735; 83880; 84484; 85025; 87086; 87088; 87186; 93005; 93010; 94660; 96365; 99285; J0696; J1815; J3490; J7060

== ENCOUNTER → 2020-06-28 | Outpatient (CLI) | payer MEDICARE, OTHER ==
--- NOTE | 2020-06-28 17:47 | RADIOLOGY REPORT (SQ) ---
EXAM DESCRIPTION: CHEST PA/LATERAL IMAGES COMPLETED DATE/TIME: 06/28/2020 5:17 pm REASON FOR STUDY: COUGH COMPARISON: 06/08/2019 EXAM PARAMETERS: NUMBER OF VIEWS: two views TECHNIQUE: Digital Frontal and Lateral radiographic views of the chest acquired. RADIATION DOSE: NA LIMITATIONS: none FINDINGS: LUNGS AND PLEURA: Pulmonary vascular congestion. No infiltrate or effusion. No mass. MEDIASTINUM AND HILAR STRUCTURES: No masses or contour abnormalities. HEART AND VASCULAR STRUCTURES: Cardiomegaly. No pulmonary edema. BONES: No acute findings. HARDWARE: None in the chest. OTHER: No other significant finding. IMPRESSION: Cardiomegaly without pulmonary edema. TECHNICAL DOCUMENTATION: JOB ID: [id number] 2010 [employer]- All Rights Reserved Reading location - IP/workstation name: [email or web address]
== END ==
LOC: OD 16:50
PROVIDERS: ATTEND Family Medicine
DX: R05 Cough (principal)
CPT/HCPCS: 71046

== ENCOUNTER → 2020-07-16 | Outpatient (CLI) | payer MEDICARE, OTHER ==
--- NOTE | 2020-07-16 18:05 | RADIOLOGY REPORT (SQ) ---
EXAM DESCRIPTION: CT HEAD WITHOUT IMAGES COMPLETED DATE/TIME: 07/16/2020 5:30 pm REASON FOR STUDY: (R25.1)TREMOR, UNSPECIFIED R25.1 TREMOR, UNSPECIFIED COMPARISON: None. TECHNIQUE: Axial images acquired through the brain without intravenous contrast. Images reviewed wi th bone, brain and subdural windows. Images stored on PACS. All CT scanners at this facility use dose modulation, iterative reconstruction, and/or weight based d osing when appropriate to reduce radiation dose to as low as reasonably achievable (ALARA). [facility]: Dose Right [facility]: CareDose [facility]: Dose Right [facility]: Teradose 4D [facility]: MetaMaterials RADIATION DOSE: CT Rad equipment meets quality standard of care and radiation dose reduction techniq ues were employed. CTDIvol: 53.2 mGy. DLP: 911 mGy-cm.mGy. LIMITATIONS: None. FINDINGS: VENTRICLES: Prominent. CEREBRUM: No masses. No hemorrhage. No midline shift. Areas of low density in the white matter mos t likely due to chronic micro-vascular ischemic change. No evidence for acute large vessel infarctio n. CEREBELLUM: No masses. No hemorrhage. No alteration of density. No evidence for acute infarction. EXTRAAXIAL SPACES: Age-related involutional change. No fluid collections. No masses. ORBITS AND GLOBE: No intra- or extraconal masses. Normal contour of globe without masses. CALVARIUM: No fracture. PARANASAL SINUSES: No fluid or mucosal thickening. SOFT TISSUES: No mass or hematoma. OTHER: No other significant finding. IMPRESSION: CHRONIC CHANGES OF ATROPHY AND MICROVASCULAR ISCHEMIA. EVIDENCE OF ACUTE STROKE: NO. TECHNICAL DOCUMENTATION: JOB ID: [id number] Quality ID # [id number]: Final reports with documentation of one or more dose reduction techniques (e.g., Au tomated exposure control, adjustment of the mA and/or kV according to patient size, use of iterative reconstruction technique) 2010 [employer]- All Rights Reserved Reading location - IP/workstation name: [email or web address]
== END ==
LOC: RAD 16:52
PROVIDERS: ATTEND Physician Assistant
DX: R25.1 Tremor, unspecified (principal)
CPT/HCPCS: 70450